=== PATIENT | male | born 1965 | race Caucasian/White ===

== ENCOUNTER 2016-03-22 22:23 | Inpatient (IN) | payer OTHER, MEDICARE ==
[~2016-03-22] VITALS: Ht 170.2 cm; Wt 107.6 kg
[~2016-03-22 22:23] MED LIST: ABILIFY 5MG5 MG PO; ADVAIR DISKUS 21 DSK PO; BUPRENORPHINE-N1 TAB SL; CLEOCIN HCL300 M1 PO; EFFEXOR XR75 M1 PO; EFFEXOR37.5 MG PO; FENOFIBRATE145 M1 PO; HARVONI 90-4001 EACH PO; IBUPROFEN400 M1 PO; JANUVIA 100MG100 MG PO; LATUDA40 MG PO; LEVEMIR 10100 UNITS/ SC; LEVEMIR FL100 UNIT/1 SC; LEVEMIR FL300 UNITS/ SC; LEVEMIR100 U/ML SC; LEVEMIR100 UNIT/1 SC; LISINOPRIL20 M1 PO; LISINOPRIL40 MG PO; METFORMIN HCL500 MG PO; METOPROLOL SUC100 M2 PO; MODAFINIL100 MG PO; MODAFINIL200 MG PO; NOVOLOG 10300 UNITS/ SC; NOVOLOG100 U/ML SC; NOVOLOG100 UNIT/2 SC; PROAIR HFA0.09 MG/Ac PO; PROBIOTIC1 EACH PO; PROVIGIL100 M1 PO; SUBOXONE 12 MG1 EACH SL; SUBOXONE 8 MG-2 MG S PO; SUBOXONE 8 MG-21 FIL PO; SYMBICORT 160/41 PUF INH; TAMIFLU 75MG75 MG PO; TRAMADOL50 MG PO; VENLAFAXINE HC150 MG PO; VENLAFAXINE HY150 MG PO; VIBRAMYCIN100 MG PO; ZIPRASIDONE HCL40 MG PO
--- NOTE | 2016-03-22 23:17 | ED PSYCHIATRIC COMPLAINT ---
See Addendum History of Present Illness General Chief Complaint: Psychiatric Related Complaint Stated Complaint: PARANOID Source: patient, old records Exam Limitations: no limitations Vital Signs & Intake/Output Vital Signs & Intake/Output Vital Signs Date Time Temp Pulse Resp B/P Pulse O2 O2 Flow FiO2 Ox Delivery Rate 03/24 0720 98.1 74 18 127/79 98 Room Air 03/24 0010 98.1 76 18 113/70 98 Room Air 03/23 2046 96.1 76 20 124/70 97 Room Air 03/23 1819 96.4 85 20 126/77 96 Room Air 03/23 1532 97.0 90 16 146/88 03/23 1532 97.0 90 16 146/88 03/23 1502 97.0 90 16 146/88 97 Room Air 03/23 1136 96.4 113 16 164/102 94 Room Air 03/23 0913 98.1 82 18 120/70 98 Room Air ED Intake and Output 03/24 0000 03/23 1200 Intake Total 2000 Output Total Balance 2000 Intake, IV 1999 Allergies Coded Allergies: Penicillins (Severe, ANAPHYLAXIS 09/25/15) peanut (Severe, ANAPHYLAXIS 09/25/15) Sulfa (Sulfonamide Antibiotics) (Intermediate, ANAPHYLAXIS 09/25/15) hydromorphone (From DILAUDID) (Intermediate, BODY TURNS RED AND ITCHY 09/25/15) lamotrigine (From LAMICTAL) (RASH 09/25/15) Reconcile Medications Aripiprazole (Abilify) 5 MG TAB 5 MG PO 0800,2200 clarify racing thoughts FENOFIBRATE NANOCRYSTALLIZED (Fenofibrate) 145 MG TABLET 1 TAB PO DAILY CHOLESTEROL (Reported) Insulin Aspart (Novolog) 100 UNIT/1 ML VIAL 0 UNITS SC TIDAC/HS diabetes Blood sugar levels--Insulin units 80-150mg/dl--18 units 151-200 MG/DL--20 units 201-250 MG/DL--22 units 251-300 MG/DL--24 units 301-350 MG/DL--26 units 351-400 MG/DL--28 units More than 400 MG/DL--28 units-please call M.D. immediately. Bedtime insulin scale 80-150 MG/DL-no insulin 151-200 MG/DL--no insulin 201-250 MG/DL--no insulin 251-300 MG/DL--4 units 301-350 MG/DL--5 units 351-400 MG/DL--6 units Lisinopril 20 MG TABLET 1 TAB PO DAILY BP (Reported) Metoprolol Succinate 100 MG TAB.ER.24H 1 TAB PO DAILY BP (Reported) Venlafaxine HCl (Venlafaxine HCl ER) 150 MG CAP.ER.24H 2 CAP PO DAILY MENTAL HEALTH (Reported) Triage Nurses Notes Reviewed? yes HPI: History of present to the emergency department with increasing paranoia. Patient states he does not take any medications. The patient denies any suicidal or homicidal ideations. Patient denies hearing any voices. Patient states that he called the FBI today to see if any warrants out for him and when he turned around the Police Department including major case in under cover detectives were there and then it quickly disappeared. Patient is also seen the same car drive past multiple times. The patient presented to the emergency room and then it took him approximately 6 hours before he was ready to sign in. Patient states that he had it to make sure that nobody was tailing him before he felt comfortable signing in. (JANY POWELL,PASCALE Vora) Past History Travel History Traveled to [place] past 21 day No Medical History Any Pertinent Medical History? 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 No (JANY POWELL,PASCALE Vora) Review of Systems Review of Systems Constitutional: Reports: no symptoms. EENTM: Reports: no symptoms. Respiratory: Reports: no symptoms. Cardiovascular: Reports: no symptoms. GI: Reports: no symptoms. Genitourinary: Reports: no symptoms. Musculoskeletal: Reports: no symptoms. Skin: Reports: no symptoms. Neurological/Psychological: Reports: see HPI. Hematologic/Endocrine: Reports: no symptoms. Immunologic/Allergic: Reports: no symptoms. All Other Systems: Reviewed and Negative (JANY POWELL,PASCALE Vora) Physical Exam Physical Exam General Appearance: well developed/nourished, mild distress Head: atraumatic Eyes: Bilateral: PERRL, EOMI. Ears, Nose, Throat: normal pharynx, normal ENT inspection, hearing grossly normal Neck: normal inspection, supple Respiratory: normal breath sounds Cardiovascular: regular rate/rhythm Gastrointestinal: soft, non-tender Extremities: normal range of motion Neurological/Psychiatric: no motor/sensory deficits, awake, alert, oriented x 3 Appearance/Memory/Insight: appropriate appearance Behavoir/Eye Contact/Speech: cooperative, normal speech, good eye contact Thoughts/Hallucinations: paranoid Skin: intact, normal color, warm/dry SAD PERSONS Done? CRISIS CONSULT OBTAINED (JANY POWELL,PASCALE Vora) Progress Differential Diagnosis: drug intoxication, drug overdose, drug withdrawal, electrolyte abnormality Plan of Care: Orders Procedure Date/time Status Admit to inpatient psych 03/24 0811 Active URINALYSIS 03/24 0811 Active BASIC METABOLIC PANEL 03/23 1415 Complete ACETONE 03/23 1415 Complete Continuous Observation Monitor 03/23 0700 Active Current Medications Sig/Nirali Start time Last Medication Dose Stop Time Status Admin Buprenorphine/ 2 TAB 0800 03/24 0800 UNVr Naloxone (Suboxone) Ibuprofen 600 MG Q6P PRN 03/23 1915 UNVr (Motrin) Laboratory Tests 03/23/16 1515: Anion Gap 7, Estimated GFR > 60, BUN/Creatinine Ratio 45.7 H, Glucose 294 H, Calcium 8.5, Acetone Level NEGATIVE Hand-Off Endorsed To: MAGO ORTEGA MD Endorsed Time: 0700 Pending: consult (JANY POWELL,PASCALE Vora) Comments: To be hospitalized [facility] (JB POWELL,SILVIA) Departure Departure Disposition: STILL A PATIENT Condition: Stable Clinical Impression Primary Impression: Paranoia Referrals: ISAI MD,DAWNA M. (PCP/Family) Departure Forms: Customer Survey General Discharge Information (JANY POWELL,PASCALE Vora) Psych Admission Note Psychiatric Admission: I have seen and evaluated LISANDRO ENGLAND. I have also reviewed all the pertinent lab results and diagnostic results. LISANDRO ENGLAND will be admitted to our inpatient Psychiatric unit for treatment and care of undifferentiated schizophrenia (JB POWELL,SILVIA)
--- NOTE | 2016-03-22 23:42 | NUR ---
PT WALKED INTO ER FOR HALUCINATIONS AND PARANOIA FOR 4 DAYS. PT STATES HE HAS NOT BEEN ABLE TO SLEEP. PT REFUSING TO COME INTO ER STATING "THEY COULD BE IN THERE" DR CARMICHAEL SPEAKING WITH PT ABOUT BEING ASSESS IN A ROOM. PT ENDED UP REFUSING AND WALKING OUT THE FRONT DOOR. DARIANA GRIJALVA CALLED TO HELP TALK PT BACK INTO ER. DARIANA GRIJALVA WALKED PT BACK THROUGH AMBULANCE BAY INTO 14. PT STILL VERY PARANOID, KEMAR JONES ATTEMPTING TO CREATE A REPOR WITH PT. PT DENIES DRUGS, DENIES ETOH. PT DENIES SI/HI
--- NOTE | 2016-03-23 00:37 | NUR ---
APPRECIATED TRIAGE NOTE, PT HAVING A LOT OF PARANOID THOUGHTS. PER PT, "I CANT TELL WHATS REALITY AND WHAT ISNT, IM SORRY IF IM BOTHERING YOU GUYS, ITS VERY DIFFICULT WITH MY MENTAL STATE. I KNOW YOU GUYS JUST WANT ME TO FALL ASLEEP." PT WAS ABLE TO MEDICATED WITH 2MG ATIVAN, ANOTHER 2MG ATIVAN 45 MINUTES LATER AND 60MG OF TORADOL. BUT PT HAD TO MAKE SURE THAT VIALS WERE UNOPENED AND MEDICATIONS WERE WHAT I TOLD THEM TO BE. PT DECLINED BENADRYL, AND SAID THAT HE FEELS BADLY FOR TAKING UP SO MUCH OF OUR TIME.
--- NOTE | 2016-03-23 00:40 | NUR ---
PT REFUSING VITALS AT THIS TIME. PT EDUCATED ON THE IMPORTANCE OF OBTAINING VITALS FOR PT SAFETY. PT CONTINUES TO REFUSE AT THIS TIME. PT AGITATED AT THIS TIME.
--- NOTE | 2016-03-23 01:06 | NUR ---
URINE TRIO SENT TO LAB, PT CURRENTLY SLEEPING ON STRETCHER, BILATERAL CHEST RISE AND FALL NOTED, SITTER AT BEDSIDE FOR SAFETY, NAD.
--- NOTE | 2016-03-23 01:45 | NUR ---
BLOOD DRAWN AND SENT TO LAB BY THIS RN -SST,BLUE,LAV,ALVAREZ
[2016-03-23 01:57] LABS: ABSOLUTE BASOPHIL COUNT 0 /CUMM (0.0-0.2); ABSOLUTE EOSINOPHIL COUNT 0.1 /CUMM (0.0-0.7); ABSOLUTE GRANULOCYTE CT 5.6 /CUMM (1.4-6.5); ABSOLUTE LYMPH COUNT 2.7 /CUMM (1.2-3.4); ABSOLUTE MONOCYTE COUNT 0.8 /CUMM (0.10-0.60); BASOPHIL % 0.3 % (0.0-2.0); EOSINOPHIL % 0.9 % (0-5); GRANULOCYTE % 60.6 % (42.2-75.2); HEMATOCRIT 36.3 % (42-52); MEAN CORPUSCULAR HGB CONC 34.9 G/DL (33.0-37.0); MEAN CORPUSCULAR VOLUME 91.8 FL (80.0-94.0); MEAN PLATELET VOLUME 11.9 FL (7.4-10.4); PLATELET COUNT 91 /CUMM (130-400); RED BLOOD CELL CT 3.95 /CUMM (4.70-6.10); WHITE BLOOD CELL COUNT 9.2 /CUMM (4.8-10.8)
--- NOTE | 2016-03-23 02:46 | NUR ---
PT SLEEPING AT THIS TIME, BILATERAL CHEST RISE AND FALL NOTED, RR 18, NO DISTRESS NOTED, SITTER AT BEDSIDE FOR SAFETY.
--- NOTE | 2016-03-23 04:06 | NUR ---
PT SLEEPING AT THIS TIME, BILATER CHEST RISE AND FALL, NO DISTRESS NOTED, SITTER AT BEDSIDE FOR SAFETY.
--- NOTE | 2016-03-23 06:10 | NUR ---
PT SLEEPING AT THIS TIME, NO DISTRESS NOTED, SITTER AT BEDSIDE FOR SAFETY
--- NOTE | 2016-03-23 07:08 | NUR ---
ASSUMED CARE AT THIS TIME, PT AWAKE FOR THIS NURSE , BUT NOTED TO BE FALLING ASLEEP, "STATES THAT HE HAS NOT SLEPT IN 5 DAYS AND THAT HE CAN'T STAY AWAKE. FOOD TRAY PROVIDED AND PT ENCOURAGED TO TRY TO STAY AWAKE TO EAT AT THIS TIME.
--- NOTE | 2016-03-23 07:29 | NUR ---
SW attempted to evaluate the patient, however the patient appeared to be too lethargic to participate in the evalution. SW will attempt to evaluate the patient later this morning.
--- NOTE | 2016-03-23 09:09 | NUR ---
PT AWAKE TO VERBAL STIMULI, COMPLAINS OF FEELING COLD , EXTRA BLANKETS PROVIDED PT NOTED TO FALL BACK TO SLEEP AFTER THIS NURSE FINISHED TALKING WITH PT.
--- NOTE | 2016-03-23 10:39 | NUR ---
SW attempted to evaluate the patient, however he continues to present too lethargic to participate in the evaluation. SW will attempt to evaluate this afternoon.
--- NOTE | 2016-03-23 11:25 | NUR ---
PT'S LUNCH TRAY DELIVERED. PT EATING LUNCH.
--- NOTE | 2016-03-23 12:59 | NUR ---
PT ASLEEP AT THIS TIME. RESPIRATIONS EQUAL AND UNLABORED. SITTER AT DOOR.
--- NOTE | 2016-03-23 13:39 | ED PSYCH CRISIS CONSULTATION ---
See Addendum Crisis Consult Basic Assessment Date of Consult: 03/23/16 Responsible Person/Accompanied By: None Insurance Authorization: Insurance #1: Insurance name: MEDICARE A BEHAVIORAL HE[employer] Phone number: Policy number: [id number] Group number: Authorization number: ED Provider: Patient's ED Provider: JANY POWELL,PASCALE Vora Primary Care Physician: Patient's PCP: DAWNA ALEX MD PCP's Current Psychiatrist: [facility] in [place] Chief Complaint: Psychiatric Related Complaint Patient's Quote: "Not sleeping for 4 days and thinking people are after me." Present Illness: The patient is a 50 year old , male, self presenting to the ED, with increased paranoia, auditory hallucinations and visual hallucinations. Of note, he presented to the ED and left, as he was too paranoid to enter a treatment room. He required that the Police Department be called and to walk him back into the ED. He presented cooperative, but extremely lethargic during his evaluation. He reports that his paranoia has increased lately and he has been feeling as though, people are following him. He notes that he has seen cars following him and heard police radios, noting he did anonymously call the "FBI, " to inform them that people were following him. He does have a long history of mental health issues and has been diagnosed with Schizoaffective disorder, requiring 10+ psychiatric admissions to [facility]. He has a history of Heroin abuse, however could not elaborate on specifics of use, except to say he is clean and on Suboxone at the [facility]. SW spoke to the [facility]( [phone]), who confirm that he does receive treatment there, is on Suboxone and does see their psychiatrist. Of note, his tox screen is negative. He is currently residing in a sober living house, which he likes and where he does feels safe. He hesitantly denied feeling suicidal or homicidal, however does have a history of reporting both. He had difficulty participating in the evaluation, reporting hallucinations during the evaluation and states "that his head is hazy," and he feels as though "it is all a dream." The patient reports that he is not sure that he needs to be admitted at this time, given he is "not that depressed." Patient's Address: [address] [place] [address] Other Phone Number: Who Do You Live With? Patient/Self Family/Informants Interviewed: SW attempted to contact his son, Diego Carlin ( [phone]), however there was no answer and a message was left. Allergies - Coded Allergies: Penicillins (Severe, ANAPHYLAXIS 09/25/15) peanut (Severe, ANAPHYLAXIS 09/25/15) Sulfa (Sulfonamide Antibiotics) (Intermediate, ANAPHYLAXIS 09/25/15) hydromorphone (From DILAUDID) (Intermediate, BODY TURNS RED AND ITCHY 09/25/15) lamotrigine (From LAMICTAL) (RASH 09/25/15) Current Medications - Scheduled Medications Aripiprazole (Abilify) 5 MG TAB 5 MG PO 0800,2200 clarify racing thoughts 14 Days Prescribed by MATTHIAS POWELL,PARKER Dhillon on 05/19/15 FENOFIBRATE NANOCRYSTALLIZED (Fenofibrate) 145 MG TABLET 1 TAB PO DAILY CHOLESTEROL #90 (Reported) Entered as Reported by TIFFANIE CHAPARRO on 07/08/13 1423 Insulin Aspart (Novolog) 100 UNIT/1 ML VIAL 0 UNITS SC TIDAC/HS diabetes 30 Days Prescribed by ARNIE ESCUDERO on 07/18/15 Lisinopril 20 MG TABLET 1 TAB PO DAILY BP #90 (Reported) Entered as Reported by MERCEDES SANCHEZ on 09/20/15 1438 Metoprolol Succinate 100 MG TAB.ER.24H 1 TAB PO DAILY BP #180 (Reported) Entered as Reported by TIFFANIE CHAPARRO on 07/08/13 1419 Venlafaxine HCl (Venlafaxine HCl ER) 150 MG CAP.ER.24H 2 CAP PO DAILY MENTAL HEALTH #60 (Reported) Entered as Reported by MERCEDES SANCHEZ on 09/20/15 1350 Laboratory Results: Laboratory Tests 03/23/16 0139: Anion Gap 10, Estimated GFR > 60, BUN/Creatinine Ratio 41.4 H, Glucose 211 H, Calcium 9.0, Total Bilirubin 1.9 H, AST 173 H, ALT 241 H, Alkaline Phosphatase 81, Total Protein 7.0, Albumin 3.7, Globulin 3.3, Albumin/Globulin Ratio 1.1, CBC w Diff NO MAN DIFF REQ, RBC 3.95 L, MCV 91.8, MCH 32.0 H, RDW 14.0, MPV 11.9 H, Gran % 60.6, Lymphocytes % 29.8, Monocytes % 8.4, Eosinophils % 0.9, Basophils % 0.3, Absolute Granulocytes 5.6, Absolute Lymphocytes 2.7, Absolute Monocytes 0.8 H, Absolute Eosinophils 0.1, Absolute Basophils 0, PUBS MCHC 34.9, Serum Alcohol < 10.0 03/23/16 0105: Urine Opiates Screen < 100.00, Methadone Screen 63, Barbiturate Screen < 60, Ur Phencyclidine Scrn 11.30, Amphetamines Screen < 100, U Benzodiazepines Scrn 116, Urine Cocaine Screen < 50, Urine Cannabis Screen < 5.00 (CLEMENTINA JOLLY,ESSIE) Addendum Addendum Crisis re-assessed pt. he remains drowsy. He reports he hasn't slept in four days and he has never experienced this level of paranoid thinking before. He reports he was scared and that his mind is still cloudy. Pt remains drowsy and keeps closing eyes during conversation. Plan for pt to remain o/n in ED and re- evaluated by crisis in the morning. 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 Physical Limitations (Interventions): The patient has multiple medical issues Psychiatric Treatment History Psych Treatment Psychiatric Treatment Yes Inpatient Treatment Yes Outpatient Treatment Yes Location of Treatment [facility] Reason for Treatment Schizoaffective Disorder, Opioid abuse [place]ates of [place] with the last admission in - current with [facility] Response to Treatment The patient has had little stability of symptoms, despite having multiple hospitalizations. Diagnosis by History: Schizoaffective D/O, depressed type Opiate Use D/O, in early remission Substance Use/Abuse History Drug Use/Abuse Substances Used/Abused Yes Substance Used/Abused Heroin First Use Unclear Last Used Unclear How much used/taken Unclear How often Unclear For how long Unclear Route of use Unclear Substance Abuse Treatment Substance Abuse Treatment Past Substance Abuse TX Yes Inpatient Treatment Yes Outpatient Treatment Yes Location of Treatment [facility] Reason for Treatment Opioid Use Disorder Dates of Treatment Current with [facility] Response to Treatment The patient states that he has been able to maintain his sobriety. Comments: The patient was too lethargic to elaborate on specifics of drug use history and treatment. (ESSIE MCRAE LCSW) Current Mental Status Mental Status Orientation: Confused Affect: Flat Speech: Mumbled (Very lethargic) Neuro-vegetative: Unclear, the patient was too lethargic to elaborate Appearance Appearance- Dress/Hygiene: The patient was sitting in bed, in hospital attire and falling alseep during multiple evaluation attempts. The patients eyes were closed for most of the evaluation. Behaviors Thought Process: Disorganized Thought Content: Auditory Hallucinations, Paranoid, Visual Hallucinations Memory: WNL Insight: Fair (Pt. had insight into Paranoia) SI/HI Risk Assessment Past Suicidal Ideation/Attempts Yes Current Suicidal Ideation/Att No (Denied hesitantly) Past Homicidal Ideation/Att: Yes Current Homicidal Ideation/Attempts No (Denied hesitantly) Degree of Intent: None Danger To: Unclear Gravely Disabled: The patient is currently having hallucinations and paranoia. He is also very lethargic and "hazy," having difficulty participating in the eval. Risk Factors: history of suicide atmpts, substance abuse, poor impulse control, male, limited support Lethality Ratin PTSD Checklist PTSD Done? pt unable to participate (Too lethargic) ED Management Sitter: Yes Restraints: No (ESSIE MCRAE LCSW) DSM5/PS Stressors/Medical Prob Diagnosis' (DSM 5, Stressors, Medical): F29 Unspecified Schizophrenia Spectrum and Other Psychotic Disorder F11.99 Unspecified Opioid-Related Disorder Current GAF: 25 Comments: N/A (ESSIE MCRAE LCSW) Departure Disposition Psych Medical Clearance Date: 03/23/16 Medically Cleared at: 0700 Time Started: 1315 Time Ended: 1400 Psychiatrist Consulted: Melany Rodriguez MD Date Disposition Established: 03/23/16 Time Disposition Established: 0300 Plan for Disposition - Modality: Hold over for reassessment in the AM Facility: To be determined Contact: N/A Telephone: N/A Rationale for Disposition: The patient presents with paranoia, visual hallucinations and auditory hallucinations. He presented confused and lethargic during the evaluation. He hesitantly denied feeling suicidal or homicidal. Case discussed with Dr. Rodriguez and she will hold the patient overnight, in the ED, for reassessment in the AM. Additional Instructions: N/A Referrals ISAI POWELL,DAWNA Huitron (PCP/Family) (ESSIE MCRAE LCSW)
--- NOTE | 2016-03-23 13:39 | NUR ---
PT AWAKE AND ALERT , COMPLAINS OF CRAMPS IN HIS LEGS, PT PROVIDED WITH WATER AND ALSO MEDICATED WITH MOTRIN PER ORDER, CRISIS AT BEDSIDE TO SPEAK WITH PT
--- NOTE | 2016-03-23 14:11 | NUR ---
CRISIS SW REPORTED PT SAID HIS HEAD WAS "FUZZY" AND THAT HE WAS NOT UNDERSTANDING WHAT SHE WAS SAYING TO HIM. BSG = 371. PT HAS HX OF IDDM. WILL MAKE DR ORTEGA AWARE
--- NOTE | 2016-03-23 15:02 | NUR ---
PT MEDICATED WITH NOVOLOG 10 UNITS AND 1 LITER NS STARTED IN RIGHT FOREARM
--- NOTE | 2016-03-23 15:09 | NUR ---
PER CRISIS PT TO REMAIN IN ER OVER NIGHT AND BE RE-EVALUATED IN THE MORNING.
--- NOTE | 2016-03-23 15:33 | NUR ---
PT MEDICATED WITH LISINOPRIL 20MG AND TOPROL XL 100MG. PT DROWSY. IV FINISHED INFUSING.
--- NOTE | 2016-03-23 15:39 | NUR ---
Crisis evaluation complete and the case was discussed with Dr. Rodriguez, who will hold the patient over for reassessment in the AM. The patient continues to present lethargic, confused, paranoid and hallucinating. Case discussed with KAREN Riojas and Dr. Olson.
--- NOTE | 2016-03-23 16:44 | NUR ---
PT EATING DINNER TRAY. PT CALM AND COOPERATIVE
--- NOTE | 2016-03-23 17:10 | NUR ---
PHARMACY CALLED FOR JUANIS AT THIS TIME
--- NOTE | 2016-03-23 17:19 | NUR ---
MEDICATED PT WITH 8 UNITS NOVOLOG
--- NOTE | 2016-03-23 17:40 | NUR ---
PT MEDICATED WITH JANUVIA AND STARTED 2ND LITER OF NS BOLUS
--- NOTE | 2016-03-23 17:41 | NUR ---
PT CONTINUES TO BE DROWSY, AND SLEEPING (W/SNORING) WHEN NOT EATING OR BEING GIVEN MEDS. CALM AND COOPERATIVE.
--- NOTE | 2016-03-23 18:19 | NUR ---
PT SITTING UP ON STRETCHER WITH EYES CLOSED , WHEN THIS NURSE WALKED IN ROOM PT OPENED HIS EYES AND CONTINUES TO TRY TO EAT HIS BURGER. PT COMPLAINS THAT IT IS HARD TO CHEW DUE TO BROKEN R LOWER TOOTH.
--- NOTE | 2016-03-23 18:34 | NUR ---
DR ORTEGA AT BEDSIDE TO EVALUATE PTS DENTAL PAIN, PT NOTED WITH SEVERLY DECAYING LOWER TEETH. PT REMAINS VERY SLEEPY AND WHEN SITTER GAVE HIM A CUP OF SODA PT DOSED OFF AND CUP SPILLED, HOUSE KEEPING AT BEDSIDE TO MOP FLOOR
--- NOTE | 2016-03-23 18:48 | NUR ---
PT LAYING DOWN SLEEPING AT TTHIS TIME REGULAR RESP RATE NOTED AND SITTER OUTSIDE ROOM, WAITING ON MD TO ORDER MEDS FOR R LOWER ABD PAIN
--- NOTE | 2016-03-23 19:45 | NUR ---
PT SLEEPING AT THIS TIME. RESPIRATIONS ARE EVEN AND UNLABORED. SITTER AT DOOR FOR SAFETY.
--- NOTE | 2016-03-23 21:15 | NUR ---
PT AMBULATORY TO BATHROOM. PT ATE SOFT FOODS THAT WERE ORDERED FOR HIM. PT CALM AND COOPERATIVE, BUT VERY DROWSY.
--- NOTE | 2016-03-23 22:21 | NUR ---
PT AWOKEN AND MEDICATED PT WITH ABILIFY 5MG. PT REMAINS DROWSY AND SLEEPING WHEN NOT AWOKEN FOR MEDS OR FOOD. PT CALM AND COOPERATIVE, BUT FALLS ASLEEP WHILE YOU ARE SPEAKING WITH HIM.
--- NOTE | 2016-03-23 22:27 | NUR ---
Pt remains drowsy. He reports he hasn't slept past 4 days. he reports being scared and that his mind is still cloudy. Crisis reviewed with him the plan that he is being h/o for further observation and crisis will re-assess him in the morning. Pt reports agreement with that plan.
--- NOTE | 2016-03-24 01:10 | NUR ---
ASLEEP NO DISTRESS COOP, WILL CONT TO MONITOR SITTER IN VIEW.
--- NOTE | 2016-03-24 04:21 | NUR ---
PT CONTINUES TO SLEEP WITH REGULAR RR, EVEN AND UNLABORED RESPIRATIONS. PT IN VIEW OF SITTER. WILL CONTINUE TO MONITOR.
--- NOTE | 2016-03-24 05:00 | NUR ---
REMAINS ASLEEP NO DISTRESS SITTER AT BEDSIDE,
--- NOTE | 2016-03-24 07:00 | NUR ---
EATING BREAKFAST. AWAITING CRISIS THIS AM. Informed waiting has been performed.
--- NOTE | 2016-03-24 08:30 | NUR ---
MEDICATED WITH AM MEDS AND SC INSULIN PER EMAR.
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
--- NOTE | 2016-03-24 09:59 | NUR ---
REPORT TO CHANEL IN [facility].
--- NOTE | 2016-03-24 10:05 | NUR ---
URINE TRIO SENT
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
[2016-03-24] MEDS ORDERED: LISINOPRIL40 M1 PO (10:37)
[2016-03-24] MEDS ORDERED: LYRICA100 M1 PO (10:39)
[2016-03-24] MEDS ORDERED: JANUVIA100 M1 PO (10:40)
[2016-03-24] MEDS ORDERED: NOVOLOG FL100 UNIT/1 SC (10:42)
[2016-03-24] MEDS ORDERED: ABILIFY15 M1 PO (10:43)
[2016-03-24] MEDS ORDERED: SUBOXONE 8 MG-1 EACH SL (10:44)
[2016-03-24] MEDS ORDERED: MODAFINIL200 M1 PO (10:51)
--- NOTE | 2016-03-24 11:54 | NUR ---
50 Y/O MALE ADMITTED TO [facility]PS ON VOLUNTARY BASIS.PT HAS HX SCHIZOAFFECTIVE D/O AND HE PRESENTED TO THE ED WITH AH AND VH AND PARANOIA.HE WALKED OUT OF THE ED ANDREQUIRED POLICE TO BRING HIM BACK. PT REPORTS NO SLEEP FOR 4 DAYS.HE FEELS PEOPLE AND CARS ARE FOLLOWING HIM AND HE MADE SOME CALLS TO THE FBI.PT HAS HX COCAINE AND HEROIN ABUSE AND IS [facility].PT IS IDDDM AND HEP C POSITIVE. UPON ADMISSION PT IS LETHARGIC AND STRUGGLING TO STAY AWAKE DURING THE INTERVIEW. HE DENIES ANY CURRENT SI AND FEELS SAFE IN THE HOSPITAL. DR MARSHALL NOTIFIED FOR H&P
[2016-03-24 12:01] VITALS: BP 135/71
--- NOTE | 2016-03-24 13:42 | History & Physical ---
General Information and HPI MD Statement: I have seen and personally examined LISANDRO ENGLAND and documented this H&P. The patient is a 50 year old M who presented with a patient stated chief complaint of paranoia Source of Information: patient Exam Limitations: clinical condition History of Present Illness: 50-year-old male with past medical history significant for type 1 diabetes, hypertension, hyperlipidemia, anxiety, depression, schizoaffective affective disorder, opioid use who is admitted to Inpatient Psychiatry secondary to having visual hallucinations. Patient was feeling paranoid therefore he decided to come to the emergency room. When patient was interviewed he was sleepy and did not provide good history. Therefore the history is limited. According to the note from vp digital marketing social media and crm at the time of admission, he reports that his paranoia has increased lately and he has been feeling as though, people are following him. He notes that he has seen cars following him and heard police radios, noting he did anonymously call the "FBI," to inform them that people were following him. He does have a long history of mental health issues and has been diagnosed with Schizoaffective disorder, requiring 10+ psychiatric admissions to [facility]. He has a history of Heroin abuse, however could not elaborate on specifics of use, except to say he is clean and on Suboxone at the [facility]. SW spoke to the [facility]([phone]), who confirm that he does receive treatment there, is on Suboxone and does see their psychiatrist. Patient denied any chest pain, abdominal pain, nausea or vomiting. He denies any urinary complaints. He has a mild headache. His blood sugar checked just now was 185. Allergies/Medications Allergies: Coded Allergies: Penicillins (Severe, ANAPHYLAXIS 09/25/15) peanut (Severe, ANAPHYLAXIS 09/25/15) Sulfa (Sulfonamide Antibiotics) (Intermediate, ANAPHYLAXIS 09/25/15) hydromorphone (From DILAUDID) (Intermediate, BODY TURNS RED AND ITCHY 09/25/15) lamotrigine (From LAMICTAL) (RASH 09/25/15) Home Med list Aripiprazole (Abilify) 15 MG TABLET 1 TAB PO DAILY Schizoaffective d/o ( Reported) Buprenorphine HCl/Naloxone HCl (Suboxone 8 MG-2 MG Sl Film) 8 MG-2 MG FILM 1 STR SL DAILY Opioid replacement (Reported) FENOFIBRATE NANOCRYSTALLIZED (Fenofibrate) 145 MG TABLET 1 TAB PO DAILY CHOLESTEROL (Reported) Insulin Aspart (Novolog) 100 UNIT/1 ML VIAL 0 UNITS SC TIDAC/HS diabetes Blood sugar levels--Insulin units 80-150mg/dl--18 units 151-200 MG/DL--20 units 201-250 MG/DL--22 units 251-300 MG/DL--24 units 301-350 MG/DL--26 units 351-400 MG/DL--28 units More than 400 MG/DL--28 units-please call M.D. immediately. Bedtime insulin scale 80-150 MG/DL-no insulin 151-200 MG/DL--no insulin 201-250 MG/DL--no insulin 251-300 MG/DL--4 units 301-350 MG/DL--5 units 351-400 MG/DL--6 units Insulin Aspart, Recombinant (Novolog Flexpen) 100 UNIT/ML INSULN.PEN 20 UNITS SC 1/2 HR AC diabetes (Reported) Lisinopril 40 MG TABLET 1 TAB PO DAILY blood pressure/kidney protectn ( Reported) Metoprolol Succinate 100 MG TAB.ER.24H 1 TAB PO DAILY BP (Reported) Modafinil 200 MG TABLET 1 TAB PO DAILY to promote alertness (Reported) Pregabalin (Lyrica) 100 MG CAPSULE 100 MG PO TID pain (Reported) Sitagliptin Phosphate (Januvia) 100 MG TABLET 1 TAB PO DAILY diabetes ( Reported) Venlafaxine HCl (Venlafaxine HCl ER) 150 MG CAP.ER.24H 2 CAP PO DAILY MENTAL HEALTH (Reported) Past History Travel History Traveled to [place] past 21 day No Medical History Neurological: NONE (due to uncontrolled diabetes), peripheral neuropathy EENT: NONE Cardiovascular: hypertension, hyperlipidemia Respiratory: NONE, DENIES Gastrointestinal: NONE Hepatic: hepatitis C (currently taking Harvoni) Renal: NONE Musculoskeletal: NONE, DENIES Psychiatric: anxiety, depression, IV drug abuse, opioid dependence (agonist therapy with Suboxone), schizo affective disorder (currently on Suboxone therapy ), substance abuse Endocrine: diabetes Blood Disorders: NONE Cancer(s): LEFT TESTICULAR CA 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 Home Who Do You Live With? friends Services at Home: None Primary Language: Thai ETOH Use: denies use Illicit Drug Use: denies illicit drug use Living Will? no Power of Mine Boss/HCP? no Functional Ability ADLs Independent: dressing, eating, toileting, bathing. Ambulation: independent IADLs Independent: telephone. 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 EENTM: Reports: see HPI. Cardiovascular: Reports: see HPI. Respiratory: Reports: see HPI. GI: Reports: see HPI. Genitourinary: Reports: see HPI. Musculoskeletal: Reports: see HPI. Skin: Reports: see HPI. Neurological/Psychological: Reports: see HPI. Exam & Diagnostic Data Last 24 Hrs of Vital Signs/I&O Vital Signs Date Time Temp Pulse Resp B/P Pulse O2 O2 Flow FiO2 Ox Delivery Rate 03/24 1201 97.3 72 135/71 03/24 0945 96.2 97 22 124/77 03/24 0945 96.2 97 22 124/77 03/24 0916 96.2 97 22 124/77 97 Room Air 03/24 0720 98.1 74 18 127/79 98 Room Air 03/24 0010 98.1 76 18 113/70 98 Room Air 03/23 2046 96.1 76 20 124/70 97 Room Air 03/23 1819 96.4 85 20 126/77 96 Room Air 03/23 1532 97.0 90 16 146/88 03/23 1532 97.0 90 16 146/88 03/23 1502 97.0 90 16 146/88 97 Room Air Intake & Output 03/24 1600 03/24 0800 03/24 0000 Intake Total 2000 Output Total Balance 1999 Intake, IV 1999 Patient 237 lb Weight Physical Exam General Appearance Sleepy but arousable. Skin No Rashes HEENT Atraumatic, PERRLA Neck Supple Cardiovascular Regular Rate, Normal S1, Normal S2 Lungs Clear to Auscultation Abdomen Normal Bowel Sounds, Soft, No Tenderness Neurological Cranial Nerves II through XII: intact Extremities No Edema Last 24 Hrs of Labs/Sim: Laboratory Tests 03/24 03/23 1005 1515 Chemistry Sodium (137 - 145 mmol/L) 134 L Potassium (3.5 - 5.1 mmol/L) 4.2 Chloride (98 - 107 mmol/L) 99 Carbon Dioxide (22 - 30 mmol/L) 28 Anion Gap (5 - 16) 7 BUN (9 - 20 mg/dL) 32 H Creatinine (0.7 - 1.2 mg/dL) 0.7 Estimated GFR (>60 ml/min) > 60 BUN/Creatinine Ratio (7 - 25 %) 45.7 H Glucose (65 - 99 mg/dL) 294 H Calcium (8.4 - 10.2 mg/dL) 8.5 Toxicology Acetone Level (NEGATIVE) NEGATIVE Urines Urine Color (YEL,AMB,STR) YEL Urine Clarity (CLEAR) CLEAR Urine pH (5.0 - 8.0) 6.5 Ur Specific [place] (1.001 - 1.035) 1.015 Urine Protein (NEG,<30 MG/DL) NEG Urine Ketones (NEG) NEG Urine Nitrite (NEG) NEG Urine Bilirubin (NEG) NEG Urine Urobilinogen (0.1 - 1.0 EU/dl) 2.0 H Ur Leukocyte Esterase (NEG) NEG Ur Microscopic EXAM NOT REQUIRED Urine Hemoglobin (NEG) NEG Urine Glucose (N MG/DL) >=1000 H 03/23 03/23 0139 0105 Chemistry Sodium (137 - 145 mmol/L) 132 L Potassium (3.5 - 5.1 mmol/L) 3.5 Chloride (98 - 107 mmol/L) 98 Carbon Dioxide (22 - 30 mmol/L) 25 Anion Gap (5 - 16) 10 BUN (9 - 20 mg/dL) 29 H Creatinine (0.7 - 1.2 mg/dL) 0.7 Estimated GFR (>60 ml/min) > 60 BUN/Creatinine Ratio (7 - 25 %) 41.4 H Glucose (65 - 99 mg/dL) 211 H Calcium (8.4 - 10.2 mg/dL) 9.0 Total Bilirubin (0.2 - 1.3 mg/dL) 1.9 H AST (17 - 59 U/L) 173 H ALT (21 - 72 U/L) 241 H Alkaline Phosphatase (< 127 U/L) 81 Total Protein (6.3 - 8.2 g/dL) 7.0 Albumin (3.5 - 5.0 g/dL) 3.7 Globulin (1.9 - 4.2 gm/dL) 3.3 Albumin/Globulin Ratio (1.1 - 2.2 %) 1.1 TSH (0.270 - 4.200 uIU/mL) 0.663 Hematology CBC w Diff NO MAN DIFF REQ WBC (4.8 - 10.8 /CUMM) 9.2 RBC (4.70 - 6.10 /CUMM) 3.95 L Hgb (14.0 - 18.0 G/DL) 12.6 L Hct (42 - 52 %) 36.3 L MCV (80.0 - 94.0 FL) 91.8 MCH (27.0 - 31.0 PG) 32.0 H RDW (11.5 - 14.5 %) 14.0 Plt Count (130 - 400 /CUMM) 91 L MPV (7.4 - 10.4 FL) 11.9 H Gran % (42.2 - 75.2 %) 60.6 Lymphocytes % (20.5 - 51.1 %) 29.8 Monocytes % (1.7 - 9.3 %) 8.4 Eosinophils % (0 - 5 %) 0.9 Basophils % (0.0 - 2.0 %) 0.3 Absolute Granulocytes (1.4 - 6.5 /CUMM) 5.6 Absolute Lymphocytes (1.2 - 3.4 /CUMM) 2.7 Absolute Monocytes (0.10 - 0.60 /CUMM) 0.8 H Absolute Eosinophils (0.0 - 0.7 /CUMM) 0.1 Absolute Basophils (0.0 - 0.2 /CUMM) 0 PUBS MCHC (33.0 - 37.0 G/DL) 34.9 Toxicology Urine Opiates Screen (>2000 NG/ML) < 100.00 Buprenorphine & Metab (NEGATIVE) POSITIVE Methadone Screen (>300 NG/ML) 63 Barbiturate Screen (>200 NG/ML) < 60 Ur Phencyclidine Scrn (>25 NG/ML) 11.30 Amphetamines Screen (>1000 NG/ML) < 100 U Benzodiazepines Scrn (>200 NG/ML) 116 Urine Cocaine Screen (>300 NG/ML) < 50 Urine Cannabis Screen (>50 NG/ML) < 5.00 Serum Alcohol (<10 MG/DL) < 10.0 Assessment/Plan Assessment: 50-year-old male with past medical history significant for type 1 diabetes, hypertension, hyperlipidemia, anxiety, depression, schizoaffective affective disorder, opioid use admitted with acute paranoia, psychosis and having visual hallucinations. Patient is a brittle diabetic. I have started him on the Levemir on the dose which she reported as well as I have also put him on sliding scale insulin. Patient told me that he was taking 20 units after each meal. I started him on a sliding scale but we should get endocrinology consult. Please call endocrinology consult. Continue lisinopril for hypertension as well as phenotypic for hyperlipidemia. I will leave the psych management up to psychiatry. As Ranked By This Provider Problem List: 1. Depression 2. Anxiety 3. Paranoia 4. Poorly controlled diabetes mellitus Miscellaneous Miscellaneous Documentation Attending Case Discussed With: Malou Umanzor Primary Care Physician: DAWNA ALEX MD Patient sees these Specialists endocrinology and psychiatry Level of Patient Care: MENDEZ Pan
[2016-03-24 16:13] VITALS: BP 134/74
--- NOTE | 2016-03-24 23:00 | NUR ---
PT IS CALM ON UNIT. PT IS FOR THE MOST PART COOPERATIVE WITH STAFF, THOUGH HAS BEEN DIFFICULT IN OFFERING VITALS TO BE TAKEN. PT IS ISOLATIVE AND WITHDRAWN, NOT INTERACTING WITH PEERS, AND MINIMAL INERACTION WITH STAFF. PT HAS SPENT MAJORITY OF SHIFT IN ROOM, NOT IN MILIEU. PT MOOD AOOEARS STABLE, AFFECT FLAT AND CONSTRICTED, DEMEANOR IS PLEASANT, COMMUNICATION IS NORMAL, AND APPETITE IS NORMAL. PT DENIES SI AT THIS TIME.
--- NOTE | 2016-03-25 04:12 | NUR ---
Patient slept well, no issues.
[2016-03-25 08:26] VITALS: BP 150/74
--- NOTE | 2016-03-25 08:37 | CPS MD/APRN INITIAL ASSE PSYCH ---
Psychiatric Admission Principal Statistical Programmer's Note Reviewed: Yes Patient Seen and Examined: Yes Identifying Information: This is the 17th [facility] admission since 2007 and the 5th thus far since 2016 for a 50-year-old , , father of two adult children. Chief Complaint: "People are following me." Reaction to Hospitalization: Patient has been spending his day in bed. He was able to get up for lunch and breakfast. States he is feeling unsafe, does not know if he can trust me, or anyone on the staff. States he is tired, and needs to rest. States that perhaps he'll be able to speak with me at more length tomorrow. History of Present Illness Onset of Illness: Chronic. Circumstances Leading to Admission: As per Crisis: Patient self-presented to the ER, cooperative, but extremely lethargic during his initial evaluation. He reports that his paranoia has increased lately and that people are following him. He stated that he has seen cars follow him and has heard police radios. He anonymously called the "FBI," to inform them that people were following him. Problem(s) Justifying Need for Admission: Paranoia, suicidal ideation. Past Psychiatric History Past Diagnosis(es)- if any: As per discharge summary on 02/02/16. Psy Discharge Primary Diag: Schizoaffective Disorder, Depressed; MRE Depressed with suicidity/plan to OD. Hx of psychotic features. 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 Dugan. Opioid Dependence(agonist therapy with Suboxone) Opioid (heroin) Use Disorder; in remission. Hypertension Past Precipitating Factors- if any: Frequent suicidality in the context of very poor adherence or noncompliance with medications . - Include inpatient and outpatient treatment Treatment History: This is the 17th [facility] admissions since 2007. Currently in suboxone treatment at [facility] in [place]. History of Suicide Attempts or Gestures He made a serious overdose earlier in 2016 requiring admission to the ICU. Substance Abuse History: He was previously addicted to heroin but mostly in remission for the past 6 years; currently back on Suboxone therapy through [facility], [place], [place]. 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) Provigil, 200mg daily in AM Suboxone, 16/4mg daily in AM Novolog insulin, sliding scale and 20 units BID Levemir insulin, 100 units SC twice daily (as per endocrinology note on January 31.) metoprolol, 100mg daily in AM Lipitor, 20mg daily Januvia 100mg daily lisinopril 40mg daily lyrica 100mg TID - Include any medical condition(s) that may - impact the patient's recovery/remission Past History Medical History Neurological: NONE (due to uncontrolled diabetes), peripheral neuropathy EENT: NONE Cardiovascular: hypertension, hyperlipidemia Respiratory: NONE, DENIES Gastrointestinal: NONE Hepatic: hepatitis C (currently taking Harvoni) Renal: NONE Musculoskeletal: NONE, DENIES Psychiatric: anxiety, depression, IV drug abuse, opioid dependence (agonist therapy with Suboxone), schizo affective disorder (currently on Suboxone therapy ), substance abuse Endocrine: diabetes Blood Disorders: NONE Cancer(s): LEFT TESTICULAR CA 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 Substance Use: Denies. Suicides: Denies. Social History Living Situation: Currently living in a [facility] in the [facility]. He states it is safe, but boring. Significant Relationships (family/friends): A daughter of 30 and a 34-year-old son (living with and 4 children in [place], [place] States that he has not spoken to his daughter in many years. 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 - #1 Recognizing dangerous situations. - #2 Coping Skills. - #3 Basic information about quitting. Status of Tobacco Cessation Counseling: #1, #2 AND #3 Completed Cessation Med Status: Nicotine Patch Ordered Alcohol Screening - ETOH screen POS if BAL >=80 or Audit-C>= M4/F3 Audit-C Score from Diag Assess: 0 Blood Alcohol Level: Laboratory Tests 03/23 0139 Toxicology Serum Alcohol (<10 MG/DL) < 10.0 Alcohol Use Screening Results: Neg per Audit C &/or BAL - If ETOH counseling indicated - the following topics are required. - #1 Express concern about the patient's - drinking at unhealthy levels, include informing - of national norms for moderate drinking: - men <= 14 drinks/week, max 4 drinks/occasion - women <= 7 drinks/week, max 3 drinks/occasion - #2 Providing feedback, including linking alcohol to - negative physical effects (liver injury, hypertension) - negative emotional effects (relationship problems and - depression) - negative occupational consequences (reduced work - performance) - #3 Advising the patient to abstain from alcohol or - to drink below national norms for moderate drinking - (as listed above). Status of ETOH Use Counseling: N/A B/C NO ETOH Use Metabolic Screening - Screen if on a Neuroleptic Medication - Metabolic screening should include: - Blood Pressure, BMI, Glucose or Hgb A1c, & a - Lipid profile from within the past 365 days. Metabolic Screening () Not Applicable, patient not on a neuroleptic. OR ([x]) Patient on a neuroleptic(s) . Enter below results for Glucose or Hemoglobin A1C, and lipid panel if obtained during the last 365 days. BMI: 37.000 Blood Pressure: 150/74 Laboratory Results (If applicable): Lab Cholesterol 152 MG/DL 12/25/15 0607 Cholesterol/HDL Ratio 4 % 12/25/15 0607 Glucose 294 mg/dL H 03/23/16 1515 HDL Cholesterol 41 mg/dL 12/25/15 0607 Hemoglobin A1c 10.8 % H 12/25/15 0607 LDL Cholesterol, Calc 63 mg/dL L 12/25/15 06 Triglycerides 240 mg/dL H 12/25/15 0607 Exam and Plan Mental Status Examination Ambulation Status: Ambulates independently with steady gait. Appearance: Patient in paper hospital scrubs, disheveled. Attitude towards examiner: Patient very reluctant to speak to me. Eventually agreed to answer only a few questions. This short interview was conducted in his room, the patient remained in bed. He declined to come to my office, and declined to answer many of the questions I asked him. He would not engage freely in conversation, stating that he did not know if he could trust me. Psychomotor activity: Within normal limits, however I interviewed this patient while he was in bed. Behavior: Reluctant to engage in this interview. Would not leave his room for this interview, however left his room for meals. Quality of speech: Speech is well articulated, goal-directed, average in rate, volume and tone. Affect: Congruent Mood: Sad, quiet. Suicidal Ideation: "A little bit." Homicidal Ideation: Denies Hallucinations: Denies Paranoid/Delusional Material: The patient reports that he believes that people are following him. Feels that he does not know if he can trust the staff here. Difficulties with thought organization: Paranoid and perhaps delusional. Insight: Poor Judgment: Judgment appears poor, however he did have good judgment to take the bus from [place] to the emergency department to be evaluated. Orientation: Oriented at least to person and place. Cognition: Within normal limits Memory Function: Within normal limits, however not tested. Estimate of intellectual functioning: Average Assets/Strengths Patient Identified Assets/Strengths: "Perseverance." Impression/Plan Impression and Plan: This a 50-year-old male, well-known to this unit. Today presenting with exacerbation of paranoid thoughts, stating he does not feel safe here on the unit, does not trust the people around him, states he believes people are following him. Today's interview was conducted in a relatively short amount of time, as the patient stated he was not feeling ready to engage in answering questions or engaging in conversation. Plan: Continue medications. Reevaluate tomorrow. - Include all active medical diagnosis that require tx DSM 5 Diagnosis(es): Schizoaffective Disorder, Bipolar; MRE Depressed with suicidality and history of psychotic features Diabetes Type II, severe, frequently in very poor control and insulin-dependent Hypertension - Initial Tx Plan for Active Psych & Medical Conditions Treatment Plan: PLAN: The patient will be monitored on the unit for safety, paranoia, psychosis, mood stability, depression. Additional information is needed from collaterals, including his son. Anticipate once clinically stable, that the patient will be discharged to home and family and be referred to the [facility] in [place]. - Factors that would help patient function - in a less restrictive setting. Factors: No longer feeling paranoid, delusional, or suicidal.
[2016-03-25 11:54] VITALS: BP 126/72
--- NOTE | 2016-03-25 12:56 | NUR ---
PT HAS BEEN RESTING IN BED FOR MOST OF SHIFT REQUIRING STAFF TO ASK AT LEAST TWICE FOR HIM TO GET OUT OF BED FOR VITALS, MEALS OR MEDS. PT MOOD IS STABLE WITH A CONSTRICTED AFFECT. PT HAS BEEN IRRITABLE AT TIMES WITH STAFF BUT DOES APOLOGIZE AFTER. PT SEEMS VERY TIRED. PT HAS NOT BEEN ATTENDING GROUPS. PT DENIES SI THOUGHTS
--- NOTE | 2016-03-25 13:31 | SOCIAL WORKER PROG NOTE PSYCH ---
Social Work Progress Note Progress Note Nigel has been in bed most of the day. I asked if we could talk? He said no initially. He said he needed to sort out thoughts in his head. I asked if he was feeling confused? He said yes. He told me that he was upset about nursing not letting him get a phone number to call the person he needs to speak to in regards to his housing. He can't remember the person's name right now. I offered to help him make the call together, which he seemed to appreciate but wanted to do it later. He told me he was feeling suspicious of the nursing staff. He told me that he was feeling suspicious of lots of things right now and that he was feeling as if someone was following him over the past week. He thinks the goverment may be following him, because he had been hacking [employer] systems and he thinks that they finally have found him. He states this hacking took place a couple of years ago and just ended this past Summer. He stated he has been feeling safe in his new living arrangement. He didn't have any complaints about any psychosocial stressors at this time. He reports taking his medications as prescribed and not using any illegal substances. He is scared of these recent changes. He is hoping to get more rest today, as he hasn't been sleeping well.
--- NOTE | 2016-03-25 13:32 | SOCIAL WORKER TX PLAN PSYCH ---
Treatment Plan - Please Document: - Evidence that there is ongoing collaboration between - the patient and the interdisciplinary team, - including the patient's active participation and - responsibility for engaging in the treatment regimen, - and that the treatment plan is individualized and - relevant to the patient's conditions. - Treatment plan should reflect documentation indicating - that all active therapeutic efforts are included. Strengths/Capabilities: The patient has a sober living enviornment and is connected to treatment at the [facility]. Physical Limitations (Interventions): The patient has multiple medical issues Patient Identified Trmt Goals: "I need to straighten out things in my head" Discharge Plan: Patient will be returning to [facility] where he sees a prescriber and can attend groups. Problem/Goals #1 Problem #1: psychosis Goal (Short Term): Patient will resume medications as prescribed Goal ([place]): Patient will be able to verbalize he feels safe to return to the community Interventions: Patient will be offered medication management with the FRUIT PICKER, groups on symptom management, coping skills, focus group, goals group, art therapy, spirituality. Flat Clothier will assess paranoia daily, discuss triggers for decompensation. Flat Clothier will help discuss aftercare follow up and assist in scheduling appts. Modalities: group/ individual DSM5/PS Stressors/Medical Prob Diagnosis' (DSM 5, Stressors, Medical): F29 Unspecified Schizophrenia Spectrum and Other Psychotic Disorder F11.99 Unspecified Opioid-Related Disorder Current GAF: 25 Treatment Team - Responsibilities of members of the treatment team include: - Medication Management- MD or FRUIT PICKER - Medication Administration and Monitoring- Nurse - Group Therapy- Occupational Therapist - 1:1 Therapy,Disch Planning,family involvement-Flat Clothier
[2016-03-25 16:09] VITALS: BP 150/83
[2016-03-25 19:50] VITALS: BP 130/69
--- NOTE | 2016-03-25 22:05 | NUR ---
PT IS ISOLATIVE AND WITHDRAWN, STAYING OUT OF [place] AND IN ROOM. PT IS LETHARGIC, SLEEPING MOST OF SHIFT AND ONLY COMES INTO [facility] DURING VITALS AND DINNER. PT IS CALM AND RELATIVELY COOPERATIVE, THOUGH IT CAN BE DIFFICULT TO GET PT TO COME IN [place]U, THOUGH WILL AFTER SEVERAL ATTEMPTS AT ASKING. PT BLOOD GLUCOSE READINGS DURING SHIFT ARE FOLLOWS: 1630 ACCU - 235, 2130 ACCU - 352. PT MOOD IS TABLE, AFFECT IS FLAT AND CONSTRICTED, SEEMS ANXIOUS. COMMUNICATION IS NORMAL, AND APPETITE IS NORMAL. PT DENIES SI AT THIS TIME.
[2016-03-26 07:45] VITALS: BP 148/91
--- NOTE | 2016-03-26 12:04 | SOCIAL WORKER PROG NOTE PSYCH ---
Social Work Progress Note Progress Note Nigel was in bed around 11:15. Seems fatigued and stated he is trying to get more rest. He said he feels a little better, but not much difference from yesterday. He talked about trying to sort out the thoughts in his head and determine what is real or not real. He is slightly guarded in sharing what was happening. Stating "I don't want you to think I'm nuts". I encouraged him to process what was happening, as this has been his goal since being here. He started to share the thoughts about cars following him and seeing the [employer] plates. He also believes that there was a "stake out" outside of his house and that people were up standing out on the street watching all night. [place] and this could definetely increase his stress and paranoia. He stated he feels safe here and that's why he came here. He is slightly ambivalent about returning there because he doesn't want to continue feeling this way. He isn't doing much during the day, so there is not much activity for him. He signed a release for [employer]. Stated he should be doing more there during the day. He typically says this at each admission here. He finds it difficult to interact with other people, because he says he is more "introverted". He finds himself feeling alone alot. Called [facility] [facility] and confirmed that Nigel was prescribed Abilify 5mg 1x daily by mouth by Gertrude Kim. She called in a refill for him on 03/19/16.
[2016-03-26 12:43] VITALS: BP 122/75
--- NOTE | 2016-03-26 12:56 | CP SOUTH PROGRESS NOTE PSYCH ---
Psych (Inpt) Progress Note Progress Note Progress Note: I discussed this patient's progress to date, current mental status, treatment process in the context of the treatment plan, and discharge planning with staff/ team in the daily morning inpatient team meeting. I also met with the patient myself in individual session. A total of 25 minutes was spent with the patient with more than 50% spent in counseling and/or coordination of care. SUBJECTIVE: "I thought people were following me. I saw the same license plates over and over. I'll check to see that I didn't have any arrest warrants. I hadn't slept in 5 days, I hadn't taken any medications. I thought they were going to come and get me." OBJECTIVE: Current Medications Sig/Nirali Start time Last Medication Dose Route Stop Time Status Admin Aripiprazole 15 MG AT BEDTIME 03/26 2200 AC PO Aripiprazole 5 MG DAILY 03/25 1000 DC 03/26 PO 0805 Aripiprazole 10 MG AT BEDTIME 03/24 2200 DC 03/25 PO 2153 Buprenorphine/ 2 TAB 0800 03/24 0800 AC 03/26 Naloxone SL 0805 Fenofibrate 145 MG DAILY 03/25 1000 AC 03/26 PO 0806 Ibuprofen 600 MG Q6P PRN 03/23 1915 AC PO Insulin Aspart 0 TIDAC 03/24 1200 AC 03/26 SC 1248 Insulin Detemir 80 UNITS BID 03/24 2200 AC 03/26 SC 0805 Lisinopril 40 MG DAILY 03/25 1000 AC 03/26 PO 0806 Metoprolol Succinate 100 MG DAILY 03/23 1505 AC 03/26 PO 0806 Modafinil 200 MG DAILY 03/25 1000 AC 03/26 PO 0806 Nicotine 7 MG DAILY 03/24 1053 AC 03/26 TOP 0806 Pregabalin 100 MG TID 03/24 1600 AC 03/26 PO 0806 Sitagliptin Phosphate 100 MG 0700 03/25 0700 AC 03/26 PO 0804 Venlafaxine HCl 300 MG DAILY 03/25 1000 AC 03/26 PO 0805 Vital Signs Date Time Temp Pulse Resp B/P Pulse O2 O2 Flow FiO2 Ox Delivery Rate 03/26 1243 78 122/75 03/26 0806 67 148/91 03/26 0806 67 148/91 03/26 0745 97.0 67 148/91 03/25 1950 97.7 74 130/69 03/25 1609 76 150/83 ASSESSMENT: Patient presents this morning as calm, cooperative and pleasant. Patient is unsure whether his paranoid thoughts were real or delusion. He is however out in the community today. States he did not sleep for 5 days prior to arrival because he was so nervous that people were following and watching him. States that he stayed up by drinking soda and energy drinks. Depression:6/10; Anxiety:8/10 (with 10 the worst.) Denies suicidal ideation, homicidal ideation, auditory hallucinations, visual hallucinations. Speech is well articulated, goal-directed, average in rate, volume and tone. The patient understands the risks/benefits/side effects of the medication and is agreeable to continue taking them. PLAN: Patient had not been taking his medications for an unclear period of time prior to arrival. Restart medications. Continue with current management as patient is improving. Continue to provide support and encouragement.
--- NOTE | 2016-03-26 14:10 | NUR ---
PT ISOLATED IN HIS ROOM ALL DAY. HE WAS OOB FOR VS..MEDS AND MEALS ONLY. HE DENIED ANY SUICIDAL THOUGHTS AND DID NOT EXPRESS ANY PARANOID IDEATION THIS SHIFT.HE IS IN NEED OF A SHOWER
[2016-03-26 16:43] VITALS: BP 146/85
[2016-03-26 19:51] VITALS: BP 140/79
--- NOTE | 2016-03-26 22:08 | NUR ---
Pt is in bed during change of shift, affect is flat. Pt is compliant and cooperative with the staff. Vital signs are stable. Blood sugar is monitored closely. Appetite is good. Will continue to monitor the pt overnight.
[2016-03-27 08:08] VITALS: BP 139/89
[2016-03-27 12:06] VITALS: BP 136/76
--- NOTE | 2016-03-27 13:23 | NUR ---
PT HAS BEEN IN HIS BEDROOM FOR MOST OF THE DAY. HE DID NOT ATTEND BOTH PLANNING, AND FOCUS GROUP, INTERACTING MINIMALLY WITH HIS PEERS. PT HAS BEEN COOPERATIVE WITH STAFF AND COMING OUT FOR VITALS AND TO EAT HIS MEALS. PT DENIES SUICIDAL THOUGHTS, AND THOUGHTS TO SELF INJURE HIMSELF.
--- NOTE | 2016-03-27 13:26 | CP SOUTH PROGRESS NOTE PSYCH ---
Psych (Inpt) Progress Note Progress Note Include the following elements, when applicable: Involvement in the active treatment of the patient with behavioral observations of the patient and the patient's response to the treatment. Review of the ongoing treatment process in the context of the treatment plan. Indication of how multi-disciplinary staff members are carrying out the treatment plan. Plans for future interventions and recommendations for revision of the treatment plan. Liaison with other physicians/providers. Progress Note: Notes reviewed, discussed patient progress with nursing staff. Interviewed patient this morning. Nigel reports continued paranoid ideation, though concedes this has improved significantly since admission to Inpatient Psychiatry. He denies medication side effects. He reports mood within the depressed range, though denies suicidal or homicidal ideation. Denies zina auditory or visual hallucinations. He appears hopeful toward convalescence in the near future. MSE: Mildly disheveled man appears older than stated age. Cooperative with interview with limited eye contact. No psychomotor agitation, perhaps mild psychomotor retardation. Speech was monotonous, low volume otherwise within normal limits. Mood was "a little bit better" affect was constricted, guarded. Non-labile. Thought process was mildly perseverative, thought content notable for paranoid ideation. Denies SI or HI. Cognition was grossly intact, insight and judgment were limited to fair. Vitals and labs reviewed, and within normal limits. A/P: Slowly improving paranoid ideation. Continue present management as per primary team.
--- NOTE | 2016-03-27 13:34 | PN- Diabetes ---
Assessment/Plan Assessment: 50 y/o male, hx of DM type 2, overweight and noncompliance with the diet, was admitted for depression. Currently he is on Levemir 80 units twice a day, Novolog covergae before meals and Januvia 100 mg daily. His FSGs were 256 and 323. Plan: 1. continue Levemir 80 units twice a day; 2. continue Januvia 100 mg daily; 3. adjust Novolog coverage before meals and add Novolog coverage at bedtime--- detail see the inpatient DM orders; 4. monitor FSGs. will follow. Inpatient Diabetes Orders Before Each Meal: Bolus Insulin: Novolog < 80 mg/dl: no coverage 80-100 mg/dl: 17 units 101-120 mg/dl: 17 units 121-150 mg/dl: 17 units 151-200 mg/dl: 20 units 201-250 mg/dl: 22 units 251-300 mg/dl: 24 units 301-350 mg/dl: 26 units 351-400 mg/dl: 28 units > 400 mg/dl: 30 units Bedtime: Bolus Insulin: Novolog < 80 mg/dl: no coverage 80-100 mg/dl: no coverage 101-120 mg/dl: no coverage 121-150 mg/dl: no coverage 151-200 mg/dl: no coverage 201-250 mg/dl: no coverage 251-300 mg/dl: no coverage 301-350 mg/dl: 4 units 351-400 mg/dl: 6 units > 400 mg/dl: 8 units Subjective Subjective: He feels okay. Objective Last 24 Hrs of Vital Signs/I&O Vital Signs Date Time Temp Pulse Resp B/P Pulse O2 O2 Flow FiO2 Ox Delivery Rate 03/27 1206 71 136/76 03/27 0831 74 139/89 03/27 0831 74 139/89 03/27 0808 97.2 74 139/89 03/26 195 97.7 67 140/79 03/26 1643 84 146/85
[2016-03-27 15:43] VITALS: BP 119/78
--- NOTE | 2016-03-27 17:13 | NUR ---
Pts blood sugar at this time = 486. Dr. Dugan notified & per MD just given insulin per sliding scale EMAR, no further orders.
[2016-03-27 20:01] VITALS: BP 132/77
--- NOTE | 2016-03-27 23:25 | NUR ---
PATIENT ALERT AND ORIENTED X3, MEDICALLY STABLE; BLOOD SUGARS REMAIN ELEVATED BUT NOT CRITICAL LEVELS; PATIENT DID NOT ATTEND WRAP UP MEETING; PLEASANT AND COOPERATIVE WITH STAFF; MILD DEPRESSION SYMPTOMS PERSIST; PATIENT DENIES S/I AT THIS TIME.
--- NOTE | 2016-03-28 05:42 | NUR ---
PATIENT SLEPT ALL NIGHT.
[2016-03-28 07:51] VITALS: BP 129/79
--- NOTE | 2016-03-28 10:24 | CP SOUTH PROGRESS NOTE PSYCH ---
Psych (Inpt) Progress Note Progress Note Include the following elements, when applicable: Involvement in the active treatment of the patient with behavioral observations of the patient and the patient's response to the treatment. Review of the ongoing treatment process in the context of the treatment plan. Indication of how multi-disciplinary staff members are carrying out the treatment plan. Plans for future interventions and recommendations for revision of the treatment plan. Liaison with other physicians/providers. Progress Note: Notes reviewed, discussed patient progress with nursing staff. Interviewed patient this morning. Nigel reports feeling much better than upon admission, remains quite puzzled as to why he was feeling so paranoid on admission, but relates that he is pleased to hear that his previous concerns or not factually based. He reports improved mood, denies med side effects, denies SI or HI, or zina auditory or visual hallucinations. MSE: Mildly disheveled man appears older than stated age. Cooperative with interview with good eye contact. No psychomotor agitation or retardation. Speech of low vol but o/w wnl. Mood was "doing better" affect was euthymic, less guarded, Non-labile. Thought process was ruminative, thought content notable for mild paranoid ideation. Denies perceptual disturbances. Denies SI or HI. Cognition was grossly intact, insight and judgment were fair. Vitals and labs reviewed, and within normal limits. A/P: Paranoid ideation symptoms have improved as has mood. Continue present management as per primary team.
[2016-03-28 12:23] VITALS: BP 120/72
--- NOTE | 2016-03-28 14:11 | PN- Diabetes ---
Assessment/Plan Assessment: 50 y/o male, hx of DM type 2, overweight and noncompliance with the diet, was admitted for depression. Currently he is on Levemir 80 units twice a day and Januvia 100 mg daily. Novolog covergae before meals was adjusted on 03.27.2016. Novolog covwerage at bedtime was added on. His FSGs were 486, 326, 221 and 263. Plan: 1. continue the current DM regimen for now; 2. encouraged him to pay more attention to diet; 3. monitor his FSGs. will follow. Subjective Subjective: He feels okay. Objective Last 24 Hrs of Vital Signs/I&O Vital Signs Date Time Temp Pulse Resp B/P Pulse O2 O2 Flow FiO2 Ox Delivery Rate 03/28 1223 70 120/72 03/28 0805 77 129/79 03/28 0805 77 129/79 03/28 0751 97.3 77 129/79 03/27 2000 96.4 67 132/77 03/27 1543 75 119/78
--- NOTE | 2016-03-28 14:11 | NUR ---
SSOMEWHAT ISOLATIVE. MINIMAL INTERACTIONS WITH PEERS OR STAFF. NOON FINGER STICK WAS HIGHER THAN 400. DR. GREER NOTIFIED AND PATIENT COVERED PER SLIDING SCALE. NO NEW ORDERS AT THIS TIME. MOOD IS STABLE, EUTHYMIC. DENIED THOUGHTS OF SELF HARM WHEN ASKED.
[2016-03-28 16:01] VITALS: BP 113/66
[2016-03-28 19:49] VITALS: BP 112/73
--- NOTE | 2016-03-28 20:08 | NUR ---
PT. OUT IN COMMUNITY SMILING IN [facility] TAKING MEDS ORDERED. NO ISSUES AT THIS TIME.
[2016-03-29 07:40] VITALS: BP 124/77
--- NOTE | 2016-03-29 08:35 | PN- Diabetes ---
Assessment/Plan Assessment: 50 y/o male, hx of DM type 2, overweight and noncompliance with the diet, was admitted for depression. Currently he is on Levemir 80 units twice a day and Januvia 100 mg daily. Novolog covergae before meals was adjusted on 03.27.2016. Novolog covwerage at bedtime was added on. His FSGs were high yesterday at 221 before breakfast 441 before lunch 193 before dinner and 429 at bedtime.'s morning his fingerstick blood sugar is 310. Plan: It is difficult to control this patient's blood sugars because he is noncompliant on his diabetic regimen. He refuses metformin because he says it causes abdominal pain. He is on Januvia. He would benefit from a GLP1 analog which is not on the hospital formulary. For now I would continue the present insulin. I will speak with the pharmacy. Subjective Subjective: Vital Signs Date Time Temp Pulse Resp B/P Pulse O2 O2 Flow FiO2 Ox Delivery Rate 03/29 0647 97.3 72 22 124/03/29 0747 97.3 72 12403/29 0740 97.3 72 124/03/28 97.5 78 112/03/28 1601 75 113/03/28 1223 70 120/72 Review of Systems Constitutional: Denies: chills, fever. Cardiovascular: Denies: chest pain. Respiratory: Denies: short of breath. Genitourinary: Denies: dysuria. Skin: Reports: no symptoms. Objective Last 24 Hrs of Vital Signs/I&O Vital Signs Date Time Temp Pulse Resp B/P Pulse O2 O2 Flow FiO2 Ox Delivery Rate 03/29 0647 97.3 72 22 124/77 03/29 0747 97.3 72 22 124/03/29 0740 97.3 72 124/03/28 97.5 78 112/73 03/28 1601 75 113/66 03/28 1223 70 120/72 Vital Signs Date Time Temp Pulse Resp B/P Pulse O2 O2 Flow FiO2 Ox Delivery Rate 03/29 0647 97.3 72 22 124/77 03/29 0747 97.3 72 22 124/03/29 0740 97.3 72 124/03/28 97.5 78 112/73 03/28 1601 75 113/66 03/28 1223 70 120/72 Physical Exam General Appearance: alert, awake, comfortable, obese Head: normal appearance Neck: normal inspection Respiratory: normal breath sounds Abdomen: normal bowel sounds Extremities: normal inspection Current Medications: Current Medications Sig/Nirali Start time Last Medication Dose Route Stop Time Status Admin Aripiprazole 15 MG AT BEDTIME 03/26 2200 AC 03/28 PO 2058 Buprenorphine/ 2 TAB 0800 03/24 0800 AC 03/29 Naloxone SL 0750 Fenofibrate 145 MG DAILY 03/25 1000 AC 03/29 PO 0747 Ibuprofen 600 MG Q6P PRN 03/23 1915 AC PO Insulin Aspart 0 TIDAC/HS 03/27 1700 AC 03/29 SC 0744 Insulin Detemir 80 UNITS BID 03/24 2200 AC 03/28 SC 2101 Lisinopril 40 MG DAILY 03/25 1000 AC 03/29 PO 0747 Metoprolol Succinate 100 MG DAILY 03/23 1505 AC 03/29 PO 0747 Modafinil 200 MG DAILY 03/25 1000 AC 03/29 PO 0748 Nicotine 7 MG DAILY 03/24 1053 AC 03/29 TOP 0747 Pregabalin 100 MG TID 03/24 1600 AC 03/29 PO 0749 Sitagliptin Phosphate 100 MG 0700 03/25 0700 AC 03/29 PO 0747 Venlafaxine HCl 300 MG DAILY 03/25 1000 AC 03/29 PO 0747
--- NOTE | 2016-03-29 09:00 | SOCIAL WORKER PROG NOTE PSYCH ---
Social Work Progress Note Progress Note Nigel came to my office this morning and reported that he is feeling much better. Asked if he was still having confusing thoughts? He said no. Said he felt scared before, because he never had those experiences. Continues to say he was taking his medications and not using drugs. He feels that he would be ready to be discharged today or tomorrow. Asked if he felt safe returning to the apartment? He said yes. He does feel that the increased presence of people where he is now living could be impacting his stress. He said he talked to the child and youth program assistant at the program and he knows he is here. Chace Farmer APRN and I met with Nigel together. Nigel couldn't identify any particular trigger for his increased paranoia. He continued to say that he feels better. Denies any depression and rates his anxiety at a 3 (10 being worst) today. He states the thoughts of people following him have resolved. Talked about the importance of having more structure in his life and how going to more groups at [facility] can help with that. He is not open to attending their IOP , but states he can go to groups there. He likes the freedom of picking which days and times he goes. He clearly stated that he does not like being forced to do things and he won't go if he feels forced. Chace Farmer APRN informed him that we would like to contact his prescriber at [facility] to discuss his treatment. Nigel was okay with that. He sees Dr. Bill. Chace Farmer APRN contacted her in my presence and they discussed his treatment. She is very concerned about his liver function and due to cirrhosis. She doesn't feel that he should be taking the Provigil. This is a disagreement that he seems to have with her. She will give him an appt. for 04/05 at 1:30pm and if he doesn't make that he can do the walk-in time on the after that. After further discussion with the team, we decided to go forward with discharge for today. Nigel will take the bus home.
[2016-03-29 12:14] VITALS: BP 133/79
--- NOTE | 2016-03-29 12:18 | NUR ---
will be discharged today to [facility] and follow up outpatient at [facility] in [place]. Mood is stable, full range. No paronoia or other psychotic symptoms. Denied thoughts of self harm when asked. Given education on suicide prevention and depression.
--- NOTE | 2016-03-29 12:39 | DISCHARGE SUMMARY REPORT-PSYCH ---
Visit Information Visit Dates/Diagnosis' Admission Date: 03/24/16 Discharge Date: 03/29/16 Reason for Admission: As per Crisis: Patient self-presented to the ER, cooperative, but extremely lethargic during his initial evaluation. He reports that his paranoia has increased lately and that people are following him. He stated that he has seen cars follow him and has heard police radios. He anonymously called the "FBI," to inform them that people were following him. This is the 17th [facility] admission since 2007 and the 5th thus far since 2015. Psy Discharge Primary Diag: Schizoaffective disorder, mre depressed with paranoid thoughts. Psy Discharge Secondary Diag: Type II DM, insulin dependent; HTN, Hep C; Cirrhosis; hyperlipidemia; HTN; L testicular cancer; peripheral neuropathy. Hospital Course Significant Lab Findings: Lab ALT 241 U/L H 03/23/16 0139 AST 173 U/L H 03/23/16 0139 Ammonia 44 umol/L H 03/29/16 1303 BUN 32 mg/dL H 03/23/16 1515 BUN/Creatinine Ratio 45.7 % H 03/23/16 1515 Glucose 294 mg/dL H 03/23/16 1515 Sodium 134 mmol/L L 03/23/16 1515 TSH 0.663 uIU/mL 03/23/16 0139 Total Bilirubin 1.9 mg/dL H 03/23/16 0139 Hct 36.3 % L 03/23/16 0139 Hgb 12.6 G/DL L 03/23/16 0139 MCH 32.0 PG H 03/23/16 0139 MPV 11.9 FL H 03/23/16 0139 Plt Count 91 /CUMM L 03/23/16 0139 RBC 3.95 /CUMM L 03/23/16 0139 Buprenorphine & Metab POSITIVE 03/23/16 0105 Course Complications: Patient has lab results which are apparently the sequela of hepatitis C. He is a potential candidate for Harvoni treatment. He is being followed for his medical care at the [facility]. Consultations: Patient was seen for admission history and physical by Dr. Umanzor. Please refer to her note for additional information. Patient was seen for endocrine consult by Drs. Ramirez and Ritchie. Please refer to their notes for additional information. Allergies: Coded Allergies: Penicillins (Severe, ANAPHYLAXIS 09/25/15) peanut (Severe, ANAPHYLAXIS 09/25/15) Sulfa (Sulfonamide Antibiotics) (Intermediate, ANAPHYLAXIS 09/25/15) hydromorphone (From DILAUDID) (Intermediate, BODY TURNS RED AND ITCHY 09/25/15) lamotrigine (From LAMICTAL) (RASH 09/25/15) Hospital Course/TX Response: The patient was monitored on the unit for safety, paranoid delusions, mood stability and depression. He participated in multi-modal treatments on the unit. He was medicated according to his outpatient orders, Abilify was increased to 15mg daily for an exacerbation of psychotic thoughts. He tolerated this change in medications well, to good effect. Today, the day of discharge, he presents as alert and oriented 3, calm, cooperative and logical. Patient states that he feels "less confused with my thoughts." He acknowledges that he had uncontrolled paranoia, which brought him to the hospital, however today no longer has those paranoid thoughts. States that although he has had psychiatric issues in the past, he had never had a vivid paranoid episode like this before. Reports that he is sleeping well at night, and has a good appetite. States that he feels safe and ready to be discharged. Patient's care was discussed with his outpatient psychiatrist. He has a history of Hep C and cirrhosis, which is being followed at the [facility]. He is a possible candidate for Harvoni therapy. An elevated ammonia level was taken discovered prior to discharge, and this level will be reported to the [facility] where he receives both psychiatric and primary care. We also discussed the patient's use of modafinil, which is prescribed on an outpatient basis. Patient verbalized understanding that modafinil is a stimulant which may be exacerbating his episodes of psychotic symptoms. Patient will follow up next week with an appointment with his psychiatrist, Dr. Bill, at [facility]. Depression:0/10; Anxiety:3/10 (with 10 the worst.) Denies suicidal ideation, homicidal ideation, auditory hallucinations, visual hallucinations, paranoid ideation. Speech is well articulated, goal-directed, average in rate, volume and tone. The patient understands the risks/benefits/side effects of the medication and is agreeable to continue taking them. Patient reports tolerating his medications, without complaint. States he feels safe and ready for discharge. Discharge HBIPS - Tobacco Use Treatment Offered Post DC Medications Offered: Script Given-See Med List Post DC Tobacco Treatment Plan: Ben Tobacco Tx Pgm Program Appt Date: 03/31/16 Program Appt Time: 1600 - EtOH/Drug Use D/O Treatment Offered Post DC Medications Offered: Ref Med EtOH/Drug Use D/O Post DC EtOH/SubAbuse TX Plan: Other SubAbuse/Dual Pgm ([facility]) Program Appt Date: 03/29/16 Program Appt Time: 1330 Metabolic Screening - Screen if on a Neuroleptic Medication - Metabolic screening should include: - Blood Pressure, BMI, Glucose or Hgb A1c, & a - Lipid profile from within the past 365 days. Metabolic Screening () Not Applicable, patient not on a neuroleptic. OR ([x]) Patient on a neuroleptic(s) . Enter below results for Glucose or Hemoglobin A1C, and lipid panel if obtained during the last 365 days. BMI: 37.000 Blood Pressure: 133/79 Laboratory Results (If applicable): Lab Cholesterol 152 MG/DL 12/25/15 0607 Cholesterol/HDL Ratio 4 % 12/25/15 0607 Glucose 294 mg/dL H 03/23/16 1515 HDL Cholesterol 41 mg/dL 12/25/15 0607 Hemoglobin A1c 10.8 % H 12/25/15 0607 LDL Cholesterol, Calc 63 mg/dL L 12/25/15 0607 Triglycerides 240 mg/dL H 12/25/15 0607 Discharge Instructions General Discharge Information Discharge Medications: Discharge Medications- (Dose, route, freq, indication): HOME MEDICATION LIST START taking these NEW Home Medications: Nicotine (Nicotine Dose: On the skin, DAILY for Qty: 14 Patch) 7 MG/24 HOUR 7 Milligram smoking cessation Refills: 0 PATCH.TD24 Aripiprazole Dose: ORAL, AT BEDTIME for Qty: 14 Called in to (Abilify) 15 MG 15 Milligram CLEAR THOUGHTS. Refills: 0 Pharm 1 TABLET CONTINUE taking these Home Medications: Metoprolol Succinate Dose: ORAL, DAILY for (Metoprolol Succinate) 1 Tablet HYPERTENSION 100 MG TAB.ER.24H Last Taken:03/29/16 Time:0800 Fenofibrate Dose: ORAL, DAILY for HIGH Nanocrystallized 1 Tablet CHOLESTROL (Fenofibrate) 145 MG Last Taken:03/29/16 TABLET Time:0800 Venlafaxine HCl Dose: ORAL, DAILY for MENTAL (Venlafaxine HCl ER) 150 2 Capsule HEALTH MG CAP.ER.24H Last Taken:03/29/16 Time:0800 Lisinopril (Lisinopril) Dose: ORAL, DAILY for blood 40 MG TABLET 1 Tablet pressure/kidney protectn Last Taken:03/29/16 Time:0800 Pregabalin (Lyrica) 100 Dose: ORAL, THREE TIMES DAILY MG CAPSULE 100 Milligram for pain Last Taken:03/29/16 Time:0800 Sitagliptin Phosphate Dose: ORAL, DAILY for diabetes (Januvia) 100 MG TABLET 1 Tablet Last Taken:03/29/16 Time:0800 Insulin Aspart, Dose: Inject into fatty Recombinant (Novolog 20 Units tissue, 1/2 HOUR BEFORE Flexpen) 100 UNIT/ML MEALS for diabetes INSULN.PEN Last Taken:03/29/16 Time:1200 Buprenorphine HCl/ Dose: SUBLINGUAL, DAILY for Naloxone HCl (Suboxone 8 2 Strip Opioid replacement MG-2 MG Sl Film) 8 MG-2 Last Taken:03/29/16 MG FILM Time:0800 Modafinil (Modafinil) Dose: ORAL, DAILY for to 200 MG TABLET 1 Tablet promote alertness Insulin Detemir (Levemir Dose: Inject into fatty Flextouch) 100 UNIT/ML 80 Unit tissue, TWICE DAILY for (3 ML) INSULN.PEN DIABETES Last Taken:03/29/16 Time:1000 STOP taking these DISCONTINUED Home Medications: Aripiprazole (Abilify) 5 MG Dose: ORAL, 0800,2200 for clarify TAB 5 Milligram racing thoughts Reason Stopped: Changed how often to take Lisinopril (Lisinopril) 20 MG Dose: ORAL, DAILY for BP TABLET 1 Tablet Reason Stopped: Changed Dose 1: [facility], [address] [place] [address] Your Preferred Pharmacy [facility] [address] [place] [address] Multiple Neuroleptics: (x) Not Applicable OR Document below three failed attempts at monotherapy, or a plan to taper to monotherapy, or augmentation of Clozapine. () Patient's Diet: Regular Patient's Activity: No restrictions DC Disposition: Patient is returning to his home, a [facility] supported housing facility. Recommendations: Follow-up at [facility]. Take medications as prescribed. Referred To: Provider Referral Service Date: 04/05/16 Referred To: [Dr. Bill] Notes: [facility] [address] [facility] [address]ue [place], [place] [phone] Appointment on 2016 at 1:30pm Copies To: Dr. Bill
[2016-03-29] MEDS ORDERED: NICOTINE PATCH1 EAC1 TOP (12:40)
[2016-03-29] MEDS ORDERED: ABILIFY15 M1 PO (12:43)
[2016-03-29] MEDS ORDERED: LEVEMIR FL100 UNIT/1 SC (13:08)
--- NOTE | 2016-03-29 14:16 | CP SOUTH PROGRESS NOTE PSYCH ---
Psych (Inpt) Progress Note Progress Note Progress Note: I discussed this patient's progress to date, current mental status, treatment process in the context of the treatment plan, and discharge planning with staff/ team in the daily morning inpatient team meeting. I also met with the patient myself in individual session. A total of 30 minutes was spent with the patient with more than 50% spent in counseling and/or coordination of care. SUBJECTIVE: "I feel like I'm all right to go." OBJECTIVE: Current Medications Sig/Nirali Start time Last Medication Dose Route Stop Time Status Admin Aripiprazole 15 MG AT BEDTIME 03/26 2200 DCD 03/28 PO 2058 Buprenorphine/ 2 TAB 0800 03/24 0800 DCD 03/29 Naloxone SL 0750 Fenofibrate 145 MG DAILY 03/25 1000 DCD 03/29 PO 0747 Ibuprofen 600 MG Q6P PRN 03/23 1915 DCD PO Insulin Aspart 0 TIDAC/HS 03/27 1700 DCD 03/29 SC 1215 Insulin Detemir 80 UNITS BID 03/24 2200 DCD 03/29 SC 0939 Lisinopril 40 MG DAILY 03/25 1000 DCD 03/29 PO 0747 Metoprolol Succinate 100 MG DAILY 03/23 1505 DCD 03/29 PO 0747 Modafinil 200 MG DAILY 03/25 1000 DCD 03/29 PO 0748 Nicotine 7 MG DAILY 03/24 1053 DCD 03/29 TOP 0747 Pregabalin 100 MG TID 03/24 1600 DCD 03/29 PO 0749 Sitagliptin Phosphate 100 MG 0700 03/25 0700 DCD 03/29 PO 0747 Venlafaxine HCl 300 MG DAILY 03/25 1000 DCD 03/29 PO 0747 Laboratory Tests 03/29 1303 Chemistry Ammonia (9 - 30 umol/L) 44 H Vital Signs Date Time Temp Pulse Resp B/P Pulse O2 O2 Flow FiO2 Ox Delivery Rate 03/29 1214 74 133/79 03/29 0747 97.3 72 22 124/77 03/29 0747 97.3 72 22 124/77 03/29 0740 97.3 72 124/77 03/28 1949 97.5 78 112/73 03/28 1601 75 113/66 ASSESSMENT: Patient presents today as alert and oriented 3, calm, cooperative and logical. Patient states that he feels "less confused with my thoughts." He acknowledges that he had uncontrolled paranoia, which brought him to the hospital, however no longer has those paranoid thoughts at this time. States that although he has had psychiatric issues in the past, he has never had an episode like this before. Reports that he is sleeping well at night, that he has a good appetite. States that he feels safe and ready to be discharged. I spoke today with his psychiatrist at the [facility] in [place], Dr. Bill. She states that he has a very complex history including a significant personality disorder, and significant substance abuse disorder. In addition he has liver cirrhosis as a consequence of hepatitis C. He is a candidate for Harvoni, however cannot take Harvoni as long as he is taking Provigil. She states sequela of taking a stimulant Provigil. She was also requested that we draw an ammonia level, and t that they have tried to convince him to stop taking the Provigil, however he has not agreed to this. Dr. Bill states that this paranoid episode may also be contributing to his recent psychotic delusions. The ammonia level was taken prior to his discharge, and the elevated ammonia level will be reported out to Dr. Bill. Patient will follow up next week with an appointment with Dr. Bill. I discussed this with the patient, and strongly suggested that he follow his doctor's suggestions, discontinue taking Provigil and look forward to starting Harvoni treatment for hepatitis C. Depression:0/10; Anxiety:3/10 (with 10 the worst.) Denies suicidal ideation, homicidal ideation, auditory hallucinations, visual hallucinations, paranoid ideation. Speech is well articulated, goal-directed, average in rate, volume and tone. The patient understands the risks/benefits/side effects of the medication and is agreeable to continue taking them. PLAN: Discharge today. Patient states he will attend groups at the [facility], and will follow up with Dr. Bill. Continue with current management as patient is improving. Continue to provide support and encouragement.
== END 2016-03-29 14:00 | DRG 885 ==
LOC: ERH 22:23 → ERHI 03-24 08:11 → CP SOUTH 03-24 08:11 → ENPENDDIS 03-24 08:11 → CP SOUTH 03-24 10:39
PROVIDERS: Emergency Medicine; ADMIT Psychiatry & Neurology Psychiatry
DX: F25.1 Schizoaffective disorder, depressive type (principal); E11.42 Type 2 diabetes mellitus with diabetic polyneuropathy; K74.60 Unspecified cirrhosis of liver; I10 Essential (primary) hypertension; B19.20 Unspecified viral hepatitis C without hepatic coma; E78.5 Hyperlipidemia, unspecified; Z85.47 Personal history of malignant neoplasm of testis
CPT/HCPCS: 36415; 80305; 80307; 81003; 96372; G0463; G0480; J0401; J1200; J1885; J7508

== ENCOUNTER 2016-04-12 12:58 | Inpatient (IN) | payer OTHER, MEDICARE ==
[~2016-04-12] VITALS: Ht 175.3 cm; Wt 102.7 kg
[~2016-04-12 12:58] MED LIST changes: +ABILIFY15 M1 PO; +JANUVIA100 M1 PO; +LISINOPRIL40 M1 PO; +LYRICA100 M1 PO; +MODAFINIL200 M1 PO; +NICOTINE PATCH1 EAC1 TOP; +NOVOLOG FL100 UNIT/1 SC; +SUBOXONE 8 MG-1 EACH SL
[2016-04-12 13:32] LABS: ABSOLUTE BASOPHIL COUNT 0 /CUMM (0.0-0.2); ABSOLUTE EOSINOPHIL COUNT 0 /CUMM (0.0-0.7); ABSOLUTE GRANULOCYTE CT 5.1 /CUMM (1.4-6.5); ABSOLUTE LYMPH COUNT 1.8 /CUMM (1.2-3.4); ABSOLUTE MONOCYTE COUNT 0.5 /CUMM (0.10-0.60); BASOPHIL % 0.2 % (0.0-2.0); EOSINOPHIL % 0.5 % (0-5); GRANULOCYTE % 68.4 % (42.2-75.2); HEMATOCRIT 41.7 % (42-52); MEAN CORPUSCULAR HGB CONC 35.2 G/DL (33.0-37.0); MEAN CORPUSCULAR VOLUME 90.9 FL (80.0-94.0); MEAN PLATELET VOLUME 11.8 FL (7.4-10.4); PLATELET COUNT 106 /CUMM (130-400); RBC DISTRIBUTION WIDTH 14.4 % (11.5-14.5); RED BLOOD CELL CT 4.59 /CUMM (4.70-6.10); WHITE BLOOD CELL COUNT 7.4 /CUMM (4.8-10.8)
--- NOTE | 2016-04-12 13:39 | ED PSYCHIATRIC COMPLAINT ---
See Addendum History of Present Illness General Chief Complaint: Psychiatric Related Complaint Stated Complaint: I WANT TO KILL MYSELF TOOK 8 PILLS OF XANAX Source: patient, old records Exam Limitations: no limitations Vital Signs & Intake/Output Vital Signs & Intake/Output Vital Signs Date Time Temp Pulse Resp B/P Pulse O2 O2 Flow FiO2 Ox Delivery Rate 04/12 2130 96.8 85 20 135/77 96 Room Air 04/12 1838 86 16 95 Room Air 04/12 1705 88 16 154/87 97 Room Air 04/12 1557 97.4 81 16 142/77 96 Room Air 04/12 1405 97.0 85 16 106/65 95 Room Air 04/12 1302 97.1 88 18 119/79 95 Room Air Allergies Coded Allergies: Penicillins (Severe, ANAPHYLAXIS 09/25/15) peanut (Severe, ANAPHYLAXIS 09/25/15) Sulfa (Sulfonamide Antibiotics) (Intermediate, ANAPHYLAXIS 09/25/15) hydromorphone (From DILAUDID) (Intermediate, BODY TURNS RED AND ITCHY 09/25/15) lamotrigine (From LAMICTAL) (RASH 09/25/15) Reconcile Medications Aripiprazole (Abilify) 15 MG TABLET 15 MG PO AT BEDTIME CLEAR THOUGHTS. Buprenorphine HCl/Naloxone HCl (Suboxone 8 MG-2 MG Sl Film) 8 MG-2 MG FILM 2 STR SL DAILY Opioid replacement (Reported) Fenofibrate Nanocrystallized (Fenofibrate) 145 MG TABLET 1 TAB PO DAILY HIGH CHOLESTROL (Reported) Insulin Aspart, Recombinant (Novolog Flexpen) 100 UNIT/ML INSULN.PEN 20 UNITS SC 1/2 HR AC diabetes (Reported) Insulin Detemir (Levemir Flextouch) 100 UNIT/ML (3 ML) INSULN.PEN 80 UNIT SC BID DIABETES (Reported) Lisinopril 40 MG TABLET 1 TAB PO DAILY blood pressure/kidney protectn ( Reported) Metoprolol Succinate 100 MG TAB.ER.24H 1 TAB PO DAILY HYPERTENSION (Reported) Modafinil 200 MG TABLET 1 TAB PO DAILY to promote alertness (Reported) Nicotine (Nicotine Patch) 7 MG/24 HOUR PATCH.TD24 7 MG TOP DAILY smoking cessation Pregabalin (Lyrica) 100 MG CAPSULE 100 MG PO TID pain (Reported) Sitagliptin Phosphate (Januvia) 100 MG TABLET 1 TAB PO DAILY diabetes ( Reported) Venlafaxine HCl (Venlafaxine HCl ER) 150 MG CAP.ER.24H 2 CAP PO DAILY MENTAL HEALTH (Reported) Triage Note: 50 Y/O MALE PRESENTS TO TRIAGE STATING HE TOOK "4 OR 8" XANAX PILLS PRIOR TO ARRIVAL IN ATTEMPT TO HARM HIMSELF. PT UNABLE TO STATE HOW MANY MG EACH. FALLING ASLEEP IN TRIAGE WHEN NOT ADDRESSED. UNABLE TO OBTAIN ANY ADDITIONAL INFORMATION FROM PT. TAKEN TO ROOM 17 FROM TRIAGE Triage Nurses Notes Reviewed? yes Onset: Abrupt Duration: day(s): (1), constant Timing: single episode today Severity: moderate, severe Severity Numbers: 10 Associated Symptoms: denies HPI: 50-year-old male with history of diabetes, schizoaffective disorder presents to emergency room stating that he took between 4-8 Xanax pills of unknown dosage just prior to arrival and attempt to harm himself. The patient denies taking anything else. On arrival the patient is lethargic however arousable to verbal stimuli. He denies any shortness of breath chest pain abdominal pain (RHONDA YOUNG) Past History Travel History Traveled to [place] past 21 day No Medical History Any Pertinent Medical History? see below for history Neurological: NONE (due to uncontrolled diabetes), peripheral neuropathy EENT: NONE Cardiovascular: hypertension, hyperlipidemia Respiratory: NONE, DENIES Gastrointestinal: NONE Hepatic: hepatitis C (currently taking Harvoni) Renal: NONE Musculoskeletal: NONE, DENIES Psychiatric: anxiety, depression, IV drug abuse, opioid dependence (agonist therapy with Suboxone), schizo affective disorder (currently on Suboxone therapy ), substance abuse Endocrine: diabetes Blood Disorders: NONE Cancer(s): LEFT TESTICULAR CA [employer]ION [employer]/Reproductive: NONE History of MRSA: No History of VRE: No History of CDIFF: No Isolation History: Standard Pneumonia Vaccine: 07/18/15 Influenza Vaccine: 11/06/15 Surgical History Surgical History: appendectomy, hernia repair, unspecified Psychosocial History Who do you live with Patient/Self Services at Home None What is your primary language Bermudian Tobacco Use: Current Daily Use Daily Tobacco Use Amount/Type: => 5 Cigarettes daily Family History Family History, If Any: MOTHER FH: pancreatic cancer FATHER FH: cancer Hx Contributory? No (RHONDA YOUNG) Review of Systems Review of Systems Constitutional: Reports: see HPI. All Other Systems: Reviewed and Negative Comments Review of systems: See HPI, All other systems negative. Constitutional, no chills no fever, no malaise HEENT: No visual changes no sore throat no congestion, no ear pain Cardiovascular: No chest pain , no palpitation , Skin, no rashes, no change in skin Respiratory: No dyspnea no cough no sputum GI: No nausea no vomiting, no diarrhea, no bloating/constipation : No dysuria N Muscle skeletal: No joint pain, no joint swelling, no back pain, no neck pain, Neurologic: No numbness no confusion, no headache Psych: see hpi Heme/endocrine: No bruising no bleeding Immunology: No lymphadenopathy (RHONDA YOUNG) Physical Exam Physical Exam General Appearance: well developed/nourished, no apparent distress, lethargic Neurological/Psychiatric: no motor/sensory deficits, 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 HEAD is atraumatic. moist mucous membranes. Neck: Supple, normal range of motion Back: Nontender, no CVA tenderness. Full range of motion Cardiovascular: Regular rate and rhythms no murmurs Respiratory: No respiratory distress. Patient speaking in full complete sentences. Breath sounds clear to auscultation bilaterally: NO W/R/R Abdomen: Soft, nontender Extremity: No edema, full range of motion of extremities Neuro: Alert oriented x3, motor sensory normal, cranial nerves II through XII grossly intact. There were no obvious focal neurologic abnormalities. Skin: No appreciable rash on exposed skin, skin is warm and dry. Psych: Mood and affect is normal, memory and judgment is normal. SAD PERSONS SAD PERSONS Response Value Male Sex? yes 1 Age <19 or >45 years? yes 1 Depression/Hopelessness? yes 2 Excessive Ethanol/Drug Use? yes 1 Rational Thinking Loss? yes 2 Organized/Serious Attempt yes 2 Total 9 SAD PERSONS Done? yes (RHONDA YOUNG) Progress Differential Diagnosis: drug intoxication, drug overdose, drug withdrawal, electrolyte abnormality, dka [facility] Plan of Care: Orders Procedure Date/time Status Regular Diet 04/13 B Active Add-on Test (ER Only) 04/12 1408 Active EKG 04/12 1408 Active Telemetry/Process Consultant 04/12 1404 Active ED CRISIS PSYCH CONSULT 04/12 1404 Active TROPONIN LEVEL 04/12 1325 Complete ACETONE 04/12 1325 Complete Continuous Observation Monitor 04/12 1306 Active URINE DRUG SCREEN FOR ER ONLY 04/12 1306 Complete ACETOMINOPHEN 04/12 1306 Complete SALICYLATE 04/12 1306 Complete ETHANOL 04/12 1306 Complete COMPREHENSIVE METABOLIC PANEL 04/12 1306 Complete CBC WITHOUT DIFFERENTIAL 04/12 130 Complete Laboratory Tests 04/12/16 1430: Urine Opiates Screen < 100.00, Methadone Screen 47, Barbiturate Screen < 60, Ur Phencyclidine Scrn < 6.00, Amphetamines Screen 159, U Benzodiazepines Scrn > 800 H, Urine Cocaine Screen > 1000 H, Urine Cannabis Screen < 5.00 04/12/16 1325: Anion Gap 10, Estimated GFR > 60, BUN/Creatinine Ratio 42.9 H, Glucose 504 *H, Calcium 9.4, Total Bilirubin 1.2, AST 150 H, ALT 218 H, Alkaline Phosphatase 96, Troponin I < 0.01, Total Protein 7.7, Albumin 4.1, Globulin 3.6, Albumin/ Globulin Ratio 1.1, CBC w Diff NO MAN DIFF REQ, RBC 4.59 L, MCV 90.9, MCH 32.0 H, RDW 14.4, MPV 11.8 H, Gran % 68.4, Lymphocytes % 24.5, Monocytes % 6.4, Eosinophils % 0.5, Basophils % 0.2, Absolute Granulocytes 5.1, Absolute Lymphocytes 1.8, Absolute Monocytes 0.5, Absolute Eosinophils 0, Absolute Basophils 0, PUBS MCHC 35.2, Salicylates < 1.0, Acetaminophen < 10.0 L, Serum Alcohol < 10.0, Acetone Level NEGATIVE Labs ordered records reviewed. Patient is lethargic however arousable to verbal stimuli. He denies taking anything other than the Xanax today. case d/w dr fitch Corrected sodium is 134 04/12/2016 6:34:10 PM patient is more awake alert, appears in no apparent distress pending crisis evaluation (REANNA DUENAS,RHONDA) Initial ED EKG: normal intervals, normal p-waves, normal QRS complex, normal sinus rhythm (70) Prior EKG: unchanged (09/2015) Rhythm Strip: normal sinus rhythm Hand-Off Endorsed To: JANY POWELL,PASCALE Vora Endorsed Time: 2300 Pending: consult (crisis) (RHONDA YOUNG) Hand-Off Endorsed To: SILVIA MUHAMMAD MD Endorsed Time: 0700 Pending: consult (JANY POWELL,PASCALE Vora) Departure Departure Disposition: STILL A PATIENT Condition: Stable Clinical Impression Primary Impression: Suicide attempt Secondary Impressions: Benzodiazepine abuse Referrals: DAWNA ALEX MD (PCP/Family) Departure Forms: Customer Survey General Discharge Information (RHONDA YOUNG) PA/TRANSITION RN Co-Sign Statement Statement: ED Attending supervision documentation- [X] I saw and evaluated the patient. I have also reviewed all the pertinent lab results and diagnostic results. I agree with the findings and the plan of care as documented in the PA's/TRANSITION RN's documentation. [X] I have reviewed the ED Record and agree with the PA's/TRANSITION RN's documentation. [] Additions or exceptions (if any) to the PAs/TRANSITION RN's note and plan are summarized below: [] (JANY POWELL,PASCALE Vora)
--- NOTE | 2016-04-13 08:51 | ED PSYCH CRISIS CONSULTATION ---
Crisis Consult Basic Assessment Date of Consult: 04/13/16 Responsible Person/Accompanied By: self Insurance Authorization: Insurance #1: Insurance name: MEDICARE [employer] Phone number: Policy number: [id number] Group number: Authorization number: ED Provider: Patient's ED Provider: SILVIA MUHAMMAD MD Primary Care Physician: Patient's PCP: DAWNA ALEX MD PCP's Current Psychiatrist: [facility] Chief Complaint: Psychiatric Related Complaint Patient's Quote: I don't remember. I'm so confused. Present Illness: Pt is a 50yo male who presented to the ED yesterday following an overdose of 8 pills of xanax (unknown mg) in a suicide attempt. Crisis was unable to evaluate him yesterday as he was unable to stay awake. Also his blood sugar was elevated and pt needed further medical clearance. Upon crisis eval this morning pt was woken and remained lithargic. Pt states that he is not able to remember what happened yesterday and does not know how or why he came to the ED. He reports the last thing he remembers is "the bus." Pt expresses that he has been feeling depressed with suicidal thoughts. When asked to elaborate on the suicidal thoughts he replies "I don't know I am so confused. I don't remember taking an overdose. I can think of many other ways to kill myself other than to overdose. " Pt also states that he has been hearing voices, but when asked to elaborate he responds, "I don't know I'm so tired and confused." Pt presents with a depressive affect and expresses. "I'm not doing do well." Pt is well known to [facility] with a hx of schizoaffective d/o several admits to [facility]. He was recently discharged from [facility] on 03/29/16. Pt is requesting readmission to [facility]. Case reviewed with Dr. White of Psychiatry and pt will be admitted to [facility] once his sodium, sugar and potassium have been addressed. Dr. Muhammad aware.. Patient's Address: [address] [place] [address] Other Phone Number: Who Do You Live With? Patient/Self Family/Informants Interviewed: message left for pt's son Diego Carlin Allergies - Coded Allergies: Penicillins (Severe, ANAPHYLAXIS 09/25/15) peanut (Severe, ANAPHYLAXIS 09/25/15) Sulfa (Sulfonamide Antibiotics) (Intermediate, ANAPHYLAXIS 09/25/15) hydromorphone (From DILAUDID) (Intermediate, BODY TURNS RED AND ITCHY 09/25/15) lamotrigine (From LAMICTAL) (RASH 09/25/15) Current Medications - Scheduled Medications Aripiprazole (Abilify) 15 MG TABLET 15 MG PO AT BEDTIME CLEAR THOUGHTS. #14 TAB Prescribed by LE PINEDA APRN on 03/29/16 Buprenorphine HCl/Naloxone HCl (Suboxone 8 MG-2 MG Sl Film) 8 MG-2 MG FILM 2 STR SL DAILY Opioid replacement (Reported) Entered as Reported by PRIMO WHITE MD on 03/24/16 1044 Fenofibrate Nanocrystallized (Fenofibrate) 145 MG TABLET 1 TAB PO DAILY HIGH CHOLESTROL (Reported) Entered as Reported by TIFFANIE CHAPARRO on 07/08/13 1423 Insulin Aspart, Recombinant (Novolog Flexpen) 100 UNIT/ML INSULN.PEN 20 UNITS SC 1/2 HR AC diabetes #1680 (Reported) Entered as Reported by PRIMO WHITE MD on 03/24/16 1042 Insulin Detemir (Levemir Flextouch) 100 UNIT/ML (3 ML) INSULN.PEN 80 UNIT SC BID DIABETES #1 PEN (Reported) Entered as Reported by LE PINEDA APRN on 03/29/16 1308 Lisinopril 40 MG TABLET 1 TAB PO DAILY blood pressure/kidney protectn #90 ( Reported) Entered as Reported by PRIMO WHITE MD on 03/24/16 1037 Metoprolol Succinate 100 MG TAB.ER.24H 1 TAB PO DAILY HYPERTENSION (Reported) Entered as Reported by TIFFANIE CHAPARRO on 07/08/13 1419 Modafinil 200 MG TABLET 1 TAB PO DAILY to promote alertness #30 (Reported) Entered as Reported by PRIMO WHITE MD on 03/24/16 1051 Nicotine (Nicotine Patch) 7 MG/24 HOUR PATCH.TD24 7 MG TOP DAILY smoking cessation #14 PATCH Prescribed by LE PINEDA APRN on 03/29/16 Pregabalin (Lyrica) 100 MG CAPSULE 100 MG PO TID pain #90 (Reported) Entered as Reported by PRIMO WHITE MD on 03/24/16 1039 Sitagliptin Phosphate (Januvia) 100 MG TABLET 1 TAB PO DAILY diabetes #30 ( Reported) Entered as Reported by PRIMO WHITE MD on 03/24/16 1040 Venlafaxine HCl (Venlafaxine HCl ER) 150 MG CAP.ER.24H 2 CAP PO DAILY MENTAL HEALTH #60 (Reported) Entered as Reported by MERCEDES SANCHEZ on 09/20/15 1350 Laboratory Results: Laboratory Tests 04/13/16 0915: Sodium Pending, Potassium Pending, Chloride Pending, Carbon Dioxide Pending, Anion Gap Pending, BUN Pending, Creatinine Pending, BUN/Creatinine Ratio Pending , Glucose Pending, Calcium Pending 04/12/16 1430: Urine Opiates Screen < 100.00, Methadone Screen 47, Barbiturate Screen < 60, Ur Phencyclidine Scrn < 6.00, Amphetamines Screen 159, U Benzodiazepines Scrn > 800 H, Urine Cocaine Screen > 1000 H, Urine Cannabis Screen < 5.00 04/12/16 1325: Anion Gap 10, Estimated GFR > 60, BUN/Creatinine Ratio 42.9 H, Glucose 504 *H, Calcium 9.4, Total Bilirubin 1.2, AST 150 H, ALT 218 H, Alkaline Phosphatase 96, Troponin I < 0.01, Total Protein 7.7, Albumin 4.1, Globulin 3.6, Albumin/ Globulin Ratio 1.1, CBC w Diff NO MAN DIFF REQ, RBC 4.59 L, MCV 90.9, MCH 32.0 H, RDW 14.4, MPV 11.8 H, Gran % 68.4, Lymphocytes % 24.5, Monocytes % 6.4, Eosinophils % 0.5, Basophils % 0.2, Absolute Granulocytes 5.1, Absolute Lymphocytes 1.8, Absolute Monocytes 0.5, Absolute Eosinophils 0, Absolute Basophils 0, PUBS MCHC 35.2, Salicylates < 1.0, Acetaminophen < 10.0 L, Serum Alcohol < 10.0, Acetone Level NEGATIVE Past History Past Medical History Neurological: NONE (due to uncontrolled diabetes), peripheral neuropathy EENT: NONE Cardiovascular: hypertension, hyperlipidemia Respiratory: NONE, DENIES Gastrointestinal: NONE Hepatic: hepatitis C (currently taking Harvoni) Renal: NONE Musculoskeletal: NONE, DENIES Psychiatric: anxiety, depression, IV drug abuse, opioid dependence (agonist therapy with Suboxone), schizo affective disorder (currently on Suboxone therapy ), substance abuse Endocrine: diabetes Blood Disorders: NONE 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 Physical Limitations (Interventions): The patient has multiple medical issues Psychiatric Treatment History Psych Treatment Psychiatric Treatment Yes Inpatient Treatment Yes Outpatient Treatment Yes Location of Treatment [facility] Reason for Treatment schizoaffective Dates of Treatment multiple Response to Treatment variable Diagnosis by History: Schizoaffective D/O, depressed type Opiate Use D/O, in early remission Substance Use/Abuse History Drug Use/Abuse 1 Substances Used/Abused Yes Substance Used/Abused Benzodiazepines First Use pt confused and unable to answer Last Used pt confused and unable to answer How much used/taken pt confused and unable to answer How often pt confused and unable to answer For how long pt confused and unable to answer Route of use pt confused and not able to answer Drug Use/Abuse 2 Substances Used/Abused Yes Substance Used/Abused Cocaine First Use utox positive, but pt currently too confused to answer Last Used as above How much used/taken as above How often as above For how long as above Route of use as above Substance Abuse Treatment Substance Abuse Treatment Past Substance Abuse TX Yes Inpatient Treatment Yes Outpatient Treatment Yes Location of Treatment [facility] Reason for Treatment Opiate use Dates of Treatment multiple Response to Treatment variable Current Mental Status Mental Status Orientation: Confused Affect: Blunted, Constricted, Depressed, Flat, Hopeless, Sad Speech: Soft Neuro-vegetative: Anhedonia, Concentration Poor, Energy Decreased, Helpless, Loss of Interest Appearance Appearance- Dress/Hygiene: unkempt, disheveled Behaviors Thought Process: Thought Blocking Thought Content: Auditory Hallucinations Memory: Impaired Insight: Poor SI/HI Risk Assessment Past Suicidal Ideation/Attempts Yes Current Suicidal Ideation/Att Yes Past Homicidal Ideation/Att: No Current Homicidal Ideation/Attempts No Degree of Intent: Made Preparations, Plan, States Intent, made attempt Danger To: Self Gravely Disabled: Inability, Lack of Insight, Poor Impulse Control, Poor Judgment Risk Factors: access to lethal means, chronic/serious med cond., high anxiety/ distress, history of suicide atmpts, SA/MH hospitalized, substance abuse, poor impulse control, male, limited support Lethality Ratin PTSD Checklist PTSD Done? pt unable to participate (pt lithargic and confused) ED Management Sitter: Yes Restraints: No DSM5/PS Stressors/Medical Prob Diagnosis' (DSM 5, Stressors, Medical): Schizoaffective depressied type F25.9 Current GAF: 25 Departure Disposition Psych Medical Clearance Date: 04/13/16 Medically Cleared at: 0900 Time Started: 899 Time Ended: 919 Psychiatrist Consulted: Primo White MD Date Disposition Established: 04/13/16 Time Disposition Established: 919 Plan for Disposition - Modality: Inpatient Psychiatry Facility: [facility] Rationale for Disposition: safety and stabilization of sx Type of IP Admission: Voluntary Referrals ISAI POWELL,DAWNA Huitron (PCP/Family)
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
[2016-04-13 11:49] VITALS: BP 126/79
[2016-04-13 12:25] VITALS: BP 126/79
[2016-04-13 16:02] VITALS: BP 110/67
--- NOTE | 2016-04-13 17:30 | PN- Att Addend ---
Attending Addendum Attending Brief Note CC: Suicidal ideation HPI: The patient is a 50 yo male with h/o depression/schizoaffective disorder, substance abuse (suboxone therapy in past), DM1, HTN, left testicular ca, & HL who is s/p recent [facility] admission (03/23) who presented in the ED with suicidal ideation after taking 6 tablets of Xanax. Was evaluated by crisis intervention and decision to readmit for further evaluation. He denies any fever , chills, dyspnea, chest pain, or abdominal pain. Meds: in hospital Current Medications Sig/Nirali Start time Last Medication Dose Route Stop Time Status Admin Aripiprazole 15 MG AT BEDTIME 04/13 2200 AC 04/13 PO 2205 Buprenorphine/ 2 TAB 0804/14 0800 AC Naloxone SL Fenofibrate 145 MG DAILY 04/13 1000 AC 04/13 PO 1039 Insulin Aspart 0 TIDAC 04/14 0800 AC SC Insulin Aspart 20 UNITS TIDAC 04/13 1200 DC SC Insulin Aspart 20 UNITS AC 04/13 1200 CAN SC Insulin Aspart 20 UNITS TIDAC 04/13 0800 CAN SC Insulin Aspart 20 UNITS TIDAC 04/13 0800 DC 04/13 SC 1736 Insulin Aspart 20 UNITS TIDAC 04/13 0759 DC SC Insulin Detemir 80 UNITS BID 04/13 1000 AC 04/13 SC 2205 Insulin Detemir 80 UNITS BID 04/13 1000 CAN SC Lisinopril 40 MG DAILY 04/13 1000 AC 04/13 PO 1028 Metoprolol Succinate 100 MG DAILY 04/13 1000 AC 04/13 PO 1028 Modafinil 200 MG DAILY 04/13 1000 AC 04/13 PO 1039 Nicotine 7 MG DAILY 04/13 1000 AC TOP Pregabalin 100 MG TID 04/13 1000 AC 04/13 PO 2205 Sitagliptin Phosphate 100 MG DAILY 04/13 1000 AC 04/13 PO 1028 Venlafaxine HCl 300 MG 0800 04/14 0800 AC PO FH/SH/PMH: see prior chart ROS: As above, no fever, chills, dyspnea, chest pain, palpitations, abdominal pain, dysuria Physical Exam: VS: Vital Signs Date Time Temp Pulse Resp B/P Pulse O2 O2 Flow FiO2 Ox Delivery Rate 04/13 2021 98.1 79 137/79 04/13 1602 100 110/67 04/13 1225 96.7 96 126/79 02 1149 96.7 96 126/79 04/13 1028 98.9 80 20 142/80 04/13 1028 98.9 80 20 142/80 04/13 1018 99.0 78 20 138/72 98 Room Air 02 0846 98.9 88 20 157/70 96 Room Air 04/13 0527 98.4 102 20 147/87 95 Room Air Intake & Output 04/13 1600 04/13 0800 04/13 0000 Intake Total Output Total Balance Patient 102.739 kg Weight Physical Exam: HEENT: eyes- PERRLA, EOMi svetlana- no lesion Neck: no adenopathy, no JVD or bruits Chest: clear Cor: RRR, nl S1, S2 w/o murm Abd: BS+, soft, NT, - masses or HSM Ext: no edema, pulses 2+ Neuro: alert & oriented x3, non-focal, CN 2-12 intact Labs/Tests: Laboratory Tests 04/13/16 0915: Anion Gap 7, Estimated GFR > 60, BUN/Creatinine Ratio 34.3 H, Glucose 357 H, Calcium 8.9 04/12/16 1430: Urine Opiates Screen < 100.00, Methadone Screen 47, Barbiturate Screen < 60, Ur Phencyclidine Scrn < 6.00, Amphetamines Screen 159, U Benzodiazepines Scrn > 800 H, Urine Cocaine Screen > 1000 H, Urine Cannabis Screen < 5.00 04/12/16 1325: Anion Gap 10, Estimated GFR > 60, BUN/Creatinine Ratio 42.9 H, Glucose 504 *H, Calcium 9.4, Total Bilirubin 1.2, AST 150 H, ALT 218 H, Alkaline Phosphatase 96, Troponin I < 0.01, Total Protein 7.7, Albumin 4.1, Globulin 3.6, Albumin/ Globulin Ratio 1.1, CBC w Diff NO MAN DIFF REQ, RBC 4.59 L, MCV 90.9, MCH 32.0 H, RDW 14.4, MPV 11.8 H, Gran % 68.4, Lymphocytes % 24.5, Monocytes % 6.4, Eosinophils % 0.5, Basophils % 0.2, Absolute Granulocytes 5.1, Absolute Lymphocytes 1.8, Absolute Monocytes 0.5, Absolute Eosinophils 0, Absolute Basophils 0, PUBS MCHC 35.2, Salicylates < 1.0, Acetaminophen < 10.0 L, Serum Alcohol < 10.0, Acetone Level NEGATIVE Impression/Plan: #Suicidal Ideation/Attempt- depression, schizoaffective disorder. Plan: [facility]. Treatment as per Psychiatry. #DM1- patient with high sugars in 300's at present. Not clear if he was compliant with meds and diet at home. Was taking standing dose of Humalog pre- meals along with long acting insulin. Plan: Will continue Levemir and add sliding scale Humalog at present. Will re-consult Endocrinology in morning (Drs. Ladd/Ashley). #HTN- BP stable. Plan: Continue Lisinopril/Metoprolol. #HL- on Fenofibrate. Plan: Continue Fenofibrate.
[2016-04-13 20:22] VITALS: BP 137/79
[2016-04-14 08:00] VITALS: BP 139/87
--- NOTE | 2016-04-14 10:50 | SOCIAL WORKER PROG NOTE PSYCH ---
Social Work Progress Note Progress Note Met with Nigel today, he reports having suicidal thoughts today. He stated he feels safe on the unit and will not harm himself here. He will talk to staff if has SI, and/or if has AH/VH. He denied having any AH/VH today. Nigel stated he was going to [facility] for his Methadone and would see a counselor about 1x per week. He reports having SI for the past 3 weeks, didn't tell anyone ( providers or staff at psychiatric [facility], [facility]). Nigel lives [facility] [address] [facility] [address] [facility] [place] in [place]. He stated he likes it there and can return there to live. He stated they do not know about his relaspe with Benzos and cocaine, and he doesn't want them to know. Nigel stated he has been compliant wtih his medications, but doesn't feel they are working. 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 Nigel appears depressed, flat affect, he is cooperative, polite. Stated he has soem sober freinds, and said 'I should feel good about it." Tried to discuss with Nigel what else led to the relapse, he was unable to identify. He was guarded about signing a release for his adult children (son or daughter), and only signed an GURPREET for [facility] to know about his psychiatric issues (not relapse). Started to discuss discharge plan (IOP or Rehab), Nigel stated 'I'm too overhwhelmed to talk about this now, can we deal with that later." He isnot sure if and when he wants a family meeting - not now. Informed him that Daxa Crowley LCSW is his clinician.
[2016-04-14 12:41] VITALS: BP 126/60
[2016-04-14 15:43] VITALS: BP 136/75
--- NOTE | 2016-04-14 18:12 | CPS MD/APRN INITIAL ASSE PSYCH ---
Psychiatric Admission Information Security Architect's Note Reviewed: Yes Patient Seen and Examined: Yes Identifying Information: 50 yo DWM with hx schizoaffective d/o and substance abuse, admitted on 04/13/16 on a voluntary basis, referred by ER. Chief Complaint: Overdosed with #8 Xanax as a suicide attempt. Reported confusion and AH. Reaction to Hospitalization: Wants to be here. History of Present Illness Onset of Illness: Chronic. Circumstances Leading to Admission: Overdose, substance use, including cocaine. Problem(s) Justifying Need for Admission: Overdose, SI, depression. Other HPI: Reports his use of cocaine this episode was unlike him. Wishes he hadn't done that. Reports feeling that his medication hasn't been working. Reports he was really paranoid last admission but isn't now. Reports medication compliance. Stressors: Hepatitis C, not being able to have a healthy life, fear that he will young. Sleep: bad, chronically. Appetite: okay. Energy: bad. Past Psychiatric History Past Diagnosis(es)- if any: Schizoaffective d/o. Opioid dependence. Past Precipitating Factors- if any: Last admission: paranoia. - Include inpatient and outpatient treatment Treatment History: Sees Dr. Bill at [facility]. Doesn't like IOPs. Multiple inpatient admissions, including to [facility] 8 years ago, [facility] WITH [facility] 7-8 years ago. History of Suicide Attempts or Gestures Reports this was about his fourth attempt. Substance Abuse History: E-cigarette. Denies use of alcohol and cannabis. Cocaine: 2x/past year. Past heroin, clean 1+ year. Drug screen was positive for benzodiazepines and cocaine. Allergies: Coded Allergies: Penicillins (Severe, ANAPHYLAXIS 09/25/15) peanut (Severe, ANAPHYLAXIS 09/25/15) Sulfa (Sulfonamide Antibiotics) (Intermediate, ANAPHYLAXIS 09/25/15) hydromorphone (From DILAUDID) (Intermediate, BODY TURNS RED AND ITCHY 09/25/15) lamotrigine (From LAMICTAL) (RASH 09/25/15) Home Med List: Metoprolol ER 100 mg daily. Fenofibrate 145 mg daily. Effexor XR 300 mg daily. Lisinopril 40 mg daily. Lyrica 100 mg t.i.d. Januvia 100 mg daily. Novolog 20 units SC before meals. Suboxone 16/4 daily. Provigil 200 mg daily. Levemir 80 units SC b.i.d. Nicoderm 7 mg top daily. Abilify 15 mg qhs. - Include any medical condition(s) that may - impact the patient's recovery/remission Past History Medical History Neurological: NONE (due to uncontrolled diabetes), peripheral neuropathy EENT: NONE Cardiovascular: hypertension, hyperlipidemia Respiratory: NONE, DENIES Gastrointestinal: NONE Hepatic: hepatitis C (currently taking Harvoni) Renal: NONE Musculoskeletal: NONE, DENIES Psychiatric: anxiety, depression, IV drug abuse, opioid dependence (agonist therapy with Suboxone), schizo affective disorder (currently on Suboxone therapy ), substance abuse Endocrine: diabetes Blood Disorders: NONE Cancer(s): LEFT 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 Substance Use: Father: opiates. Suicides: Denies. Social History Living Situation: Lives in a sober house. Significant Relationships (family/friends): . years ago. Has 2 kids, 33 yo son and 30 yo daughter. Patient reports daughter is distant because of patient's substance use hx. 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 On disability for depression, addiction. Legal: Hx drug-related arrest years ago. Healthly Behaviors Screening Tobacco Screening Tobacco Use from ED Docu: Current Daily Use (E-cigarette) Daily Tobacco Use Amount/Type: => 5 Cigarettes daily - If tobacco counseling indicated - the following topics are required. - #1 Recognizing dangerous situations. - #2 Coping Skills. - #3 Basic information about quitting. Status of Tobacco Cessation Counseling: #1, #2 AND #3 Completed Cessation Med Status: Nicotine Patch Ordered Alcohol Screening - ETOH screen POS if BAL >=80 or Audit-C>= M4/F3 Audit-C Score from Diag Assess: 0 Blood Alcohol Level: Laboratory Tests 04/12 1325 Toxicology Serum Alcohol (<10 MG/DL) < 10.0 Alcohol Use Screening Results: Neg per Audit C &/or BAL - If ETOH counseling indicated - the following topics are required. - #1 Express concern about the patient's - drinking at unhealthy levels, include informing - of national norms for moderate drinking: - men <= 14 drinks/week, max 4 drinks/occasion - women <= 7 drinks/week, max 3 drinks/occasion - #2 Providing feedback, including linking alcohol to - negative physical effects (liver injury, hypertension) - negative emotional effects (relationship problems and - depression) - negative occupational consequences (reduced work - performance) - #3 Advising the patient to abstain from alcohol or - to drink below national norms for moderate drinking - (as listed above). Status of ETOH Use Counseling: N/A B/C NO ETOH Use Metabolic Screening - Screen if on a Neuroleptic Medication - Metabolic screening should include: - Blood Pressure, BMI, Glucose or Hgb A1c, & a - Lipid profile from within the past 365 days. Metabolic Screening () Not Applicable, patient not on a neuroleptic. OR () Patient on a neuroleptic(s) . Enter below results for Glucose or Hemoglobin A1C, and lipid panel if obtained during the last 365 days. BMI: 33.400 Blood Pressure: 136/75 Laboratory Results (If applicable): Exam and Plan Mental Status Examination Ambulation Status: Ambulatory, sitting in a chair in NAD. Appearance: Casually dressed, overweight. Attitude towards examiner: Calm, polite and cooperative. Psychomotor activity: No psychomotor agitation/retardation. Behavior: WNL. Unremarkable. Quality of speech: Slightly slow production, normal in volume and tone. Affect: Calm and blunted. Mood: "Hopeless." Sad ~5-6/10. Reports anxiety is really bad all the time, ~6-7/10. Feels worthless and guilty but not helpless. Suicidal Ideation: Denies SI this moment but had SI hours ago. Gives a safety promise for here. Homicidal Ideation: Denies. Hallucinations: Pola AH and VH. Paranoid/Delusional Material: Denies PI and magical casiano. No apparent delusions. Difficulties with thought organization: None but slightly delayed cognition. Insight: Limited. Initially denied possibility of a cocaine crash. Judgment: Poor. Orientation: Ox3. Cognition: Grossly intact but slightly slowed. Memory Function: Grossly normal. Estimate of intellectual functioning: Average. Assets/Strengths Patient Identified Assets/Strengths: "Perseverent." Impression/Plan Impression and Plan: The patient is here after a Xanax overdose in the context of cocaine use. He has chronic mental illness. - Include all active medical diagnosis that require tx DSM 5 Diagnosis(es): Schizoaffective d/o, depressed. Opiate use disorder. Cocaine use disorder. R/o benzodiazepine use disorder. S/p Xanax overdose. Hepatitis C. Hypertension. IDDM. Peripheral neuropathy. Hyperlipidemia. Hx left testicular cancer/orchiectomy. - Initial Tx Plan for Active Psych & Medical Conditions Treatment Plan: The patient will be monitored on the unit for safety, psychosis and mood disorder. We will now stop modafanil, because the patient plans to go on Harvoni. We will increase Abilify to 20 mg qhs to help with depression/mood stability. Additional information is needed from collaterals. - Factors that would help patient function - in a less restrictive setting. Factors: No longer suicidal.
[2016-04-14 20:02] VITALS: BP 131/79
[2016-04-15 07:31] VITALS: BP 134/76
--- NOTE | 2016-04-15 11:14 | SOCIAL WORKER PROG NOTE PSYCH ---
Social Work Progress Note Progress Note anvil worker met with pt and he signed a release for [facility]. He reports that he continues to feel depressed and tired and has intermittent suicidal thoughts. He denies current suicidal thoughts, but worries the thoughts will come back again. Discussed coping skills when pt has intrusive thoughts. He is able to reach out for help. Also discussed distraction techniques and replacing negative thoughts with positive ones. Also explained mindfulness.
--- NOTE | 2016-04-15 11:45 | PN- Att Addend ---
Attending Addendum Attending Brief Note The patient continues to run glucose levels in the 300's. Is non-compliant with diet as per staff. Dr. Ramirez to see and will adjust insulin dosing.
[2016-04-15 12:37] VITALS: BP 120/63
--- NOTE | 2016-04-15 14:22 | CP SOUTH PROGRESS NOTE PSYCH ---
Psych (Inpt) Progress Note Progress Note Include the following elements, when applicable: Involvement in the active treatment of the patient with behavioral observations of the patient and the patient's response to the treatment. Review of the ongoing treatment process in the context of the treatment plan. Indication of how multi-disciplinary staff members are carrying out the treatment plan. Plans for future interventions and recommendations for revision of the treatment plan. Liaison with other physicians/providers. Progress Note: Case and treatment plan discussed in team meeting. Staff reports that the patient is isolative and withdrawn. Stayed in bed all evening. Cooperative. Does not restrict his dietary intake. Patient seen at 2:02 pm. Was asleep in bed but got up and met with me in conference room. States he is alright, just very tired. Appears awake and alert. May feel fatigued from Abilify dose increase and discontinuation of Provigil. Affect is calm and blunted, slightly brighter today. Sad ~8/10. Anxiety ~8/10. Feels hopeless, helpless, worthless and guilty. Has had SI this afternoon. Gives a safety promise. I asked him to identify what he enjoys: he mentioned talking to his children, his grandchildren, working with computers, and money (which he says he doesn't have). Denies HI, AH, VH and PI. States he isn't getting enough sleep. He reports he has nocturia 2-6 times a night. We discussed ways to approach the nocturia, including controlling his blood sugars, restricting fluid intake after 6 PM and voiding before bedtime. Reports appetite is okay. Energy is not good. Tolerating medications. I advised the patient to avoid daytime naps. I advised him to consider [facility] IOP. I advised the patient to consider lithium for its anti-suicidal properties. He reports he was on lithium in the past and his reservations are dry mouth and lab draws. IMPRESSION: Slow progress. Continue present treatment plan. Continues to require inpatient level care.
[2016-04-15 15:50] VITALS: BP 117/65
--- NOTE | 2016-04-15 18:38 | Cons- Endocrinology ---
General Information and HPI Consulting Request Date of Consult: 04/14/16 Requested By: Primo Vo MD Reason for Consult: Uncontrolled diabetes Source of Information: patient, old records Exam Limitations: poor historian History of Present Illness: This 50-year-old male has a known history of diabetes mellitus type 2 which has been largely uncontrolled. The patient does not follow a diabetic diet. He has a lot of insulin resistance and requires large doses of insulin to control his sugars. The patient has a history of depression and schizoaffective disorders substance abuse and hypertension. He has had multiple admissions to Inpatient Psychiatry. This time he took 6 tablets of Xanax and was very drowsy when he came to the ER. He was evaluated by crisis intervention and be admitted to Inpatient Psychiatry for further evaluation. Allergies/Medications Allergies: Coded Allergies: Penicillins (Severe, ANAPHYLAXIS 05/11/16) peanut (Severe, ANAPHYLAXIS 05/11/16) Sulfa (Sulfonamide Antibiotics) (Intermediate, ANAPHYLAXIS 05/11/16) hydromorphone (From DILAUDID) (Intermediate, BODY TURNS RED AND ITCHY 05/11/16) lamotrigine (From LAMICTAL) (RASH 05/11/16) Home Med List: Aripiprazole (Abilify) 15 MG TABLET 30 MG PO AT BEDTIME CLEAR THOUGHTS/MOOD STABILITY Buprenorphine HCl/Naloxone HCl (Suboxone 8 MG-2 MG Sl Film) 8 MG-2 MG FILM 2 STR SL DAILY Opioid replacement (Reported) Exenatide Microspheres (Bydureon Pen) 2 MG/0.65 ML PEN.INJCTR 2 MG SC ONCE A WEEK DIABETES Fenofibrate Nanocrystallized (Fenofibrate) 145 MG TABLET 1 TAB PO DAILY HIGH CHOLESTROL (Reported) Insulin Aspart (Novolog) 100 UNIT/ML VIAL 1 UNITS SC TIDAC/HS elevated blood sugar Insulin Detemir (Levemir) 100 UNIT/ML VIAL 80 UNITS SC BID diabetes management Lactulose 20 GRAM/30 ML SOLUTION 30 ML PO TID AMMONIA LEVEL (Reported) Lisinopril 40 MG TABLET 1 TAB PO DAILY blood pressure/kidney protectn ( Reported) Formoso Carbonate 300 MG CAPSULE 300 MG PO 0800,1999 stabilize mood Metoprolol Succinate 100 MG TAB.ER.24H 1 TAB PO DAILY HYPERTENSION (Reported) Nicotine (Nicotine Patch) 14 MG/24 HOUR PATCH.TD24 14 MG TOP 0800 smoking cessation Venlafaxine HCl (Effexor XR) 75 MG CAP.ER.24H 225 MG PO 0800 anti-depressant Review of Systems Review of Systems Constitutional: Denies: chills, fever. Cardiovascular: Denies: chest pain. Respiratory: Denies: short of breath. Musculoskeletal: Denies: joint swelling. Skin: Reports: no symptoms. Hematologic/Endocrine: Denies: bruising, bleeding. 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 Home Who Do You Live With? friends Services at Home: None Primary Language: Hebrew Living Will? no Power of Renovator Machine Operator/HCP? no Functional Ability ADLs Independent: dressing, eating, toileting, bathing. Ambulation: independent IADLs Independent: telephone. Exam & Diagnostic Data Last 24 Hrs of Vital Signs/I&O Vital Signs Date Time Temp Pulse Resp B/P Pulse O2 O2 Flow FiO2 Ox Delivery Rate 04/15 1550 67 117/65 04/15 1237 69 120/63 04/15 0735 98.2 66 20 134/76 04/15 0735 98.2 66 20 134/76 04/15 0631 98.2 66 134/76 04/14 2001 96.7 68 131/79 Vital Signs Date Time Temp Pulse Resp B/P Pulse O2 O2 Flow FiO2 Ox Delivery Rate 04/15 1550 67 117/65 04/15 1237 69 120/63 04/15 0735 98.2 66 20 134/76 04/15 0835 98.2 66 20 134/76 04/15 0731 98.2 66 134/76 08 2001 96.7 68 131/79 Vital Signs Date Time Temp Pulse Resp B/P Pulse O2 O2 Flow FiO2 Ox Delivery Rate 04/15 1550 67 117/65 04/15 1237 69 120/63 04/15 834 98.2 66 20 134/76 04/15 834 98.2 66 20 134/76 04/15 0631 98.2 66 134/76 04/14 2001 96.7 68 131/79 Physical Exam General Appearance: awake, lethargic Head: normal appearance Neck: normal inspection Respiratory: normal breath sounds Cardiovascular: regular rate/rhythm Gastrointestinal: normal bowel sounds, soft Extremities: normal inspection Neurologic/Psych: awake Skin: intact Assessment/Plan Assessment/Plan Patient has large insulin requirements second to insulin resistance and non- compliance on his diet. Will adjust his insulin regimen. Have asked patient to be more careful on his diet. We'll place him back on his high doses of insulin and monitor her sugars carefully while on the unit Patient will not take metformin. We can try to obtain the medications in the future such as Bydureon in order to help reduce his appetite. Consult Acknowledgment - Thank you for your consult request.
[2016-04-15 19:27] VITALS: BP 126/70
[2016-04-16 07:09] VITALS: BP 127/66
[2016-04-16 12:15] VITALS: BP 115/62
--- NOTE | 2016-04-16 14:15 | CP SOUTH PROGRESS NOTE PSYCH ---
Psych (Inpt) Progress Note Progress Note Include the following elements, when applicable: Involvement in the active treatment of the patient with behavioral observations of the patient and the patient's response to the treatment. Review of the ongoing treatment process in the context of the treatment plan. Indication of how multi-disciplinary staff members are carrying out the treatment plan. Plans for future interventions and recommendations for revision of the treatment plan. Liaison with other physicians/providers. Progress Note: Case and treatment plan discussed in team meeting. Certified First Assistant wants the patient on a consistent carbohydrate 1 diet, which has been ordered. Staff reports that the patient is doing fine. Cooperative. Isolated in his room during the evening. Minimizes relapse. Ambivalent about IOP. Patient seen at 12:24 PM. Feels all right. States he guesses he is ready to start lithium because of suicidal ideation. Reports he had suicidal ideation last night and again this morning. I reviewed his medication list again, and since he is on lisinopril, I advised against lithium. Reports mood seems okay. Rates sad mood about 6/10. Reports he always feels a little anxious and rates anxiety about 6-7/10. Feels hopeless because we will not use lithium at this time. Feels helpless, stating "I don't know what to do." Feels worthless, stating he has always been like that; his self-esteem reportedly is pretty bad. Feels guilty. Denies suicidal ideation now but had it earlier today. He gives a safety promise for here. Denies homicidal ideation. Denies auditory and visual hallucinations and paranoid ideation. Reports sleep is okay and appetite is good. Reports energy today seems better than it was yesterday. Tolerating medications well, without complaint. Willing to attend [facility] IOP. Agrees to increase Abilify dose to 25 mg q.h.s. I advised the patient that his Effexor XR dose of 300 mg daily exceeds the PDR-recommended maximum. Patient indicates he has been talking to his son on the phone daily. IMPRESSION: Slow progress. Continue present treatment plan. Monitor response to Abilify dose increase. Plan is for discharge on Tuesday if the patient is no longer suicidal.
[2016-04-16 15:51] VITALS: BP 118/62
--- NOTE | 2016-04-16 15:57 | SOCIAL WORKER TX PLAN PSYCH ---
Treatment Plan - Please Document: - Evidence that there is ongoing collaboration between - the patient and the interdisciplinary team, - including the patient's active participation and - responsibility for engaging in the treatment regimen, - and that the treatment plan is individualized and - relevant to the patient's conditions. - Treatment plan should reflect documentation indicating - that all active therapeutic efforts are included. Strengths/Capabilities: The patient has a sober living enviornment and is connected to treatment at the [facility]. Physical Limitations (Interventions): The patient has multiple medical issues Patient Identified Trmt Goals: "I don't want to be suicidal" Discharge Plan: Patient will return to [facility] and to the [facility] where he currently resides. Problem/Goals #1 Problem #1: suicidal ideation Goal (Short Term): Patient will explore medication changes to help with his depressive thoughts Goal (Rock Room Worker): patient will be able to contract for safety outside of the hospital in order to discharge. Interventions: patient will be offered medication management with the SHEET METAL HELPER, patient will be offered groups on symptom management, coping skills, focus group, relaxation group, self-esteem, art therapy, spirituality, accupuncture. Station Inspector will explore what would help make life more meaningful. Station Inspector to assist with aftercare planning. Modalities: group/ individual Problem/Goals #2 Problem #2: cocaine dependence/abuse Goal (Short Term): patient will identify triggers to use Goal (Rock Room Worker): patient will identify the pros and cons to continued use. Interventions: patient will be offered groups on relapse prevention, AA, coping skills group, and other therapeutic activities to help patient find alternatives to self- soothe. DSM5/PS Stressors/Medical Prob Diagnosis' (DSM 5, Stressors, Medical): Schizoaffective depressied type F25.9 Current GAF: 25 Treatment Team - Responsibilities of members of the treatment team include: - Medication Management- MD or SHEET METAL HELPER - Medication Administration and Monitoring- Nurse - Group Therapy- Occupational Therapist - 1:1 Therapy,Disch Planning,family involvement-Station Inspector
--- NOTE | 2016-04-16 15:57 | SOCIAL WORKER PROG NOTE PSYCH ---
Social Work Progress Note Progress Note Nigel talked about having suicidal thoughts today. Stated he has been experiencing an intensity with these thoughts over the last week or so. He is unsure as to what has changed. Talked about his relapse with cocaine and how that certainly could effect his thoughts and mood. He denied that was the cause and stated he used just before coming in and he had these thoughts before he used. He said the thoughts were a trigger to his use. He was hoping to feel better by using the cocaine. He denies any paranoia that he presented with last admission. He reports sleeping well and reports things are going well where he is living. He reported seeing Dr. Bill at [facility] after his last admission here. I asked if things went okay at the appt.? He said that they did. Asked if he has a follow up appt.? He said that she wanted him to call and schedule an appt. for the next month. I asked if we could call and speak with [facility]? He got anxious about that and said he had signed a release, but he was thinking of revoking it because he doesn't want [facility] reporting to the [facility] that he relapsed. He said that housing has a release with [facility] so that they can know how he is doing. I told him that we would like to provide [facility] his clinical information at discharge and that it was important for them to know he was here. He realizes that, but doesn't want them sharing with his housing that he relapsed. He will most likely be kicked out. Nigel was disappointed to hear that he can't go on Irene due to another medication he is on. He was hoping for a med change since he doesn't know why he is feeling this way. Nigel decided to revoke the release in his chart for [facility]. I tried to talk to him about the purpose of us having this communication. He's thinking about it.
[2016-04-16 19:27] VITALS: BP 111/83
[2016-04-17 07:59] VITALS: BP 134/77
--- NOTE | 2016-04-17 09:37 | PN- Diabetes ---
Assessment/Plan Assessment: 50-year-old male who has a history of depression and schizoaffective disorders substance abuse and hypertension. He has had multiple admissions to Inpatient Psychiatry. This time he took 6 tablets of Xanax and was very drowsy when he came to the ER. He was evaluated by crisis intervention and be admitted to Inpatient Psychiatry for further evaluation. Patient has a known history of diabetes mellitus type 2 which has been largely uncontrolled. The patient does not follow a diabetic diet. He has a lot of insulin resistance and requires large doses of insulin to control his sugars. He was put on Levemir 80 units twice a day, Novolog coverage before meals and Novolog coverage at bedtime. His FSGs were 369, 454, 295, 387 and 321. Plan: 1. continue Levemir 80 units twice a day; 2. continue Januvia 100 mg daily; 3. increase Novolog coverage before meals---detail see the inpatient DM order; 4. continue the current Novolog coverage at bedtime. will follow. Inpatient Diabetes Orders Before Each Meal: Bolus Insulin: Novolog < 80 mg/dl: no coverage 80-100 mg/dl: 18 units 101-120 mg/dl: 18 units 121-150 mg/dl: 18 units 151-200 mg/dl: 20 units 201-250 mg/dl: 22 units 251-300 mg/dl: 24 units 301-350 mg/dl: 26 units 351-400 mg/dl: 28 units > 400 mg/dl: 30 units Subjective Subjective: His glucose level remains elevated. Objective Last 24 Hrs of Vital Signs/I&O Vital Signs Date Time Temp Pulse Resp B/P Pulse O2 O2 Flow FiO2 Ox Delivery Rate 04/17 806 97.6 67 20 134/77 04/17 806 97.6 67 20 134/77 04/17 0759 97.6 67 134/77 04/16 1926 96.9 73 111/83 04/16 1551 70 118/62 04/16 1215 71 115/62
[2016-04-17 12:34] VITALS: BP 126/72
--- NOTE | 2016-04-17 13:32 | CP SOUTH PROGRESS NOTE PSYCH ---
Psych (Inpt) Progress Note Progress Note Include the following elements, when applicable: Involvement in the active treatment of the patient with behavioral observations of the patient and the patient's response to the treatment. Review of the ongoing treatment process in the context of the treatment plan. Indication of how multi-disciplinary staff members are carrying out the treatment plan. Plans for future interventions and recommendations for revision of the treatment plan. Liaison with other physicians/providers. Progress Note: Pt notes that has fleeting SI daily. It seems to be stuck in his mind briefly. Has not thought about acting on it and feels comfortable with staff. Denies HI. Slept well. Spends days in room, watching TV, and just playing games. Current Medications Sig/Nirali Start time Last Medication Dose Route Stop Time Status Admin Aripiprazole 25 MG AT BEDTIME 04/16 2200 AC 04/16 PO 2130 Buprenorphine/ 2 TAB 0804/14 AC 04/17 Naloxone SL 0808 Fenofibrate 145 MG DAILY 04/13 1000 AC 04/17 PO 0807 Insulin Aspart 0 TIDAC/HS 04/14 1200 AC 04/17 SC 1210 Insulin Detemir 80 UNITS BID 04/13 1000 AC 04/17 SC 1026 Lisinopril 40 MG DAILY 04/13 1000 AC 04/17 PO 0807 Metoprolol Succinate 100 MG DAILY 04/13 1000 AC 04/17 PO 0807 Nicotine 14 MG DAILY 04/15 1000 AC 04/17 TOP 0807 Pregabalin 100 MG TID 04/13 1000 AC 04/17 PO 0810 Sitagliptin Phosphate 100 MG DAILY 04/13 1000 AC 04/17 PO 0807 Venlafaxine HCl 300 MG 04/14 0800 AC 04/17 PO 0806 Vital Signs Date Time Temp Pulse Resp B/P Pulse O2 O2 Flow FiO2 Ox Delivery Rate 04/17 1234 70 126/72 04/17 0807 97.6 67 20 134/77 04/17 0807 97.6 67 20 134/77 04/17 0759 97.6 67 134/77 04/16 1927 96.9 73 111/83 04/16 1551 70 118/62 MSE Appears as stated age. Cooperative behavior, good, appropriate eye contact. Nl speech rate and prosody. No psychomotor retardation or agitation. Mood still having those thoughts Affect depressed, constricted, appropriate, non-liable. Linear and goal directed thought process. +SI or HI. Does not appear to be responding to internal stimuli. Denies AVHs, paranoia, or delusions. I/J: limited A/P: Pt with schizoaffective disorder with continued poor mood and SI. Given little response to high-dose (above max dose) of venlafaxine and high dose of abilify, would consider alternative anti-depressant and antipsychotic. Pt may benefit from Latuda given bipolar type presentation and depression. Will give higher dose of abilify slightly more time as recent change made. - Continue current medication regimen
[2016-04-17 16:21] VITALS: BP 132/65
[2016-04-17 19:42] VITALS: BP 142/78
[2016-04-18 08:11] VITALS: BP 119/73
--- NOTE | 2016-04-18 08:41 | PN- Diabetes ---
Assessment/Plan Assessment: 50-year-old male who has a history of depression and schizoaffective disorders substance abuse and hypertension. He has had multiple admissions to Inpatient Psychiatry. This time he took 6 tablets of Xanax and was very drowsy when he came to the ER. He was evaluated by crisis intervention and be admitted to Inpatient Psychiatry for further evaluation. Patient has a known history of diabetes mellitus type 2 which has been largely uncontrolled. The patient does not follow a diabetic diet. He has a lot of insulin resistance and requires large doses of insulin to control his sugars. He was put on Levemir 80 units twice a day; Novolog coverage before meals was adjusted on 04/17/2016. In addition, he is on Novolog coverage at bedtime. Patient was started on carbohydrates 1 diet ( 3-4 servings of carbohydrates per meal). His FSGs were 321, 440, 431, 367 and 328. Plan: continue the current insulin orders for now; encourage patient to control the diet; monitor FSGs. will follow. Subjective Subjective: He has no special complaints this morning. Objective Last 24 Hrs of Vital Signs/I&O Vital Signs Date Time Temp Pulse Resp B/P Pulse O2 O2 Flow FiO2 Ox Delivery Rate 04/18 0819 97.8 82 20 119/73 04/18 0818 97.8 82 20 119/73 04/18 0811 97.8 82 119/73 04/17 1942 97.0 70 142/78 04/17 1621 71 132/65 04/17 1234 70 126/72
--- NOTE | 2016-04-18 09:39 | CP SOUTH PROGRESS NOTE PSYCH ---
Psych (Inpt) Progress Note Progress Note Include the following elements, when applicable: Involvement in the active treatment of the patient with behavioral observations of the patient and the patient's response to the treatment. Review of the ongoing treatment process in the context of the treatment plan. Indication of how multi-disciplinary staff members are carrying out the treatment plan. Plans for future interventions and recommendations for revision of the treatment plan. Liaison with other physicians/providers. Progress Note: Pt notes ongoing poor mood and "thoughts" of harming self in vague fleeting way. He denies active SI or HI. Notes sleep is good as is appetite. Current Medications Sig/Nirali Start time Last Medication Dose Route Stop Time Status Admin Aripiprazole 25 MG AT BEDTIME 04/16 2200 AC 04/17 PO 2142 Buprenorphine/ 2 TAB 04/14 08 AC 04/18 Naloxone SL 0817 Fenofibrate 145 MG DAILY 04/13 1000 AC 04/18 PO 0818 Insulin Aspart 0 TIDAC/HS 04/14 1200 AC 04/18 SC 0819 Insulin Detemir 80 UNITS BID 04/13 1000 AC 04/17 SC 2142 Lisinopril 40 MG DAILY 04/13 1000 AC 04/18 PO 0818 Metoprolol Succinate 100 MG DAILY 04/13 1000 AC 04/18 PO 0819 Nicotine 14 MG DAILY 04/15 1000 AC 04/18 TOP 0819 Pregabalin 100 MG TID 04/13 1000 AC 04/18 PO 0818 Sitagliptin Phosphate 100 MG DAILY 04/13 1000 AC 04/18 PO 0818 Venlafaxine HCl 300 MG 04/14 0800 AC 04/18 PO 0818 Vital Signs Date Time Temp Pulse Resp B/P Pulse O2 O2 Flow FiO2 Ox Delivery Rate 04/18 818 97.8 82 20 119/73 04/18 0818 97.8 82 20 119/73 04/18 0811 97.8 82 119/73 04/17 1942 97.0 70 142/78 04/17 1621 71 132/65 04/17 1234 70 126/72 MSE Appears as stated age. Cooperative behavior, good, appropriate eye contact. Nl speech rate and prosody. No psychomotor retardation or agitation. Mood still having those thoughts Affect depressed, constricted, appropriate, non-liable. Linear and goal directed thought process. +SI or HI. Does not appear to be responding to internal stimuli. Denies AVHs, paranoia, or delusions. I/J: limited A/P: Pt with schizoaffective disorder with continued poor mood and SI. Given little response to high-dose (above max dose) of venlafaxine and high dose of abilify, would consider alternative anti-depressant and antipsychotic. Pt may benefit from Latuda given bipolar type presentation and depression. Will give higher dose of abilify slightly more time as recent change made, if by Tuesday no change would recommend change to Latuda.
[2016-04-18 11:58] VITALS: BP 106/68
[2016-04-18 16:27] VITALS: BP 128/77
[2016-04-18 19:46] VITALS: BP 135/70
[2016-04-19 07:49] VITALS: BP 149/76
[2016-04-19 12:24] VITALS: BP 114/63
--- NOTE | 2016-04-19 15:26 | CP SOUTH PROGRESS NOTE PSYCH ---
Psych (Inpt) Progress Note Progress Note Progress Note: I discussed this patient's progress to date, current mental status, treatment process in the context of the treatment plan, and discharge planning with staff/ team in the daily morning inpatient team meeting. I also met with the patient myself in individual session. A total of 25 minutes was spent with the patient with more than 50% spent in counseling and/or coordination of care. SUBJECTIVE: "It's really nice not to have the paranoid thoughts." OBJECTIVE: Current Medications Sig/Nirali Start time Last Medication Dose Route Stop Time Status Admin Aripiprazole 25 MG AT BEDTIME 04/16 2200 AC 04/18 PO 2146 Buprenorphine/ 2 TAB 0804/14 08 AC 04/19 Naloxone SL 0742 Fenofibrate 145 MG DAILY 04/13 1000 AC 04/19 PO 0740 Insulin Aspart 0 TIDAC/HS 04/14 1200 AC 04/19 SC 1227 Insulin Detemir 80 UNITS BID 04/13 1000 AC 04/19 SC 0738 Lisinopril 40 MG DAILY 04/13 1000 AC 04/19 PO 0740 Metoprolol Succinate 100 MG DAILY 04/13 1000 AC 04/19 PO 0740 Nicotine 14 MG DAILY 04/15 1000 AC 04/19 TOP 0741 Pregabalin 100 MG TID 04/13 1000 AC 04/19 PO 0742 Sitagliptin Phosphate 100 MG DAILY 04/13 1000 AC 04/19 PO 0740 Venlafaxine HCl 300 MG 04/14 0800 AC 04/19 PO 0740 Vital Signs Date Time Temp Pulse Resp B/P Pulse O2 O2 Flow FiO2 Ox Delivery Rate 04/19 1224 66 114/63 04/19 0749 97.3 67 149/76 04/19 0740 71 135/70 04/19 0740 71 135/70 04/18 1946 97.6 71 135/70 04/18 1627 71 128/77 ASSESSMENT: Patient reports that although he is feeling well physically, he states he is continuing to have some suicidal thoughts and auditory hallucinations. States that sometimes he hears someone calling his name, approximately a couple of times a day. The voices commonly tell him that he should "just kill myself." He further states that he is not sure if these are voices, or just thoughts in his head. Today the patient is calm and cooperative. He appears well. We discussed ongoing treatment, the patient verbalized understanding that the medications would take him only so far, and that he needs to also engage in therapy while he is here, and on an outpatient basis. Depression:08/14; Anxiety:09/13 (with 10 the worst.) Denies homicidal ideation, visual hallucinations, paranoid ideation. He reports sleeping well at night. States his appetite is good. Endocrinology was in yesterday to evaluate. Patient verbalizes understanding that he needs to take control of his eating habits in order to help control his diabetes. States that he is happy to now be on a low carbohydrate diet. Speech is well articulated, goal-directed, average in rate, volume and tone. The patient understands the risks/benefits/side effects of the medication and is agreeable to continue taking them. PLAN: Anticipate discharge tomorrow. Continue with current management as patient is improving. Continue to provide support and encouragement.
[2016-04-19 15:51] VITALS: BP 131/63
--- NOTE | 2016-04-19 16:30 | SOCIAL WORKER PROG NOTE PSYCH ---
Social Work Progress Note Progress Note Nigel continues to talk about having suicidal thoughts. States he feels scared , because he hasn't dealt with this intensity before and he is afraid that in a moment of weakness he might act on something. He reports feeling hopeless about his life. He was hoping to have a med change while he is here. I talked about how medication will only help to a point and that the rest is up to him. Talked about how he needs to really look at how to make his life more meaningful. Nigel talked about how his fish housekeeper wants to talk to me. I asked what the purpose of the conversation was? He said that he seems to want to know some type of assurance about his diabetic management, because he believes that he has been hospitalized due to his blood sugars. Nigel will not share his mental health issues with him, or recent relapse. Nigel does not qualify for VNS services due to his insurance requiring him to be homebound. Nigel was asking about getting a velocity shooter scheduled as proof that he is working on his diabetes.
[2016-04-19 19:51] VITALS: BP 135/81
[2016-04-20] MEDS ORDERED: ABILIFY10 M1 PO (07:38)
[2016-04-20 07:58] VITALS: BP 151/85
[2016-04-20 08:06] VITALS: BP 151/85
--- NOTE | 2016-04-20 08:27 | CP SOUTH PROGRESS NOTE PSYCH ---
Psych (Inpt) Progress Note Progress Note Progress Note: I discussed this patient's progress to date, current mental status, treatment process in the context of the treatment plan, and discharge planning with staff/ team in the daily morning inpatient team meeting. I also met with the patient myself in individual session. A total of 30 minutes was spent with the patient with more than 50% spent in counseling and/or coordination of care. SUBJECTIVE: "I'm not feeling suicidal now, but if I do have those thoughts, I'm prepared to deal with it in therapy at [facility]. I do feel I'm safe leaving here today, definitely." OBJECTIVE: Current Medications Sig/Nirali Start time Last Medication Dose Route Stop Time Status Admin Aripiprazole 25 MG AT BEDTIME 04/16 2200 AC 04/19 PO 2215 Buprenorphine/ 2 TAB 0800 04/14 0800 AC 04/20 Naloxone SL 0810 Fenofibrate 145 MG DAILY 04/13 1000 AC 04/20 PO 0805 Insulin Aspart 0 TIDAC/HS 04/14 1200 AC 04/20 SC 0811 Insulin Detemir 80 UNITS BID 04/13 1000 AC 04/19 SC 2214 Lisinopril 40 MG DAILY 04/13 1000 AC / PO 0806 Metoprolol Succinate 100 MG DAILY 04/13 1000 AC / PO 0805 Nicotine 14 MG DAILY 04/15 1000 AC 04/20 TOP 0805 Pregabalin 100 MG TID 04/13 1000 AC 04/20 PO 0810 Sitagliptin Phosphate 100 MG DAILY 04/13 1000 AC / PO 0806 Venlafaxine HCl 300 MG 0800 04/14 0800 AC 04/20 PO 0806 Vital Signs Date Time Temp Pulse Resp B/P Pulse O2 O2 Flow FiO2 Ox Delivery Rate 04/20 0806 69 151/85 04/20 0805 69 151/85 04/20 0758 98.2 69 151/85 04/19 1951 97.0 71 135/81 04/19 1551 71 131/63 04/19 1224 66 114/63 ASSESSMENT: Patient reports that he feels safe and ready for discharge. Offers no complaints this morning. He is forward thinking, and is looking forward to working with his doctors for treatment of his hepatitis C, about which in the past he had been reticent. States he will try to limit his carbohydrates for diabetes control. He reports tolerating his medications well, without complaint. Depression:0/10; (with 10 the worst.) States that he always has anxiety, "I've learned to accept it." States that his anxiety today is at his baseline. Denies homicidal ideation, auditory hallucinations, visual hallucinations, paranoid ideation. Patient reports that he does have "some thoughts about suicide, but no plan." Patient states and also believes that he will not kill himself. Reports that he slept well last night, his appetite is good. Speech is well articulated, goal-directed, average in rate, volume and tone. Calm and cooperative. Alert and oriented 3. Logical. This morning he appears well groomed and dressed, freshly showered with his hair combed. The patient understands the risks/benefits/side effects of the medication and is agreeable to continue taking them. PLAN: Anticipate discharge today, patient will follow up at the [facility] in [place]. Continue with current management as patient is improving. Continue to provide support and encouragement.
--- NOTE | 2016-04-20 08:29 | DISCHARGE SUMMARY REPORT-PSYCH ---
Visit Information Visit Dates/Diagnosis' Admission Date: 04/13/16 Discharge Date: 04/20/16 Reason for Admission: Overdosed with eight tablets of Xanax as a suicide attempt. Reported confusion and auditory hallucinations. This is the patient's 12th admission since 2011, and the second in the past two months. Psy Discharge Primary Diag: Schizoaffective d/o, depressed. Psy Discharge Secondary Diag: Opiate use d/o; cocaine use d/o; r/o benzodiazepine use d/o, s/o xanax overdose; Hep C; HTN; IDDM; Peripheral neuropathy; Hyperlipidemia; Hx left testicular cancer/orchiectomy. Hospital Course Significant Lab Findings: Lab BUN 24 mg/dL H 04/13/16 0915 BUN/Creatinine Ratio 34.3 % H 04/13/16 0915 Glucose 357 mg/dL H 04/13/16 0915 Hemoglobin A1c 10.8 % H 12/25/15 0607 Sodium 133 mmol/L L 04/13/16 0915 Hct 41.7 % L 04/12/16 1325 MCH 32.0 PG H 04/12/16 1325 MPV 11.8 FL H 04/12/16 1325 Plt Count 106 /CUMM L 04/12/16 1325 RBC 4.59 /CUMM L 04/12/16 1325 U Benzodiazepines Scrn > 800 NG/ML H 04/12/16 1430 Course Complications: Patient was seen for endocrinology consult by Dr. Dugan and Ashley. Please refer to their notes for additional information. Consultations: Patient was seen for admission history and physical by Dr. Meyer. Please refer to his note for additional information. Allergies: Coded Allergies: Penicillins (Severe, ANAPHYLAXIS 09/25/15) peanut (Severe, ANAPHYLAXIS 09/25/15) Sulfa (Sulfonamide Antibiotics) (Intermediate, ANAPHYLAXIS 09/25/15) hydromorphone (From DILAUDID) (Intermediate, BODY TURNS RED AND ITCHY 09/25/15) lamotrigine (From LAMICTAL) (RASH 09/25/15) Hospital Course/TX Response: The patient was monitored on the unit for safety, suicidal ideation, auditory hallucinations, paranoid ideation, and depression. He was medicated with Abilify for psychotic symptoms, and venlafaxine for depression and anxiety. He reports tolerating these medications well, to good effect. The patient declined to invite anyone for family meeting. Today, the day of discharge, he reports that he feels safe and ready for discharge. Offers no complaints this morning. He is forward thinking, and is looking forward to working with his doctors for treatment of his hepatitis C, about which in the past he had been reticent. States he will try to limit his carbohydrates for diabetes control. While in the hospital he is been on a consistent carbohydrate diet. He reports tolerating his medications well, without complaint. Depression:0/10; (with 10 the worst.) States that he always has anxiety, "I've learned to accept it." States that his anxiety today is at his baseline. Denies homicidal ideation, auditory hallucinations, visual hallucinations, paranoid ideation. Patient reports that he does have "some thoughts about suicide, but no plan." Patient states and also believes that he will not kill himself. Reports that he slept well last night, his appetite is good. Speech is well articulated, goal-directed, average in rate, volume and tone. Calm and cooperative. Alert and oriented 3. Logical. This morning he appears well groomed and dressed, freshly showered with his hair combed. The patient understands the risks/benefits/side effects of the medication and is agreeable to continue taking them. Patient reports tolerating his medications well, without complaint. States he feels safe and ready for discharge. Discharge HBIPS - Tobacco Use Treatment Offered Post DC Medications Offered: Script Given-See Med List Post DC Tobacco Treatment Plan: Other Tobacco Tx Pgm ([facility]) Program Appt Date: 04/26/16 Program Appt Time: 0800 - EtOH/Drug Use D/O Treatment Offered Post DC Medications Offered: Ref Med EtOH/Drug Use D/O Post DC EtOH/SubAbuse TX Plan: Other SubAbuse/Dual [facility]gm ([facility]) Program Appt Date: 04/26/16 Program Appt Time: 0800 Metabolic Screening - Screen if on a Neuroleptic Medication - Metabolic screening should include: - Blood Pressure, BMI, Glucose or Hgb A1c, & a - Lipid profile from within the past 365 days. Metabolic Screening () Not Applicable, patient not on a neuroleptic. OR ([x]) Patient on a neuroleptic(s) . Enter below results for Glucose or Hemoglobin A1C, and lipid panel if obtained during the last 365 days. BMI: 33.400 Blood Pressure: 151/85 Laboratory Results (If applicable): Lab Cholesterol 152 MG/DL 12/25/15 06 Cholesterol/HDL Ratio 4 % 12/25/15 06 HDL Cholesterol 41 mg/dL 12/25/15 06 Hemoglobin A1c 10.8 % H 12/25/15 06 LDL Cholesterol, Calc 63 mg/dL L 12/25/15 06 Triglycerides 240 mg/dL H 12/25/15 06 Discharge Instructions General Discharge Information Discharge Medications: Discharge Medications- (Dose, route, freq, indication): HOME MEDICATION LIST START taking these NEW Home Medications: Aripiprazole Dose: ORAL, AT BEDTIME for Qty: 35 Printed (Abilify) 10 MG 25 Milligram Clear thoughts Refills: 0 TABLET TAKE TWO AND A HALF TABLETS DAILY Last Taken:04/19/16 Time:2214 CONTINUE taking these Home Medications: Metoprolol Succinate Dose: ORAL, DAILY for (Metoprolol Succinate) 1 Tablet HYPERTENSION 100 MG TAB.ER.24H Last Taken:04/20/16 Time:0800 Fenofibrate Dose: ORAL, DAILY for HIGH Nanocrystallized 1 Tablet CHOLESTROL (Fenofibrate) 145 MG Last Taken:04/20/16 TABLET Time:0800 Venlafaxine HCl Dose: ORAL, DAILY for MENTAL (Venlafaxine HCl ER) 150 2 Capsule HEALTH MG CAP.ER.24H Last Taken:04/20/16 Time:0800 Lisinopril (Lisinopril) Dose: ORAL, DAILY for blood 40 MG TABLET 1 Tablet pressure/kidney protectn Last Taken:04/20/16 Time:0800 Pregabalin (Lyrica) 100 Dose: ORAL, THREE TIMES DAILY MG CAPSULE 100 Milligram for pain Last Taken:04/20/16 Time:0800 Sitagliptin Phosphate Dose: ORAL, DAILY for diabetes (Januvia) 100 MG TABLET 1 Tablet Last Taken:04/20/16 Time:0800 Insulin Aspart, Dose: Inject into fatty Recombinant (Novolog 20 Units tissue, 1/2 HOUR BEFORE Flexpen) 100 UNIT/ML MEALS for diabetes INSULN.PEN Last Taken:04/20/16 Time:0800 Buprenorphine HCl/ Dose: SUBLINGUAL, DAILY for Naloxone HCl (Suboxone 8 2 Strip Opioid replacement MG-2 MG Sl Film) 8 MG-2 Last Taken:04/20/16 MG FILM Time:0800 Insulin Detemir (Levemir Dose: Inject into fatty Flextouch) 100 UNIT/ML 80 Unit tissue, TWICE DAILY for (3 ML) INSULN.PEN DIABETES Last Taken:04/20/16 Time:1000 Nicotine (Nicotine Dose: On the skin, DAILY for Patch) 7 MG/24 HOUR 7 Milligram smoking cessation PATCH.TD24 Last Taken:TO START AT DISCHARGE Time: STOP taking these DISCONTINUED Home Medications: Modafinil (Modafinil) 200 MG Dose: ORAL, DAILY for to promote TABLET 1 Tablet alertness Reason Stopped: Per Doctor Decision Aripiprazole (Abilify) 15 MG Dose: ORAL, AT BEDTIME for CLEAR TABLET 15 Milligram THOUGHTS. Reason Stopped: Changed Dose Your Preferred Pharmacy [facility] [address] [place] [id number] Multiple Neuroleptics: (x]) Not Applicable OR Document below three failed attempts at monotherapy, or a plan to taper to monotherapy, or augmentation of Clozapine. () Patient's Diet: Consistent carbohydrate. Patient's Activity: No restrictions DC Disposition: Patient is returning to his apartment, in supervised housing. Recommendations: Maintain sobriety. Follow-up at [facility] for medical and psychiatric services. Attend IOP. Referred To: Post Discharge Referrals Provider Referral Service Date: 04/26/16 Referred To: [[facility]] [[facility]] Notes: patient's medical provider will help coordinate her appt. with Dr. Bill Copies To: [facility]
--- NOTE | 2016-04-20 09:07 | SOCIAL WORKER PROG NOTE PSYCH ---
Social Work Progress Note Progress Note Nigel approached me this morning and said that he talked to the cook house supervisor last night and there was no need for us to have further discussion with him. He said he felt safe to go today and work on the things that he needs to start doing to put his life in order. Asked if he had given any thought to what kind of things would help make his life more meaningful? He said that he needs to work on small goals and larger ones. Looking to start treatment for his Hep C. He scheduled an appt. with [facility] to coordinate his care. This appt. is for 04/26 at 10am. He said they will help coordinate his appt. with Dr. Bill. Encouraged him to look at the individual therapist list I provided to him and pick a therapist to see, as this could be helpful. Team agreed to discharge today.
== END 2016-04-20 12:45 | DRG 885 ==
LOC: ERH 12:58 → DELPENDDIS 04-13 08:42 → ENPENDDIS 04-13 08:42 → CP SOUTH 04-13 08:42 → ERHI 04-13 08:42 → CP SOUTH 04-13 11:38
PROVIDERS: Physician Assistant Medical; ADMIT Psychiatry & Neurology Psychiatry
DX: F25.1 Schizoaffective disorder, depressive type (principal); G62.9 Polyneuropathy, unspecified; I10 Essential (primary) hypertension; F11.10 Opioid abuse, uncomplicated; F14.10 Cocaine abuse, uncomplicated; B19.20 Unspecified viral hepatitis C without hepatic coma; E11.9 Type 2 diabetes mellitus without complications; E78.5 Hyperlipidemia, unspecified; Z85.47 Personal history of malignant neoplasm of testis
CPT/HCPCS: 80307; 93005; 93010; 96372; G0480; J0401; J7508

== ENCOUNTER 2016-05-11 17:48 | Inpatient (IN) | payer OTHER, MEDICARE ==
[~2016-05-11] VITALS: Ht 175.3 cm; Wt 103.6 kg
[~2016-05-11 17:48] MED LIST changes: +ABILIFY10 M1 PO
--- NOTE | 2016-05-11 17:56 | NUR ---
Informed waiting has been performed.
--- NOTE | 2016-05-11 17:56 | NUR ---
TRIAGE: PT TO ER C/C "I'VE JUST BEEN HAVING BAD DEPRESSION FOR THE PAST FEW DAYS". PMHX INCLUDES DEPRESSION, ANXIETY, SCHITZOAFFECTIVE D/O. REPORTS FEELS "VERY" SUICIDAL, STATES "I'M AT MY LIMIT". WHEN ASKED WHAT IS MAKING HIM FEEL THIS WAY STATES "EVERYTHING. MY WHOLE LIFE. I'M ISOLATED FROM MY FAMILY. I'M MOVED RECENTLY AND I'M NOT HAPPY WHERE I'M AT. IT FEELS LIKE MY LIFE ISN'T GOING TO GET ANY BETTER. I'M 50 AND STRUGGLING FINANCIALLY. I'M JUST LITERALLY AT MY WITS END." PLAN WOULD BE TO OVERDOSE. DENIES ANY AUDITORY OR VISUAL HALLUCINATIONS. DENIES ANY HOMICIDAL IDEATION. ADMITS TO COCAINE USE EARLIER TODAY BUT DENIES OTHER SUBSTANCE USE/ABUSE. PT RESTLESS AT TRIAGE, ROCKING BACK AND FORTH DURING TRIAGE PROCESS.
[2016-05-11] MEDS ORDERED: LACTULOSE20 GM/30 M PO (18:14)
--- NOTE | 2016-05-11 18:14 | ED PSYCHIATRIC COMPLAINT ---
See Addendum History of Present Illness General Chief Complaint: Psychiatric Related Complaint Stated Complaint: DEPRESSION, +SI-HI Source: patient, old records Exam Limitations: intoxication Vital Signs & Intake/Output Vital Signs & Intake/Output Vital Signs Date Time Temp Pulse Resp B/P Pulse O2 O2 Flow FiO2 Ox Delivery Rate 05/11 1752 96.9 75 20 106/71 98 Room Air ED Intake and Output 05/12 0000 05/11 1200 Intake Total Output Total Balance Patient 237 lb Weight Allergies Coded Allergies: Penicillins (Severe, ANAPHYLAXIS 05/11/16) peanut (Severe, ANAPHYLAXIS 05/11/16) Sulfa (Sulfonamide Antibiotics) (Intermediate, ANAPHYLAXIS 05/11/16) hydromorphone (From DILAUDID) (Intermediate, BODY TURNS RED AND ITCHY 05/11/16) lamotrigine (From LAMICTAL) (RASH 05/11/16) Reconcile Medications Aripiprazole (Abilify) 10 MG TABLET 25 MG PO AT BEDTIME Clear thoughts TAKE TWO AND A HALF TABLETS DAILY Buprenorphine HCl/Naloxone HCl (Suboxone 8 MG-2 MG Sl Film) 8 MG-2 MG FILM 2 STR SL DAILY Opioid replacement (Reported) Fenofibrate Nanocrystallized (Fenofibrate) 145 MG TABLET 1 TAB PO DAILY HIGH CHOLESTROL (Reported) Insulin Aspart, Recombinant (Novolog Flexpen) 100 UNIT/ML INSULN.PEN 20 UNITS SC 1/2 HR AC diabetes (Reported) Insulin Detemir (Levemir Flextouch) 100 UNIT/ML (3 ML) INSULN.PEN 80 UNIT SC BID DIABETES (Reported) Lactulose 20 GRAM/30 ML SOLUTION 30 ML PO TID AMMONIA LEVEL (Reported) Lisinopril 40 MG TABLET 1 TAB PO DAILY blood pressure/kidney protectn ( Reported) Metoprolol Succinate 100 MG TAB.ER.24H 1 TAB PO DAILY HYPERTENSION (Reported) Nicotine (Nicotine Patch) 7 MG/24 HOUR PATCH.TD24 7 MG TOP DAILY smoking cessation Pregabalin (Lyrica) 100 MG CAPSULE 100 MG PO TID pain (Reported) Sitagliptin Phosphate (Januvia) 100 MG TABLET 1 TAB PO DAILY diabetes ( Reported) Venlafaxine HCl (Venlafaxine HCl ER) 150 MG CAP.ER.24H 2 CAP PO DAILY MENTAL HEALTH (Reported) Triage Note: TRIAGE: PT TO ER C/C "I'VE JUST BEEN HAVING BAD DEPRESSION FOR THE PAST FEW DAYS". PMHX INCLUDES DEPRESSION, ANXIETY, SCHITZOAFFECTIVE D/O. REPORTS FEELS "VERY" SUICIDAL, STATES "I'M AT MY LIMIT". WHEN ASKED WHAT IS MAKING HIM FEEL THIS WAY STATES "EVERYTHING. MY WHOLE LIFE. I'M ISOLATED FROM MY FAMILY. I'M MOVED RECENTLY AND I'M NOT HAPPY WHERE I'M AT. IT FEELS LIKE MY LIFE ISN'T GOING TO GET ANY BETTER. I'M 50 AND STRUGGLING FINANCIALLY. I'M JUST LITERALLY AT MY WITS END." PLAN WOULD BE TO OVERDOSE. DENIES ANY AUDITORY OR VISUAL HALLUCINATIONS. DENIES ANY HOMICIDAL IDEATION. ADMITS TO COCAINE USE EARLIER TODAY BUT DENIES OTHER SUBSTANCE USE/ABUSE. PT RESTLESS AT TRIAGE, ROCKING BACK AND FORTH DURING TRIAGE PROCESS. Triage Nurses Notes Reviewed? yes HPI: Patient is a 50-year-old male presents complaining of severe anxiety and depression and suicidal ideation. Patient reports that over the past 1 week he has been having increasing depression. Multiple stressors including financial, family life and his living situation. Patient has had thoughts of overdosing, reports that he injected cocaine yesterday and today in an attempt to commit suicide. Patient denies taking any overdose of pills. Anxiety and depression are currently severe. Pain is 0 out of 10. Patient last saw his therapist approximately 1 month ago, unable to get an appointment until 2 weeks from now. Patient was taken off of his Provigil medication approximately 1 month ago due to an interaction with a hepatitis medication that he is scheduled to start soon. Reports he has been feeling worse since stopping this medication, and the cocaine briefly helpted. Denies recent trauma, chest pain, alcohol use, heroin use, homicidal ideation. (ROSARIO DUENAS,INDIA) Past History Travel History Traveled to [place] past 21 day No Medical History Any Pertinent Medical History? 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 No (INDIA KING) Review of Systems Review of Systems Constitutional: Denies: chills, fever. EENTM: Reports: no symptoms. Respiratory: Denies: cough, short of breath. Cardiovascular: Reports: no symptoms. Denies: chest pain. GI: Denies: abdominal pain, nausea, vomiting. Genitourinary: Reports: no symptoms. Musculoskeletal: Reports: no symptoms. Skin: Reports: no symptoms. Neurological/Psychological: Reports: see HPI, anxiety, depressed. Denies: headache, numbness. Hematologic/Endocrine: Denies: bruising, bleeding. Immunologic/Allergic: Denies: splenectomy. (INDIA KING) Physical Exam Physical Exam General Appearance: alert, awake, anxious Head: atraumatic, normal appearance Eyes: Bilateral: normal appearance, PERRL, EOMI. Ears, Nose, Throat: normal pharynx, normal ENT inspection, hearing grossly normal Neck: normal inspection, supple, full range of motion Respiratory: normal breath sounds, chest non-tender, no respiratory distress, lungs clear Cardiovascular: regular rate/rhythm Gastrointestinal: soft, non-tender Extremities: track glover bilateral antecubital fossa. No signs of cellulitis or abscess Neurological/Psychiatric: no motor/sensory deficits, awake, alert, anxious Behavoir/Eye Contact/Speech: cooperative, increased rate of speech Thoughts/Hallucinations: no apparent hallucination Skin: warm/dry SAD PERSONS Done? yes (INDIA KING) Progress Differential Diagnosis: drug intoxication, drug overdose, drug withdrawal, electrolyte abnormality, IC hem/mass/tumor, anxiety, depression, mood disorder, personality disorder, psychosis. Plan of Care: Orders Procedure Date/time Status Regular Diet 05/11 D Active ED CRISIS PSYCH CONSULT 05/11 1853 Active FingerStick- Glucose 05/11 182 Active EKG 05/12 1823 Active Continuous Observation Monitor 03/07 1816 Active URINE DRUG SCREEN FOR ER ONLY 05/12 1815 Complete ETHANOL 05/12 1815 Complete COMPREHENSIVE METABOLIC PANEL 05/12 1815 Complete CBC WITHOUT DIFFERENTIAL 05/12 1815 Complete Laboratory Tests 05/11/16 183: Serum Alcohol < 10.0 05/11/16 183: Anion Gap 14, Estimated GFR > 60, BUN/Creatinine Ratio 31.3 H, Glucose 278 H, Calcium 9.8, Total Bilirubin 1.3, AST 167 H, ALT 182 H, Alkaline Phosphatase 74, Total Protein 7.4, Albumin 3.9, Globulin 3.5, Albumin/Globulin Ratio 1.1, CBC w Diff NO MAN DIFF REQ, RBC 4.45 L, MCV 93.7, MCH 31.5 H, RDW 14.7 H, MPV 11.1 H, Gran % 48.5, Lymphocytes % 41.3, Monocytes % 8.4, Eosinophils % 1.2, Basophils % 0.6, Absolute Granulocytes 3.5, Absolute Lymphocytes 2.9, Absolute Monocytes 0.6, Absolute Eosinophils 0.1, Absolute Basophils 0, PUBS MCHC 33.6, Urine Opiates Screen < 100.00, Methadone Screen 59, Barbiturate Screen 67, Ur Phencyclidine Scrn 7.10, Amphetamines Screen 345, U Benzodiazepines Scrn < 85, Urine Cocaine Screen > 1000 H, Urine Cannabis Screen < 5.00 05/11/2016 8:38:02 PM: Patient evaluated by bakery associate, plan for ere- evaluation in the morning. Signed out to Dr. Carmichael at shift change, plan for crisis re-evaluation in the morning. (INDIA KING) Initial ED EKG: normal axis, normal intervals, normal p-waves, normal QRS complex, normal sinus rhythm, no ST T wave changes Hand-Off Endorsed To: PASCALE CARMICHAEL MD Endorsed Time: 2300 Pending: consult (crisis re-evaluation) (INDIA KING) Hand-Off Endorsed To: SILVIA MUHAMMAD MD Endorsed Time: 0700 Pending: consult (RE-EVAL) (PASCALE CARMICHAEL MD) Departure Departure Disposition: STILL A PATIENT Condition: Stable Clinical Impression Primary Impression: Cocaine intoxication Secondary Impressions: Depression, Hyperglycemia Referrals: DAWNA ALEX MD (PCP/Family) Departure Forms: Customer Survey General Discharge Information (ROSARIO DUENASINDIA) 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 I have also reviewed all the pertinent lab results and diagnostic results. I agree with the findings and the plan of care as documented in the PA's/COIN WRAPPING MACHINE OPERATOR's documentation. [X] I have reviewed the ED Record and agree with the PA's/COIN WRAPPING MACHINE OPERATOR's documentation. [] Additions or exceptions (if any) to the PAs/COIN WRAPPING MACHINE OPERATOR's note and plan are summarized below: [] (JANY POWELL,PASCALE Vora)
[2016-05-11 18:47] LABS: ABSOLUTE BASOPHIL COUNT 0 /CUMM (0.0-0.2); ABSOLUTE EOSINOPHIL COUNT 0.1 /CUMM (0.0-0.7); ABSOLUTE GRANULOCYTE CT 3.5 /CUMM (1.4-6.5); ABSOLUTE LYMPH COUNT 2.9 /CUMM (1.2-3.4); ABSOLUTE MONOCYTE COUNT 0.6 /CUMM (0.10-0.60); BASOPHIL % 0.6 % (0.0-2.0); EOSINOPHIL % 1.2 % (0-5); GRANULOCYTE % 48.5 % (42.2-75.2); HEMATOCRIT 41.7 % (42-52); MEAN CORPUSCULAR HGB 31.5 PG (27.0-31.0); MEAN CORPUSCULAR HGB CONC 33.6 G/DL (33.0-37.0); MEAN CORPUSCULAR VOLUME 93.7 FL (80.0-94.0); MEAN PLATELET VOLUME 11.1 FL (7.4-10.4); PLATELET COUNT 75 /CUMM (130-400); RBC DISTRIBUTION WIDTH 14.7 % (11.5-14.5); RED BLOOD CELL CT 4.45 /CUMM (4.70-6.10); WHITE BLOOD CELL COUNT 7.1 /CUMM (4.8-10.8)
--- NOTE | 2016-05-11 19:27 | NUR ---
SITTER IN PLACE, DOOR TO BE LEFT AJAR.
--- NOTE | 2016-05-11 20:53 | ED PSYCH CRISIS CONSULTATION ---
See Addendum Crisis Consult Basic Assessment Date of Consult: 05/11/16 Responsible Person/Accompanied By: None Insurance Authorization: Insurance #1: Insurance name: MEDICARE A Phone number: Policy number: [id number] Group number: Authorization number: ED Provider: Patient's ED Provider: INDIA KING Primary Care Physician: Patient's PCP: DAWNA ALEX MD PCP's Current Psychiatrist: [facility] Ivana Shipman Chief Complaint: Psychiatric Related Complaint Patient's Quote: " I've been suffering with depression really bad." Present Illness: The patient is a 50 year old , male self presenting to the ED, with increased depression and stating that he "is at his limit." The patient notes that he has been feeling suicidal and has been trying to kill himself by using IV Cocaine. Of note, he then points to, what appears to be, multiple needle glover on his arms. The patient has a long history of mental health issues with 12+ admissions to [facility], most recently discharged on April 10, 2016. He maintains his outpatient treatment at the [facility], where he receives his Suboxone and sees a therapist. The patient reports that after his last discharge, he was doing well for a little while. He states that he generally feels better, when he leaves an inpatient admission and then "it all changes and he gets depressed again." He notes that he started to feel depressed , anxious, helpless and hopeless. He does have insight into his previous episodes of delusions / hallucinations and is currently denying any symptoms of psychosis. He denies any current HI. He states that he relapsed on Cocaine, in an effort to kill himself. He notes that he does not see any kind of future for himself and believes that "the best part of his life has passed." He notes that he is having difficultly with his finances, his recovery house and continues to have issues with his relationship with his son. A message was left for his son, Diego Carlin ([phone]), in an attempt to gain collateral information. The patient states that he does not want to go back to [facility], however "coming here is his last resort and he does not know what else to do." Patient's Address: [address] [place] [address] Other Phone Number: Who Do You Live With? Patient/Self (* Recovery House) Family/Informants Interviewed: A message was left for his son, Diego Carlin- [phone]. Allergies - Coded Allergies: Penicillins (Severe, ANAPHYLAXIS 05/11/16) peanut (Severe, ANAPHYLAXIS 05/11/16) Sulfa (Sulfonamide Antibiotics) (Intermediate, ANAPHYLAXIS 05/11/16) hydromorphone (From DILAUDID) (Intermediate, BODY TURNS RED AND ITCHY 05/11/16) lamotrigine (From LAMICTAL) (RASH 05/11/16) Current Medications - Scheduled Medications Aripiprazole (Abilify) 10 MG TABLET 25 MG PO AT BEDTIME Clear thoughts #35 TAB Prescribed by LE PINEDA APRN on 04/20/16 Buprenorphine HCl/Naloxone HCl (Suboxone 8 MG-2 MG Sl Film) 8 MG-2 MG FILM 2 STR SL DAILY Opioid replacement (Reported) Entered as Reported by PRIMO VO MD on 03/24/16 1044 Fenofibrate Nanocrystallized (Fenofibrate) 145 MG TABLET 1 TAB PO DAILY HIGH CHOLESTROL (Reported) Entered as Reported by TIFFANIE CHAPARRO on 07/08/13 1423 Insulin Aspart, Recombinant (Novolog Flexpen) 100 UNIT/ML INSULN.PEN 20 UNITS SC 1/2 HR AC diabetes #1680 (Reported) Entered as Reported by PRIMO VO MD on 03/24/16 1042 Insulin Detemir (Levemir Flextouch) 100 UNIT/ML (3 ML) INSULN.PEN 80 UNIT SC BID DIABETES #1 PEN (Reported) Entered as Reported by LE PINEDA APRN on 03/29/16 1308 Lactulose 20 GRAM/30 ML SOLUTION 30 ML PO TID AMMONIA LEVEL #2700 (Reported) Entered as Reported by MERCEDES SANCHEZ on 05/11/16 1814 Lisinopril 40 MG TABLET 1 TAB PO DAILY blood pressure/kidney protectn #90 ( Reported) Entered as Reported by PRIMO VO MD on 03/24/16 1037 Metoprolol Succinate 100 MG TAB.ER.24H 1 TAB PO DAILY HYPERTENSION (Reported) Entered as Reported by TIFFANIE CHAPARRO on 07/08/13 1419 Nicotine (Nicotine Patch) 7 MG/24 HOUR PATCH.TD24 7 MG TOP DAILY smoking cessation #14 PATCH Prescribed by LE PINEDA APRN on 03/29/16 Pregabalin (Lyrica) 100 MG CAPSULE 100 MG PO TID pain #90 (Reported) Entered as Reported by PRIMO VO MD on 03/24/16 1039 Sitagliptin Phosphate (Januvia) 100 MG TABLET 1 TAB PO DAILY diabetes #30 ( Reported) Entered as Reported by PRIMO VO MD on 03/24/16 1040 Venlafaxine HCl (Venlafaxine HCl ER) 150 MG CAP.ER.24H 2 CAP PO DAILY MENTAL HEALTH #60 (Reported) Entered as Reported by MERCEDES SANCHEZ on 09/20/15 1350 Laboratory Results: Laboratory Tests 05/11/161834: Serum Alcohol < 10.0 05/11/161834: Anion Gap 14, Estimated GFR > 60, BUN/Creatinine Ratio 31.3 H, Glucose 278 H, Calcium 9.8, Total Bilirubin 1.3, AST 167 H, ALT 182 H, Alkaline Phosphatase 74, Total Protein 7.4, Albumin 3.9, Globulin 3.5, Albumin/Globulin Ratio 1.1, CBC w Diff NO MAN DIFF REQ, RBC 4.45 L, MCV 93.7, MCH 31.5 H, RDW 14.7 H, MPV 11.1 H, Gran % 48.5, Lymphocytes % 41.3, Monocytes % 8.4, Eosinophils % 1.2, Basophils % 0.6, Absolute Granulocytes 3.5, Absolute Lymphocytes 2.9, Absolute Monocytes 0.6, Absolute Eosinophils 0.1, Absolute Basophils 0, PUBS MCHC 33.6, Urine Opiates Screen < 100.00, Methadone Screen 59, Barbiturate Screen 67, Ur Phencyclidine Scrn 7.10, Amphetamines Screen 345, U Benzodiazepines Scrn < 85, Urine Cocaine Screen > 1000 H, Urine Cannabis Screen < 5.00 (ESSIE MCRAE LCSW) Past History Past Medical History Neurological: peripheral neuropathy EENT: NONE Cardiovascular: hypertension, hyperlipidemia Respiratory: NONE Gastrointestinal: NONE Hepatic: hepatitis C (currently taking Harvoni) Renal: NONE Musculoskeletal: NONE Psychiatric: anxiety, depression, IV drug abuse, opioid dependence (agonist therapy with Suboxone), schizo affective disorder (currently on Suboxone therapy ), substance abuse Endocrine: diabetes Blood Disorders: NONE Cancer(s): LEFT TESTICULAR CA 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 Physical Limitations (Interventions): The patient has multiple medical issues Psychiatric Treatment History Psych Treatment Psychiatric Treatment Yes Inpatient Treatment Yes Outpatient Treatment Yes Location of Treatment [facility] and [facility] Reason for Treatment Depression, psychosis, SI Dates of Treatment 12+ admissions to [facility] D/C on 04/20/16. Current with [facility] Response to Treatment The patient notes that he feels better when he is discharged and then feels, as though, it changes very quickly. Diagnosis by History: Schizoaffective D/O, depressed type Opiate Use D/O, in early remission Substance Use/Abuse History Drug Use/Abuse 1 Substances Used/Abused Yes Substance Used/Abused Cocaine First Use 32 years old Last Used Today: 05/11/2016 How much used/taken Unclear- the patient states he was trying to use enough to kill himself How often " a couple of times in the last month." For how long 1 month Route of use IV Drug Use/Abuse 2 Substances Used/Abused Yes Substance Used/Abused Heroin First Use Unclear Last Used " a couple of years ago." He has been on Suboxone maintenance. How much used/taken N/A How often N/A For how long N/A Route of use N/A Substance Abuse Treatment Substance Abuse Treatment Past Substance Abuse [place] Yes Inpatient Treatment Yes Outpatient Treatment Yes Location of Treatment [facility] [place] Reason for Treatment Heroin abuse Dates of Treatment Currently going to [facility] Response to Treatment The patient notes that he has been able to maintain sobriety from Heroin for the last couple of years. Comments: N/A (CLEMENTINA JOLLY,ESSIE) Current Mental Status Mental Status Orientation: Person, Place, Situation Affect: Depressed, Sad Speech: WNL Neuro-vegetative: Anhedonia, Helpless, Sleep Disturbance, Feeling Hopeless Appearance Appearance- Dress/Hygiene: The patient was sitting on the bed, in hospital scrubs, neat [place] nd well kempt. He did appear to be shakey and had good eye contact during the evaluation. Behaviors Thought Process: WNL Thought Content: WNL, The patient does have a history of being delusional, paranoid, and experiencing hallucinations. He currently denies any symptoms of psychosis. Memory: WNL Insight: WNL SI/HI Risk Assessment Past Suicidal Ideation/Attempts Yes (previous suicide attempts) Current Suicidal Ideation/Att Yes Past Homicidal Ideation/Att: No Current Homicidal Ideation/Attempts No Degree of Intent: States Intent, The patient states that he has attempted to kill himself last eveing and this AM, by injecting Cocaine. He continues to feel suicidal and states that he would have killed himself, if he did not come here. He states that he does not see a future for himself and that "the best part of his life has passed." Danger To: Self Gravely Disabled: N/A Risk Factors: chronic/serious med cond., high anxiety/distress, history of suicide atmpts, SA/MH hospitalized, substance abuse, isolate/no social support, poor impulse control, lack of outcome concern, male, limited support Lethality Ratin PTSD Checklist PTSD Score: PTSD Score: Response Value Disturbing memories,thoughts,images of stressful experience? A little bit 2 Disturbing dreams of stressful experience from past? Not at all 1 Suddenly acting/feeling as if reliving stressful experience? Not at all 1 Unpleasant feeling when reminded of stressful experience? A little bit 2 Physical reactions when reminded of stressful experience? A little bit 2 Avoid thinking/talking of stressful exp. to avoid reactions? A little bit 2 Avoid activities/situations that remind of stressful exp.? A little bit 2 Loss of interest in things that you used to enjoy? Quite a bit 4 Feeling distant or cut off from other people? A little bit 2 Feeling emotionally numb/unable to love those close to you? Moderately 3 Feeling as if your future will somehow be cut short? Quite a bit 4 Trouble falling or staying asleep? A little bit 2 Feeling irritable or having angry outbursts? A little bit 2 Having difficulty concentrating? Quite a bit 4 Being super alert or watchful on guard? A little bit 2 Feeling jumpy or easily startled? A little bit 2 Total 37 ED Management Sitter: Yes Restraints: No (CLEMENTINA JOLLY,ESSIE) DSM5/PS Stressors/Medical Prob Diagnosis' (DSM 5, Stressors, Medical): F25.1 Schizoaffective Disorder, Depressed type F14.20 Cocaine Use Disorder, moderate F11.20 Opioid Use disorder- on Suboxone Maintenance Medical: Hep C and history of Testicular Cancer Stressors: Finances, housing and family issues Current GAF: 25 Comments: N/A (ESSIE MCRAE LCSW) Departure Disposition Psych Medical Clearance Date: 05/11/16 Medically Cleared at: 1900 Time Started: 1914 Time Ended: 1999 Psychiatrist Consulted: Primo Vo MD Date Disposition Established: 05/11/16 Time Disposition Established: 2014 Plan for Disposition - Modality: Hold over for reassessment in the AM. Contact: N/A Telephone: N/A Rationale for Disposition: The patient presents with depressed mood, anxiety, feeling helpless and feeling hopeless. The patient was recently discharged from [facility] on April 20 and has been attending treatment at the [facility]. The patient reports that he has been feeling suicidal and attempting to kill himself by injecting Cocaine. Case discussed with Dr. Vo and he would like to hold the patient over for reassessment in the AM. Additional Instructions: N/A Referrals ISAI POWELL,DAWNA Huitron (PCP/Family) (ESSIE MCRAE LCSW) Disposition Psych Medical Clearance Date: 05/12/16 Medically Cleared at: 0745 Time Started: 744 Time Ended: 809 Psychiatrist Consulted: Melany Rodriguez MD Date Disposition Established: 05/12/16 Time Disposition Established: 809 Plan for Disposition - Modality: Inpatient Psychiatry Facility: [facility] Rationale for Disposition: safety and stabilization of sx Type of IP Admission: Voluntary (MIRIAN JOLLY,HUYEN) Addendum Addendum Crisis re-evaluated pt this morning and he presents as tearful and depressed. Pt suicidal thoughts persist. "I did not get enough drugs to kill myself. It did not work. I need to get more for it to work. There is no reason to keep living. I just want to be . I'm embarrassed that I keep coming back. I just don't know what to do." When pt was asked what made him realize to reach out for help following his suicide attempt yesterday he responded, "I thought about how my son would feel." When asked about the trigger to his suicide attempt , he responds that he has no real connections or support. Even though he is in treatment and lives in a sober home with others. This clinician also told him IOP would be helpful for support. Pt responded "I've tried that. It's not the same. Those are superficial connections. I need family." Pt expresses that he misses his son. He reports that used to speak every day, but now they only speak of couple times a week. Pt further explains that his son lives in [facility] and that hey have not seen one another in 8 years. Explained to pt that something different needs to happen so that he does not keep going through the same cycle. Suggested to him that his son be included in his treatment this time. Pt responded "I don't think he will come, but it is worth a try." This clinician left Pt's son iDego another voice message . Case reviewed with Dr. rodriguez of Psychiatry and pt will be admitted to [facility]. (MIRIAN JOLLY,HUYEN)
--- NOTE | 2016-05-11 22:16 | NUR ---
The patient was evaluated by Crisis and discussed with Dr. Vo, who would like to hold the patient over for reassessment in the AM. The patient is aware of the plan and in agreement. Case discussed with Dr. Aaron.
--- NOTE | 2016-05-12 00:07 | NUR ---
ASSUMED CARE OF PT PER RN LISA H, PT RESTING WITH RR, BILATERAL CHEST RISE AND FALL NOTED, NO ACUTE DISTRESS NOTED. WILL CONTINUE TO MONITOR, SITTER IN PLACE IN
--- NOTE | 2016-05-12 00:21 | NUR ---
PTS BS CHECKED 213.
--- NOTE | 2016-05-12 01:51 | NUR ---
PT SLEEPING WITH RR, BILATERAL CHEST RISE AND FALL NOTED, SITTER IN PLACE, WILL CONTINUE TO MONITOR
--- NOTE | 2016-05-12 03:35 | NUR ---
PT SLEEPING WITH RR, VSS, SITTER IN PLACE, BILATERAL CHEST RISE AND FALL NOTED. NO DISTRESS NOTED, WILL CONTINUE TO MONITOR
--- NOTE | 2016-05-12 03:39 | NUR ---
PTS BS 161
--- NOTE | 2016-05-12 03:43 | NUR ---
AWAKENED FOR VITAL SIGNS. OFFERS NO COMPLAINTS.
--- NOTE | 2016-05-12 05:57 | NUR ---
PT SLEEPING WITH RR, BILATERAL CHEST RISE AND FALL NOTED, NO DISTRESS. SITTER IN PLACE , WILL CONTINUE TO MONITOR
--- NOTE | 2016-05-12 07:30 | NUR ---
PT TAKING FINGER FOOD BREAKFAST TRAY AT THIS TIME, NO COMPLAINTS AT PRESENT. LAUREN GREEN REMAINS AT DOORWAY.
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
--- NOTE | 2016-05-12 10:00 | NUR ---
AM MEDS GIVEN ORDERED, TOLERATED WELL,PT REMAINS CALM,PLEASANT AND COOPERATIVE, NO COMPLAINTS AT THIS TIME.
--- NOTE | 2016-05-12 11:15 | NUR ---
CRISIS IN TO EVAL.
--- NOTE | 2016-05-12 13:53 | NUR ---
PER CRISIS BED SEARCH ONGOING AT THIS TIME. PT UPDATED.
--- NOTE | 2016-05-12 15:14 | NUR ---
ASSUMING CARE OF PT
--- NOTE | 2016-05-12 16:59 | NUR ---
REPORT GIVEN TO KAREN STODDARD
[2016-05-12 17:44] VITALS: BP 109/70
--- NOTE | 2016-05-12 17:50 | NUR ---
Patient admitted to [facility]PS from ED. Patient alert and oriented to person, place, time and situation. Patient reports recent relapse on cocaine IV. Patient has contracted for safety while on the unit. Patient speech clear and coherent. Patient affect flat, sullen, "going" through motions of admission. Patient reports blood sugars have been "pretty good", blood glucose checked qid. Patient currently denies pain. Patient is neat and appropriate. Patient has a history of Hep C and testicular CA. PAtient reports independence with ADL's. Looking forward to assisting Nigel with mental health.
[2016-05-12 19:49] VITALS: BP 142/82
--- NOTE | 2016-05-12 22:01 | PN- Att Addend ---
Attending Addendum Attending Brief Note 50 yo male with h/o T1DM, HTN, HLD, Hep C, anxiety, depression/schizoaffective disorder, substance abuse (suboxone therapy), left testicular ca s/p surgery, who was discharged from Inpatient psychiatry (Apr 20) is re-admitted for depression and suicidal ideation by injecting cocaine which he has relapsed into recently. He lives in a recovery house. He denies any fever, chills, dyspnea, chest pain, or abdominal pain. [facility] (Dr. Rogers) where he is prescribed Suboxone for polysubstance abuse. He is soon to be started on Harvoni for Hepatitis C by Dr. Rogers. 12 point review of systems is otherwise negative. Current Medications Sig/Nirali Start time Last Medication Dose Route Stop Time Status Admin Aripiprazole 25 MG QPM 05/11 2200 AC 05/12 PO 2136 Fenofibrate 145 MG DAILY 05/13 1000 AC PO Hydroxyzine HCl 25 MG 4 TIMES/DAY PRN 05/12 1830 AC PO Insulin Aspart 0 TIDAC/HS 05/12 2315 AC 05/12 SC 2328 Insulin Detemir 80 UNITS BID 05/12 2313 AC 05/12 SC 2328 Lactulose 0 .STK-MED ONE 05/12 1705 DC PO Lactulose 20 GM TID 05/11 2200 AC 05/12 PO 1707 Lisinopril 40 MG DAILY 05/13 1000 AC PO Lorazepam 0 .STK-MED ONE 05/11 1841 DC PO Lorazepam 2 MG ONCE ONE 05/11 1830 DC 05/11 PO 05/11 1831 1842 Metoprolol Succinate 100 MG DAILY 05/13 1000 AC PO Pregabalin 0 .STK-MED ONE 05/12 1705 DC PO Pregabalin 100 MG TID 05/11 2200 AC 05/12 PO 2136 Pregabalin 0 .STK-MED ONE 05/11 2159 DC PO Sitagliptin Phosphate 100 MG DAILY 05/13 1000 AC PO Vital Signs Result Date Time B/P 142/82 05/12 1948 Temp 99.2 05/12 1948 Pulse 88 05/12 194 Pulse Ox 97 05/12 1428 Resp 18 05/12 1428 O2 Delivery Room Air 05/12 0344 Physical Exam: HEENT: eyes- PERRLA, EOMI svetlana- no lesion Neck: no adenopathy, no JVD or bruits Chest: clear Cor: RRR, nl S1, S2 w/o murm Abd: BS+, soft, NT, - masses or HSM Ext: no edema, pulses 2+ Neuro: alert & oriented x3, non-focal, CN 2-12 intact Laboratory Tests 05/11 05/11 1835 1835 Chemistry Sodium (137 - 145 mmol/L) 137 Potassium (3.5 - 5.1 mmol/L) 4.4 Chloride (98 - 107 mmol/L) 99 Carbon Dioxide (22 - 30 mmol/L) 25 Anion Gap (5 - 16) 14 BUN (9 - 20 mg/dL) 25 H Creatinine (0.7 - 1.2 mg/dL) 0.8 Estimated GFR (>60 ml/min) > 60 BUN/Creatinine Ratio (7 - 25 %) 31.3 H Glucose (65 - 99 mg/dL) 278 H Calcium (8.4 - 10.2 mg/dL) 9.8 Total Bilirubin (0.2 - 1.3 mg/dL) 1.3 AST (17 - 59 U/L) 167 H ALT (21 - 72 U/L) 182 H Alkaline Phosphatase (< 127 U/L) 74 Total Protein (6.3 - 8.2 g/dL) 7.4 Albumin (3.5 - 5.0 g/dL) 3.9 Globulin (1.9 - 4.2 gm/dL) 3.5 Albumin/Globulin Ratio (1.1 - 2.2 %) 1.1 Hematology CBC w Diff NO MAN DIFF REQ WBC (4.8 - 10.8 /CUMM) 7.1 RBC (4.70 - 6.10 /CUMM) 4.45 L Hgb (14.0 - 18.0 G/DL) 14.0 Hct (42 - 52 %) 41.7 L MCV (80.0 - 94.0 FL) 93.7 MCH (27.0 - 31.0 PG) 31.5 H RDW (11.5 - 14.5 %) 14.7 H Plt Count (130 - 400 /CUMM) 75 L MPV (7.4 - 10.4 FL) 11.1 H Gran % (42.2 - 75.2 %) 48.5 Lymphocytes % (20.5 - 51.1 %) 41.3 Monocytes % (1.7 - 9.3 %) 8.4 Eosinophils % (0 - 5 %) 1.2 Basophils % (0.0 - 2.0 %) 0.6 Absolute Granulocytes (1.4 - 6.5 /CUMM) 3.5 Absolute Lymphocytes (1.2 - 3.4 /CUMM) 2.9 Absolute Monocytes (0.10 - 0.60 /CUMM) 0.6 Absolute Eosinophils (0.0 - 0.7 /CUMM) 0.1 Absolute Basophils (0.0 - 0.2 /CUMM) 0 PUBS MCHC (33.0 - 37.0 G/DL) 33.6 Toxicology Urine Opiates Screen (>2000 NG/ML) < 100.00 Methadone Screen (>300 NG/ML) 59 Barbiturate Screen (>200 NG/ML) 67 Ur Phencyclidine Scrn (>25 NG/ML) 7.10 Amphetamines Screen (>1000 NG/ML) 345 U Benzodiazepines Scrn (>200 NG/ML) < 85 Urine Cocaine Screen (>300 NG/ML) > 1000 H Urine Cannabis Screen (>50 NG/ML) < 5.00 Serum Alcohol (<10 MG/DL) < 10.0 EKG: NSR, no acute ST-T changes. Assessment and plan: 1. Management as per Psych team. 2. T1DM. His numbers are anywhere between 200 - 450. Will continue accucheks, will resume novolog SS TIDAC/HS, levemir 80 units BID (as was prescribed to him while he was inpatient last month) and Januvia. Endo consult in AM. 3. HTN. Continue lisinopril and metoprolol. 4. Chronic thrombocytopenia and transaminitis in the setting of Hep C. Needs outpatient follow up with Dr. Rogers for further management with Kaleigh. 5. HLD. Ct. Fenofibrate. 6. Diabetic neuropathy. Ct. pregabalin. DVT ppx - low risk, early ambulation.
--- NOTE | 2016-05-13 05:44 | NUR ---
PT APPEARED TO SLEEP THRU NIGHT. FS = 391 BEFORE HS - NOVOLOG 6 UNITS AND LEVEMIR 80 U GIVEN. STAFF REMINDED OF PT ALLERGY.
[2016-05-13 08:04] VITALS: BP 137/86
--- NOTE | 2016-05-13 09:01 | Cons- Endocrinology ---
General Information and HPI Consulting Request Date of Consult: 05/13/16 Requested By: Primo Vo MD Reason for Consult: Uncontrolled diabetes Source of Information: patient, old records Exam Limitations: poor historian History of Present Illness: This 50-year-old male has a known history of diabetes mellitus type 2 associated with obesity. Is admitted with depression. The patient is usually on large doses of insulin. He sees another physician for his diabetes when he is not in the hospital. In the hospital we place him on 80 units of Levemir twice a day along with sliding scale NovoLog. Blood sugars are often uncontrollable because he eats constantly and has free access to food well on Inpatient Psychiatry. Patient states he does not tolerate metformin. He will take Januvia. He has never been on a GLP-1 analogue aspire as is known. The patient has a history of chronic hepatitis C, and drug abuse. He is now on Suboxone. Allergies/Medications Allergies: Coded Allergies: Penicillins (Severe, ANAPHYLAXIS 05/11/16) peanut (Severe, ANAPHYLAXIS 05/11/16) Sulfa (Sulfonamide Antibiotics) (Intermediate, ANAPHYLAXIS 05/11/16) hydromorphone (From DILAUDID) (Intermediate, BODY TURNS RED AND ITCHY 05/11/16) lamotrigine (From LAMICTAL) (RASH 05/11/16) Home Med List: Aripiprazole (Abilify) 15 MG TABLET 30 MG PO AT BEDTIME CLEAR THOUGHTS/MOOD STABILITY Buprenorphine HCl/Naloxone HCl (Suboxone 8 MG-2 MG Sl Film) 8 MG-2 MG FILM 2 STR SL DAILY Opioid replacement (Reported) Exenatide Microspheres (Bydureon Pen) 2 MG/0.65 ML PEN.INJCTR 2 MG SC ONCE A WEEK DIABETES Fenofibrate Nanocrystallized (Fenofibrate) 145 MG TABLET 1 TAB PO DAILY HIGH CHOLESTROL (Reported) Insulin Aspart (Novolog) 100 UNIT/ML VIAL 1 UNITS SC TIDAC/HS elevated blood sugar Insulin Detemir (Levemir) 100 UNIT/ML VIAL 80 UNITS SC BID diabetes management Lactulose 20 GRAM/30 ML SOLUTION 30 ML PO TID AMMONIA LEVEL (Reported) Lisinopril 40 MG TABLET 1 TAB PO DAILY blood pressure/kidney protectn ( Reported) [place] Carbonate 300 MG CAPSULE 300 MG PO 0800,2000 stabilize mood Metoprolol Succinate 100 MG TAB.ER.24H 1 TAB PO DAILY HYPERTENSION (Reported) Nicotine (Nicotine Patch) 14 MG/24 HOUR PATCH.TD24 14 MG TOP 0800 smoking cessation Venlafaxine HCl (Effexor XR) 75 MG CAP.ER.24H 225 MG PO 0800 anti-depressant Current Medications: Current Medications Sig/Nirali Start time Last Medication Dose Route Stop Time Status Admin Aripiprazole 25 MG QPM 05/11 2200 AC 05/12 PO 2136 Fenofibrate 145 MG DAILY 05/13 1000 AC 05/13 PO 0841 Hydroxyzine HCl 25 MG 4 TIMES/DAY PRN 05/12 1830 AC PO Insulin Aspart 0 TIDAC/HS 05/12 2315 AC 05/13 SC 0840 Insulin Aspart Prota 1 UNIT .STK-MED ONE 05/12 2312 DC 70%/Aspart 30% SC 05/12 2313 Insulin Detemir 80 UNITS BID 05/12 2313 AC 05/12 SC 2328 Insulin Detemir 80 UNITS ONCE ONE 05/12 1000 DC 05/12 SC 05/12 1001 0959 Lactulose 0 .STK-MED ONE 05/12 1705 DC PO Lactulose 20 GM TID 05/11 2200 AC 05/12 PO 1707 Lisinopril 40 MG DAILY 05/13 1000 AC 05/13 PO 0841 Metoprolol Succinate 100 MG DAILY 05/13 1000 AC 05/13 PO 0841 Pregabalin 100 MG .STK-MED ONE 05/12 2039 DC PO 05/12 2040 Pregabalin 0 .STK-MED ONE 05/12 1705 DC PO Pregabalin 100 MG TID 05/11 2200 AC 05/13 PO 0843 Sitagliptin Phosphate 100 MG DAILY 05/13 1000 AC 05/13 PO 0841 Review of Systems Review of Systems Constitutional: Denies: chills, fever. Cardiovascular: Denies: chest pain. Respiratory: Denies: cough, short of breath. GI: Denies: nausea, vomiting. Genitourinary: Denies: dysuria. Skin: Reports: no symptoms. Neurological/Psychological: Reports: anxiety, depressed. Hematologic/Endocrine: Denies: bruising. 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 friends Services at Home: None Primary Language: Indian ETOH Use: denies use Illicit Drug Use: cocaine Living Will? no Power of Cs Associate/HCP? no Functional Ability ADLs Independent: dressing, eating, toileting, bathing. Ambulation: independent IADLs Independent: telephone. Exam & Diagnostic Data Last 24 Hrs of Vital Signs/I&O Vital Signs Date Time Temp Pulse Resp B/P Pulse O2 O2 Flow FiO2 Ox Delivery Rate 05/13 840 93 137/86 /840 93 137/86 / 0804 98.6 93 137/86 / 194 99.2 88 142/82 / 1744 97.6 86 109/70 / 1428 97.9 93 18 128/62 97 Intake & Output 05/13 03 0000 Intake Total Output Total Balance Patient 228 lb Weight Vital Signs Date Time Temp Pulse Resp B/P Pulse O2 O2 Flow FiO2 Ox Delivery Rate 05/13 840 93 137/86 / 0841 93 137/86 / 0804 98.6 93 137/86 05/12 1949 99.2 88 142/82 / 1744 97.6 86 109/70 05/12 1428 97.9 93 18 128/62 97 Intake & Output 05/13 1600 05/13 0000 Intake Total Output Total Balance Patient 228 lb Weight Physical Exam General Appearance: alert, awake, anxious Head: normal appearance Eyes: Bilateral: normal appearance. Neck: normal inspection Respiratory: normal breath sounds Cardiovascular: regular rate/rhythm Gastrointestinal: normal bowel sounds Extremities: normal inspection Neurologic/Psych: awake, alert Skin: intact Assessment/Plan Assessment/Plan This patient with a history of depression, chronic hepatitis C, and drug abuse on Suboxone has long-standing uncontrolled diabetes. In the hospital he has required large doses of insulin probably due at least in part to the fact that he eats continuously large amounts of carbohydrates. I agree with continuing Levemir 80 units twice a day and present sliding scale NovoLog. We can also restart his Januvia. The patient does not wish to take metformin because he states it upsets his stomach. If his sugars remained uncontrolled, he would be a good candidate for Bydureon which may help control his appetite as well as improve his sugar control. Bydureon is administered once a week in a disposable pen or a kit and we would have to see if the pharmacy is willing to obtain this medication. The nurses would also need to be trained on how to mix up the Bydureon for injection.. Since the pen devices for one use only I do not believe this would violate the hospital's policy against the use of insulin pens. Consult Acknowledgment - Thank you for your consult request. - Thank you for your consult request.
[2016-05-13 12:14] VITALS: BP 123/71
--- NOTE | 2016-05-13 13:56 | NUR ---
PT NOT VISIBLE MUCH IN THE [place] TODAY. PT DID NOT ATTEND ANY GROUPS TODAY, HE TENDS TO ISOLATE IN HIS ROOM AWAY FROM EVERYONE. PT HAS MINIMAL INTERACTIONS WITH PEERS AND STAFF ALIKE. HE HAS BEEN COOPERATIVE THOUGH WITH STAFF, AND THE RULES OF THE UNIT. PT DENIES HAVING THOUGHTS TO HURT HIMSELF WHEN ASKED.
[2016-05-13 15:41] VITALS: BP 127/79
--- NOTE | 2016-05-13 16:23 | SOCIAL WORKER PROG NOTE PSYCH ---
Social Work Progress Note Progress Note Nigel was in bed most of the day today. He is feeling embarrassed and ashamed over returning to the unit. Talked about moving past those feelings and getting into treatment while he is here and that he is not the only one experiencing those things. He talked about having feelings of emptiness. Stated something is missing from his life and he needs to try and find out how to fullfill this feeling. Wishes he would have more contact with his son, but doesn't communicate this to him. I asked if he would want a phone conference or meeting with his son but he wasn't sure. Nigel is considering going into the [facility]. He thinks that the structure may help and it may give him more meaning in his life. I asked if he thinks he may need to go to rehab? Informed him that may be one option to look at, but there are only a few places that will take his insurance (Medicare).
--- NOTE | 2016-05-13 16:49 | CPS MD/APRN INITIAL ASSE PSYCH ---
Psychiatric Admission Research Home Economist's Note Reviewed: Yes Patient Seen and Examined: Yes Identifying Information: 50-year-old male with history of schizoaffective disorder and substance abuse. Chief Complaint: Suicide attempt by injecting cocaine into his arms bilaterally. Reaction to Hospitalization: Calm and cooperative. History of Present Illness Onset of Illness: Chronic Circumstances Leading to Admission: Patient took the bus to [facility] emergency department after a suicide attempt. Problem(s) Justifying Need for Admission: Suicidal ideation. Past Psychiatric History Past Diagnosis(es)- if any: Schizoaffective disorder. Opioid dependence. Past Precipitating Factors- if any: Multiple relapses and polysubstance abuse. - Include inpatient and outpatient treatment Treatment History: Sees Dr. Bill at [facility]. Dr. Mallory Rogers, bilingual research interviewer at [facility] This is the patient's [facility] admission since 2007. His last discharge was on 04/20/2016. History of Suicide Attempts or Gestures History of 4 or 5 other attempts Substance Abuse History: Cocaine, heroin, benzodiazepines. Patient positive for cocaine on ER urine tox screen Allergies: Coded Allergies: Penicillins (Severe, ANAPHYLAXIS 05/11/16) peanut (Severe, ANAPHYLAXIS 05/11/16) Sulfa (Sulfonamide Antibiotics) (Intermediate, ANAPHYLAXIS 05/11/16) hydromorphone (From DILAUDID) (Intermediate, BODY TURNS RED AND ITCHY 05/11/16) lamotrigine (From LAMICTAL) (RASH 05/11/16) Home Med List: Metoprolol ER 100 mg daily. Fenofibrate 145 mg daily. Effexor XR 300 mg daily. Lisinopril 40 mg daily. Lyrica 100 mg t.i.d. Januvia 100 mg daily. Novolog 20 units SC before meals. Suboxone 16/4 daily. Provigil 200 mg daily. Levemir 80 units SC b.i.d. Nicoderm 7 mg top daily. Abilify 25 mg qhs. 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 Substance Use: Father: Opiates Suicides: Denies Social History Living Situation: Lives in a sober house in [place]. Significant Relationships (family/friends): Patient's years ago. He has 2 children. He is estranged from his adult daughter. Speaks with his adult son, who lives in [place] by phone, rarely sees him. 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 Vocation/Occupation: On disability for depression. 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 Legal: No pending cases at this time. Healthly Behaviors Screening Tobacco Screening Tobacco Use from ED Docu: Current Daily Use Daily Tobacco Use Amount/Type: => 5 Cigarettes daily - If tobacco counseling indicated - the following topics are required. - #1 Recognizing dangerous situations. - #2 Coping Skills. - #3 Basic information about quitting. Status of Tobacco Cessation Counseling: #1, #2 AND #3 Completed Cessation Med Status: Nicotine Patch Ordered Alcohol Screening - ETOH screen POS if BAL >=80 or Audit-C>= M4/F3 Audit-C Score from Diag Assess: 0 Blood Alcohol Level: Laboratory Tests 05/11 1835 Toxicology Serum Alcohol (<10 MG/DL) < 10.0 Alcohol Use Screening Results: Neg per Audit C &/or BAL - If ETOH counseling indicated - the following topics are required. - #1 Express concern about the patient's - drinking at unhealthy levels, include informing - of national norms for moderate drinking: - men <= 14 drinks/week, max 4 drinks/occasion - women <= 7 drinks/week, max 3 drinks/occasion - #2 Providing feedback, including linking alcohol to - negative physical effects (liver injury, hypertension) - negative emotional effects (relationship problems and - depression) - negative occupational consequences (reduced work - performance) - #3 Advising the patient to abstain from alcohol or - to drink below national norms for moderate drinking - (as listed above). Status of ETOH Use Counseling: N/A B/C NO ETOH Use Metabolic Screening - Screen if on a Neuroleptic Medication - Metabolic screening should include: - Blood Pressure, BMI, Glucose or Hgb A1c, & a - Lipid profile from within the past 365 days. Metabolic Screening () Not Applicable, patient not on a neuroleptic. OR ([x]) Patient on a neuroleptic(s) . Enter below results for Glucose or Hemoglobin A1C, and lipid panel if obtained during the last 365 days. BMI: 33.700 Blood Pressure: 127/79 Laboratory Results (If applicable): Lab Cholesterol 152 MG/DL 12/25/15 0607 Cholesterol/HDL Ratio 4 % 12/25/15 0607 Glucose 278 mg/dL H 05/11/16 1835 HDL Cholesterol 41 mg/dL 12/25/15 0607 Hemoglobin A1c 10.8 % H 12/25/15 0607 LDL Cholesterol, Calc 63 mg/dL L 12/25/15 0607 Triglycerides 240 mg/dL H 12/25/15 0607 Exam and Plan Mental Status Examination Ambulation Status: Ambulates independently with a steady gait. Appearance: In paper hospital scrubs. Attitude towards examiner: Calm and cooperative Psychomotor activity: Within normal limits Behavior: Calm and cooperative Quality of speech: Speech is well articulated, goal-directed, average in rate, volume and tone. Affect: Congruent Mood: Sad, depressed. Suicidal Ideation: Report suicidal ideation. States he is able to contract for safety while here on the unit. Homicidal Ideation: Denies Hallucinations: Denies Paranoid/Delusional Material: Denies Difficulties with thought organization: No difficulties noted. Insight: Poor Judgment: Poor Orientation: Alert and oriented to person, place, time and situation. Cognition: Within normal limits Memory Function: The normal limits Estimate of intellectual functioning: Average Assets/Strengths Patient Identified Assets/Strengths: "Right now it's tough for me to think." Impression/Plan Impression and Plan: This 50-year-old male, who is making his [facility] admission to [facility]. He reports increasing depression and suicidal ideation, claims to have made a suicidal attempt by injecting cocaine into both of his arms prior to arrival in the emergency department. He has chronic mental illness. He has a history of Hep C, and is being seen by internal medicine at [facility] for consideration of Harvoni treatment. Plan: Increase Abilify to 30mg daily. - Include all active medical diagnosis that require tx DSM 5 Diagnosis(es): Schizoaffective d/o, depressed. Opiate use disorder. Cocaine use disorder. Hx of benzodiazepine use disorder. Hx of Xanax overdose. Hepatitis C. Hypertension. IDDM. Peripheral neuropathy. Hyperlipidemia. Hx left testicular cancer/orchiectomy. - Initial Tx Plan for Active Psych & Medical Conditions Treatment Plan: PLAN: The patient will be monitored on the unit for safety, depression, suicidal ideation, and mood stability. Additional information is needed from collaterals, including his son. Anticipate once clinically stable, that the patient will be discharged to home and family and be referred to the [facility]. - Factors that would help patient function - in a less restrictive setting. Factors: Resolution of suicidal ideation.
[2016-05-13 19:40] VITALS: BP 98/65
[2016-05-13 19:54] VITALS: BP 98/65
--- NOTE | 2016-05-14 04:35 | NUR ---
PT UP TO THE TOILET A FEW TIMES. PT APPEARED TO SLEEP OTHERWISE.
[2016-05-14 08:01] VITALS: BP 136/84
--- NOTE | 2016-05-14 11:43 | CP SOUTH PROGRESS NOTE PSYCH ---
Psych (Inpt) Progress Note Progress Note Progress Note: I discussed this patient's progress to date, current mental status, treatment process in the context of the treatment plan, and discharge planning with staff/ team in the daily morning inpatient team meeting. I also met with the patient myself in individual session. A total of 15 minutes was spent with the patient with more than 50% spent in counseling and/or coordination of care. SUBJECTIVE: "I would like to go to rehabilitation. I've never felt so hopeless. I keep screwing up. I can change my mind." OBJECTIVE: Current Medications Sig/Nirali Start time Last Medication Dose Route Stop Time Status Admin Acetaminophen 1,000 MG Q4 HRS NEEDED PRN 05/13 1715 AC PO Aripiprazole 30 MG AT BEDTIME 05/130 AC 05/13 PO 2123 Aripiprazole 25 MG QPM 05/11 2200 DC 05/12 PO 2136 Exenatide 2 MG Q168 05/14 1000 AC 05/14 SC 1015 Fenofibrate 145 MG DAILY 05/13 1000 AC 05/14 PO 0927 Hydroxyzine HCl 25 MG 4 TIMES/DAY PRN 05/12 1830 AC 05/14 PO 1052 Insulin Aspart 0 TIDAC/HS 05/12 2315 AC 05/14 SC 0928 Insulin Detemir 70 UNITS BID 05/14 1000 AC 05/14 SC 0928 Insulin Detemir 80 UNITS BID 05/12 2313 DC 05/13 SC 2130 Lactulose 20 GM TID 05/11 2200 AC 05/13 PO 2124 Lisinopril 40 MG DAILY 05/13 1000 AC 05/14 PO 0927 Metoprolol Succinate 100 MG DAILY 05/13 1000 AC 05/14 PO 0927 Nicotine 14 MG 0805/14 1115 AC TOP Nicotine 7 MG 05/13 1715 DC 05/14 TOP 0927 Nicotine 2 MG Q2 HRS NEEDED PRN 05/13 1645 DC PO Pregabalin 100 MG .STK-MED ONE 05/13 2306 DC PO 05/13 2307 Pregabalin 100 MG .STK-MED ONE 05/13 1624 DC PO 05/13 1625 Pregabalin 100 MG TID 05/11 2200 AC 05/14 PO 0927 Sitagliptin Phosphate 100 MG DAILY 05/13 1000 DC 05/13 PO 0841 Venlafaxine HCl 300 MG 0805/14 0800 AC 05/14 PO 0926 Vital Signs Date Time Temp Pulse Resp B/P Pulse O2 O2 Flow FiO2 Ox Delivery Rate 05/14 926 84 136/84 05/14 926 84 136/84 05/14 08 97.4 84 136/84 05/13 1954 98.2 72 98/65 05/13 1940 98.2 72 98/65 05/13 1541 92 127/79 05/13 1214 93 123/71 ASSESSMENT: Patient presents this morning calm and cooperative. Euthymic mood. States he is feeling better. Tolerating his medications well, without complaint. States he would like to attend substance abuse rehabilitation, after which he would be able to attend a year and a half long program sponsored by the [employer] which runs his [employer]. Patient currently taking venlafaxine extended release 300 mg. This is above prescribing guidelines for someone with hepatic insufficiency. I discussed this with our application support technician, and we decided that the patient was in need of this dose of antidepressant. Pt is aware. Patient currently being seen at the [facility] for hepatitis C and Harvoni treatment is being considered. Patient seen today by antique furniture repairer Dr. Dugan. Patient will be starting on a new medication, Bydureon for diabetes. Please refer to Dr. Dugan notes for additional information. Depression:10/14; Anxiety:10/14 (with 10 the worst.) Denies suicidal ideation, homicidal ideation, auditory hallucinations, visual hallucinations, paranoid ideation. Patient states he had some suicidal thoughts yesterday, but it was "not that strong." No suicidal ideation so far today. Speech is well articulated, goal-directed, average in rate, volume and tone. The patient understands the risks/benefits/side effects of the medication and is agreeable to continue taking them. PLAN: Anticipate discharge on Tuesday. Continue with current management as patient is improving. Continue to provide support and encouragement.
[2016-05-14 12:23] VITALS: BP 153/70
--- NOTE | 2016-05-14 13:37 | NUR ---
PT IS COMPLIANT WITH UNIT RULES. PT IS CALM AND COOPERATIVE. PT IS OUT IN COMMUNITY MORE THEN BEFORE BUT DOES ISOALTIVE IN ROOM AT TIMES. PT IS ATTENDING GROUPS WHICH WAS HIS GOAL OF THE DAY. PT MOOD IS STABLE WITH A FULL RANGE AFFECT. PT DENEIES SI THOUGHTS. PT BLOOD SUGAR 256 AT 0800 AND 368 AT 1200.
--- NOTE | 2016-05-14 14:30 | PN- Diabetes ---
Assessment/Plan Assessment: 50 y/o male with Hx of depression, chronic hepatitis C, and drug abuse on Suboxone has long-standing uncontrolled diabetes. In the hospital he has required large doses of insulin probably due at least in part to the fact that he eats continuously large amounts of carbohydrates. currenly he is on Levemir 80 units twice a day. Novolog coverage before meals, Novolog coverage at bedtime and Januvia 100 mg daily. His FSGs were 256, 305, 211, 256 and 274. Plan: 1. start Bydureon 2 mg sc injection once a week; 2. stop Januvia; 3.possible side effects of Bydureon have been discussed with him; 4. decrease levemir to 70 units twice a day; 5. decrease Novolog coverage before meals by 4 units-- detail see the inpatient DM order; 6. continue the current Novolog coverage before bedtime; 7. monitor FSGs. will follow. Subjective Subjective: He feels okay. He is willing to try Bydureon. Objective Last 24 Hrs of Vital Signs/I&O Vital Signs Date Time Temp Pulse Resp B/P Pulse O2 O2 Flow FiO2 Ox Delivery Rate 05/14 1223 88 153/70 05/14 926 84 136/84 05/14 926 84 136/84 05/14 0801 97.4 84 136/84 05/13 1953 98.2 72 98/65 05/13 194 98.2 72 9865 05/13 1541 92 127/79
[2016-05-14 15:52] VITALS: BP 118/71
--- NOTE | 2016-05-14 15:57 | SOCIAL WORKER TX PLAN PSYCH ---
Treatment Plan - Please Document: - Evidence that there is ongoing collaboration between - the patient and the interdisciplinary team, - including the patient's active participation and - responsibility for engaging in the treatment regimen, - and that the treatment plan is individualized and - relevant to the patient's conditions. - Treatment plan should reflect documentation indicating - that all active therapeutic efforts are included. Strengths/Capabilities: The patient has a sober living enviornment and is connected to treatment at the [facility]. Physical Limitations (Interventions): The patient has multiple medical issues Patient Identified Trmt Goals: "I want to have more meaning in my life" Discharge Plan: [facility] for Suboxone and IOP Problem/Goals #1 Problem #1: depression Goal (Short Term): Patient will attend 75% of groups Goal ([place]ryman): Patient will identify 2 ways to increase meaning in his life Interventions: Patient will be offered medication management with the SIGN PAINTER, groups on symptom management, coping skills, relaxation, art therapy, accupuncture, goals group, focus group. Online Journalist will help patient reframe negative thinking, discuss the impact of choice on life decisions. Online Journalist will assist in aftercare planning. Modalities: group/ individual Problem/Goals #2 Problem #2: cocaine dependence/abuse Goal (Short Term): Patinet will identify pros and cons to use Goal (Quarryman): Patient will identify a relapse prevention plan Interventions: patient will be offered groups on symptom management, coping skills, relapse prevention, AA. Online Journalist will assist in exploring treatment for substance use. DSM5/PS Stressors/Medical Prob Diagnosis' (DSM 5, Stressors, Medical): F25.1 Schizoaffective Disorder, Depressed type F14.20 Cocaine Use Disorder, moderate F11.20 Opioid Use disorder- on Suboxone Maintenance Medical: Hep C and history of Testicular Cancer Stressors: Finances, housing and family issues Current GAF: 25 Treatment Team - Responsibilities of members of the treatment team include: - Medication Management- MD or SIGN PAINTER - Medication Administration and Monitoring- Nurse - Group Therapy- Occupational Therapist - 1:1 Therapy,Disch Planning,family involvement-Online Journalist
--- NOTE | 2016-05-14 15:57 | SOCIAL WORKER PROG NOTE PSYCH ---
Social Work Progress Note Progress Note Nigel was up a little more today, but in his room feeling down this afternoon. He was interested in doing some referrals to rehab. I told him I can assist with the referrals, but with his insurance there are limited rehabs that take Medicare and waiting lists are long. Told him he would not be getting in a rehab from here. He signed releases for [facility] and [facility]. I gave him a list of places he could call and see what the insurance would be, but those are the ones that I know of. He was not interested in [facility], due to a bad experience there years ago. I also looked into a senior nallely bed at [facility], but I was informed that patients have to be 55 and older. I asked if he had spoken with anyone at [facility] to see about their rehab? He said he did speak with a counselor earlier in the week and she had mentioned that they have nallely beds. I suggested that we follow up with them on Tuesday to inquire. I asked about having his son in for a meeting or phone conference again and he said he really didn't want to. He said he would reach out to his son tomorrow though to talk to him. He is still considering the baptist program through [facility].
--- NOTE | 2016-05-14 17:32 | NUR ---
DR GREER NOTIFIED OF PMBS 429. PT TO RECEIVE 26 UNITS NOVOLOG.
[2016-05-14 19:51] VITALS: BP 128/76
--- NOTE | 2016-05-14 21:34 | NUR ---
Pt is out in the community affect is in full range. compliant and cooperative with the staff c/o no pain. Vital signs are stable appetite is good, BS is 375. Will continue to monitor the pt overnight.
--- NOTE | 2016-05-15 06:44 | NUR ---
PATIENT WAS UP TO BATHROOM X2, OTHERWISE SLEPT.
[2016-05-15 07:54] VITALS: BP 132/70
--- NOTE | 2016-05-15 10:07 | CP SOUTH PROGRESS NOTE PSYCH ---
Psych (Inpt) Progress Note Progress Note Include the following elements, when applicable: Involvement in the active treatment of the patient with behavioral observations of the patient and the patient's response to the treatment. Review of the ongoing treatment process in the context of the treatment plan. Indication of how multi-disciplinary staff members are carrying out the treatment plan. Plans for future interventions and recommendations for revision of the treatment plan. Liaison with other physicians/providers. Progress Note: Chart reviewed, progress discussed with nursing staff. Interviewed patient this morning. Reports that his depression has improved somewhat since time of admission. Denies suicidal or homicidal thoughts today. Denies psychotic symptoms today. Says sleep last night was difficulty to snoring of his roommate , so is trying to make up for some sleep today. He notes that his Suboxone, which she was discharged on last time and continued in the interim. Outside of the hospital, has not been started since he's been on Inpatient Psychiatry and he would like to resume this medication. Vitals reviewed are within normal limits. No new laboratory results today. Mental status exam: Disheveled man who appears older than stated age. Cooperative with interview. Limited eye contact. Speech was quiet otherwise within normal limits. Mood was "a little bit less depressed ". Affect was constricted, non-labile, congruent. Thought process was within normal limits, thought content within normal limits. Denies perceptual disturbances. Cognition was grossly intact. Insight and judgment were fair. A/P: Resolving depressed mood. Will resume buprenorphine treatment at 16/4 mg daily given he has been on this chronically and do not note any documentation to suggest he should no longer be on this medication. Otherwise, continue plan as per primary team.
--- NOTE | 2016-05-15 11:27 | PN- Diabetes ---
Assessment/Plan Assessment: 50 y/o male with Hx of depression, chronic hepatitis C, and drug abuse on Suboxone has long-standing uncontrolled diabetes. In the hospital he has required large doses of insulin probably due at least in part to the fact that he eats continuously large amounts of carbohydrates. He was put on Bydureon 2 mg once a week on 05/14/2016. He tolerated well. He didn 't have any GI side effects at this point. Levemir was decreased to 70 units twice a day. Novolog coverage before meals was decreased by 4 units on 2016. Januvia 100 mg daily was discontinued. His FSGs were 257, 368, 429, 375, 341 and 371. Plan: 1. increase Levemir to 80 units twice a day; 2. increase Novolog coverage before meals--detail see the inpatient DM orders; 3. continue the current Novolog coverage at bedtime; 4. monitor FSGs. will follow. Inpatient Diabetes Orders Before Each Meal: Bolus Insulin: Novolog < 80 mg/dl: no coverage 80-100 mg/dl: 18 units 101-120 mg/dl: 18 units 121-150 mg/dl: 18 units 151-200 mg/dl: 20 units 201-250 mg/dl: 22 units 251-300 mg/dl: 24 units 301-350 mg/dl: 26 units 351-400 mg/dl: 28 units > 400 mg/dl: 30 units Subjective Subjective: He tolerated Bydureon well. Objective Last 24 Hrs of Vital Signs/I&O Vital Signs Date Time Temp Pulse Resp B/P Pulse O2 O2 Flow FiO2 Ox Delivery Rate 05/15 0757 85 132/70 05/15 0756 85 132/70 05/15 0754 98.2 85 132/70 05/14 1950 99.0 78 128/76 05/14 1552 96.9 91 118/71 05/14 1223 88 153/70
[2016-05-15 12:52] VITALS: BP 112/74
--- NOTE | 2016-05-15 15:18 | NUR ---
PT IS COMPLIANT AND COOPERATIVE. MOOD IS STABLE WITH A CONSTRICTED AFFECT. PT DENIES SI AT THIS TIME, NO COMPLAINTS OFFERED. PT TENDS TO BE WITHDRAWN IN BED, SLEEPING MUCH OF DAY. PT PRESENT ON UNIT FOR MEALS AND VITALS. PT HAS SOME INTERACTION WHEN ON UNIT. PT IS REFUSING GROUPS. VITALS ARE STABLE, APPETITE IS GOOD.
[2016-05-15 15:44] VITALS: BP 110/67
--- NOTE | 2016-05-15 17:21 | NUR ---
Patient is A&O X 3, compliant with medication but does not participate in group therapies. Patient isolates in her room mostly on bed rest, minimal interaction with other peers and staff members. Pt blood sugar is elvated amid of the insulin coverage, was seen by the van owner operator for sliding scale adjustment. Mood and affect are apathetic, vital sign is stable and WNL, denies thought of self-harm and to someone else.
[2016-05-15 19:50] VITALS: BP 101/62
--- NOTE | 2016-05-15 21:24 | NUR ---
PT HAS BEEN ISOLATIVE AND WITHDRAWN, REMAINING IN BED FOR MAJORITY OF EVENING. MINIMAL INTERACTION WITH PEERS AND STAFF. REFUSED WRAP UP MEETING. NO COMPLAINTS OR SI REPORTED. PT HAS A STABLE MOOD AND FLAT AFFECT.
[2016-05-16 08:04] VITALS: BP 110/65
--- NOTE | 2016-05-16 09:39 | PN- Diabetes ---
Assessment/Plan Assessment: 50 y/o male with Hx of depression, chronic hepatitis C, and drug abuse on Suboxone has long-standing uncontrolled diabetes. In the hospital he has required large doses of insulin probably due at least in part to the fact that he eats continuously large amounts of carbohydrates. He was put on Bydureon 2 mg once a week on 05/14/2016. He tolerated it well. He didn't have any GI side effects at this point. In addition, he is on Levemir 80 units twice a day. Novolog coverage before meals and Novolog coverage at bedtime. Januvia 100 mg daily was discontinued. His FSGs were 341, 454, 407, 369 and 341. Plan: 1. encouraged patient to control diet; 2. continue the current diabetic regimen for now; 3. monitor FSGs. will follow. Subjective Subjective: His glucose levels were still not controlled. Objective Last 24 Hrs of Vital Signs/I&O Vital Signs Date Time Temp Pulse Resp B/P Pulse O2 O2 Flow FiO2 Ox Delivery Rate 05/16 0804 97.8 72 110/65 05/16 0746 71 101/62 05/16 0744 71 101/62 05/15 1950 98.1 71 /62 05/15 1544 74 110/67 05/15 1252 96 112/74
[2016-05-16 12:20] VITALS: BP 102/52
--- NOTE | 2016-05-16 13:48 | CP SOUTH PROGRESS NOTE PSYCH ---
Psych (Inpt) Progress Note Progress Note Include the following elements, when applicable: Involvement in the active treatment of the patient with behavioral observations of the patient and the patient's response to the treatment. Review of the ongoing treatment process in the context of the treatment plan. Indication of how multi-disciplinary staff members are carrying out the treatment plan. Plans for future interventions and recommendations for revision of the treatment plan. Liaison with other physicians/providers. Progress Note: Chart reviewed, progress discussed with nursing staff. Interviewed patient this morning. Pleasant on interview. Says his mood continues to improve. Denies SI or HI currently. Denies perceptual disturbances. He asked me about the possibility of resuming modafinil, as he says that he felt as though this medication was helpful for his cocaine use disorder and that once this was discontinued due to concern about his liver function he has had multiple relapses. We also discussed the importance of having someone else officially manage his money as Nigel described receiving his monthly check as a major trigger for relapse. We restarted buprenorphine yesterday and Nigel reports no side effects of the resumption of this medication. Vitals reviewed are within normal limits. No new laboratory results today. Mental status exam: Disheveled man who appears older than stated age. Cooperative with interview. Limited eye contact. Speech was quiet otherwise within normal limits. Mood was "doing better ". Affect was constricted, non- labile, congruent. Thought process was within normal limits, thought content within normal limits. Denies perceptual disturbances. Cognition was grossly intact. Insight and judgment were fair. A/P: Mood continues to resolve. Defer question of modafinil re-initiation to primary team as there is some limited evidence of this medication for cocaine use disorder, through recognize that hepatic function may limit max dose. Rep payee possibility also seems reasonable. Continue current management.
[2016-05-16 15:05] VITALS: BP 116/64
--- NOTE | 2016-05-16 16:28 | NUR ---
Patient is A&O X 3, compliant with medication but selective with group therapies/ activities. Patient' Blood sugar continue to be elevated and was re-adjusted today by DR cummins, but vital sign is stable and at acceptable range. mood is stable with apathytic affects, denies thought of self-harm and to someone else.
[2016-05-16 19:50] VITALS: BP 118/70
--- NOTE | 2016-05-16 21:12 | NUR ---
PT IS CALM, COOPERATIVE WITH STAFF AND PEERS, AND COMPLIANT WITH UNIT RULES. PT APPEARS IN MILIEU RARELY, BUT WHEN IN MILIEU PT INTERACTS WELL WITH OTHERS. PT IS SLIGHTLY ISOLATIVE AND WITHDRAWN, SPENDING THE MAJORITY OF THE EVENING IN PT ROOM. MOOD ID STABLE, AFFECT IS EUTHYMIC TO FULL RANGE, COMMUNICATION IS ORGANIZED AND OTHERWISE NORMAL IN EVERY ASPECT, AND APPETITE IS NORMAL. PT DENIES SI AT THIS TIME.
--- NOTE | 2016-05-16 21:49 | NUR ---
BLOOD SUGAR 470 REPORTED TO HOD NO NEW ORDERS SCHEDULED DOSES GIVEN ORDERED.
[2016-05-17 07:39] VITALS: BP 114/62
[2016-05-17 08:11] VITALS: BP 114/62
--- NOTE | 2016-05-17 09:04 | SOCIAL WORKER PROG NOTE PSYCH ---
Social Work Progress Note Progress Note Chace Farmer APRN and I met with Nigel together. Nigel is feeling ready to leave today. Discussed importance of making good choices to help get him out of a negative cycle. Nigel stated that he may ask his son to be his rep payee. I asked if he talked to his son this past weekend? Nigel said he did not. I asked if he would like to call him together this morning? He stated his son was working. I also asked if he would like to call [facility] this morning to see if they offer nallely beds for rehab there? He said he would actually prefer to do it in person. Discussed getting involved in their IOP and importance of doing something different. Nigel has an appt. scheduled with Dr. Bill at [facility] for 05/26 at 1pm. Plans to get to [facility] today via bus after discharge from the hospital. Nigel shared his current address: [address] [place] [id number].
--- NOTE | 2016-05-17 10:41 | CP SOUTH PROGRESS NOTE PSYCH ---
Psych (Inpt) Progress Note Progress Note Progress Note: I discussed this patient's progress to date, current mental status, treatment process in the context of the treatment plan, and discharge planning with staff/ team in the daily morning inpatient team meeting. I also met with the patient myself in individual session. A total of 30 minutes was spent with the patient with more than 50% spent in counseling and/or coordination of care. SUBJECTIVE: "I always get a little anxious when I have to leave. But then I'm fine afterwards." OBJECTIVE: Current Medications Sig/Nirali Start time Last Medication Dose Route Stop Time Status Admin Acetaminophen 1,000 MG Q4 HRS NEEDED PRN 05/13 1715 AC PO Aripiprazole 30 MG AT BEDTIME 05/13 2200 AC 05/16 PO 2144 Buprenorphine/ 2 TAB 0800 05/16 0800 AC 05/17 Naloxone SL 0810 Exenatide 2 MG Q168 05/14 1000 AC 05/14 SC 1015 Fenofibrate 145 MG DAILY 05/13 1000 AC 05/17 PO 0811 Hydroxyzine HCl 25 MG 4 TIMES/DAY PRN 05/12 1830 AC 05/14 PO 1052 Insulin Aspart 0 TIDAC/HS 05/12 2315 AC 05/17 SC 0810 Insulin Detemir 80 UNITS BID 05/15 2200 AC 05/17 SC 0807 Lactulose 20 GM TID 05/11 2200 AC 05/16 PO 2221 Lisinopril 40 MG DAILY 05/13 1000 AC 05/17 PO 0811 Metoprolol Succinate 100 MG DAILY 05/13 1000 AC 05/17 PO 0811 Nicotine 14 MG 0800 05/14 1115 AC 05/17 TOP 0809 Pregabalin 100 MG .STK-MED ONE 05/16 2139 DC PO 05/16 2140 Pregabalin 100 MG .STK-MED ONE 05/16 1604 DC PO 05/16 1605 Pregabalin 100 MG TID 05/11 2200 AC 05/17 PO 0811 Venlafaxine HCl 300 MG 0800 05/14 0800 AC 05/17 PO 0809 Vital Signs Date Time Temp Pulse Resp B/P Pulse O2 O2 Flow FiO2 Ox Delivery Rate 05/17 0811 83 114/62 05/17 0739 97.5 83 114/62 05/16 1950 97.0 74 118/70 05/16 1505 72 116/64 05/16 1220 68 102/52 ASSESSMENT: Patient reports he is feeling safe and ready for discharge. Presents this morning as calm and cooperative. We reviewed discharge planning today. Patient states that he would like to attend residential rehabilitation, has been making phone calls to try for admission. In the meanwhile the patient states that his plan for maintaining sobriety include: Going to AA meetings; not isolating; staying with sober friends; attending IOP at [facility]; asking his son to be his Rep Payee. Patient states he will follow-up with his psychiatrist, Dr. Bill, and yard assistant Dr. Rogers at [facility]. Depression:0/10; Anxiety:2/10 (with 10 the worst.) Denies suicidal ideation, homicidal ideation, auditory hallucinations, visual hallucinations, paranoid ideation. Patient states and also believes that he will not kill himself. Speech is well articulated, goal-directed, average in rate, volume and tone. Alert and oriented 3. Calm, cooperative. Logical. The patient understands the risks/benefits/side effects of the medication and is agreeable to continue taking them. PLAN: Discharge today. Follow-up at [facility]. Continue with current management as patient is improving. Continue to provide support and encouragement.
[2016-05-17] MEDS ORDERED: ABILIFY15 M1 PO (11:05)
[2016-05-17] MEDS ORDERED: BYDUREON P2 MG/0.65 SC (11:07)
--- NOTE | 2016-05-17 11:07 | DISCHARGE SUMMARY REPORT-PSYCH ---
Visit Information Visit Dates/Diagnosis' Admission Date: 05/12/16 Discharge Date: 05/17/16 Reason for Admission: Patient took the bus to [facility] emergency department after a suicide attempt by injecting cocaine into his arms bilaterally. This is the patient's [facility] admission since 2007. His last discharge was on 04/20/2016. Psy Discharge Primary Diag: Schizoaffective Disorder Psy Discharge Secondary Diag: Opiate use d/o; cocaine use d/o; Hx of benzodiazepien use d/o; Hx of xanax overdose; Hep C; HTN; peripheral neuropathy; hyperlipidemia; Left testicular cancer/orchiectomy. Hospital Course Significant Lab Findings: Lab ALT 182 U/L H 05/11/16 1835 AST 167 U/L H 05/11/16 1835 BUN 25 mg/dL H 05/11/16 1835 BUN/Creatinine Ratio 31.3 % H 05/11/16 1835 Creatinine 0.8 mg/dL 05/11/16 1835 Estimated GFR > 60 ml/min 05/11/16 1835 Glucose 278 mg/dL H 05/11/16 1835 Hct 41.7 % L 05/11/16 1835 Hgb 14.0 G/DL 05/11/16 1835 MCH 31.5 PG H 05/11/16 1835 MCV 93.7 FL 05/11/16 1835 MPV 11.1 FL H 05/11/16 1835 Plt Count 75 /CUMM L 05/11/16 1835 RBC 4.45 /CUMM L 05/11/16 1835 RDW 14.7 % H 05/11/16 1835 WBC 7.1 /CUMM 05/11/16 1835 Buprenorphine & Metab POSITIVE 03/23/16 0105 Urine Cocaine Screen > 1000 NG/ML H 05/11/16 1835 Course Complications: He states he is soon to be started on Harvoni for Hepatitis C by Dr. Rogers at the [facility] in [place]. Consultations: Patient was seen for admission history and physical by Kostas Solis MD. Please refer to the H&P for additional information. Patient was followed for endocrinology by Drs. Dugan and Ashley. Please refer to their notes for additional information. Allergies: Coded Allergies: Penicillins (Severe, ANAPHYLAXIS 05/11/16) peanut (Severe, ANAPHYLAXIS 05/11/16) Sulfa (Sulfonamide Antibiotics) (Intermediate, ANAPHYLAXIS 05/11/16) hydromorphone (From DILAUDID) (Intermediate, BODY TURNS RED AND ITCHY 05/11/16) lamotrigine (From LAMICTAL) (RASH 05/11/16) Hospital Course/TX Response: Patient was monitored on the unit for safety, suicidal ideation, depression and mood stability. He participated multimodal treatments on the unit. He was medicated with an increased dose of Abilify for clear thoughts and mood stability. Hydroxyzine as needed for anxiety. Effexor for depression and anxiety. Today, the day of discharge, reports he is feeling safe and ready for discharge. Presents this morning as calm and cooperative. We reviewed discharge planning today. Patient states that he would like to attend residential rehabilitation, has been making phone calls to try for admission. In the meanwhile the patient states that his plan for maintaining sobriety include: Going to AA meetings; not isolating; staying with sober friends; attending IOP at [facility]; asking his son to be his Rep Payee. Patient states he will follow-up with his psychiatrist, Dr. Bill, and bushel girl Dr. Rogers at [facility]. Depression:0/10; Anxiety:2/10 (with 10 the worst.) Denies suicidal ideation, homicidal ideation, auditory hallucinations, visual hallucinations, paranoid ideation. Patient states and also believes that he will not kill himself. Speech is well articulated, goal-directed, average in rate, volume and tone. Alert and oriented 3. Calm, cooperative. Logical. The patient understands the risks/benefits/side effects of the medication and is agreeable to continue taking them. Patient reports he is tolerating medications well, too good effect. States he feels safe and ready for discharge. Discharge HBIPS - Tobacco Use Treatment Offered Post DC Medications Offered: Script Given-See Med List Post DC Tobacco Treatment Plan: [facility] Program Appt Date: 05/26/16 Program Appt Time: 1600 - EtOH/Drug Use D/O Treatment Offered Post DC Medications Offered: Ref Med EtOH/Drug Use D/O Post DC EtOH/SubAbuse TX Plan: Other SubAbuse/Dual Pgm ([facility]) Program Appt Date: 05/17/16 Program Appt Time: 1400 Metabolic Screening - Screen if on a Neuroleptic Medication - Metabolic screening should include: - Blood Pressure, BMI, Glucose or Hgb A1c, & a - Lipid profile from within the past 365 days. Metabolic Screening () Not Applicable, patient not on a neuroleptic. OR ([x]) Patient on a neuroleptic(s) . Enter below results for Glucose or Hemoglobin A1C, and lipid panel if obtained during the last 365 days. BMI: 33.700 Blood Pressure: 114/62 Laboratory Results (If applicable): Lab Cholesterol 152 MG/DL 12/25/15 0607 Cholesterol/HDL Ratio 4 % 12/25/15 0607 Glucose 278 mg/dL H 05/11/16 1835 HDL Cholesterol 41 mg/dL 12/25/15 0607 Hemoglobin A1c 10.8 % H 12/25/15 06 LDL Cholesterol, Calc 63 mg/dL L 12/25/15 0607 Triglycerides 240 mg/dL H 12/25/15 06 Discharge Instructions General Discharge Information Discharge Medications: Discharge Medications- (Dose, route, freq, indication): START taking these NEW Home Medications: Nicotine (Nicotine Dose: On the skin, DAILY @8 AM Qty: 14 Call-In to Patch) 14 MG/24 HOUR 14 Milligram for smoking cessation Refills: 0 Pharm 1 PATCH.TD24 Last Taken: 05/17/16 Time: 8:00 AM Aripiprazole Dose: ORAL, AT BEDTIME for Qty: 28 Call-In to (Abilify) 15 MG 30 Milligram CLEAR THOUGHTS/MOOD Refills: 0 Pharm 1 TABLET STABILITY Last Taken: 05/16/16 Time: 9:45 PM Exenatide Dose: Inject into fatty Qty: 1 Call-In to Microspheres 2 Milligram tissue, ONCE A WEEK for Refills: 0 Pharm 1 (Bydureon Pen) 2 MG/ DIABETES 0.65 ML PEN.INJCTR Last Taken: 05/14/16 Time: 10:15 AM CONTINUE taking these Home Medications: Metoprolol Succinate Dose: ORAL, DAILY for (Metoprolol Succinate) 1 Tablet HYPERTENSION 100 MG TAB.ER.24H Last Taken: 05/17/16 Time: 8:00 AM Fenofibrate Dose: ORAL, DAILY for HIGH Nanocrystallized 1 Tablet CHOLESTROL (Fenofibrate) 145 MG Last Taken: 05/17/16 TABLET Time: 8:00 AM Venlafaxine HCl Dose: ORAL, DAILY for MENTAL (Venlafaxine HCl ER) 150 2 Capsule HEALTH MG CAP.ER.24H Last Taken: 05/17/16 Time: 8:00 AM Lisinopril (Lisinopril) Dose: ORAL, DAILY for blood 40 MG TABLET 1 Tablet pressure/kidney protectn Last Taken: 05/17/16 Time: 8:00 AM Pregabalin (Lyrica) 100 Dose: ORAL, THREE TIMES DAILY MG CAPSULE 100 Milligram for pain Last Taken: 05/17/16 Time: 8:00 AM Insulin Aspart, Dose: Inject into fatty Recombinant (Novolog See Instructions tissue, BEFORE MEALS Flexpen) 100 UNIT/ML AND AT BEDTIME for INSULN.PEN DIABETES SLIDING SCALE TIDAC AT BEDTIME Blood Sugar less than 80 mg/dl Initiate hypoglycemia protocol 80-150 mg/dl BEFORE MEALS 18 units At bedtime 0 units 151-200 mg/dl BEFORE MEALS 20 units At bedtime 0 units 201-250 mg/dl BEFORE MEALS 22 units At bedtime 0 units 251-300 mg/dl BEFORE MEALS 24 units At bedtime 4 units 301-350 mg/dl BEFORE MEALS 26 units At bedtime 5 units 351-400 mg/dl BEFORE MEALS 28 units At bedtime 6 units more than 400 mg/dl BEFORE MEALS 30 units, call MD At bedtime 7 units Last Taken:04/20/16 Time:0800 Last Taken:04/20/16 Time:0800 Buprenorphine HCl/ Dose: SUBLINGUAL, DAILY for Naloxone HCl (Suboxone 8 2 Strip Opioid replacement MG-2 MG Sl Film) 8 MG-2 Last Taken: 05/17/16 MG FILM Time: 8:00 AM Insulin Detemir (Levemir Dose: Inject into fatty Flextouch) 100 UNIT/ML 80 Unit tissue, TWICE DAILY for (3 ML) INSULN.PEN DIABETES Last Taken:04/20/16 Time:1000 Lactulose (Lactulose) 20 Dose: ORAL, THREE TIMES DAILY GRAM/30 ML SOLUTION 30 Milliliters for AMMONIA LEVEL Last Taken: 05/16/16 Time: 10:15 PM STOP taking these DISCONTINUED Home Medications: Sitagliptin Phosphate Dose: ORAL, DAILY for diabetes (Januvia) 100 MG TABLET 1 Tablet Reason Stopped: Per Doctor Decision Aripiprazole (Abilify) 10 MG Dose: ORAL, AT BEDTIME for Clear TABLET 25 Milligram thoughts TAKE TWO AND A HALF TABLETS DAILY Reason Stopped: Changed Dose 1: [facility], [address], [place] [id number] Your Preferred Pharmacy [facility] [address] [place] [address] Multiple Neuroleptics: (x) Not Applicable OR Document below three failed attempts at monotherapy, or a plan to taper to monotherapy, or augmentation of Clozapine. () Patient's Diet: Regular Patient's Activity: No restrictions DC Disposition: Patient is returning to his home, in a sober house. Recommendations: Maintain sobriety Follow your plan for maintaining sobriety including: Attending AA meetings; not isolating and staying with sober friends; attending IOP at the [facility]; asking your son to be your Helicopter Dispatcher Payee. Follow-up with your doctors for continuing Suboxone treatment, psychiatric care, and internal medicine. Referred To: [address] [phone] Bill on 05/26/2016 at 1 PM. Copies To: Dr. Bill
[2016-05-17] MEDS ORDERED: NICOTINE PATCH1 EAC2 TOP (11:08)
--- NOTE | 2016-05-17 11:51 | NUR ---
will be discharged today to [facility] with follow up at [facility]. Mood is stable, full range of affect. denied thoughts of self harm when asked. Given education on suicide prevention, major depression and schizoaffective d/o.
== END 2016-05-17 12:07 | DRG 897 ==
LOC: ENRESERVDT → ENRESERVTM → CANRESERV → ERH 17:48 → ERHI 05-12 08:35 → ENPENDDIS 05-12 08:35 → CP SOUTH 05-12 08:35 → ERH 05-12 10:19 → ERHI 05-12 10:19 → CP SOUTH 05-12 17:13
PROVIDERS: Physician Assistant; ADMIT Psychiatry & Neurology Psychiatry
DX: F11.10 Opioid abuse, uncomplicated (principal); G62.9 Polyneuropathy, unspecified; I10 Essential (primary) hypertension; F14.10 Cocaine abuse, uncomplicated; B19.20 Unspecified viral hepatitis C without hepatic coma; Z85.47 Personal history of malignant neoplasm of testis
CPT/HCPCS: 80307; 93005; 93010; G0463; G0480; J1815; J7508

== ENCOUNTER 2016-05-29 03:01 | Inpatient (IN) | payer OTHER, MEDICARE ==
[~2016-05-29] VITALS: Ht 175.3 cm; Wt 108.9 kg
[~2016-05-29 03:01] MED LIST changes: +BYDUREON P2 MG/0.65 SC; +LACTULOSE20 GM/30 M PO; +NICOTINE PATCH1 EAC2 TOP
--- NOTE | 2016-05-29 03:23 | NUR ---
50YO MALE TO RM 10 VIA BLS AMB FROM [place] [facility] SI GESTURE TONITE. PT STTES HE IS "UNDER [employer] INVE[employer]IGATION AND FELT SUICIDAL, SO HE INJECTED HIMSELF W/APPROX 50U OF HIS INSULIN PEN.
[2016-05-29 03:37] LABS: ABSOLUTE BASOPHIL COUNT 0 /CUMM (0.0-0.2); ABSOLUTE EOSINOPHIL COUNT 0.1 /CUMM (0.0-0.7); ABSOLUTE LYMPH COUNT 2.5 /CUMM (1.2-3.4); ABSOLUTE MONOCYTE COUNT 0.8 /CUMM (0.10-0.60); BASOPHIL % 0.2 % (0.0-2.0); GRANULOCYTE % 59.9 % (42.2-75.2); HEMATOCRIT 39.8 % (42-52); MEAN CORPUSCULAR HGB 31.7 PG (27.0-31.0); MEAN CORPUSCULAR VOLUME 93.4 FL (80.0-94.0); MEAN PLATELET VOLUME 11.6 FL (7.4-10.4); PLATELET COUNT 106 /CUMM (130-400); RBC DISTRIBUTION WIDTH 14.9 % (11.5-14.5); RED BLOOD CELL CT 4.26 /CUMM (4.70-6.10); WHITE BLOOD CELL COUNT 8.4 /CUMM (4.8-10.8)
--- NOTE | 2016-05-29 04:13 | NUR ---
PAULETTE ORTEGA FSBS = 77 D5NS HUNG AT 200ML/HR PO GEORGE HAN GIVEN
--- NOTE | 2016-05-29 04:15 | ED PSYCHIATRIC COMPLAINT ---
See Addendum History of Present Illness General Chief Complaint: Psychiatric Related Complaint Stated Complaint: +SI TOOK INSULIN Source: patient Exam Limitations: ANXIETY, SCHIZOAFFECTIVE DISORDER Vital Signs & Intake/Output Vital Signs & Intake/Output Vital Signs Date Time Temp Pulse Resp B/P Pulse O2 O2 Flow FiO2 Ox Delivery Rate 05/29 2202 97.8 72 16 138/68 94 Room Air 05/29 1940 97.2 78 16 130/72 95 Room Air 05/29 1522 96.8 70 16 136/64 94 Room Air 05/29 0939 97.2 74 16 140/80 96 Room Air 05/29 0703 97.0 86 16 104/53 98 Room Air Room Air 05/29 0320 97 Room Air 05/29 0312 97.8 108 20 134/84 95 Room Air Allergies Coded Allergies: Penicillins (Severe, ANAPHYLAXIS 05/11/16) peanut (Severe, ANAPHYLAXIS 05/11/16) Sulfa (Sulfonamide Antibiotics) (Intermediate, ANAPHYLAXIS 05/11/16) hydromorphone (From DILAUDID) (Intermediate, BODY TURNS RED AND ITCHY 05/11/16) lamotrigine (From LAMICTAL) (RASH 05/11/16) Reconcile Medications Aripiprazole (Abilify) 15 MG TABLET 30 MG PO AT BEDTIME CLEAR THOUGHTS/MOOD STABILITY Buprenorphine HCl/Naloxone HCl (Suboxone 8 MG-2 MG Sl Film) 8 MG-2 MG FILM 2 STR SL DAILY Opioid replacement (Reported) Exenatide Microspheres (Bydureon Pen) 2 MG/0.65 ML PEN.INJCTR 2 MG SC ONCE A WEEK DIABETES Fenofibrate Nanocrystallized (Fenofibrate) 145 MG TABLET 1 TAB PO DAILY HIGH CHOLESTROL (Reported) Insulin Aspart, Recombinant (Novolog Flexpen) 100 UNIT/ML INSULN.PEN 0 SC TIDAC/HS DIABETES (Reported) SLIDING SCALE TIDAC AT BEDTIME Blood Sugar less than 80 mg/dl Initiate hypoglycemia protocol 80-150 mg/dl BEFORE MEALS 18 units At bedtime 0 units 151-200 mg/dl BEFORE MEALS 20 units At bedtime 0 units 201-250 mg/dl BEFORE MEALS 22 units At bedtime 0 units 251-300 mg/dl BEFORE MEALS 24 units At bedtime 4 units 301-350 mg/dl BEFORE MEALS 26 units At bedtime 5 units 351-400 mg/dl BEFORE MEALS 28 units At bedtime 6 units more than 400 mg/dl BEFORE MEALS 30 units, call MD At bedtime 7 units Last Taken:04/20/16 Time:0800 Insulin Detemir (Levemir Flextouch) 100 UNIT/ML (3 ML) INSULN.PEN 80 UNIT SC BID DIABETES (Reported) Lactulose 20 GRAM/30 ML SOLUTION 30 ML PO TID AMMONIA LEVEL (Reported) Lisinopril 40 MG TABLET 1 TAB PO DAILY blood pressure/kidney protectn ( Reported) Metoprolol Succinate 100 MG TAB.ER.24H 1 TAB PO DAILY HYPERTENSION (Reported) Nicotine (Nicotine Patch) 14 MG/24 HOUR PATCH.TD24 14 MG TOP 0800 smoking cessation Pregabalin (Lyrica) 100 MG CAPSULE 100 MG PO TID pain (Reported) Venlafaxine HCl (Venlafaxine HCl ER) 150 MG CAP.ER.24H 2 CAP PO DAILY MENTAL HEALTH (Reported) Triage Note: 50YO MALE TO RM 10 VIA BLS AMB FROM [facility] SI GESTURE TONITE. PT STTES HE IS "UNDER [employer] IN[employer]IGATION AND FELT SUICIDAL, SO HE INJECTED HIMSELF W/APPROX 50U OF HIS INSULIN PEN. Triage Nurses Notes Reviewed? yes HPI: Patient presents for evaluation of a suicide attempt insulin overdose. Patient states he took 80 units of regular insulin at about 2 AM. He states he did this because he is being followed by the [employer]. He hasn't slept in over 4 days. He states he feels very anxious with a dry mouth. He denies any other medication overdoses or alcohol. He has been compliant with his depression and schizoaffective disorder medications. (JORDAN POWELL,MAGO Ayala) Past History Travel History Traveled to [place] past 21 day No Medical History Any Pertinent Medical History? 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 No (MAGO ORTEGA MD) Review of Systems Review of Systems Constitutional: Reports: no symptoms. EENTM: Reports: no symptoms. Respiratory: Reports: no symptoms. Cardiovascular: Reports: no symptoms. GI: Reports: no symptoms. Genitourinary: Reports: no symptoms. Musculoskeletal: Reports: no symptoms. Skin: Reports: no symptoms. Neurological/Psychological: Reports: see HPI. Hematologic/Endocrine: Reports: no symptoms. Immunologic/Allergic: Reports: no symptoms. All Other Systems: Reviewed and Negative (MAGO ORTEGA MD) Physical Exam Physical Exam General Appearance: SEE BELOW Neurological/Psychiatric: SEE BELOW Comments: General: Alert, calm, cooperative Head: Normocephalic, atraumatic Eyes: Normal inspection, no nystagmus, EOMI Ears: Normal inspection Nose: Normal inspection Throat: Moist mucosa Neck: Supple, no goiter Heart: Regular rate and rhythm, no murmurs rubs or gallops Lungs: Clear to auscultation bilaterally with good air entry Abdomen: Soft nontender nondistended, normal bowel sounds Chest: Nontender Extremities: Normal range of motion grossly, mild tremors present, no cyanosis clubbing or edema of the upper extremities Neurologic: cranial nerves II through XII grossly intact, speech clear, gait normal Psychiatric: No apparent delusions or hallucinations, no pressured speech or thought blocking Skin: Warm and dry SAD PERSONS Done? DEFERRED TO CRISIS (JORDAN POWELL,MAGO Ayala) Progress Differential Diagnosis: SUICIDE ATTEMPT, DEPRESSION, SCHIZOAFFECTIVE DISORDER, BIPOLAR DISORDER OR SCHIZOPHRENIA Plan of Care: Orders Procedure Date/time Status Continuous Observation Monitor 05/30 0700 Active Continuous Observation Monitor 05/30 0300 Active Regular Diet 05/29 L Active Continuous Observation Monitor 05/29 2300 Active Continuous Observation Monitor 05/29 1900 Active Add-on Test (ER Only) 05/29 0530 Active Continuous Observation Monitor 05/29 0450 Active ED CRISIS PSYCH CONSULT 05/29 0450 Active FingerStick- Glucose 05/29 0414 Active EKG 05/29 0414 Active URINE DRUG SCREEN FOR ER ONLY 03/25 0327 Complete URINALYSIS 05/29 326 Complete ETHANOL 05/29 326 Complete COMPREHENSIVE METABOLIC PANEL 05/29 326 Complete CBC WITHOUT DIFFERENTIAL 05/29 326 Complete ACETOMINOPHEN 05/29 324 Complete SALICYLATE 05/29 324 Complete Laboratory Tests 05/29/16 0535: Urine Opiates Screen < 100.00, Methadone Screen 49, Barbiturate Screen < 60, Ur Phencyclidine Scrn 10.30, Amphetamines Screen 273, U Benzodiazepines Scrn 94, Urine Cocaine Screen 513 H, Urine Cannabis Screen < 5.00, Urine Color YEL, Urine Clarity CLEAR, Urine pH 6.0, Ur Specific Roland >= 1.030, Urine Protein NEG, Urine Ketones NEG, Urine Nitrite NEG, Urine Bilirubin NEG, Urine Urobilinogen 0.2, Ur Leukocyte Esterase NEG, Ur Microscopic EXAM NOT REQUIRED, Urine Hemoglobin NEG, Urine Glucose NEG 05/29/16 0530: Salicylates Cancelled 05/29/16 0414: Salicylates Cancelled 05/29/165: Anion Gap 12, Estimated GFR > 60, BUN/Creatinine Ratio 30.0 H, Glucose 118 H, Calcium 9.6, Total Bilirubin 1.1, AST 169 H, ALT 196 H, Alkaline Phosphatase 84, Total Protein 7.7, Albumin 4.0, Globulin 3.7, Albumin/Globulin Ratio 1.1, CBC w Diff NO MAN DIFF REQ, RBC 4.26 L, MCV 93.4, MCH 31.7 H, RDW 14.9 H, MPV 11.6 H, Gran % 59.9, Lymphocytes % 29.9, Monocytes % 9.0, Eosinophils % 1.0, Basophils % 0.2, Absolute Granulocytes 5.0, Absolute Lymphocytes 2.5, Absolute Monocytes 0.8 H, Absolute Eosinophils 0.1, Absolute Basophils 0, PUBS MCHC 34.0 , Salicylates < 1.0, Acetaminophen < 10.0 L, Serum Alcohol < 10.0 Comments: 05/29/2016 7:19:21 AM patient 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 (JORDAN POWELL,MAGO Ayala) Hand-Off Endorsed To: SILVIA MUHAMMAD MD Endorsed Time: 1900 Pending: consult (JANY POWELL,PASCALE Vora) Hand-Off Endorsed To: PASCALE AARON MD Endorsed Time: 0700 Pending: consult (JB POWELL,SILVIA) Departure Departure Disposition: STILL A PATIENT Condition: Stable Clinical Impression Primary Impression: Depression Qualifiers: Depression Type: unspecified Qualified Code: F32.9 - Major depressive disorder, single episode, unspecified Secondary Impressions: Laceration of left wrist Qualifiers: Encounter type: initial encounter Qualified Code: S61.512A - Laceration without foreign body of left wrist, initial encounter Self-injurious behavior Referrals: ISAI POWELL,DAWNA Huitron (PCP/Family) Departure Forms: Customer Survey General Discharge Information (JORDAN POWELL,MAGO Ayala)
--- NOTE | 2016-05-29 04:30 | NUR ---
VERY ANXIOUS. PACING AROUND ROOM
--- NOTE | 2016-05-29 04:45 | NUR ---
REQUESTING SOMETHING TO EAT. GRAHAMS AND APPLE JUICE GIVEN
--- NOTE | 2016-05-29 05:02 | NUR ---
ANXIOUSNESS CONTINUES. DR ORTEGA IN TO RE EVAL. FSBS = 110
--- NOTE | 2016-05-29 05:27 | NUR ---
CONTINUES TO BE VERY TALKATIVE AND ANXIOUS.
--- NOTE | 2016-05-29 06:04 | NUR ---
EATING CEREAL AND ICE CREAM. RESTLESS, ANXIOUS BEHAVIOR CONTINUES. FSBS = 101. D5NS CONTINUES AT 200ML/HR
--- NOTE | 2016-05-29 06:55 | NUR ---
SLEEPING SHORT PERIODS. D5NS REMAINS AT 200ML/HR
--- NOTE | 2016-05-29 07:25 | NUR ---
ASSUMED CARE OF PT AT THIS TIME. D5 TURNED OFF AT THIS TIME PER MD. PT SITTING UP EATING BREAKFAST TRAY. SITTER REMAINS PRESENT.
--- NOTE | 2016-05-29 08:06 | NUR ---
PTS BLOOD GLUCOSE 205 AT THIS TIME. MD AWARE. SITTER REMAINS PRESENT. PT SLEEPING BUT EASILY AROUSABLE UPON ENTERING ROOM.
--- NOTE | 2016-05-29 08:41 | NUR ---
PT REQUESTING CORRIE ALY, PROVIDED TO PT AT THIS TIME. KATALINATER REMAINS PRESENT.
--- NOTE | 2016-05-29 10:27 | NUR ---
CRISIS IN WITH PT FOR EVAL
--- NOTE | 2016-05-29 10:29 | NUR ---
Crisis attempted to meet with pt for crisis eval, He was difficult to wake. It took several attempts to rouse him and when he finally sat up to speek he was not able to keep his eyes open and kept nodding off. Crisis will attempt eval again later.
--- NOTE | 2016-05-29 12:03 | NUR ---
PT AWAKE AT THIS TIME, SITTING IN DARK. ADVISED HIM THAT CRISIS WOULD LIKE TO MEET WITH HIM.
--- NOTE | 2016-05-29 14:02 | NUR ---
PT ALERT AND ASKING FOR FOOD. PT PROVIDED WITH BRIANNA ALY
--- NOTE | 2016-05-29 15:22 | NUR ---
CRISIS AT BEDSIDE
--- NOTE | 2016-05-29 15:44 | NUR ---
PT GIVEN DINNER TRAY AT THIS TIME.
--- NOTE | 2016-05-29 16:14 | NUR ---
PT SLEEPING AT THIS TIME, EVEN NON LABORED RESP. RATE. PT DID NOT EAT ANYTHING FROM HIS DINNER TRAY.
--- NOTE | 2016-05-29 16:48 | NUR ---
PT AWARE AND EATING DINNER TRAY.
--- NOTE | 2016-05-29 20:34 | NUR ---
CRISIS IN WITH PT AT THIS TIME.
--- NOTE | 2016-05-29 22:37 | NUR ---
PT ASLEEP AT THIS TIME. SITTER AT DOOR FOR SAFETY. RESPIRATIONS EQUAL AND UNLABORED.
--- NOTE | 2016-05-29 22:55 | ED PSYCH CRISIS CONSULTATION ---
See Addendum Crisis Consult Basic Assessment Date of Consult: 05/29/16 Responsible Person/Accompanied By: Self Insurance Authorization: Insurance #1: Insurance name: MEDICARE A Phone number: Policy number: [id number] Group number: Authorization number: ED Provider: Patient's ED Provider: MAGO ORTEGA MD Primary Care Physician: Patient's PCP: DAWNA ALEX MD PCP's Current Psychiatrist: Jadon Prabhakar MD Chief Complaint: Psychiatric Related Complaint Patient's Quote: "I took 160 units of insulin, I wantedto kill myself" Present Illness: Pt is a 50 yr old male BIBA. Pt stated he left the Sober house he resides currently and walked a few blocks away and called 911 after he took 160 units of insulin. "I wanted to kill myself" "I just don't see an end in site because I'm ashamed and embrassed". "I did it because I can't function, I wasn't functioning". Pt proceeded to say he is facing "extensive legal issues , but there are no warrants yet". 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 Pt's presentation, he was lethargic, tremulous, difficulty keeping his eyes open during the interview. He did not know what today's date or day was. "I'm feeling shaky he reported frequently to this clinician" Pt continously said "I want to ". He denied a desire to kill anyone else and he denied he was having delusional thoughts. Pt's affect was flat, his mood was depressed and sad. Pt's Utox was positive for cocaine and pt admits that he used cocaine "on Tuesday , that was the only time" Pt reports he hasn't slept in four days and that he needs to sleep instead of answering the question during the evaluation. Also, he claims he hadn't eaten in days and he was eating during the evaluation, requested multiple food trays which were provided. Pt states he lives in a Sober House but refused to provide the details of where the sober house is located and the phone number. According to the pt he will not be returning the sober house and so he does not want to provide the information, so that [facility] cano contact his residence. His feedback was "discharge me to the streets". Dr. Prabhakar expects all Cheese Weigher to follow the directive of the Email Alertthat Elham Sommer sent to all Crisis Clinicians on 05/22/16 , should this pt present to the ED for an evaluation. Please read Email. Patient's Address: [address] [place] [address] Other Phone Number: Who Do You Live With? Patient/Self Family/Informants Interviewed: Pt refused to provide information. Allergies - Coded Allergies: Penicillins (Severe, ANAPHYLAXIS 05/11/16) peanut (Severe, ANAPHYLAXIS 05/11/16) Sulfa (Sulfonamide Antibiotics) (Intermediate, ANAPHYLAXIS 05/11/16) hydromorphone (From DILAUDID) (Intermediate, BODY TURNS RED AND ITCHY 05/11/16) lamotrigine (From LAMICTAL) (RASH 05/11/16) Current Medications - Scheduled Medications Aripiprazole (Abilify) 15 MG TABLET 30 MG PO AT BEDTIME CLEAR THOUGHTS/MOOD STABILITY #28 TAB Prescribed by LE PINEDA APRN on 05/17/16 Last Taken: 05/28/16 Buprenorphine HCl/Naloxone HCl (Suboxone 8 MG-2 MG Sl Film) 8 MG-2 MG FILM 2 STR SL DAILY Opioid replacement (Reported) Entered as Reported by NELLIE WHITE MD on 03/24/16 1044 Last Taken: 05/28/16 Exenatide Microspheres (Bydureon Pen) 2 MG/0.65 ML PEN.INJCTR 2 MG SC ONCE A WEEK DIABETES #1 PEN Prescribed by LE PINEDA APRN on 05/17/16 Last Taken: 05/29/16 Fenofibrate Nanocrystallized (Fenofibrate) 145 MG TABLET 1 TAB PO DAILY HIGH CHOLESTROL (Reported) Entered as Reported by TIFFANIE CHAPARRO on 07/08/13 1423 Last Taken: 05/28/16 Insulin Aspart, Recombinant (Novolog Flexpen) 100 UNIT/ML INSULN.PEN 0 SC TIDAC/HS DIABETES #1680 PEN (Reported) Entered as Reported by NELLIE WHITE MD on 03/24/16 1042 Last Taken: 05/28/16 Insulin Detemir (Levemir Flextouch) 100 UNIT/ML (3 ML) INSULN.PEN 80 UNIT SC BID DIABETES #1 PEN (Reported) Entered as Reported by LE PINEDA APRN on 03/29/16 1308 Last Taken: 05/29/16 Lactulose 20 GRAM/30 ML SOLUTION 30 ML PO TID AMMONIA LEVEL #2700 (Reported) Entered as Reported by MERCEDES SANCHEZ on 05/11/16 1814 Last Taken: 05/28/16 Lisinopril 40 MG TABLET 1 TAB PO DAILY blood pressure/kidney protectn #90 ( Reported) Entered as Reported by NELLIE WHITE MD on 03/24/16 1037 Last Taken: 05/28/16 Metoprolol Succinate 100 MG TAB.ER.24H 1 TAB PO DAILY HYPERTENSION (Reported) Entered as Reported by TIFFANIE CHAPARRO on 07/08/13 1419 Last Taken: 05/28/16 Nicotine (Nicotine Patch) 14 MG/24 HOUR PATCH.TD24 14 MG TOP 0800 smoking cessation #14 TAB Prescribed by LE PINEDA APRN on 05/17/16 Pregabalin (Lyrica) 100 MG CAPSULE 100 MG PO TID pain #90 (Reported) Entered as Reported by NELLIE WHITE MD on 03/24/16 1039 Last Taken: 05/28/16 Venlafaxine HCl (Venlafaxine HCl ER) 150 MG CAP.ER.24H 2 CAP PO DAILY MENTAL HEALTH #60 (Reported) Entered as Reported by MERCEDES SANCHEZ on 09/20/15 1350 Last Taken: 05/28/16 Laboratory Results: Laboratory Tests 05/29/16 0535: Urine Opiates Screen < 100.00, Methadone Screen 49, Barbiturate Screen < 60, Ur Phencyclidine Scrn 10.30, Amphetamines Screen 273, U Benzodiazepines Scrn 94, Urine Cocaine Screen 513 H, Urine Cannabis Screen < 5.00, Urine Color YEL, Urine Clarity CLEAR, Urine pH 6.0, Ur Specific [place] >= 1.030, Urine Protein NEG, Urine Ketones NEG, Urine Nitrite NEG, Urine Bilirubin NEG, Urine Urobilinogen 0.2, Ur Leukocyte Esterase NEG, Ur Microscopic EXAM NOT REQUIRED, Urine Hemoglobin NEG, Urine Glucose NEG 05/29/16 0530: Salicylates Cancelled 05/29/16 0414: Salicylates Cancelled 05/29/16 0325: Anion Gap 12, Estimated GFR > 60, BUN/Creatinine Ratio 30.0 H, Glucose 118 H, Calcium 9.6, Total Bilirubin 1.1, AST 169 H, ALT 196 H, Alkaline Phosphatase 84, Total Protein 7.7, Albumin 4.0, Globulin 3.7, Albumin/Globulin Ratio 1.1, CBC w Diff NO MAN DIFF REQ, RBC 4.26 L, MCV 93.4, MCH 31.7 H, RDW 14.9 H, MPV 11.6 H, Gran % 59.9, Lymphocytes % 29.9, Monocytes % 9.0, Eosinophils % 1.0, Basophils % 0.2, Absolute Granulocytes 5.0, Absolute Lymphocytes 2.5, Absolute Monocytes 0.8 H, Absolute Eosinophils 0.1, Absolute Basophils 0, PUBS MCHC 34.0 , Salicylates < 1.0, Acetaminophen < 10.0 L, Serum Alcohol < 10.0 (YAZMIN JOLLY,SCOTT) Basic Assessment Date of Consult: 05/30/16 Responsible Person/Accompanied By: self Insurance Authorization: Insurance #1: Insurance name: MEDICARE A Phone number: Policy number: [id number] Group number: Authorization number: Present Illness: Pt. reported to the ED on 05/29/16 after having injected insulin in a suicide attempt. When re-evaulated on 09/29/16, pt. claimed he had been feeling suicidal for 2 months at least. He stated if he was released he would attempt to commit suicide again "in any way possible". He was disorganized during the interview, had trouble finding words to answer questions posed by this senior medical writer. He stated "I'm confused". He reported he had not slept or ate since Wednesday 05/24 when he used cocaine. He was eating from a tray of food when this senior medical writer interviewed him. He stated he was suicidal because he feared legal repercussions from "some computer stuff" he engaged in 2 years ago and appeared to be paranoid about this stating "how much of this is confidential". He stated he needed a soaking room operator, but denied any legal charges at this time. He reported legal consequences "were coming" but was unable to explain how or why this might happen. He reported he had treatment at [facility] [place]. This senior medical writer attempted to call [facility] for collateral information but the phone message stated they were closed today. Patient's Address: [address] [place] [address] Other Phone Number: Family/Informants Interviewed: Message left for son Diego Carlin (PARTH JOLLY,SANTOS) Addendum Addendum 05/31/15 8:00pm Crisis met with patient who was alert and oriented. Pt. affirmed that he understood that plan was for him to be held overnight in ED and to be re- evaluated by Crisis in the morning. Pt. offered no complaints. 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 Physical Limitations (Interventions): None reported Psychiatric Treatment History Psych Treatment Psychiatric Treatment Yes Inpatient Treatment Yes Outpatient Treatment Yes Location of Treatment [facility] Reason for Treatment Schizoaffective Disorder Substance abuse Dates of [place] [facility]12 [place] [facility] Response to Treatment Multiple Relapse, noncompliant with treatment recommendation, multiple inpatient hospitalization for sucidial ideation and attempts. Diagnosis by History: Schizoaffective D/O, depressed type Opiate Use D/O, in early remission Substance Use/Abuse History Drug Use/Abuse Substances Used/Abused Yes Substance Used/Abused Cocaine First Use unknown Last Used Per client report 05/24/16 How much used/taken Unknown How often Ocassional use For how long Unknown Route of use "Snort" Substance Abuse Treatment Substance Abuse Treatment Past Substance Abuse [place] Yes Inpatient Treatment Yes Outpatient Treatment Yes Location of Treatment [facility] Reason for Treatment Opioid use disorder Dates of Treatment Currently and active pt. Response to Treatment Relapse (SCOTT ARCE LCSW) Current Mental Status Mental Status Orientation: Confused Affect: Anxious, Depressed, Flat, Hopeless, Lonely, Sad Speech: Mumbled, Perseveration Neuro-vegetative: Appetite Increased, Concentration Poor, Energy Decreased, Helpless, Sleep Disturbance Appearance Appearance- Dress/Hygiene: Disheveled, unkempt, malordorous, poor hygiene. Behaviors Thought Process: Disorganized Thought Content: Somatic Memory: Immediate Insight: Poor SI/HI Risk Assessment Past Suicidal Ideation/Attempts Yes Current Suicidal Ideation/Att Yes Past Homicidal Ideation/Att: No Current Homicidal Ideation/Attempts No Degree of Intent: Made Preparations, Self Destructive/No , States Intent Danger To: Self Gravely Disabled: Poor Impulse Control, Poor Judgment Risk Factors: high anxiety/distress, history of suicide atmpts, SA/MH hospitalized, substance abuse, poor impulse control, male Lethality Ratin (Pt injected self with insulin) PTSD Checklist PTSD Done? pt unable to participate ED Management Sitter: Yes Restraints: No (SCOTT ARCE LCSW) DSM5/PS Stressors/Medical Prob Diagnosis' (DSM 5, Stressors, Medical): F25.0 Schizoaffective Disorder, F14.20 Cocaine Use Disorder F11.10 Opioid Use Disorder In Remission Medical Conditions Hep C, HTN, Peripheral Neuropathy, Hyperlipidemia, Left Testicular Cancer/Orchiectomy Current GAF: 20 (SCOTT ARCE LCSW) Departure Disposition Psych Medical Clearance Date: 05/29/16 Medically Cleared at: 1200 Time Started: 0317 Time Ended: 0450 Psychiatrist Consulted: Aki POWELL,Edward Date Disposition Established: 05/29/16 Time Disposition Established: 449 Plan for Disposition - Modality: H/O reevaluate on 05/30/16 Facility: [facility] Follow-up Appt Date: 05/30/16 Follow-Up Appt Time: 0800 Contact: Crisis Telephone: [phone] Rationale for Disposition: Pt presented to the ED with suicidal ideations, with a plan and reports that he attempted to overdose on his insulin. Pt continues to endorse suicidal ideations as well his Utox was positive for cocaine. Consultation with Dr. Prabhakar pt to be reevaluated on 05/30/16. Referrals ISAI POWELL,DAWNA Huitron (PCP/Family) (SCOTT ARCE LCSW) Disposition Psych Medical Clearance Date: 05/30/16 Medically Cleared at: 0830 Time Started: 0830 Time Ended: 0850 Psychiatrist Consulted: Aki POWELL,Edward Date Disposition Established: 05/30/16 Time Disposition Established: 899 Plan for Disposition - Modality: Inpatient Psychiatry Facility: [facility] Follow-up Appt Date: 05/30/16 Rationale for Disposition: Pt. presented to the ED after injecting insulin, he stated that if released, he would find any way possible of attempting and succeeding at suicide. Type of IP Admission: Voluntary (SANTOS ALBA LCSW) Disposition Psych Medical Clearance Date: 05/31/16 Medically Cleared at: 0800 Time Started: 0800 Time Ended: 09 Psychiatrist Consulted: Aki POWELL,Edward Date Disposition Established: 05/31/16 Time Disposition Established: 899 Plan for Disposition - Modality: Inpatient Psychiatry Facility: [facility] Rationale for Disposition: safety and stabilization Type of IP Admission: Voluntary (HUYEN VELA LCSW) Addendum Note Addendum Crisis re-evaluated pt this morning. Pt continues to present as anxious and mildly confused. He continues to express SI and states he is not safe to be discharged. Crisis Contacted [facility] and left 2 messages for Pt's Psych[address]rist Dr. Bill. Crisis asked if there was anyone else to collaborate with at [facility] regarding pt, but was told it would be Dr. Bill. Crisis also spoke with Jordin at [facility]'s [facility] who was made aware of pt's relapse and well as suicide attempt and multiple visits for the same. He requested that prior to pt returning to the Sober home he would like a lock box and visiting nurse services. Pt signed releases for his sober home and [facility] [place] for ongoing tx collaboration and continuity of care. Case reviewed with Dr. Prabhakar and pt will be admitted to [facility]. (HUYEN VELA LCSW)
--- NOTE | 2016-05-30 00:36 | NUR ---
PT REMAINS ASLEEP AT THIS TIME, REGULAR RESPIRATIONS NOTED, NO APPARENT DISTRESS, SITTER IN PLACE FOR SAFETY. WILL CONTINUE TO MONITOR.
--- NOTE | 2016-05-30 02:23 | NUR ---
PT REMAINS ASLEEP AT THIS TIME, REGULAR AND UNLABORED RESPIRATIONS NOTED. SITTER IN PLACE FOR SAFETY. WILL CTM.
--- NOTE | 2016-05-30 03:04 | NUR ---
PER PTS ACCUCHECKS ORDER CAN BE CHANGED TO BEFORE MEALS
--- NOTE | 2016-05-30 05:22 | NUR ---
PT REMAINS ASLEEP AT THIS TIME, REGULAR AND EQUAL RESPIRATIONS NOTED. NO APPARENT DISTRESS. SITTER IN PLACE FOR SAFETY, WILL CTM.
--- NOTE | 2016-05-30 06:48 | NUR ---
FINGERSTICK GLUCOSE LEVEL READING 178
--- NOTE | 2016-05-30 07:30 | NUR ---
ASSUMED CARE, SLEEPING. SITTER IN ATTENDANCE.
--- NOTE | 2016-05-30 09:00 | NUR ---
RE-EVLAUATED BY CLINICAL REHABILITATION COORDINATOR, TO BE ADMITTED TO [facility].
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
--- NOTE | 2016-05-30 10:44 | NUR ---
PER JAYSON FROM CRISIS, ADMISISON IS CANCELED, TO BE HELD IN ED.
--- NOTE | 2016-05-30 11:16 | ED PSY CRISIS COLLATERAL NOTE ---
Collateral Note Collateral Note Family/Inform/Juan Pablo Contacts: Spoke with pt.'s son Diego who reported he does not see his father often, but speaks with him occassionally on the phone. He stated that he does not know the phone number or address to where his father is staying but knows that it's "somewhere in [place]". Diego reported that he spoke with his father last week and noticed that his father was "much more symptomatic" than he's seen him in a long time. He stated that his father was "manic and paranoid" and he told him stories about "the government coming after him for something he did on the internet and that it would be so big that it would make the [place] times and the [place]." He stated that because of this his father instructed him to "keep his distance". Diego reported that this was very out of the ordinary and he didn't think he had ever heard that far fetched a story from him and that he "sounded outlandish". Diego stated that he does not want/need to be contacted if his father is hospitalized but will keep in contact with his father as he normally does with occasional phone calls.
--- NOTE | 2016-05-30 11:22 | NUR ---
ASSUMED CARE OF THIS PT FROM GIANNI JONES. PT ASLEEP AT THIS TIME. RESPIRATIONS ARE EQUAL AND UNLABORED. SITTER AT DOOR FOR SAFETY.
--- NOTE | 2016-05-30 12:44 | NUR ---
PT ASLEEP AT THIS TIME. RESPIRATIONS EQUAL AND UNLABORED. SITTER AT DOOR FOR SAFETY.
--- NOTE | 2016-05-30 13:51 | NUR ---
PT CONTINUES TO SLEEP ON LEFT SIDE. RESPIRATIONS EQUAL AND UNLABORED. SITTER AT DOOR FOR SAFETY.
--- NOTE | 2016-05-30 15:02 | NUR ---
PT ASLEEP AT THIS TIME. SITTER AT DOOR.
--- NOTE | 2016-05-30 16:49 | NUR ---
PT AWAKE, LYING ON BED WITH TV ON. PT STATED HE WAS HUNGRY AND ASKED WHEN DINNER WOULD BE ARRIVING. PT CALM AND COOPERATIVE. SITTER AT BEDSIDE FRO SAFETY.
--- NOTE | 2016-05-30 17:35 | NUR ---
PT LYING ON HIS BED BETWEEN SLEEPING AND AROUSABLE. SITTER AT DOOR. PT REMAINS CALM AND COOPERATIVE
--- NOTE | 2016-05-30 18:03 | NUR ---
FINGER FOOD TRAY ORDERED
--- NOTE | 2016-05-30 18:16 | NUR ---
MEAL TRAY GIVEN
--- NOTE | 2016-05-30 19:37 | NUR ---
PT ASLEEP ON RIGHT SIDE IN ROOM 13. RESPIRATIONS EQUAL AND UNLABORED. SITTER AT DOOR
--- NOTE | 2016-05-30 20:48 | NUR ---
PT ASLEEP ON RIGHT SIDE ON BED IN ROOM 14. RESPIRATIONS EQUAL AND UNLABORED. SITTER AT DOOR FOR SAFETY.
--- NOTE | 2016-05-30 22:46 | NUR ---
PT LYING ON BED IN ROOM 14 WITH TV ON. PT CALM AND COOPERATIVE. SITTER AT DOOR FOR SAFETY
--- NOTE | 2016-05-31 01:02 | NUR ---
PT SLEEPING, REGULAR RESPIRATIONS NOTED. SITTER REMAINS IN ATTENDANCE
--- NOTE | 2016-05-31 03:22 | NUR ---
PT RESTING ON BED. NORMAL RR NOTED. SITTER IN PLACE FOR SAFETY. WILL CONTINUE TO MONITOR.
--- NOTE | 2016-05-31 07:15 | NUR ---
PT RESTING ON BED. NORMAL RR NOTED. SITTER IN PLACE.
--- NOTE | 2016-05-31 07:27 | NUR ---
ASSUMED CARE, AWAKE, SITTER IN ATTNEDNACE. ACCU CHECK [id number].
--- NOTE | 2016-05-31 09:56 | ED PSY CRISIS COLLATERAL NOTE ---
Collateral Note Collateral Note Family/Inform/Juan Pablo Contacts: Crisis Contacted [facility] [place] and left [address] messages [address] Bill. Crisis asked if there was anyone else to collaborate with at [facility] regarding pt, but was told it would be Dr. Bill. [place] also spoke with Jordin at pt's [facility] who was made aware of pt's relapse and well as suicide attempt and multiple visits for the same. He requested that prior to pt returning to the Sober home he would like a lock box and visiting nurse services. Pt signed releases for his sober tracy and [facility] for ongoing tx collaboration and continuity of care.
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
--- NOTE | 2016-05-31 11:04 | ED PSY CRISIS COLLATERAL NOTE ---
Collateral Note Collateral Note Family/Inform/[place] Contacts: Crisis spoke with Time one of the Supervisors at [facility] as well as Dr. Bill (Pt's Psychiatrist). They were informed that pt has presented to the ED several times for similar reasons and is positive for cocaine. They informed that pt had tested positive for Cocaine on Tuesday. He met with Dr. Bill and was educated on the seriousness of his HEP C and Liver cirrhosis and how it will kill him with his drug use. He was encouraged to tell his son about this, and pt appeared very anxious about it. Pt was given 1 weeks worth of his 8mg daily suboxone. They also informed that pt has not been compliant with taking his Lactulose, so likely his ammonia will be elevated. They recommend that his ammonia be checked as last time his ammonia was high pt presented in a similar manner. Dr. Olson in the ED was informed of this and has ordered an ammonia level. They also recommend pt need a visiting Nurse. Informed that pt has medicare and it won't cover visiting nurse. The encouraged that pt have his Husky reinstated so that he can have a visiting nurse.
--- NOTE | 2016-05-31 11:33 | NUR ---
AWAITNG BED PLACEMENT.
--- NOTE | 2016-05-31 12:17 | NUR ---
REPORT TO MENDEZ BARAJAS
[2016-05-31 13:20] VITALS: BP 148/84
--- NOTE | 2016-05-31 13:37 | NUR ---
50 Y/O MALE ADMITTED TO CPS ON VOLUNTARY. HE LEFT HIS SOBER HOUSE ON TUESDAY AND CALLED 911 AND STATED HE HAD INJECTED HIMSELF WITH AN OVERDOSE OF INSULIN. HE HAS REMAINED IN THE EMERGENCY ROOM ALL WEEKEND AND IS ADMITTED TODAY PT CONTINUES TO ENDORSE SI. PT STATES HE IS TIRED OF LIVING AND HE "HATES THE HOUSE HE LIVES IN" THERE ARE TOO MANY RULES AND THERE IS ALWAYS SOMEONE WATCHING HIM.UPON ADMISSION PT IS ANXIOUS AND DEPRESSED AND UNABLE TO TOLERATE THE ADMISSION INTERVIEW. HE IS MILDLY CONFUSED AND REPORTS TROUBLE CONCENTRATING.HE STATES HE HAS NO URGES OR PLAN TO ACT ON HIS SI IN THE HOSPITAL. DR GREER IS NOTIFIED OF PTS ACCUCHECK ON ADMISSION OF 409
[2016-05-31 16:14] VITALS: BP 158/98
--- NOTE | 2016-05-31 16:14 | Cons- Endocrinology ---
General Information and HPI Consulting Request Date of Consult: 05/31/16 Requested By: Damian Reason for Consult: management of poorly controlled DM type 2 Source of Information: patient Exam Limitations: no limitations History of Present Illness: 50 y/o male, Hx of DM uncontrolled and hepatitis C, was admitted for anxiety, depression, and suicidal ideation. His DM has been out of control. He was put on Levemir 80 units twice a day, Novolog coverage before meals and Novolog coverage at bedtime and Bydureon 2 mg once a week ( he took the last dose on 05/29/2016). In ER, he didn't receive insulin. His FSG was 409 when he arrived [facility]. Repeat FSG was 415 when I saw him. Allergies/Medications Allergies: Coded Allergies: Penicillins (Severe, ANAPHYLAXIS 05/11/16) peanut (Severe, ANAPHYLAXIS 05/11/16) Sulfa (Sulfonamide Antibiotics) (Intermediate, ANAPHYLAXIS 05/11/16) hydromorphone (From DILAUDID) (Intermediate, BODY TURNS RED AND ITCHY 05/11/16) lamotrigine (From LAMICTAL) (RASH 05/11/16) Home Med List: Aripiprazole (Abilify) 15 MG TABLET 30 MG PO AT BEDTIME CLEAR THOUGHTS/MOOD STABILITY Buprenorphine HCl/Naloxone HCl (Suboxone 8 MG-2 MG Sl Film) 8 MG-2 MG FILM 2 STR SL DAILY Opioid replacement (Reported) Exenatide Microspheres (Bydureon Pen) 2 MG/0.65 ML PEN.INJCTR 2 MG SC ONCE A WEEK DIABETES Fenofibrate Nanocrystallized (Fenofibrate) 145 MG TABLET 1 TAB PO DAILY HIGH CHOLESTROL (Reported) Insulin Aspart, Recombinant (Novolog Flexpen) 100 UNIT/ML INSULN.PEN 0 SC TIDAC/HS DIABETES (Reported) SLIDING SCALE TIDAC AT BEDTIME Blood Sugar less than 80 mg/dl Initiate hypoglycemia protocol 80-150 mg/dl BEFORE MEALS 18 units At bedtime 0 units 151-200 mg/dl BEFORE MEALS 20 units At bedtime 0 units 201-250 mg/dl BEFORE MEALS 22 units At bedtime 0 units 251-300 mg/dl BEFORE MEALS 24 units At bedtime 4 units 301-350 mg/dl BEFORE MEALS 26 units At bedtime 5 units 351-400 mg/dl BEFORE MEALS 28 units At bedtime 6 units more than 400 mg/dl BEFORE MEALS 30 units, call MD At bedtime 7 units Last Taken:04/20/16 Time:0800 Insulin Detemir (Levemir Flextouch) 100 UNIT/ML (3 ML) INSULN.PEN 80 UNIT SC BID DIABETES (Reported) Lactulose 20 GRAM/30 ML SOLUTION 30 ML PO TID AMMONIA LEVEL (Reported) Lisinopril 40 MG TABLET 1 TAB PO DAILY blood pressure/kidney protectn ( Reported) Metoprolol Succinate 100 MG TAB.ER.24H 1 TAB PO DAILY HYPERTENSION (Reported) Nicotine (Nicotine Patch) 14 MG/24 HOUR PATCH.TD24 14 MG TOP 0800 smoking cessation Pregabalin (Lyrica) 100 MG CAPSULE 100 MG PO TID pain (Reported) Venlafaxine HCl (Venlafaxine HCl ER) 150 MG CAP.ER.24H 2 CAP PO DAILY MENTAL HEALTH (Reported) Review of Systems Review of Systems Constitutional: Reports: see HPI. Cardiovascular: Denies: chest pain. Respiratory: Denies: short of breath. GI: Denies: abdominal pain. Neurological/Psychological: Reports: anxiety, depressed. Hematologic/Endocrine: Denies: polyuria, polydipsia. 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 Home Who Do You Live With? friends Services at Home: None Primary Language: Chadian ETOH Use: denies use Living Will? no Power of Cyber Forensics Analyst/HCP? no Functional Ability ADLs Independent: dressing, eating, toileting, bathing. Ambulation: independent IADLs Independent: telephone. Exam & Diagnostic Data Last 24 Hrs of Vital Signs/I&O Vital Signs Date Time Temp Pulse Resp B/P Pulse O2 O2 Flow FiO2 Ox Delivery Rate 05/31 1320 98.4 108 148/84 05/31 0713 97.9 96 18 161/95 97 Room Air 05/31 0138 98.0 80 18 148/72 94 Room Air 05/30 2254 98.0 74 16 152/70 94 Room Air 05/30 1841 98.2 80 16 144/76 94 Room Air 05/30 1622 97.3 69 20 142/74 99 Room Air Intake & Output 05/31 1600 05/31 0800 05/31 0000 Intake Total Output Total Balance Patient 240 lb Weight Physical Exam General Appearance: anxious Assessment/Plan Assessment/Plan 50 y/o male, Hx of DM uncontrolled and hepatitis C, was admitted for anxiety, depression, and suicidal ideation. His DM has been out of control. He was put on Levemir 80 units twice a day, Novolog coverage before meals and Novolog coverage at bedtime and Bydureon 2 mg once a week ( he took the last dose on 05/29/2016). In ER, he didn't receive insulin. His FSG was 409 when he arrived [facility]. Repeat FSG was 415 when I saw him. 1. FSG 415, he will receive Levemir 40 units x1 and Novolog 15 units x1 now; 2. start Levemir 80 units twice a day; 3. continue Bydureon 2 mg once a week; 4. start Novolog coverage before meals and Novolog coverage at bedtime---detail see the inpatient insulin orders 5. monitor FSGs. will follow. Inpatient Diabetes Orders Before Each Meal: Bolus Insulin: Novolog < 80 mg/dl: no coverage 80-100 mg/dl: 20 units 101-120 mg/dl: 20 units 121-150 mg/dl: 20 units 151-200 mg/dl: 22 units 201-250 mg/dl: 24 units 251-300 mg/dl: 26 units 301-350 mg/dl: 28 units 351-400 mg/dl: 30 units > 400 mg/dl: 32 units Bedtime: Bolus Insulin: Novolog < 80 mg/dl: no coverage 80-100 mg/dl: no coverage 101-120 mg/dl: no coverage 121-150 mg/dl: no coverage 151-200 mg/dl: no coverage 201-250 mg/dl: no coverage 251-300 mg/dl: 2 units 301-350 mg/dl: 4 units 351-400 mg/dl: 6 units > 400 mg/dl: 8 units Consult Acknowledgment - Thank you for your consult request.
[2016-05-31 19:45] VITALS: BP 152/83
--- NOTE | 2016-05-31 20:32 | NUR ---
PT ISOLATIVE/WITHDRAWN, SPENDING THE MAJORITY OF THE EVENING IN PT ROOM. MOOD IS STABLE, AFFECT APPEARS EUTHYMIC, COMMUNICATION IS ORGANIZED AND APPEARS NORMAL IN ALL RESPECTS, AND APPETITE IS NORMAL. PT DENIES SI AT THIS TIME.
[2016-06-01 07:41] VITALS: BP 152/93
--- NOTE | 2016-06-01 08:31 | PN- Diabetes ---
Assessment/Plan Assessment: 50 y/o male, Hx of DM uncontrolled and hepatitis C, was admitted for anxiety, depression, and suicidal ideation. His DM has been out of control. He was put on Levemir 80 units twice a day, Novolog coverage before meals and Novolog coverage at bedtime and Bydureon 2 mg once a week ( he took the last dose on 05/29/2016). In ER, he didn't receive insulin. His FSG was 409 when he arrived [facility]. He was put on Levemir 80 units twice a day, Bydureon 2 mg once a week and Novolog coverage before meals. His FSGs were 374, 237 and 201. Plan: continue the current DM regimen for now. monitor FSGs. will follow. Subjective Subjective: He is in his room sleeping. Objective Last 24 Hrs of Vital Signs/I&O Vital Signs Date Time Temp Pulse Resp B/P Pulse O2 O2 Flow FiO2 Ox Delivery Rate 06/01 0741 97.8 108 152/93 05/31 1945 99.0 116 152/83 05/31 1614 112 158/98 05/31 1320 98.4 108 148/84 Findings Pertinent Lab/Sim Results:
--- NOTE | 2016-06-01 12:01 | NUR ---
PT IS ISOALTIVE IN ROOM, SLEEPING FOR MOST OF THE SHIFT. PT DOES GET UP FOR VITALS AND MED WHEN ASKED. PT IS WITHDRAWN FROM STAFF AND PEERS, NOT INTERACTING MUCH. PT MOOD IS STABLE WITH A FLAT AFFECT. PT DENIES SI THOUGHTS.
--- NOTE | 2016-06-01 12:12 | SOCIAL WORKER PROG TO GOALS ---
Progress Toward Goals Strengths/Capabilities: The patient resides in a sober living environment and is connected to treatment at the [facility]. Physical Limitations (Interventions): None reported
--- NOTE | 2016-06-01 12:12 | SOCIAL WORKER PROG NOTE PSYCH ---
See Addendum Social Work Progress Note Progress Note Nigel was in bed sleeping late morning. Got up when prompted to meet. He said he tried to kill himself by insulin injection. He reports feeling confused about things right now and was guarded about sharing his thoughts. He stated he feels alot of pressure and he isn't sure what to do. Offered my support and help, but he said he needed time and really didn't feel like opening up today. Talked about how his housing appears to be in jeopardy. He continues to say that he really doesn't want to be there. He said this last admission as well. He doesn't have any thoughts right now about what he wants to do. He was able to smile and joke a bit through the conversation. He is looking forward to speaking with Dr. Prabhakar today.
--- NOTE | 2016-06-01 12:12 | SOCIAL WORKER TX PLAN PSYCH ---
Treatment Plan - Please Document: - Evidence that there is ongoing collaboration between - the patient and the interdisciplinary team, - including the patient's active participation and - responsibility for engaging in the treatment regimen, - and that the treatment plan is individualized and - relevant to the patient's conditions. - Treatment plan should reflect documentation indicating - that all active therapeutic efforts are included. Strengths/Capabilities: The patient resides in a sober living environment and is connected to treatment at the [facility]. Physical Limitations (Interventions): None reported Patient Identified Trmt Goals: "I don't want to be confused" Discharge Plan: Crisis and Respite/ rehab/ APT Problem/Goals #1 Problem #1: suicidal ideation Goal (Short Term): Patient will explore medication changes to stabilize mood. Goal (Executive Vp): Patient will have diminished thoughts of hurting himself and identify a safety plan. Interventions: patient will be offered medication management with the psychiatrist. Patient will be offered groups on symptom management, coping skills, focus group, goals group, relaxation, art therapy, accupuncture. Sawmill Tally Clerk will assess thoughts daily, discuss goals and what makes life worth living. Sawmill Tally Clerk will assist with a safe aftercare plan. Modalities: groups/ individual Problem/Goals #2 Problem #2: cocaine dependence/abuse Goal (Short Term): patient will identify triggers to use Goal (Care Home): patient will identify a relapse prevention plan Interventions: Patient will be offered groups on relapse prevention, AA, coping skills, and other therapeutic interventions to introduce symptom management. sheetmetal worker will discuss cravings and help identify a relapse prevention plan. DSM5/PS Stressors/Medical Prob Diagnosis' (DSM 5, Stressors, Medical): F25.0 Schizoaffective Disorder, F14.20 Cocaine Use Disorder F11.10 Opioid Use Disorder In Remission Medical Conditions Hep C, HTN, Peripheral Neuropathy, Hyperlipidemia, Left Testicular Cancer/Orchiectomy Current GAF: 20 Treatment Team - Responsibilities of members of the treatment team include: - Medication Management- MD or DRAFTING ENGINEER - Medication Administration and Monitoring- Nurse - Group Therapy- Occupational Therapist - 1:1 Therapy,Disch Planning,family involvement-Sawmill Tally Clerk
[2016-06-01 12:22] VITALS: BP 157/103
[2016-06-01 14:30] VITALS: BP 139/79
--- NOTE | 2016-06-01 15:41 | CPS MD/APRN INITIAL ASSE PSYCH ---
Psychiatric Admission Travel Freight And Passenger Agent's Note Reviewed: Yes Patient Seen and Examined: Yes Identifying Information: This is the 8th [facility] admission in the past year (the most recent discharge being only 2 weeks ago, on 05/18/2015) for a father of two adult children, a daughter and a son, Diego, the latter living with and four children in [facility]), currently up until this admission residing in a sober house in [facility], and unemployed/on disability. Chief Complaint: "I took 160 units of insulin...I wanted to kill myself." Reaction to Hospitalization: positive, feeling safe here History of Present Illness Onset of Illness: Patient had become "fed up with" the many rules and regulations at his sober house and impulsively walked away a few blocks and then dialed 911 after taking 160 units of insulin in a suicide attempt. Circumstances Leading to Admission: (see above under Onset of Illness) Problem(s) Justifying Need for Admission: --serious, life-threatening suicide attempt --history of multiple serious suicide attempts Other HPI: Patient had most recently been admitted to [facility], 05/12-05/17/2016 (see discharge summary, initial assessments and progress notes in the electronic medical record for details), admitted following a suicide attempt via injecting cocaine into both arms. He was once again stabilized and discharged back to his sober home and ongoing outpatient treatment (with Suboxone maintenance) with [facility] in [place], [place]. Past Psychiatric History Past Diagnosis(es)- if any: Schizoaffective Disorder Opioid Use Disorder (on Suboxone maintenance) Cocaine Use Disorder hx Sedative/Hypnotic/Anxiolytic (Benzodiazepine--Xanax) Use Disorder also: insulin dependent diabetes hx Hepatitis C Hypertension Hyperlipidemia peripheral neuropathy (related to diabetes) S/P L testicular carcinoma with orchiectomy Past Precipitating Factors- if any: admissions often precipitated by patient conflicts with the places/people where he has been living - Include inpatient and outpatient treatment Treatment History: Patient has been admitted to [facility] 8 times in the past year; however, in 2013 and 2014 he had been admitted only twice each year; clearly his situation is deteriorating despite continuous ongoing outpatient treatment and Suboxone maintenance with [facility], [place], [place]. See 19 previosu [facility] discharge summaries dating back to 2007 for details of previous presentations, treatment and referrals. History of Suicide Attempts or Gestures multiple previous serious suicide attempts (which appear to be getting closer together in recent past) Substance Abuse History: extensive past history; previously addicted to heroin but that mostly in remission over the past 6 years (on methadone and more recently Suboxone maintenance) through [facility]. Of patient's last 8 urine tox screens in the past year 4 of them have been positive for cocaine; prior to a year ago the presence of cocaine had been fairly rare and low level concentrations Allergies: Coded Allergies: Penicillins (Severe, ANAPHYLAXIS 05/11/16) peanut (Severe, ANAPHYLAXIS 05/11/16) Sulfa (Sulfonamide Antibiotics) (Intermediate, ANAPHYLAXIS 05/11/16) hydromorphone (From DILAUDID) (Intermediate, BODY TURNS RED AND ITCHY 05/11/16) lamotrigine (From LAMICTAL) (RASH 05/11/16) Home Med List: from most recent discharge summary 2 weeks ago: Abilify, 25mg HS Effexor XR, 300mg daily Suboxone, 16/4mg SL day (but "took only 1 strip") - Include any medical condition(s) that may - impact the patient's recovery/remission Past History Medical History Neurological: peripheral neuropathy EENT: NONE Cardiovascular: hypertension, hyperlipidemia Respiratory: NONE Gastrointestinal: NONE, Hepatitis C Hepatic: hepatitis C (currently taking Harvoni) Renal: NONE Musculoskeletal: NONE Psychiatric: anxiety, depression, IV drug abuse (hx of; mainly remitted x6 yrs), schizo affective disorder (currently on Suboxone therapy), substance abuse Endocrine: diabetes, diabetic ketoacidosis, obesity Blood Disorders: NONE Cancer(s): LEFT TESTICULAR CA 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/Reproductive: NONE History of MRSA: No History of VRE: No History of CDIFF: No Isolation History: Standard Influenza Vaccine: 11/06/15 Surgical History Surgical History: appendectomy, S/P removal L testes Psychiatric Family/Social Hx Family History Psychiatric Illness: father was schizophrenic Substance Use: father was opioid addicted Suicides: denied Other Family History: noncontributory at this time Social History Living Situation: (see above under Identifying Information) Significant Relationships (family/friends): --feels some support from his sonDiego 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 - #1 Recognizing dangerous situations. - #2 Coping Skills. - #3 Basic information about quitting. Status of Tobacco Cessation Counseling: #1, #2 AND #3 Completed Cessation Med Status: Nicotine Patch Ordered (14mg topical, on 8am & off 8p ) Alcohol Screening - ETOH screen POS if BAL >=80 or Audit-C>= M4/F3 Audit-C Score from Diag Assess: 0 Blood Alcohol Level: LOIS = less than 10.0 Alcohol Use Screening Results: Neg per Audit C &/or BAL - If ETOH counseling indicated - the following topics are required. - #1 Express concern about the patient's - drinking at unhealthy levels, include informing - of national norms for moderate drinking: - men <= 14 drinks/week, max 4 drinks/occasion - women <= 7 drinks/week, max 3 drinks/occasion - #2 Providing feedback, including linking alcohol to - negative physical effects (liver injury, hypertension) - negative emotional effects (relationship problems and - depression) - negative occupational consequences (reduced work - performance) - #3 Advising the patient to abstain from alcohol or - to drink below national norms for moderate drinking - (as listed above). Status of ETOH Use Counseling: N/A B/C NO ETOH Use Metabolic Screening - Screen if on a Neuroleptic Medication - Metabolic screening should include: - Blood Pressure, BMI, Glucose or Hgb A1c, & a - Lipid profile from within the past 365 days. Metabolic Screening () Not Applicable, patient not on a neuroleptic. OR ([X]) Patient on a neuroleptic(s) . Enter below results for Glucose or Hemoglobin A1C, and lipid panel if obtained during the last 365 days. BMI: 35.400 Blood Pressure: 108/64 Laboratory Results (If applicable): glucose = 118 (following overdose on 160 units of insulin, 05/29/2016) glycos hgb A1c = 10.8% (drawn on 12/25/2015) cholesterol = 152 (all drawn on 12/25/2015) triglycerides = 240 HDL = 41 LDL =63 Exam and Plan Mental Status Examination Ambulation Status: without assistance Appearance: disheveled and bewildered Attitude towards examiner: positive Psychomotor activity: reduced, slowed Behavior: generally appropriate Quality of speech: soft, slowed down, paucity of spontaneous speech Affect: constricted to almost flat Mood: tense, anxious, depressed Suicidal Ideation: acknowledged active suicidality and suicide attempt immediately SHAPER SETTER but "feeling safe here [on [facility]]" and gave safety pledge/promise Homicidal Ideation: denied Hallucinations: denied Paranoid/Delusional Material: expressed vague but apparently quite sincere paranoid ideation with regard to "FBI surveillance" because of his previous "computer hacking" activity Difficulties with thought organization: disorganized, muddled, confused Insight: nil Judgment: poor at this time (though did call "911" after taking massive insulin overdose SHAPER SETTER) Orientation: to person, place and situation Cognition: reduced, muddled, befuddled, cloudy Memory Function: impaired (?contributed to by recent massive insulin overdose) Estimate of intellectual functioning: average Assets/Strengths Patient Identified Assets/Strengths: --cares about his family, especially grandchildren --has some skills in computers ("self-taught") Impression/Plan Impression and Plan: Patient's clinical status appears to be steadily deteriorating, with 8 [facility] admissions in a year, 4 urine toxicology screens positive for cocaine over that period of time, repeated and more and more serious suicide attempts, recently by self-injection of cocaine and SHAPER SETTER taking 160 units of insulin. We need to develop a better plan for the short-term and intermediate term with sufficient support and rehabilitation. Given intensifying impulsivity and accompanying suicidality a clinical trial (?re-trial) on [place] as augmentation for other anti-depressant therapy should be considered. - Include all active medical diagnosis that require tx DSM 5 Diagnosis(es): Schizoaffective Disorder; MRE Depressed with active suicidality/serious suicide attempt via overdose on insulin R/O Unspecified Bipolar Opioid Use Disorder (heroin); now in remission on Suboxone maintenance/ dependence - Initial Tx Plan for Active Psych & Medical Conditions Treatment Plan: We will slowly reintroduce psychotropic medications as physical/medical status improves. I will discuss possible [place] augmentation of current therapies with patient as he is better able to participate fully in such a discussion. We will endeavor to locate and secure a residential rehab program for patient (has been on waiting list for [facility]). - Factors that would help patient function - in a less restrictive setting. Factors: --rapid recovery from physical effects of recent insulin overdose (particularly mental faculties) --acceptance as a direct admission to a residential rehab program --positive response to a [place] augmentation trial
[2016-06-01 15:52] VITALS: BP 151/82
--- NOTE | 2016-06-01 16:13 | PN- Att Addend ---
Attending Addendum Attending Brief Note Patient seen and examined. Interval note on 50-year-old male who was fairly recently discharged from inpatient psychiatry. This is a 50-year-old with chronic medical problems including insulin-requiring diabetes, hypertension, hyperlipidemia, hepatitis C with chronic thrombocytopenia and transaminitis and chronic opiate dependence on Suboxone therapy from the [facility]. Since his discharge he was suicidal, and had a suicidal attempt with injecting insulin and substance abuse including cocaine use. When I saw him his pressure was slightly on the high side at 160/90-100, he was tachycardic to 100, he was breathing at 16-18 and afebrile. He is withdrawn, doesn't make much eye contact and keeps apologizing for being in psychiatry. Lungs are clear to auscultation, heart has S1-S2 regular, abdomen is soft nontender and he has no edema. His labs are reviewed and he has the chronic transaminitis and thrombocytopenia but otherwise fairly stable. Dr. cummins is managing the diabetes with his Levemir and short-acting insulin. He normally takes 40 of lisinopril and metoprolol and the outside for his hypertension. I explained given the U tox positive for cocaine that I would have to hold off on the beta ramone for now and use lisinopril alone for blood pressure. I also added low-dose Norvasc as it appears that I'm not getting adequate BP control with lisinopril alone. He is being treated by psychiatry with psychiatric medications. We'll continue his antihyperlipidemic agents, substance abuse cessation counseling done and he will follow-up with Dr. Rogers at the [facility] for primary care and treatment of his underlying chronic medical problems.
[2016-06-01 19:20] VITALS: BP 113/77
--- NOTE | 2016-06-02 05:59 | NUR ---
PT ON PERIPHERY, IN BED EARLY. PT APPEARED TO SLEEP WELL.
[2016-06-02 07:59] VITALS: BP 140/77
--- NOTE | 2016-06-02 08:33 | PN- Diabetes ---
Assessment/Plan Assessment: 50 y/o male, Hx of DM uncontrolled and hepatitis C, was admitted for anxiety, depression, and suicidal ideation. His DM has been out of control. He was put on Levemir 80 units twice a day, Novolog coverage before meals and Novolog coverage at bedtime and Bydureon 2 mg once a week ( he took the last dose on 05/29/2016). In ER, he didn't receive insulin. His FSG was 409 when he arrived [facility]. He was put on Levemir 80 units twice a day, Bydureon 2 mg once a week and Novolog coverage before meals. His FSGs were 201, 203, 356, 295 and 264. Plan: continue the current DM regimen; recommend diabetic diet; Monitor fingerstick glucose readings; will follow. Subjective Subjective: Patient is in his room sleeping at this moment. Objective Last 24 Hrs of Vital Signs/I&O Vital Signs Date Time Temp Pulse Resp B/P Pulse O2 O2 Flow FiO2 Ox Delivery Rate 06/02 0821 100 140/77 06/02 0821 100 140/77 06/02 0759 98.0 100 140/77 06/01 1920 98.2 98 113/77 06/01 1902 108 151/82 06/01 1552 108 151/82 06/01 1430 37.0 115 18 139/79 94 06/01 1223 100 157/103 06/01 1222 100 157/103 Findings Pertinent Lab/Sim Results: Laboratory Tests 06/01 1628 Chemistry Glucose (65 - 99 mg/dL) 352 H
--- NOTE | 2016-06-02 11:39 | SOCIAL WORKER PROG NOTE PSYCH ---
Social Work Progress Note Progress Note Nigel was up this morning looking to go to groups. He reports sleeping well last night. Talked about increased anxiety for which he needed to take a PRN of Ativan. Reports anxiety being 7-8 (1-10, 10 being worst). Depression around 8/ 9. He said that he has been increasingly anxious over feelings of being followed. He thinks that the FBI is following him over the computer hacking he reported. He reports seeing the FBI and hearing them up and down the street. I reminded Nigel that this is what he reported a couple of admissions ago and then he was able to say that these were just thoughts. He really doesn't want to go back to the place where he has been living. I think that there may be some increased paranoia due to the city life [place] resides. He asked about going to crisis and respite in [place] or [place] with then possibly going to [place] once they have an opening. He reports using cocaine 1-2x's per week and feels rehab would be good.
--- NOTE | 2016-06-02 12:02 | NUR ---
PT ISOLATED IN HIS ROOM ALL MORNING. HE WENT TO FOCUS GROUP FOR ABOUT 15 MIN ONLY AND REPORTED HE WAS TOO ANXIOUS TO TOLERATE GROUP. HE DENIED SUICIDAL THOUGHTS AT THIS TIME AND IS COMPLIANT WITH HIS MED REGIME
[2016-06-02 12:46] VITALS: BP 107/78
--- NOTE | 2016-06-02 16:46 | CP SOUTH PROGRESS NOTE PSYCH ---
Psych (Inpt) Progress Note Progress Note Include the following elements, when applicable: Involvement in the active treatment of the patient with behavioral observations of the patient and the patient's response to the treatment. Review of the ongoing treatment process in the context of the treatment plan. Indication of how multi-disciplinary staff members are carrying out the treatment plan. Plans for future interventions and recommendations for revision of the treatment plan. Liaison with other physicians/providers. Progress Note: PSYCHIATRIST NOTE, 06/02/2016: I discussed this patient's progress thus far, current mental status, treatment and discharge planning with staff team today in the daily morning ITTM and also met with him again myself in individual session. Patient complaining of feeling "very anxious" this afternoon but serum glucose obtained within an hour of this was almost 400; likely, much of his jitteriness and nervousness is contributed to by his still poorly controlled diabetes/blood sugars; Distribution Transformer Assembler, Dr. Dugan, actively managing patient's diabetic medications. I increased Effexor XR to 187.5mg today but won't go above 225mg/day until anxiety better controlled. Patient may also be feeling the effects of being on just 8/ 2mg of Suboxone rather than 16/4mg though he claims to have been taking just a single 8/2 film SL daily [employer]. Patient's paranoid ideation is less intense now, but he is now worried "what if it comes back again?" I may add a low dose PRN of Seroquel to the Abilify in that case.
[2016-06-02 17:29] VITALS: BP 133/86
[2016-06-02 19:50] VITALS: BP 144/75
--- NOTE | 2016-06-02 22:18 | NUR ---
PT HAS BEEN ISOLATIVE AND WITHDRAWN, REMAINING IN BED FOR MAJORITY OF EVENING. MINIMAL INTERACTION WITH PEERS AND STAFF. COOPERATIVE AND COMPLIANT. REFUSED WRAP UP MEETING. NO COMPLAINTS OR SI REPORTED. PT HAS A STABLE MOOD AND FLAT AFFECT.
--- NOTE | 2016-06-03 06:19 | NUR ---
PATIENT SLEPT ALL NIGHT.
--- NOTE | 2016-06-03 08:13 | PN- Diabetes ---
Assessment/Plan Assessment: 50 y/o male, Hx of DM uncontrolled and hepatitis C, was admitted for anxiety, depression, and suicidal ideation. His DM has been out of control. He was put on Levemir 80 units twice a day, Novolog coverage before meals and Novolog coverage at bedtime and Bydureon 2 mg once a week ( he took the last dose on 05/29/2016). In ER, he didn't receive insulin. His FSG was 409 when he arrived [facility]. He was put on Levemir 80 units twice a day, Bydureon 2 mg once a week and Novolog coverage before meals. His FSGs were 264, 292, 341 and 331. His FSG was 269 this morning. Plan: continue the current DM regimen for now; monitor FSGs. will follow. Subjective Subjective: He is sleeping at this moment. Objective Last 24 Hrs of Vital Signs/I&O Vital Signs Date Time Temp Pulse Resp B/P Pulse O2 O2 Flow FiO2 Ox Delivery Rate 06/02 2000 98 06/02 1950 97.9 130 144/75 06/02 1729 114 133/86 06/02 1246 108 107/78 06/02 0821 100 140/77 06/02 0821 100 140/77
[2016-06-03 08:18] VITALS: BP 152/87
[2016-06-03 12:38] VITALS: BP 114/70
--- NOTE | 2016-06-03 13:56 | NUR ---
PT IS COMPLIANT AND COOPERATIVE. MOOD IS STABLE WITH A CONSTRICTED AND EUTHYMIC AFFECT. PT DENIES SI, NO COMPLAINTS OFFERED. PT TENDS TO BE ISOLATIVE AND WITHDRAWN IN BED; SLEEPING MOST OF SHIFT. PT PRESENT ON UNIT FOR MEALS AND VITALS. PT HAS SOME INTERACTION WITH PEERS AND STAFF WHEN ON UNIT. PT HAS ATTENDED A COUPLE GROUPS. HR HAS BEEN ELEVATED- 112 @ 0800 AND 114 @ 1200. BP IS WNL. BLOOD SUGAR IS ELEVATED- 269 @0800 AND 359 @1200.
[2016-06-03 15:57] VITALS: BP 102/59
--- NOTE | 2016-06-03 16:02 | SOCIAL WORKER PROG NOTE PSYCH ---
Social Work Progress Note Progress Note Nigel was isolative today. He said he was doing alot of thinking in his room and he was feeling very "confused" about things today. Encouraged not to dwell on things that can't change and to focus on things he could work on changing. Told him I'd like to see him at group tomorrow processing more. He said he would do that. [facility] referral done for [place] and [place] and faxed. Called [facility] in [place] to do a phone screening, but needed to leave a message.
--- NOTE | 2016-06-03 16:32 | CP SOUTH PROGRESS NOTE PSYCH ---
Psych (Inpt) Progress Note Progress Note Include the following elements, when applicable: Involvement in the active treatment of the patient with behavioral observations of the patient and the patient's response to the treatment. Review of the ongoing treatment process in the context of the treatment plan. Indication of how multi-disciplinary staff members are carrying out the treatment plan. Plans for future interventions and recommendations for revision of the treatment plan. Liaison with other physicians/providers. Progress Note: PSYCHIATRIST NOTE, 06/03/2016: I discussed this patient's progress to date, current mental status, treatment and discharge planning with staff team today in the daily morning ITTM and also met with him again myself in individual session on this date. Patient appeared to have somewhat greater distance from his paranoid ideation re "the FBI" today and was less cloudy, befuddled in thinking generally. We spoke about possible low dose [place] augmentation of current anti-depressant therapy with Effexor; following further discussion, including description of possible/ probable R/B/SE's, patient agreed to start on [place]; he was pleased that Li+ is not metabolized in the liver, given his Hepatitis C and renal impairment and possibility this medication might make it possible to eventually limit the medications which do require hepatic metabolism. Patient will take 150mg of [place] today and increase to 150mg 2x/day tomorrow, possibly increase further over the weekend.
[2016-06-03 19:34] VITALS: BP 120/66
--- NOTE | 2016-06-03 21:33 | NUR ---
PT IS COOPERATIVE WITH STAFF AND COMPLIANT WITH UNIT RULES. PT HAS BEEN IN BED MOST OF THE SHIFT RESTING. PT WILL COME OUT FOR VITALS AND WHEN ASKED. PT MOOD IS STABLE WITH A CONSTRICTED AFFECT. PT HR HAS BEEN A LITTLE ELAVATED, 108 @1600 AND 112 @2000. PT BLOOD SUGAR, 372 @1630 AND 274 @2130. PT DENIES SI THOUGHTS. PT IS NOT ATTENDING GROUPS AND DID NOT GO TO AA.
--- NOTE | 2016-06-04 04:52 | NUR ---
SLEPT WELL, NO COMPLAINTS OFFERED
[2016-06-04 07:50] VITALS: BP 146/98
--- NOTE | 2016-06-04 08:06 | PN- Diabetes ---
Assessment/Plan Assessment: 50 y/o male, Hx of DM uncontrolled and hepatitis C, was admitted for anxiety, depression, and suicidal ideation. His DM has been out of control. He was put on Levemir 80 units twice a day, Novolog coverage before meals and Novolog coverage at bedtime and Bydureon 2 mg once a week ( he took the last dose on 05/29/2016). In ER, he didn't receive insulin. His FSG was 409 when he arrived [facility]. He was put on Levemir 80 units twice a day, Bydureon 2 mg once a week and Novolog coverage before meals. His FSGs were 269, 359, 372, 274 and 222. Plan: will continue the current DM regimen for now; monitor FSGs. will follow. Subjective Subjective: He is still in his bed. Objective Last 24 Hrs of Vital Signs/I&O Vital Signs Date Time Temp Pulse Resp B/P Pulse O2 O2 Flow FiO2 Ox Delivery Rate 06/04 0756 98.1 100 18 146/98 06/04 0756 98.1 100 18 146/98 06/04 0750 98.1 100 146/98 06/03 1934 98.4 112 120/66 06/03 1557 108 102/59 06/03 1238 114 114/70 06/03 0840 97.7 112 18 152/87 06/03 0840 97.7 112 18 152/87 06/03 0818 97.7 112 152/87
--- NOTE | 2016-06-04 09:07 | SOCIAL WORKER PROG NOTE PSYCH ---
Social Work Progress Note Progress Note Completed screening for the [facility] this morning. There are no beds anticipated very soon, but Jeronimo will notify me if anything changes. Spoke with Korin from [facility]. They may have bed availability for Tuesday. Korin will complete a full screening for Nigel later today. Spoke with Nigel and informed him of the above information. He is feeling tired today. He said he didn't sleep that well. Anxiety remains on the high side. Said he is still feeling scared about being arrested. Reminded him that there are no facts or evidence that this is happening and these are thoughts that he needs to push away. He remains depressed, but denies SI. His goal today is to go to all groups. He did not eat breakfast this morning. Talked about how this is not good for his Diabetes. I told him I would check in with him later. Nigel went to more groups, but did take a nap during the afternoon. I tried calling [facility]in back from [facility], as I did not hear from her after this morning. I was told that she went home sick. Staff took a message to pass along to her.
[2016-06-04 12:12] VITALS: BP 106/71
--- NOTE | 2016-06-04 14:32 | NUR ---
PT WAS NOT IN THE [place] MUCH TODAY. HE WENT TO ONLY A FEW GROUPS TODAY, AND NOT INTERACTING MUCH WITH HIS PEERS. PT DID NOT EAT BREAKFAST TODAY, BUT DID HAVE LUNCH. HE HAS BEEN COMPLIANT WITH THE RULES OF THE UNIT AND DENIES THOUGHTS OF HURTING HIMSELF WHEN ASKED.
[2016-06-04 15:50] VITALS: BP 106/70
--- NOTE | 2016-06-04 16:04 | CP SOUTH PROGRESS NOTE PSYCH ---
Psych (Inpt) Progress Note Progress Note Include the following elements, when applicable: Involvement in the active treatment of the patient with behavioral observations of the patient and the patient's response to the treatment. Review of the ongoing treatment process in the context of the treatment plan. Indication of how multi-disciplinary staff members are carrying out the treatment plan. Plans for future interventions and recommendations for revision of the treatment plan. Liaison with other physicians/providers. Progress Note: PSYCHIATRIST NOTE, 06/04/2016: I discussed this patient's slow progress to date, current mental status, treatment and discharge planning with staff today in the daily morning ITTM and also met with him again myself in individual session. Patient tolerating low dose [place] augmentation of Effexor well and will titrate up to 300mg 2x/day over weekend. Sugars are slowly coming under better control with increased effort on patient's part to adhere to dietary and caloric restrictions/schedule; he knows this will also help his mood and clarity of thinking; during this admission, following insulin overdose [facility] [employer], patient's thinking has been more cloudy and befuddled than usual; we went over the implications of this for his future physical and mental health. We are hoping that a bed will open at [facility] in [place], [place] early next week.
[2016-06-04 16:05] VITALS: BP 122/73
[2016-06-04 19:48] VITALS: BP 113/71
--- NOTE | 2016-06-04 21:50 | NUR ---
PT IS CALM, COOPERATIVE WITH STAFF AND PEERS, AND COMPLIANT WITH UNIT RULES. PT IS OFTEN OUT OF [place], SEEMINGLY LETHARGIC, SLEEPING IN PT ROOM, THUS APPEARING ISOALTIVE AND WITHDRAWN. WHEN APPEARING IN [place] FOR SHORT PERIODS OF TIME, PT IS OFTEN BY SELF, NOT INTERACTING MUCH WITH OTHERS. MOOD IS STABLE, AFFECT IS EUTHYMIC, COMMUNICATION IS ORGANIZED AND APPEARS NORMAL IN ALL RESPECTS, AND APPETITE IS NORMAL. PT DENIES SI AT THIS TIME.
[2016-06-05 08:08] VITALS: BP 136/79
[2016-06-05 12:13] VITALS: BP 107/62
--- NOTE | 2016-06-05 12:43 | PN- Diabetes ---
Assessment/Plan Assessment: 50 y/o male, Hx of DM uncontrolled and hepatitis C, was admitted for anxiety, depression, and suicidal ideation. His DM has been out of control. He was put on Levemir 80 units twice a day, Novolog coverage before meals and Novolog coverage at bedtime and Bydureon 2 mg once a week ( he took the last dose on 05/29/2016). In ER, he didn't receive insulin. His FSG was 409 when he arrived [facility]. He was put on Levemir 80 units twice a day, Bydureon 2 mg once a week, Novolog coverage before meals and Novolog coverage at bedtime. His FSGs were 222, 197, 432, 313, 273 and 317. Plan: continue the current DM regimen for now. Subjective Subjective: He feels okay. Objective Last 24 Hrs of Vital Signs/I&O Vital Signs Date Time Temp Pulse Resp B/P Pulse O2 O2 Flow FiO2 Ox Delivery Rate 06/05 1213 69 107/62 06/05 0928 97.2 71 18 136/79 06/05 0927 97.2 71 18 136/79 06/05 0808 97.2 71 136/79 06/04 1948 98.4 92 113/71 06/04 1606 105 122/73 06/04 1605 105 122/73 06/04 1550 108 106/70
--- NOTE | 2016-06-05 14:24 | NUR ---
Nigel spent most of the shift in his room. He attended the planning meeting group with a goal to be be more visible on the unit. Pleasant during interactions. Denies SI/HI/SH.
[2016-06-05 16:00] VITALS: BP 118/75
--- NOTE | 2016-06-05 16:02 | CP SOUTH PROGRESS NOTE PSYCH ---
Psych (Inpt) Progress Note Progress Note Include the following elements, when applicable: Involvement in the active treatment of the patient with behavioral observations of the patient and the patient's response to the treatment. Review of the ongoing treatment process in the context of the treatment plan. Indication of how multi-disciplinary staff members are carrying out the treatment plan. Plans for future interventions and recommendations for revision of the treatment plan. Liaison with other physicians/providers. Progress Note: Pt very distressed today. He feels as though he is going to be arrested at any time for "things I did in the past, they are coming for me." He feels very anxious as a result of this. "They know were I am," when pressed more for concerns. Denies SI or HI. Pt amenable to taking zyprexa PRN. Current Medications Sig/Nirali Start time Last Medication Dose Route Stop Time Status Admin Aripiprazole 30 MG AT BEDTIME 05/31 2200 AC 06/04 PO 2101 Buprenorphine/ 1 TAB 06/01 0800 AC 06/05 Naloxone SL 0929 Exenatide 2 MG Q168 06/05 1000 AC 06/05 SC 0936 Fenofibrate 145 MG DAILY 06/01 1000 AC 06/05 PO 0927 Insulin Aspart 0 TIDAC/HS 05/31 1700 AC 06/05 SC 1204 Insulin Detemir 80 UNITS BID 05/31 2200 AC 06/05 SC 0934 Lisinopril 40 MG DAILY 06/01 1105 AC 06/05 PO 0927 [place] Carbonate 300 MG 799,06/05 0800 AC 06/05 PO 0927 [place] Carbonate 150 MG 08,06/03 1615 DC 06/04 PO 06/04 2300 2055 Lorazepam 0.5 MG Q6P PRN 06/04 2045 AC 06/05 PO 06/11 2044 1209 Lorazepam 1 MG Q4H PRN 06/01 1915 DC 06/04 PO 1729 Metoprolol Succinate 100 MG DAILY 06/04 1321 AC 06/05 PO 0928 Nicotine 14 MG 06/01 0800 AC 06/05 TOP 0927 Olanzapine 2.5 MG Q4P PRN 06/04 2100 AC PO Venlafaxine HCl 225 MG 0806/03 0800 AC 06/05 PO 0926 Laboratory Tests 06/04 1026 Toxicology Urine Opiates Screen (>2000 NG/ML) < 100.00 Methadone Screen (>300 NG/ML) < 40 Barbiturate Screen (>200 NG/ML) < 60 Ur Phencyclidine Scrn (>25 NG/ML) < 6.00 Amphetamines Screen (>1000 NG/ML) < 100 U Benzodiazepines Scrn (>200 NG/ML) < 85 Urine Cocaine Screen (>300 NG/ML) < 50 Urine Cannabis Screen (>50 NG/ML) < 5.00 Vital Signs Date Time Temp Pulse Resp B/P Pulse O2 O2 Flow FiO2 Ox Delivery Rate 06/05 1213 69 107/62 06/05 0928 97.2 71 18 136/79 06/05 0927 97.2 71 18 136/79 06/05 0808 97.2 71 136/79 06/04 1948 98.4 92 113/71 06/04 1606 105 122/73 06/04 1605 105 122/ MSE Appears as stated age. Cooperative behavior, good, appropriate eye contact. Nl speech rate and prosody. No psychomotor retardation or agitation. Mood I'm very anxious Affect very anxious constricted, appropriate, non-liable. Linear and goal directed thought process. Denies SI or HI. Does not appear to be responding to internal stimuli. Denies AVHs, ++paranoia and delusions around "people coming to take to group home" for past crimes. I/J: limited A/P: Pt with marked psychotic sx causing significant amount of distress. - Continue current medication regimen, maxed out of abilify, would consider another anti-psychotic with more potency at dopamine recepters given level of psychosis. - Zyprexa 2.5mg PRN, encouraged pt to take - Will closely monitor for worsening psychosis.
[2016-06-05 19:22] VITALS: BP 128/70
--- NOTE | 2016-06-05 22:17 | NUR ---
PT IS STABLE WITH FLAT AFFECT. PT HAS BEEN OUT IN THE COMMUNITY WITH MINIMAL INTERACTION. PT WENT TO WRAP UP GROUP AND REPORTED THAT HE FEELS VERY INTROVERTED AND THAT HE WOULD RATHER BE EXTROVERTED SO TO TRY AND FEEL BETTER. PT ENCOURAGED TO REACH OUT TO STAFF MEMBERS. VS ARE STABLE AND DENIES ANY SI/HI TO THIS MHW.
--- NOTE | 2016-06-06 06:31 | NUR ---
PT APPEARED TO SLEEP. PRN 2.5 ZYPREXA AT 2130 AND PRN ATIVAN AT 0000.
[2016-06-06 07:43] VITALS: BP 104/67
[2016-06-06 12:08] VITALS: BP 108/66
--- NOTE | 2016-06-06 12:32 | CP SOUTH PROGRESS NOTE PSYCH ---
Psych (Inpt) Progress Note Progress Note Include the following elements, when applicable: Involvement in the active treatment of the patient with behavioral observations of the patient and the patient's response to the treatment. Review of the ongoing treatment process in the context of the treatment plan. Indication of how multi-disciplinary staff members are carrying out the treatment plan. Plans for future interventions and recommendations for revision of the treatment plan. Liaison with other physicians/providers. Progress Note: Pt notes that he is "better this morning, but still a little edgy." He reports sleeping well. No visitors as estranged from his family, "they have given up on me." He denies SI or HI. Taking zyprexa PRN, feels helpful. Current Medications Sig/Nirali Start time Last Medication Dose Route Stop Time Status Admin Aripiprazole 30 MG AT BEDTIME 05/31 2200 AC 06/05 PO 2137 Buprenorphine/ 1 TAB 06/01 0800 AC 06/06 Naloxone SL 0750 Exenatide 2 MG Q168 06/05 1000 AC 06/05 SC 0936 Fenofibrate 145 MG DAILY 06/01 1000 AC 06/06 PO 0746 Insulin Aspart 0 TIDAC/HS 05/31 1700 AC 06/06 SC 0748 Insulin Detemir 80 UNITS BID 05/31 2200 AC 06/06 SC 0926 Lisinopril 40 MG DAILY 06/01 1105 AC 06/06 PO 0746 [place] Carbonate 300 MG 799,06/05 0800 AC 06/06 PO 0746 Lorazepam 0.5 MG Q6P PRN 06/04 2045 AC 06/06 PO 06/11 2044 1213 Metoprolol Succinate 100 MG DAILY 06/04 1321 AC 06/06 PO 0746 Nicotine 14 MG 06/01 0800 AC 06/06 TOP 0745 Olanzapine 2.5 MG Q4P PRN 06/04 2100 AC 06/06 PO 0746 Venlafaxine HCl 225 MG 06/03 0800 AC 06/06 PO 0746 Laboratory Tests 06/04 1026 Toxicology Urine Opiates Screen (>2000 NG/ML) < 100.00 Methadone Screen (>300 NG/ML) < 40 Barbiturate Screen (>200 NG/ML) < 60 Ur Phencyclidine Scrn (>25 NG/ML) < 6.00 Amphetamines Screen (>1000 NG/ML) < 100 U Benzodiazepines Scrn (>200 NG/ML) < 85 Urine Cocaine Screen (>300 NG/ML) < 50 Urine Cannabis Screen (>50 NG/ML) < 5.00 Vital Signs Date Time Temp Pulse Resp B/P Pulse O2 O2 Flow FiO2 Ox Delivery Rate 06/06 1208 64 108/66 06/06 0746 72 104/67 06/06 0746 72 104/67 06/06 0743 97.7 72 104/67 06/05 1922 97.7 75 128/70 06/05 1600 74 118/75 MSE Appears as stated age. Cooperative behavior, good, appropriate eye contact. Nl speech rate and prosody. No psychomotor retardation or agitation. Mood I'm better Affect less anxious though remains constricted, appropriate, non-liable. Linear and goal directed thought process. Denies SI or HI. Does not appear to be responding to internal stimuli. Denies AVHs, ++paranoia and delusions but less distressed. I/J: limited A/P: Pt with marked psychotic sx causing significant amount of distress. - Continue current medication regimen, maxed out of abilify, would consider another anti-psychotic with more potency at dopamine recepters given level of psychosis. - Zyprexa 2.5mg PRN, encouraged pt to take - Will closely monitor for worsening psychosis.
--- NOTE | 2016-06-06 12:57 | PN- Diabetes ---
Assessment/Plan Assessment: 50 y/o male, Hx of DM uncontrolled and hepatitis C, was admitted for anxiety, depression, and suicidal ideation. His DM has been out of control. He was put on Levemir 80 units twice a day, Novolog coverage before meals and Novolog coverage at bedtime and Bydureon 2 mg once a week ( he took the last dose on 05/29/2016). In ER, he didn't receive insulin. His FSG was 409 when he arrived [facility]. He was put on Levemir 80 units twice a day, Bydureon 2 mg once a week, Novolog coverage before meals and Novolog coverage at bedtime. His FSGs were 273, 317, 394, 316, 376 and > 500. Plan: 1. continue Levemir 80 units twice a day; 2. continue Bydureon 2 mg once a week; 3. adjust Novolog coverage before meals--- detail see the inpatient DM order; 4. continue the current Novolog coverage at bedtime; 5. monitor FSGs. will follow. Inpatient Diabetes Orders Before Each Meal: Bolus Insulin: Novolog < 80 mg/dl: no coverage 80-100 mg/dl: 24 units 101-120 mg/dl: 24 units 121-150 mg/dl: 24 units 151-200 mg/dl: 26 units 201-250 mg/dl: 28 units 251-300 mg/dl: 30 units 301-350 mg/dl: 32 units 351-400 mg/dl: 34 units > 400 mg/dl: 36 units Subjective Subjective: He is still not compliance with diet. Objective Last 24 Hrs of Vital Signs/I&O Vital Signs Date Time Temp Pulse Resp B/P Pulse O2 O2 Flow FiO2 Ox Delivery Rate 06/06 1208 64 108/66 06/06 0746 72 /06/06 0746 72 104/67 06/06 0743 97.7 72 104/06/05 1922 97.7 75 128/70 04 1600 74 118/75 Findings Pertinent Lab/Sim Results: Laboratory Tests 06/06 1236 Chemistry Glucose Pending
--- NOTE | 2016-06-06 13:04 | NUR ---
PT IS OUT IN THE COMMUNITY INTERACTING WITH STAFF AND PEERS AT TIMES. PT GOAL THIS MORNING WAS TO SPEND LESS TIME IN BED EVEN THOUGH HE FELT TIRED. PT DID ATTEND BOTH GROUPS TODAY. PT MOOD IS STABLE WITH A FLAT AFFECT. PT DENIES SI THOUGHTS.
[2016-06-06 15:42] VITALS: BP 118/63
[2016-06-06 20:08] VITALS: BP 108/64
--- NOTE | 2016-06-06 22:17 | NUR ---
PATIENT ALERT AND ORIENTED X3, CALM AND COOPERATIVE WITH STAFF; MOOD BETTER THIS EVENING, PLEASANT, INTERACTING A LITTLE MORE WITH PEERS AND STAFF; HE REPORTS FEELING BETTER ON ZYPREXA; HE DENIES FEELING SUICIDAL; HE IS ATTENDING GROUPS AND IS COMPLIANT WITH TREATMENT PLAN; BLOOD SUGARS CONTINUE TO BE ELEVATED DUE TO PATIENT NONCOMPLIANCE WITH DIET; VITAL SIGNS WNL.
[2016-06-07 07:35] VITALS: BP 120/71
--- NOTE | 2016-06-07 07:41 | NUR ---
PATIENT WAS UP TO BATHROOM TWICE DURING THE NIGHT BUT SLEPT WELL.
[2016-06-07 08:18] LABS: LITHIUM 0.4 mmol/L (0.6-1.2)
--- NOTE | 2016-06-07 08:53 | PN- Diabetes ---
Assessment/Plan Assessment: 50 y/o male, Hx of DM uncontrolled and hepatitis C, was admitted for anxiety, depression, and suicidal ideation. His DM has been out of control. He was put on Levemir 80 units twice a day, Novolog coverage before meals and Novolog coverage at bedtime and Bydureon 2 mg once a week ( he took the last dose on 05/29/2016). In ER, he didn't receive insulin. His FSG was 409 when he arrived [facility]. In [facility], his glucose levels were not controlled due to noncompliance to diet. He was put on Levemir 80 units twice a day, Bydureon 2 mg once a week. Novolog coverage before meals was adjusted on 06/06/2016. He is on a separate Novolog coverage at bedtime. His FSGs were still 349, 337 and 393. From psychiatric stand point, he is going to be discharged home today. Plan: I will ask him to continue the current DM regimen for discharge. I have encouraged him to work harder on diet and exercises. F/U in office after discharge. Subjective Subjective: He probably will be discharged today. Objective Last 24 Hrs of Vital Signs/I&O Vital Signs Date Time Temp Pulse Resp B/P Pulse O2 O2 Flow FiO2 Ox Delivery Rate 06/07 0637 97.2 88 18 120/71 06/07 0736 97.2 88 18 120/71 06/07 0735 97.2 88 120/71 06/07 2007 99.4 82 108/64 06/06 1542 79 118/63 04/ 1208 64 108/66 Findings Pertinent Lab/Sim Results: Laboratory Tests 06/07 06/06 0556 1236 Chemistry BUN (9 - 20 mg/dL) 28 H Creatinine (0.7 - 1.2 mg/dL) 0.8 Estimated GFR (>60 ml/min) > 60 BUN/Creatinine Ratio (7 - 25 %) 35.0 H Glucose (65 - 99 mg/dL) 450 H Toxicology [place] (0.6 - 1.2 mmol/L) 0.4 L
--- NOTE | 2016-06-07 09:13 | SOCIAL WORKER PROG NOTE PSYCH ---
Social Work Progress Note Progress Note Nigel came to me this morning stating he feels good and that he is ready to leave today. He said initially that he would be getting a hotel. I told him that I would like to see if [facility] in [facility] is available to take him today, as I feel that would be a better and safer plan for him. I spoke with Korin from [facility] and they will accept Nigel today. They asked if Nigel could get there on his own due to being short staffed. I told Korin I will discuss it with the team and get back to her. Nigel is advocating to return to [place] and get his check and some belongings today. He is fearful of having his social security check sit at the apartment. Asked if he is having cravings to use? He said no. Talked in team about the plan for him to take the bus to [place] and then a train to [place]. All agreed to have him go. Nigel has an appt. with Dr. Bill at [facility] on 06/21/16 10:30am and will need to get to [facility] tomorrow for his Suboxone. [facility] staff should be able to take him tomorrow. Nigel has bus passes to get to [place] today. Encouraged him to focus on the present and making good informed decisions for himself. He said he feels he is in a better place right now. Left shortly after noon.
--- NOTE | 2016-06-07 11:04 | NUR ---
will be discharged today to a repite bed in t. and diease management at [facility]. Respite is sending someone to pick him up. Mood is stable, full range of affect. denies thoughts of self harm when asked. given education on suicide prevention, schizoaffective d/o, substance abuse.
[2016-06-07] MEDS ORDERED: EFFEXOR XR75 M1 PO (11:36)
[2016-06-07] MEDS ORDERED: LITHIUM CARBON300 M4 PO (11:37)
[2016-06-07] MEDS ORDERED: NOVOLOG100 UNIT/2 SC (12:18)
[2016-06-07] MEDS ORDERED: LEVEMIR100 UNIT/1 SC (12:18)
[2016-06-07 12:25] VITALS: BP 132/76
--- NOTE | 2016-06-07 13:58 | DISCHARGE SUMMARY REPORT-PSYCH ---
Visit Information Visit Dates/Diagnosis' Admission Date: 05/31/16 Discharge Date: 06/07/16 Reason for Admission: "I took 160 units of insulin...I wanted to kill myself." Psy Discharge Primary Diag: Schizoaffective Disorder, MRE Depressed/suicidal with psychotic (primarily paranoid--fears of FBI "surveillance") features Opioid Use Disorder (in remission from heroin use on Suboxone maintenance) Psy Discharge Secondary Diag: insulin dependent type II diabetes (complicated by diet and med compliance issues, as well as taking insulin overdose in current suicide attempt) Hypertension Hyperlipidemia Nicotine Dependence Hospital Course Significant Lab Findings: glucose = 118 (following overdose on insulin), glycos hgb A1c = 9.7; BUN = 21; AST = 169, ALT = 196; WBC = 8.4, RBC = 4.26, hgb = 13.5, hct = 39.8, platelet count = 106; LOIS = less than 10.0; urine for drugs of abuse--positive for cocaine (513ng/ml); for further details of all normal range laboratory data from this admission, see the electronic medical record Course Complications: none (other than the need to manage [id number] diabetes, the latter complicated by a large insulin overdose TAPPER BIT) Consultations: patient was seen for an admission medical H&P by Kimberly More M.D., and followed medically during this admission by the hospitalist staff/[facility] medical attending physicians; he was also seen in endocrinology consultation and followed daily for diabetic management by Jhonathan Dugan M.D. (see her consult and daily f/u progress notes in the electronic medical record) Allergies: Coded Allergies: Penicillins (Severe, ANAPHYLAXIS 05/11/16) peanut (Severe, ANAPHYLAXIS 05/11/16) Sulfa (Sulfonamide Antibiotics) (Intermediate, ANAPHYLAXIS 05/11/16) hydromorphone (From DILAUDID) (Intermediate, BODY TURNS RED AND ITCHY 05/11/16) lamotrigine (From LAMICTAL) (RASH 05/11/16) Hospital Course/TX Response: (see also admission assessments and detailed daily M.D., DIE TRIPPER and SAFETY AIDE progress notes from this admission in the electronic medical record) I noted that this patient's overall clinical status appeared to have been deteriorating, with 8 [facility] admissions in the past year and urine toxicology screens positive for cocaine 4 times during that interval, repeated and more and more serious/lifethreatening. Given patient's intensifying impulsivity and accompanying suicidality a clinical trial on [place] for its anti-suicide potential and as augmentation for other anti-depressant therapy appeared warranted. Patient agreed to a trial on [place] and dose was slowly titrated up to total of 600mg/day over course in hospital and was well-tolerated. We also slowly reintroduced other psychotropic medications as physical/medical status improved and acute effects of insulin overdose resolved. We searched for possible residential rehab placement, and patient was on waiting lists for [facility] and other programs. In the meantime, patient was referred to temporary residence at [facility] in [place], [place]. Hopefully, once patient is in residential treatment at [facility] a better, more supportive and therapeutic living situation in the community can be found. At time of discharge, patient was calm, euthymic, more organized in thinking, future-oriented and motivated to continue to actively pursue residential treatment; patient showed no evidence of suicidal or homicidal ideation, plans, intent or impulses and was well aware of his safety plan should he ever in future come to believe himself at significant risk of harming himself or others. Discharge HBIPS - Tobacco Use Treatment Offered Post DC Medications Offered: Script Given-See Med List Post DC Tobacco Treatment Plan: [facility] Program Appt Date: 06/09/16 - EtOH/Drug Use D/O Treatment Offered Post DC Medications Offered: NA-No EtOH/Drug Use D/O Post DC EtOH/SubAbuse TX Plan: NA-No EtOH/Drug Use D/O Metabolic Screening - Screen if on a Neuroleptic Medication - Metabolic screening should include: - Blood Pressure, BMI, Glucose or Hgb A1c, & a - Lipid profile from within the past 365 days. Metabolic Screening () Not Applicable, patient not on a neuroleptic. OR ([X]) Patient on a neuroleptic(s) . Enter below results for Glucose or Hemoglobin A1C, and lipid panel if obtained during the last 365 days. BMI: 35.400 Blood Pressure: 132/76 Laboratory Results (If applicable): glucose = 118 (on 05/29/2016, following overdose on 160 units of insulin) glycos hgb A1c = 9.7% (had been 10.8% on 12/25/2015) cholesterol = 152 triglycerides = 240 HDL = 41 LDL = 63 (all drawn on 12/25/2015) Discharge Instructions General Discharge Information Discharge Medications: Discharge Medications (dose, route, frequency, indications): I have called into [facility] on [address] in [place], [place] on day of discharge: Effexor XR, 75mg: iii tabs daily in AM (225mg/day); #90 with no refill (anti- depressant) Abilify, 15mg: ii tabs nightly at HS (30mg/night); #60 with no refill (clarify thoughts) [place] carbonate, 300mg: i tab 2x/day (600mg daily); #60 with no refill ( stabilize mood) Suboxone, 8/2mg: i film SL daily in AM (8/2mg daily); #7 with no refill ( reduce opioid cravings) (patient is aware that only a one week supply of Suboxone has been prescribed and will be obtaining this medication for ongoing outpatient maintenance from [facility] prescriber) patient was also strongly advised to utilize the nicotine patch (7 or 14mg OTC) daily (reduce cravings for tobacco/cigarettes) and given an appointment card for the next [facility] scheduled for 06/09/2016 and 06/23/2016, facilitated by Ingrid Kidd LCSW) patient also taking: exenatide, 2mg SC Q weekly (next due on 06/12/2016 for diabetes) Detemir insulin, 80 units SC 2x/day (diabetic management) aspart insulin coverage TID AC/HS; see Discharge Plan for coverage details (for diabetes control) metoprolol XL, 100mg daily in AM (anti-hypertensive) lisinopril, 40mg daily in AM (anti-hypertensive) fenfibrate, 135mg daily (lower cholesterol) Multiple Neuroleptics: ([X]) Not Applicable OR Document below three failed attempts at monotherapy, or a plan to taper to monotherapy, or augmentation of Clozapine. () Patient's Diet: consistent carbohydrate #3 Patient's Activity: without restrictions DC Disposition: to [facility] in [place], [place]. Recommendations: I would recommend close monitoring of patient on current low dose [place] augmentation trial with monitoring of renal and thyroid functions and chemistries, as well as serum [place] concentration; patient should remain on trial for at least 6-12 weeks to assess full benefit of [place] on mood stabilization and reduction of impulsivity/suicidality; [place] should not be abruptly discontinued. Referred To: Patient will continue on the waiting list for residential rehab at [facility]; in the meantime, he will continue with his longtime ongoing outpatient treatment with [facility], including Suboxone maintenance therapy. He had been repeatedly encouraged to regularly attend local AA/NA meetings and to acquire a sponsor at his earliest opportunity. He was given an appointment card to the next scheduled [facility] on 06/09/2016 at 4pm, facilitated by Ingrid Kidd LCSW. Copies To: MARVIN JOLLY,FELIBERTO; PERCY POWELL,[facility] HOSPITALJason
--- NOTE | 2016-06-07 13:58 | CP SOUTH PROGRESS NOTE PSYCH ---
Psych (Inpt) Progress Note Progress Note Include the following elements, when applicable: Involvement in the active treatment of the patient with behavioral observations of the patient and the patient's response to the treatment. Review of the ongoing treatment process in the context of the treatment plan. Indication of how multi-disciplinary staff members are carrying out the treatment plan. Plans for future interventions and recommendations for revision of the treatment plan. Liaison with other physicians/providers. Progress Note: PSYCHIATRIST NOTE (DISCHARGE), 06/07/2016: I discussed this patient's slow progress to date, current mental status, treatment and discharge plans with staff team today in the daily morning ITTM and also met with him again myself in individual session prior to discharging him to resume his ongoing outpatient treatment with [facility] and to continue on waiting list for admission to residential rehab at [facility]; he will be staying at [facility] in [facility], until a bed at [facility] becomes available. Patient has done well with self-imposed reduction in maintenance dose of Suboxone, from 16/4mg to 8/2mg SL daily; he denies cravings for opiates, heroin. We discussed once again today the implications of his greatly increased number of [facility] admissions and much diminished intervals of time between them, as well as his obviously increased relapses on crack cocaine which is likely to have a devastating effect on his mental and physical health, particularly in combination with poorly controlled diabetes (and overdosing on insulin!) Patient is well aware of the risks above and remains motivated to persist in his efforts to gain admission to residential programming and a more supportive living situation in the community thereafter. Patient is currently calm, euthymic, organized in thinking, future-oriented, showing no evidence of sucidial or homicidal ideation, plans, intent or impulses and knows well his safety plan should he ever in future come to believe himself at risk for self-harm. I have called into [facility] on in [facility], on day of discharge: Effexor XR, 75mg: iii tabs daily in AM (225mg/day); #90 with no refill (anti- depressant) Abilify, 15mg: ii tabs nightly at HS (30mg/night); #60 with no refill (clarify thoughts) [place] carbonate, 300mg: i tab 2x/day (600mg daily); #60 with no refill ( stabilize mood) Suboxone, 8/2mg: i film SL daily in AM (8/2mg daily); #7 with no refill ( reduce opioid cravings) (patient is aware that only a one week supply of Suboxone has been prescribed and will be obtaining this medication for ongoing outpatient maintenance from [facility] prescriber) patient was also strongly advised to utilize the nicotine patch (7 or 14mg OTC) daily (reduce cravings for tobacco/cigarettes) and given an appointment card for the next [facility] scheduled for 06/09/2016 and 06/23/2016, facilitated by Ingrid Kidd LCSW) patient also taking: exenatide, 2mg SC Q weekly (next due on 06/12/2016 for diabetes) Detemir insulin, 80 units SC 2x/day (diabetic management) aspart insulin coverage TID AC/HS; see Discharge Plan for coverage details (for diabetes control) metoprolol XL, 100mg daily in AM (anti-hypertensive) lisinopril, 40mg daily in AM (anti-hypertensive) fenfibrate, 135mg daily (lower cholesterol)
== END 2016-06-07 12:20 | DRG 885 ==
LOC: ERH 03:01 → ERHI 05-30 10:06 → CP SOUTH 05-31 10:40 → EDBEDREQTM 05-31 10:46 → EDBEDREQDT 05-31 10:46 → EDBEDREQ 05-31 10:46 → CP SOUTH 05-31 12:36
PROVIDERS: Emergency Medicine; ADMIT Psychiatry & Neurology Addiction Medicine
DX: F25.1 Schizoaffective disorder, depressive type (principal); E11.9 Type 2 diabetes mellitus without complications; I10 Essential (primary) hypertension; Z79.4 Long term (current) use of insulin; E78.5 Hyperlipidemia, unspecified; F17.200 Nicotine dependence, unspecified, uncomplicated
CPT/HCPCS: 36415; 80307; 81003; 93005; 93010; 96374; G0463; G0480; J1815; J7042; J7508

== ENCOUNTER 2016-08-01 15:28 | Observation (INO) | payer OTHER, MEDICARE ==
[~2016-08-01] VITALS: Ht 175.3 cm; Wt 106.6 kg
[~2016-08-01 15:28] MED LIST changes: +LITHIUM CARBON300 M4 PO
--- NOTE | 2016-08-01 15:46 | NUR ---
PT STATES HE IS FEELING WEAK AND HAS BEEN TAKING A Z-PACK SINCE THE BEGINING OF THE WEEK. PT STATES HE CAN'T STOP COUGHING AND HE CAN'T CATCH HIS BREATH. PT REPORTS THAT HE HAS MUCOUS COMING OUT OF HIS RECTUM. PT WITH DRY COUGH IN TRIAGE. PT STATES HE HAS MISSED HIS SABOXONE CLINIC FOR THE PAST THREE DAYS BECAUSE HE HAS BEEN SICK AND FEELS THAT HE IS ALSO GOING THROUGH WITHDRAWELS FROM THAT.
--- NOTE | 2016-08-01 16:11 | NUR ---
APPRECIATE TRIAGE NOTE. PT AMBULATORY TO ROOM 10 WITH NO DIFFICULTY. NON PRODUCTIVE COUGH NOTED, AWAITING PROVIDER EVAL.
--- NOTE | 2016-08-01 16:20 | ED PSYCHIATRIC COMPLAINT ---
See Addendum History of Present Illness General Chief Complaint: General Adult Stated Complaint: MIGRAINE,DEPRESSION,CHEST CONGESTION Source: patient Exam Limitations: no limitations Vital Signs & Intake/Output Vital Signs & Intake/Output Vital Signs Date Time Temp Pulse Resp B/P B/P Pulse O2 O2 Flow FiO2 Mean Ox Delivery Rate 08/02 1244 97.8 88 20 158/80 96 08/02 0939 98.9 99 18 167/96 96 Room Air 08/02 0611 99.7 82 20 140/74 95 Room Air 08/02 0430 97.9 86 18 129/59 95 Room Air 08/02 0030 99.5 107 20 129/65 96 Room Air 08/01 1824 88 18 142/70 99 Room Air Room Air 08/01 1705 96 Room Air Room Air 08/01 1703 97.5 94 18 144/88 98 Room Air Room Air 08/01 1636 97.3 115 16 180/100 08/01 1545 97.3 115 16 180/100 99 Room Air ED Intake and Output 08/02 0000 08/01 1200 Intake Total 4000 Output Total Balance 4000 Intake, IV 4000 Patient 235 lb Weight Weight Reported by Patient Measurement Method Allergies Coded Allergies: Penicillins (Severe, ANAPHYLAXIS 05/11/16) peanut (Severe, ANAPHYLAXIS 05/11/16) Sulfa (Sulfonamide Antibiotics) (Intermediate, ANAPHYLAXIS 05/11/16) hydromorphone (From DILAUDID) (Intermediate, BODY TURNS RED AND ITCHY 05/11/16) lamotrigine (From LAMICTAL) (RASH 05/11/16) Reconcile Medications Aripiprazole (Abilify) 15 MG TABLET 30 MG PO AT BEDTIME CLEAR THOUGHTS/MOOD STABILITY Buprenorphine HCl/Naloxone HCl (Suboxone 8 MG-2 MG Sl Film) 8 MG-2 MG FILM 2 STR SL DAILY Opioid replacement (Reported) Exenatide Microspheres (Bydureon Pen) 2 MG/0.65 ML PEN.INJCTR 2 MG SC ONCE A WEEK DIABETES Fenofibrate Nanocrystallized (Fenofibrate) 145 MG TABLET 1 TAB PO DAILY HIGH CHOLESTROL (Reported) Insulin Aspart (Novolog) 100 UNIT/ML VIAL 1 UNITS SC TIDAC/HS elevated blood sugar Insulin Detemir (Levemir) 100 UNIT/ML VIAL 80 UNITS SC BID diabetes management Lactulose 20 GRAM/30 ML SOLUTION 30 ML PO TID AMMONIA LEVEL (Reported) Lisinopril 40 MG TABLET 1 TAB PO DAILY blood pressure/kidney protectn ( Reported) [place] Carbonate 300 MG CAPSULE 300 MG PO 0800,1999 stabilize mood Metoprolol Succinate 100 MG TAB.ER.24H 1 TAB PO DAILY HYPERTENSION (Reported) Sitagliptin Phosphate (Januvia) 100 MG TABLET 1 TAB PO DAILY DM (Reported) Venlafaxine HCl (Effexor XR) 75 MG CAP.ER.24H 225 MG PO 0800 anti-depressant Triage Note: PT STATES HE IS FEELING WEAK AND HAS BEEN TAKING A Z-PACK SINCE THE BEGINING OF THE WEEK. PT STATES HE CAN'T STOP COUGHING AND HE CAN'T CATCH HIS BREATH. PT REPORTS THAT HE HAS MUCOUS COMING OUT OF HIS RECTUM. PT WITH DRY COUGH IN TRIAGE. PT STATES HE HAS MISSED HIS SABOXONE CLINIC FOR THE PAST THREE DAYS BECAUSE HE HAS BEEN SICK AND FEELS THAT HE IS ALSO GOING THROUGH WITHDRAWELS FROM THAT. Triage Nurses Notes Reviewed? yes HPI: Patient presents for evaluation of depression with suicide ideation along with a pounding severe headache and chest congestion wheezing and coughing hot flashes and nausea over the past 2-3 days. Patient states he has been unable to take his Suboxone for about 3 days now due to a combination of issues. Patient does completed a Z-Sujit prescription for a case of bronchitis but things haven't gotten any better. He denies cigarette smoking but does inhale vaporized nicotine. (JORDAN POWELL,MAGO Ayala) Past History Travel History Traveled to [place] past 21 day No Medical History Any Pertinent Medical History? see below for history Neurological: peripheral neuropathy EENT: NONE Cardiovascular: hypertension, hyperlipidemia Respiratory: NONE Gastrointestinal: NONE, Hepatitis C Hepatic: hepatitis C (currently taking Harvoni) Renal: NONE Musculoskeletal: NONE Psychiatric: anxiety, depression, IV drug abuse (hx of; mainly remitted x6 yrs), schizo affective disorder (currently on Suboxone therapy), substance abuse Endocrine: diabetes, diabetic ketoacidosis, obesity Blood Disorders: NONE Cancer(s): LEFT TESTICULAR CA HOME HEALTH TRAVEL PT/Reproductive: NONE History of MRSA: No History of VRE: No History of CDIFF: No Influenza Vaccine: 11/06/15 Surgical History Surgical History: appendectomy, hernia repair, unspecified Psychosocial History Who do you live with Patient/Self Services at Home None What is your primary language Finnish Tobacco Use: Quit >30 days ago ETOH Use: denies use Illicit Drug Use: denies illicit drug use Family History Family History, If Any: MOTHER FH: pancreatic cancer FATHER FH: cancer Hx Contributory? No (JORDAN POWELL,MAGO Ayala) Review of Systems Review of Systems Constitutional: Reports: no symptoms. EENTM: Reports: no symptoms. Respiratory: Reports: cough. Cardiovascular: Reports: no symptoms. GI: Reports: no symptoms. Genitourinary: Reports: no symptoms. Musculoskeletal: Reports: no symptoms. Skin: Reports: no symptoms. Neurological/Psychological: Reports: depressed, headache, other (si). Hematologic/Endocrine: Reports: no symptoms. Immunologic/Allergic: Reports: no symptoms. All Other Systems: Reviewed and Negative (JORDAN POWELL,MAGO Ayala) Physical Exam Physical Exam General Appearance: SEE BELOW Neurological/Psychiatric: SEE BELOW Comments: General: Alert, anxious, cooperative Head: Normocephalic, atraumatic Eyes: Normal inspection, no nystagmus, EOMI Ears: Normal inspection Nose: Normal inspection Throat: Moist mucosa Neck: Supple, no goiter Heart: Regular rate and rhythm, no murmurs rubs or gallops Lungs: Clear to auscultation bilaterally with good air entry Abdomen: Soft nontender nondistended, normal bowel sounds Chest: Nontender Extremities: Normal range of motion grossly, mild tremors present, no cyanosis clubbing or edema of the upper extremities Neurologic: cranial nerves II through XII grossly intact, speech clear, gait normal Psychiatric: No apparent delusions or hallucinations, no pressured speech or thought blocking, anxious skin: Diaphoretic SAD PERSONS Done? REFERRED TO CRISIS (JORDAN POWELL,MAGO Ayala) Progress Differential Diagnosis: sUBOXONE WITHDRAWAL, ANXIETY, SCHIZOAFFECTIVE DISORDER, BRONCHITIS Plan of Care: Orders Procedure Date/time Status Regular Diet 08/02 B Active Continuous Observation Monitor 08/02 1900 Active Continuous Observation Monitor 08/02 1500 Active XRY-CHEST XRAY, PA AND LATERAL 08/02 1407 Active Continuous Observation Monitor 08/02 1100 Active Continuous Observation Monitor 08/02 0700 Active BASIC METABOLIC PANEL 08/02 0430 Complete ACETONE 08/02 0430 Complete FingerStick- Glucose 08/01 2322 Active Saline Lock 08/[address] in observation 08/01 2046 Active Misc Message 08/01 2046 Active ED Holding Orders 08/01 2046 Active Patient Data 08/01 2046 Active Vital Signs 08/01 2046 Active Code Status 08/01 2046 Active Add-on Test (ER Only) 08/01 1718 Active Intake & Output 08/01 1639 Active ACETONE 08/01 162 Complete Continuous Observation Monitor 08/01 161 Active URINE DRUG SCREEN FOR ER ONLY 08/01 1619 Complete ETHANOL 08/01 161 Complete COMPREHENSIVE METABOLIC PANEL 08/01 161 Complete CBC WITHOUT DIFFERENTIAL 08/01 161 Complete ED CRISIS PSYCH CONSULT 08/01 1619 Active FingerStick- Glucose 08/01 1546 Active Current Medications Sig/Nirali Start time Last Medication Dose Stop Time Status Admin Buprenorphine/ 1 TAB 0800 08/02 0800 AC 08/02 Naloxone 0800 (Suboxone) Insulin Aspart 0 TIDAC 08/02 0800 AC 08/02 (NovoLOG) 1210 Insulin Detemir 50 UNITS BID 08/01 2320 AC 08/02 (Levemir) 1000 [place] Carbonate 300 MG BID 08/01 2200 AC 08/02 ([place] Carbonate) 1000 Laboratory Tests 08/02/16 0430: Anion Gap 7, Estimated GFR > 60, BUN/Creatinine Ratio 26.7 H, Glucose 150 H, Calcium 8.4, Acetone Level NEGATIVE 08/01/16 1628: Urine Opiates Screen < 100.00, Methadone Screen < 40, Barbiturate Screen < 60, Ur Phencyclidine Scrn < 6.00, Amphetamines Screen 131, U Benzodiazepines Scrn < 85, Urine Cocaine Screen < 50, Urine Cannabis Screen < 5.00 08/01/16 1625: Anion Gap 18 H, Estimated GFR > 60, BUN/Creatinine Ratio 20.0, Glucose 533 *H, Calcium 9.4, Total Bilirubin 1.8 H, AST 130 H, ALT 162 H, Alkaline Phosphatase 106, Total Protein 8.4 H, Albumin 4.4, Globulin 4.0, Albumin/ Globulin Ratio 1.1, CBC w Diff NO MAN DIFF REQ, RBC 4.57 L, MCV 91.9, MCH 31.5 H, RDW 14.2, MPV 11.2 H, Gran % 74.7, Lymphocytes % 17.7 L, Monocytes % 7.0, Eosinophils % 0.3, Basophils % 0.3, Absolute Granulocytes 8.3 H, Absolute Lymphocytes 2.0, Absolute Monocytes 0.8 H, Absolute Eosinophils 0, Absolute Basophils 0, PUBS MCHC 34.2, Serum Alcohol < 10.0, Acetone Level NEGATIVE Comments: Patient very likely has DKA so I have ordered IV fluids and initial insulin dosage. I have held on an insulin drip at this point as I feel the patient may respond quite well to intermittent insulin. With repeat fingerstick blood glucose I will consider an insulin drip if he is not responding to treatment. 08/01/2016 6:28:20 PM patient's blood glucose is responding to treatment. Vital signs have improved. Patient is still complaining of anxiety so I'll order additional Ativan and we will continue with the IV fluids and finger stick blood glucose determinations. Patient should be medically stable enough for crisis evaluation shortly. 08/01/2016 7:17:32 PM patient has been evaluated by crisis who recommended medications overnight and reevaluation in the morning. Patient signed out to Dr. 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 (JORDAN POWELL,MAGO Ayala) Hand-Off Endorsed To: SILVIA MUHAMMAD MD Endorsed Time: 0700 Pending: consult, other (monitoring glucose) (KHADAR POWELL,NELLIE Coreas) Comments: Cleared by psychiatry for discharge. Complains of productive cough for several days. Lungs with decreased BS. CXR NAD (SILVIA MUHAMMAD MD) Departure Departure Condition: Stable Referrals: ISAI POWELL,DAWNA Huitron (PCP/Family) Departure Forms: Customer Survey General Discharge Information (AMGO ORTEGA MD) Departure Time of Disposition: 144 Disposition: HOME OR SELF CARE Clinical Impression Primary Impression: Acute depression Secondary Impressions: Bronchitis, Bronchitis due to chemical, Hyperglycemia Additional Instructions: Follow up with the recommendations of the station worker Prescriptions: Current Visit Scripts Azithromycin (Zithromax) 1 TAB PO DAILY #4 TAB Benzonatate (Tessalon Perle) 1 CAP PO TID PRN cough #21 CAP Albuterol Sulfate (Proair Hfa) 2-4 PUF INH Q4-6 PRN PRN shortness of breath #1 INHAL (SILVIA MUHAMMAD MD) ED Attending Observation Initial Observation Note: I have seen and personally examined LISANDRO ENGLAND on 08/02/16 at 20:05. I agree with the current emergency department documentation. The disposition (admission or discharge) is uncertain at this time, he needs a period of observation for the following reason(s): pt has depression and elevated glucose in the context of insulin non compliance.... pt's glucose very elevated upon presentation... pt merits monitoring glucose and administering insulin as needed, closing anion gap. The ED Nurse caring for this patient has been personally informed as to what the patient is being observed for. (KHADAR POWELL,NELLIE Coreas)
[2016-08-01 16:39] LABS: ABSOLUTE BASOPHIL COUNT 0 /CUMM (0.0-0.2); ABSOLUTE EOSINOPHIL COUNT 0 /CUMM (0.0-0.7); ABSOLUTE GRANULOCYTE CT 8.3 /CUMM (1.4-6.5); ABSOLUTE MONOCYTE COUNT 0.8 /CUMM (0.10-0.60); BASOPHIL % 0.3 % (0.0-2.0); EOSINOPHIL % 0.3 % (0-5); GRANULOCYTE % 74.7 % (42.2-75.2); MEAN CORPUSCULAR HGB 31.5 PG (27.0-31.0); MEAN CORPUSCULAR HGB CONC 34.2 G/DL (33.0-37.0); MEAN CORPUSCULAR VOLUME 91.9 FL (80.0-94.0); MEAN PLATELET VOLUME 11.2 FL (7.4-10.4); PLATELET COUNT 121 /CUMM (130-400); RBC DISTRIBUTION WIDTH 14.2 % (11.5-14.5); RED BLOOD CELL CT 4.57 /CUMM (4.70-6.10); WHITE BLOOD CELL COUNT 11.1 /CUMM (4.8-10.8)
[2016-08-01] MEDS ORDERED: JANUVIA100 M1 PO (17:14)
--- NOTE | 2016-08-01 17:17 | NUR ---
CRITICAL TEST RESULTS [id number] LISANDRO ENGLAND 51 M TESTS AND RESULTS: GLUCOSE 533 Results received and read back by: SERVANDO PETERSEN Results received date and time: 08/01/16 1717 The following provider was notified of the results, and read the results back: DR ORTEGA Notified date and time: 08/01/16 at 1719
--- NOTE | 2016-08-01 20:41 | NUR ---
PT EVALUATED BY CRISIS AND WILL BE RE-EVAL IN THE MORNING.
--- NOTE | 2016-08-01 22:37 | ED PSYCH CRISIS CONSULTATION ---
See Addendum Crisis Consult Basic Assessment Date of Consult: 08/01/16 Responsible Person/Accompanied By: self Insurance Authorization: Insurance #1: Insurance name: MEDICARE A Phone number: Policy number: [id number] Group number: Authorization number: n/a ED Provider: Patient's ED Provider: MAGO ORTEGA MD Primary Care Physician: Patient's PCP: DAWNA ALEX MD PCP's Current Psychiatrist: [facility] Chief Complaint: General Adult Patient's Quote: "I'm not feeling right" Present Illness: Pt is a 51 year old male presenting to ED with complaints of "not feeling good, physically or mentally". Pt. reports that about 5 days ago, he came down with Bronchitis and was prescribed a Z-Pac and at the same time stopped all of his psychiatric medications (Effexor, Abilify and [place] Carbonate) and his Suboxone. Pt. explained that the Z-Pac was causing him to have diarrhea so that the medications were "going right through me" anyway. Pt. reported that he has been going through withdrawals from the Suboxone for the past three days and that he is also anxious and depressed. Pt. also reported that both his sleep and his food intake have been decreased. Pt. also reported that he was having "suicidal ideation" and when asked what that meant said that he was "thinking of suicide". When asked if he was thinking of a plan, pt said that he would do it the same way he has done it before, by overdosing. Pt. said that he has his medications prescribed to him by the [facility]. He said that he is now living in his own apartment and that he is happy about where he lives. Pt also said that he has not been using any substances recently and his UTOX did come back negative. Patient's Address: [address] [place] [address] Other Phone Number: Who Do You Live With? Patient/Self Family/Informants Interviewed: no family/collateral ID'd Allergies - Coded Allergies: Penicillins (Severe, ANAPHYLAXIS 05/11/16) peanut (Severe, ANAPHYLAXIS 05/11/16) Sulfa (Sulfonamide Antibiotics) (Intermediate, ANAPHYLAXIS 05/11/16) hydromorphone (From DILAUDID) (Intermediate, BODY TURNS RED AND ITCHY 05/11/16) lamotrigine (From LAMICTAL) (RASH 05/11/16) Current Medications - Scheduled Medications Aripiprazole (Abilify) 15 MG TABLET 30 MG PO AT BEDTIME CLEAR THOUGHTS/MOOD STABILITY #28 TAB Prescribed by LE PINEDA APRN on 05/17/16 Last Taken: At an unknown date and time Buprenorphine HCl/Naloxone HCl (Suboxone 8 MG-2 MG Sl Film) 8 MG-2 MG FILM 2 STR SL DAILY Opioid replacement (Reported) Entered as Reported by NELLIE WHITE MD on 03/24/16 1044 Last Taken: At an unknown date and time Exenatide Microspheres (Bydureon Pen) 2 MG/0.65 ML PEN.INJCTR 2 MG SC ONCE A WEEK DIABETES #1 PEN Prescribed by LE PINEDA APRN on 05/17/16 Last Taken: 07/19/16 Fenofibrate Nanocrystallized (Fenofibrate) 145 MG TABLET 1 TAB PO DAILY HIGH CHOLESTROL (Reported) Entered as Reported by TIFFANIE CHAPARRO on 07/08/13 1423 Last Taken: At an unknown date and time Insulin Aspart (Novolog) 100 UNIT/ML VIAL 1 UNITS SC TIDAC/HS elevated blood sugar #1 VIAL Prescribed by PARKER RIZZO MD on 06/07/16 Last Taken: At an unknown date and time Insulin Detemir (Levemir) 100 UNIT/ML VIAL 80 UNITS SC BID diabetes management #1 VIAL Prescribed by PARKER RIZZO MD on 06/07/16 Last Taken: At an unknown date and time Lactulose 20 GRAM/30 ML SOLUTION 30 ML PO TID AMMONIA LEVEL #2700 (Reported) Entered as Reported by MERCEDES SANCHEZ on 05/11/16 1814 Last Taken: At an unknown date and time Lisinopril 40 MG TABLET 1 TAB PO DAILY blood pressure/kidney protectn #90 ( Reported) Entered as Reported by NELLIE WHITE MD on 03/24/16 1037 Last Taken: At an unknown date and time [place] Carbonate 300 MG CAPSULE 300 MG PO 0800,2000 stabilize mood #28 Prescribed by PARKER RIZZO MD on 06/07/16 Last Taken: At an unknown date and time Metoprolol Succinate 100 MG TAB.ER.24H 1 TAB PO DAILY HYPERTENSION (Reported) Entered as Reported by TIFFANIE CHAPARRO on 07/08/13 1419 Last Taken: At an unknown date and time Sitagliptin Phosphate (Januvia) 100 MG TABLET 1 TAB PO DAILY DM #30 (Reported ) Entered as Reported by MERCEDES SANCHEZ on 08/01/16 1714 Venlafaxine HCl (Effexor XR) 75 MG CAP.ER.24H 225 MG PO 0800 anti-depressant # 42 TAB Prescribed by MATTHIAS POWELL,PARKER Dhillon on 06/07/16 Last Taken: At an unknown date and time Laboratory Results: Laboratory Tests 08/01/16 1628: Urine Opiates Screen < 100.00, Methadone Screen < 40, Barbiturate Screen < 60, Ur Phencyclidine Scrn < 6.00, Amphetamines Screen 131, U Benzodiazepines Scrn < 85, Urine Cocaine Screen < 50, Urine Cannabis Screen < 5.00 08/01/16 1625: Anion Gap 18 H, Estimated GFR > 60, BUN/Creatinine Ratio 20.0, Glucose 533 *H, Calcium 9.4, Total Bilirubin 1.8 H, AST 130 H, ALT 162 H, Alkaline Phosphatase 106, Total Protein 8.4 H, Albumin 4.4, Globulin 4.0, Albumin/ Globulin Ratio 1.1, CBC w Diff NO MAN DIFF REQ, RBC 4.57 L, MCV 91.9, MCH 31.5 H, RDW 14.2, MPV 11.2 H, Gran % 74.7, Lymphocytes % 17.7 L, Monocytes % 7.0, Eosinophils % 0.3, Basophils % 0.3, Absolute Granulocytes 8.3 H, Absolute Lymphocytes 2.0, Absolute Monocytes 0.8 H, Absolute Eosinophils 0, Absolute Basophils 0, PUBS MCHC 34.2, Serum Alcohol < 10.0, Acetone Level NEGATIVE Past History Past Medical History Neurological: peripheral neuropathy EENT: NONE Cardiovascular: hypertension, hyperlipidemia Respiratory: NONE Gastrointestinal: NONE, Hepatitis C Hepatic: hepatitis C (currently taking Harvoni) Renal: NONE Musculoskeletal: NONE Psychiatric: anxiety, depression, IV drug abuse (hx of; mainly remitted x6 yrs), schizo affective disorder (currently on Suboxone therapy), substance abuse Endocrine: diabetes, diabetic ketoacidosis, obesity Blood Disorders: NONE Cancer(s): LEFT TESTICULAR CA 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 Physical Limitations (Interventions): None reported Psychiatric Treatment History Psych Treatment Psychiatric Treatment Yes Inpatient Treatment Yes Outpatient Treatment Yes Location of Treatment IP - several recent admissions to [facility]. OP - [facility] Reason for Treatment Schizoaffactive D/O, Opioid Dependence Dates of Treatment IP - Several in , most recnt was 05/31/16 - . OP - current Response to Treatment unk Diagnosis by History: Schizoaffective D/O, depressed type Opiate Use D/O, in early remission Substance Use/Abuse History Drug Use/Abuse Substances Used/Abused Yes Substance Used/Abused Heroin First Use unk Last Used May 2016 How much used/taken unk How often unk For how long several years Route of use unk Substance Abuse Treatment Substance Abuse Treatment Past Substance Abuse TX Yes Inpatient Treatment Yes Outpatient Treatment Yes Location of Treatment IP - [facility], OP - [facility] Reason for Treatment Opioid Use D/O Dates of Treatment [facility] in June 2016, [facility] is current Response to Treatment Pt reports that he has been clean for about the past month. Comments: Pt. is currently prescribed Suboxone. Current Mental Status Mental Status Orientation: Person, Place, Situation Affect: Anxious Speech: WNL Neuro-vegetative: Anhedonia, Appetite Decreased, Sleep Disturbance Appearance Appearance- Dress/Hygiene: WNL Behaviors Thought Process: WNL Thought Content: WNL Memory: WNL Insight: Fair SI/HI Risk Assessment Past Suicidal Ideation/Attempts Yes (several past attempts by OD) Current Suicidal Ideation/Att Yes (states thinks of OD'ing) Past Homicidal Ideation/Att: No Current Homicidal Ideation/Attempts No Degree of Intent: Plan Danger To: Self Gravely Disabled: none Risk Factors: high anxiety/distress, history of suicide atmpts, SA/MH hospitalized, substance abuse, lives alone, male Lethality Ratin PTSD Checklist PTSD Done? patient declined ED Management Sitter: Yes Restraints: No DSM5/PS Stressors/Medical Prob Diagnosis' (DSM 5, Stressors, Medical): F25.9 - Schizoaffective D/O, F11.20 - Opiate Use D/O, severe. Stessors - none. Medical - none. Current GAF: 30 Comments: Pt. is reporting SI with a plan to OD and is w/d'ing from Suboxone. Departure Disposition Psych Medical Clearance Date: 08/01/16 Medically Cleared at: 1814 Time Started: 1814 Time Ended: 1844 Psychiatrist Consulted: Filipe Golden MD Date Disposition Established: 08/01/16 Time Disposition Established: 1844 Plan for Disposition - Modality: H/O in ED; re-eval in AM Facility: [facility] Contact: n/a Telephone: n/a Rationale for Disposition: Pt reports SI with a plan to OD, however he has been off of his psychiatric medications for 5 days and is currently w/d'ing from Suboxone. Pt will be h/o in ED and will be given his medications tonight (Effexor, Abilify, Excelsior Carbonate, Suboxone). He will re-assessed for SI by AM Crisis. Additional Instructions: n/a Referrals ISAI POWELL,DAWNA Huitron (PCP/Family)
--- NOTE | 2016-08-01 23:15 | NUR ---
FBG 334 AFTER ADDITONAL 2L NS BOLUS AND NOVOLIN 10MG SC AND NOVOLIN 5MG IV. DR. KEYES MADE AWARE. PT SLEEPING ON BED, AMBULATORY TO BATHROOM AFTER THIS CHECK.
--- NOTE | 2016-08-02 00:30 | NUR ---
FINGER STICK 200. PER DR CLAYTON, RECHECK FINGERSTICK IN 1 HR. PT HAS NO COMPLAINTS
--- NOTE | 2016-08-02 01:34 | NUR ---
FINGERSTICK 196. PER DR ROBIN, REPEAT FINGERSTICK IN 2 HRS. SITTER REMAINS IN ATTENDANCE
--- NOTE | 2016-08-02 03:37 | NUR ---
FINGERSTICK 179. SITTER REMAINS IN ATTENDANCE
--- NOTE | 2016-08-02 04:34 | NUR ---
BLOOD DRAWN AND SENT TO LAB. FINGERSTICK 154
--- NOTE | 2016-08-02 07:30 | NUR ---
AMBULATED TO BATHROOM WITH STEADY GAIT. MEDICATED PER EMAR WITH INSULIN. BREAKFAST TRAY PROVIDED. SITTER IN ATTENDANCE. Informed waiting has been performed.
--- NOTE | 2016-08-02 08:00 | NUR ---
PT SLEEPING VERY SOUNDLY. PT HAD BE AWAKENED TO BE MEDICATED WITH SUBOXONE. Informed waiting has been performed.
--- NOTE | 2016-08-02 09:32 | NUR ---
CRISIS AT BEDSIDE.
--- NOTE | 2016-08-02 10:00 | NUR ---
MEDIATED PER EMAR. AWAITING POC/DISPO. PT SOAKED WITH SWEAT, PROVIDED NEW BLUE PAPER SCRUB TOP. FINGERSTICK 214. Informed waiting has been performed.
--- NOTE | 2016-08-02 12:11 | NUR ---
CRISIS BACK AT BEDSIDE.
--- NOTE | 2016-08-02 14:15 | NUR ---
PT COUGHED AND HAND HIT AGAINST STRETCHER AND IV FELL OUT. PT CHANGED INTO NEW BLUE SCRUBS, BED CHANGED. PT AWARE HE IS AWAITING CXR.
--- NOTE | 2016-08-02 14:27 | NUR ---
RT AT BEDSIDE FOR NEB.
[2016-08-02] MEDS ORDERED: TESSALON PERLE100 M1 PO (14:51)
[2016-08-02] MEDS ORDERED: PROAIR HFA8.5 GM INH (14:51)
[2016-08-02] MEDS ORDERED: ZITHROMAX250 M2 PO (14:51)
--- NOTE | 2016-08-02 15:00 | NUR ---
REPORT HANDED OFF TO KAREN CLEMENS.
[2016-08-02 15:14] VITALS: BP 160/96
--- NOTE | 2016-08-02 15:18 | NUR ---
PT MEDICATED WITH ZITHROMAX 500MG
--- NOTE | 2016-08-02 15:24 | NUR ---
RX AND DISCHARGE INSTRUCTIONS GIVEN TO PT WITH VERBALIZED UNDERSTANDING. ADVISED TO FOLLOW POC AND RETURN NEEDED
--- NOTE | 2016-08-02 15:25 | NUR ---
1 VALUABLE AND 1 BELONGING BAG GIVEN BACK TO PT
--- NOTE | 2016-08-02 15:47 | RADIOLOGY REPORT ---
EXAMINATION: XR CHEST CLINICAL INFORMATION: Productive cough. COMPARISON: Chest done on 09/17/2013. TECHNIQUE: 2 views of the chest were obtained. FINDINGS: Both lung apices are symmetrically expanded and appear clear. The cardiomediastinal silhouette is within normal limits. There is no pleural effusion present. The visualized upper abdomen is unremarkable. Mild degenerative spondylosis is noted within the spine. IMPRESSION: No acute cardiopulmonary disease. Specifically, no radiographic evidence of pneumonia present.
== END 2016-08-02 15:25 ==
LOC: ERH 15:28 → ERHI 20:47
PROVIDERS: Emergency Medicine; ADMIT Pediatrics
DX: F32.9 Major depressive disorder, single episode, unspecified (principal); R45.851 Suicidal ideations; R51 Headache; I10 Essential (primary) hypertension; E78.5 Hyperlipidemia, unspecified; B18.2 Chronic viral hepatitis C; Z85.47 Personal history of malignant neoplasm of testis; J40 Bronchitis, not specified as acute or chronic; E66.9 Obesity, unspecified; F25.9 Schizoaffective disorder, unspecified; G62.9 Polyneuropathy, unspecified; E11.65 Type 2 diabetes mellitus with hyperglycemia; Z79.4 Long term (current) use of insulin; F11.20 Opioid dependence, uncomplicated
CPT/HCPCS: 1263; 6090; 80307; 96372; 96374; 96375; G0378; G0463; G0480; J0456; J0574; J1815

== ENCOUNTER 2016-08-06 22:07 | Emergency (ER) | payer OTHER, MEDICARE ==
[~2016-08-06] VITALS: Ht 175.3 cm; Wt 106.6 kg
[~2016-08-06 22:07] MED LIST changes: +PROAIR HFA8.5 GM INH; +TESSALON PERLE100 M1 PO; +ZITHROMAX250 M2 PO
--- NOTE | 2016-08-06 23:03 | ED PSYCHIATRIC COMPLAINT ---
History of Present Illness General Chief Complaint: Psychiatric Related Complaint Stated Complaint: PT IS ANXIEY AND POSTIVE FOR SI Source: patient Exam Limitations: no limitations Vital Signs & Intake/Output Vital Signs & Intake/Output Vital Signs Date Time Temp Pulse Resp B/P B/P Pulse O2 O2 Flow FiO2 Mean Ox Delivery Rate 08/07 0935 96.2 69 18 109/56 97 Room Air 08/07 0754 96.0 63 20 127/68 95 Room Air Room Air 08/07 0601 95.4 76 16 86/51 94 Room Air 08/07 0326 78 20 100/56 96 08/07 0151 96.3 84 18 70/50 96 Room Air 08/06 2210 98.6 92 18 198/90 99 Room Air ED Intake and Output 08/07 0000 08/06 1200 Intake Total Output Total Balance Patient 235 lb Weight Allergies Coded Allergies: Penicillins (Severe, ANAPHYLAXIS 05/11/16) peanut (Severe, ANAPHYLAXIS 05/11/16) Sulfa (Sulfonamide Antibiotics) (Intermediate, ANAPHYLAXIS 05/11/16) hydromorphone (From DILAUDID) (Intermediate, BODY TURNS RED AND ITCHY 05/11/16) lamotrigine (From LAMICTAL) (RASH 05/11/16) Reconcile Medications Albuterol Sulfate (Proair Hfa) 90 MCG HFA.AER.AD 2-4 PUF INH Q4-6 PRN PRN shortness of breath Aripiprazole (Abilify) 15 MG TABLET 30 MG PO AT BEDTIME CLEAR THOUGHTS/MOOD STABILITY Azithromycin (Zithromax) 250 MG TABLET 1 TAB PO DAILY bronchitis Benzonatate (Tessalon Perle) 100 MG CAPSULE 1 CAP PO TID PRN cough Buprenorphine HCl/Naloxone HCl (Suboxone 8 MG-2 MG Sl Film) 8 MG-2 MG FILM 2 STR SL DAILY Opioid replacement (Reported) Exenatide Microspheres (Bydureon Pen) 2 MG/0.65 ML PEN.INJCTR 2 MG SC ONCE A WEEK DIABETES Fenofibrate Nanocrystallized (Fenofibrate) 145 MG TABLET 1 TAB PO DAILY HIGH CHOLESTROL (Reported) Insulin Aspart (Novolog) 100 UNIT/ML VIAL 1 UNITS SC TIDAC/HS elevated blood sugar Insulin Detemir (Levemir) 100 UNIT/ML VIAL 80 UNITS SC BID diabetes management Lactulose 20 GRAM/30 ML SOLUTION 30 ML PO TID AMMONIA LEVEL (Reported) Lisinopril 40 MG TABLET 1 TAB PO DAILY blood pressure/kidney protectn ( Reported) [place] Carbonate 300 MG CAPSULE 300 MG PO 0800,2000 stabilize mood Metoprolol Succinate 100 MG TAB.ER.24H 1 TAB PO DAILY HYPERTENSION (Reported) Sitagliptin Phosphate (Januvia) 100 MG TABLET 1 TAB PO DAILY DM (Reported) Venlafaxine HCl (Effexor XR) 75 MG CAP.ER.24H 225 MG PO 0800 anti-depressant Triage Note: 51 YEAR OLD MALE COMES TO ER WITH COMPLAINTS OF INCREASED DEPRESSION FOR THE PAST WEEK, STOPPED TAKING HIS PRESCRIBED MEDS ABOUT 1 WEEK AGO. PT STATES THAT HIS APPETITE HAS DECREASED AND THAT HE IS NOT SLEEPING WELL , ADMITS TO USING COCAINE TODAY, DENIES ETOH. STATES THAT HE HAS POSITIVE SI THOUGHTS WITH PLAN TO OVERDOSE. Triage Nurses Notes Reviewed? yes Onset: Gradual Duration: day(s): Timing: recent history Severity: moderate Associated Symptoms: anxiety, suicidal ideation, paranoia HPI: 51 yo gentleman h/o of depression, drug abuse, from a sheltered living environment, presents after doing cocaine with increased anxiety, paranoia, and suicidal ideation. He notes that he stopped his psychiatric medications one week ago, has been doing cocaine. He states, "I hate my life... I'm living in a sober house... and my life amounts to nothing." He notes he has not seen his 2 children in many years. He believes that other people and his cell phone can read his thoughts. He denies hallucinations. He denies recent alcohol abuse or other drugs. He denies trauma. (KHADAR POWELL,NELLIE Coreas) Past History Travel History Traveled to [place] past 21 day No Medical History Any Pertinent Medical History? 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 No (KHADAR POWELL,NELLIE Coreas) Review of Systems Review of Systems Constitutional: Reports: no symptoms. EENTM: Reports: no symptoms. Respiratory: Reports: no symptoms. Cardiovascular: Reports: no symptoms. GI: Reports: no symptoms. Genitourinary: Reports: no symptoms. Musculoskeletal: Reports: no symptoms. Skin: Reports: no symptoms. Neurological/Psychological: Reports: no symptoms. Hematologic/Endocrine: Reports: no symptoms. Immunologic/Allergic: Reports: no symptoms. All Other Systems: Reviewed and Negative (KHADAR POWELL,NELLIE Coreas) Physical Exam Physical Exam General Appearance: well developed/nourished, mild distress Head: atraumatic Eyes: Bilateral: normal appearance. Ears, Nose, Throat: normal pharynx, normal ENT inspection, hearing grossly normal Neck: normal inspection, supple Respiratory: normal breath sounds Cardiovascular: regular rate/rhythm Gastrointestinal: soft, non-tender Extremities: normal range of motion Neurological/Psychiatric: no motor/sensory deficits, awake, agitated, anxious Appearance/Memory/Insight: disheveled, impaired insight Behavoir/Eye Contact/Speech: cooperative, increased rate of speech Thoughts/Hallucinations: paranoid Skin: intact, normal color, warm/dry SAD PERSONS SAD PERSONS Response Value Male Sex? yes 1 Age <19 or >45 years? yes 1 Depression/Hopelessness? yes 2 Previous Attempts/Psych Care yes 1 Excessive Ethanol/Drug Use? yes 1 Rational Thinking Loss? yes 2 Single//? yes 1 Social Support? has support 0 Total 9 SAD PERSONS Done? yes (KHADAR POWELL,NELLIE Coreas) Progress Differential Diagnosis: cocaine abuse, polysubstance, paranoia, schizophrenia, depression. Plan of Care: Orders Procedure Date/time Status Consistent Carbohydrate 2 08/07 L Active Regular Diet 08/07 B Complete Continuous Observation Monitor 08/07 1900 Active Continuous Observation Monitor 08/07 1500 Active Continuous Observation Monitor 08/07 1100 Active Continuous Observation Monitor 08/07 0700 Active EKG 08/06 2308 Active Continuous Observation Monitor 08/06 2302 Active URINE DRUG SCREEN FOR ER ONLY 08/06 2302 Complete ETHANOL 08/06 2302 Complete COMPREHENSIVE METABOLIC PANEL 08/06 2302 Complete CBC WITHOUT DIFFERENTIAL 08/06 2302 Complete ED CRISIS PSYCH CONSULT 08/06 2302 Active Laboratory Tests 08/06/16 2310: Serum Alcohol < 10.0 08/06/16 2310: Anion Gap 10, Estimated GFR > 60, BUN/Creatinine Ratio 20.0, Glucose 182 H, Calcium 9.5, Total Bilirubin 1.4 H, AST 153 H, ALT 155 H, Alkaline Phosphatase 87, Total Protein 7.9, Albumin 4.1, Globulin 3.8, Albumin/Globulin Ratio 1.1, CBC w Diff NO MAN DIFF REQ, RBC 4.16 L, MCV 93.4, MCH 31.3 H, RDW 15.1 H, MPV 9.9, Gran % 63.3, Lymphocytes % 27.8, Monocytes % 8.0, Eosinophils % 0.6, Basophils % 0.3, Absolute Granulocytes 5.3, Absolute Lymphocytes 2.3, Absolute Monocytes 0.7 H, Absolute Eosinophils 0.1, Absolute Basophils 0, PUBS MCHC 33.5, Urine Opiates Screen < 100.00, Methadone Screen 59, Barbiturate Screen 78, Ur Phencyclidine Scrn < 6.00, Amphetamines Screen 162, U Benzodiazepines Scrn < 85, Urine Cocaine Screen > 1000 H, Urine Cannabis Screen < 5.00 Initial ED EKG: normal axis, normal intervals, normal p-waves, normal QRS complex, normal sinus rhythm Hand-Off Endorsed To: SILVIA MUHAMMAD MD Endorsed Time: 07 Pending: consult (KHADAR POWELL,NELLIE Coreas) Comments: Cleared by psychiatry for discharge. (SILVIA MUHAMMAD MD) Departure Departure Condition: Stable Referrals: ISAI POWELL,DAWNA Huitron (PCP/Family) Comments 08/07/16, 1:40am... pt stable in ed, benign labs, notable for cocaine in urine. ekg benign. pt comfortable after ativan/zyprexa. Pt signed out to dr. muhammad at 7am. (KHADAR POWELL,NELLIE Coreas) Departure Time of Disposition: 937 Disposition: HOME OR SELF CARE Clinical Impression Primary Impression: Cocaine abuse Secondary Impressions: Depression Qualifiers: Depression Type: unspecified Qualified Code: F32.9 - Major depressive disorder, single episode, unspecified Paranoia Additional Instructions: Follow up with the recommendations of the dope maintenance worker Departure Forms: General Discharge Information (SILVIA MUHAMMAD MD)
[2016-08-06 23:23] LABS: ABSOLUTE BASOPHIL COUNT 0 /CUMM (0.0-0.2); ABSOLUTE EOSINOPHIL COUNT 0.1 /CUMM (0.0-0.7); ABSOLUTE GRANULOCYTE CT 5.3 /CUMM (1.4-6.5); ABSOLUTE LYMPH COUNT 2.3 /CUMM (1.2-3.4); ABSOLUTE MONOCYTE COUNT 0.7 /CUMM (0.10-0.60); BASOPHIL % 0.3 % (0.0-2.0); EOSINOPHIL % 0.6 % (0-5); GRANULOCYTE % 63.3 % (42.2-75.2); HEMATOCRIT 38.8 % (42-52); MEAN CORPUSCULAR HGB 31.3 PG (27.0-31.0); MEAN CORPUSCULAR HGB CONC 33.5 G/DL (33.0-37.0); MEAN CORPUSCULAR VOLUME 93.4 FL (80.0-94.0); MEAN PLATELET VOLUME 9.9 FL (7.4-10.4); PLATELET COUNT 110 /CUMM (130-400); RBC DISTRIBUTION WIDTH 15.1 % (11.5-14.5); RED BLOOD CELL CT 4.16 /CUMM (4.70-6.10); WHITE BLOOD CELL COUNT 8.3 /CUMM (4.8-10.8)
--- NOTE | 2016-08-07 08:58 | ED PSYCH CRISIS CONSULTATION ---
Crisis Consult Basic Assessment Date of Consult: 08/07/16 Responsible Person/Accompanied By: Patient self presented to ED. Insurance Authorization: Insurance #1: Insurance name: MEDICARE A Phone number: Policy number: [id number] Group number: Authorization number: ED Provider: Patient's ED Provider: KHADAR POWELL,NELLIE Coreas Primary Care Physician: Patient's PCP: DAWNA ALEX MD PCP's Current Psychiatrist: [facility] Chief Complaint: Psychiatric Related Complaint Patient's Quote: " I have had a lot of chaos lately." Present Illness: Patient self presented to ED late in the evening on 08/06/16 initially reporting SI. SW met with patient this AM and patient denying SI at present and denies HI/ AH/VH. Patient has long hx of [facility] admissions related to stopping meds, SI and cocaine use. psychiatry department is very familiar with patient and patient has long hx of drug use related to his admissions to [facility]. Patients drug screen is currently positive for cocaine and patient admits to using. Patient reports that he recently moved to a different recovery house in [place] (was previously staying at [facility]). Patient was vague when this financial underwriter asked quesions about the house and said there was "no name" of the house and "thinks" it is on [facility] in [place]. This financial underwriter informed patient that it would be important for us to contact his recovery house and outpatient provider to obtain collateral if he was seeking admission to the hospital. At that time patient retracted any previous statements of SI and stated that he was safe to leave the hospital and was only seeking to be re- started on meds. Patient reported that he had bronchitis recently and was on antibiotics and decided to stop his psych meds due to stomach issues while on the antibiotics. He reported being off his meds for 1 week. Patient is treated at [facility] and has agreed to follow up with them to re-start medication. Patient is declining admission to the hospital at this time, is able to contract for safety and is future oriented planning to return back to his recovery house. Patient's Address: [address] [place] [address] Other Phone Number: Who Do You Live With? Patient/Self Family/Informants Interviewed: no family/collateral ID'd Allergies - Coded Allergies: Penicillins (Severe, ANAPHYLAXIS 05/11/16) peanut (Severe, ANAPHYLAXIS 05/11/16) Sulfa (Sulfonamide Antibiotics) (Intermediate, ANAPHYLAXIS 05/11/16) hydromorphone (From DILAUDID) (Intermediate, BODY TURNS RED AND ITCHY 05/11/16) lamotrigine (From LAMICTAL) (RASH 05/11/16) Current Medications - Scheduled Medications Aripiprazole (Abilify) 15 MG TABLET 30 MG PO AT BEDTIME CLEAR THOUGHTS/MOOD STABILITY #28 TAB Prescribed by LE PINEDA APRN on 05/17/16 Azithromycin (Zithromax) 250 MG TABLET 1 TAB PO DAILY bronchitis #4 TAB Prescribed by SILVIA MUHAMMAD MD on 08/02/16 Buprenorphine HCl/Naloxone HCl (Suboxone 8 MG-2 MG Sl Film) 8 MG-2 MG FILM 2 STR SL DAILY Opioid replacement (Reported) Entered as Reported by NELLIE WHITE MD on 03/24/16 1044 Exenatide Microspheres (Bydureon Pen) 2 MG/0.65 ML PEN.INJCTR 2 MG SC ONCE A WEEK DIABETES #1 PEN Prescribed by LE PINEDA APRN on 05/17/16 Fenofibrate Nanocrystallized (Fenofibrate) 145 MG TABLET 1 TAB PO DAILY HIGH CHOLESTROL (Reported) Entered as Reported by TIFFANIE CHAPARRO on 07/08/13 1423 Insulin Aspart (Novolog) 100 UNIT/ML VIAL 1 UNITS SC TIDAC/HS elevated blood sugar #1 VIAL Prescribed by PARKER RIZZO MD on 06/07/16 Insulin Detemir (Levemir) 100 UNIT/ML VIAL 80 UNITS SC BID diabetes management #1 VIAL Prescribed by PARKER RIZZO MD on 06/07/16 Lactulose 20 GRAM/30 ML SOLUTION 30 ML PO TID AMMONIA LEVEL #2700 (Reported) Entered as Reported by MERCEDES SANCHEZ on 05/11/16 1814 Lisinopril 40 MG TABLET 1 TAB PO DAILY blood pressure/kidney protectn #90 ( Reported) Entered as Reported by NELLIE WHITE MD on 03/24/16 1037 [place] Carbonate 300 MG CAPSULE 300 MG PO 0800,1999 stabilize mood #28 Prescribed by PARKER RIZZO MD on 06/07/16 Metoprolol Succinate 100 MG TAB.ER.24H 1 TAB PO DAILY HYPERTENSION (Reported) Entered as Reported by TIFFANIE CHAPARRO on 07/08/13 1419 Sitagliptin Phosphate (Januvia) 100 MG TABLET 1 TAB PO DAILY DM #30 (Reported ) Entered as Reported by MERCEDES SANCHEZ on 08/01/16 1714 Venlafaxine HCl (Effexor XR) 75 MG CAP.ER.24H 225 MG PO 0800 anti-depressant # 42 TAB Prescribed by PARKER RIZZO MD on 06/07/16 Scheduled PRN Medications Albuterol Sulfate (Proair Hfa) 90 MCG HFA.AER.AD 2-4 PUF INH Q4-6 PRN PRN shortness of breath #1 INHAL Prescribed by SILVIA MUHAMMAD MD on 08/02/16 Benzonatate (Tessalon Perle) 100 MG CAPSULE 1 CAP PO TID PRN cough #21 CAP Prescribed by SILVIA MUHAMMAD MD on 08/02/16 Past History Past Medical History Neurological: peripheral neuropathy EENT: NONE Cardiovascular: hypertension, hyperlipidemia Respiratory: NONE Gastrointestinal: NONE, Hepatitis C Hepatic: hepatitis C (currently taking Harvoni) Renal: NONE Musculoskeletal: NONE Psychiatric: anxiety, depression, IV drug abuse (hx of; mainly remitted x6 yrs), schizo affective disorder (currently on Suboxone therapy), substance abuse Endocrine: diabetes, diabetic ketoacidosis, obesity Blood Disorders: NONE Cancer(s): 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 Physical Limitations (Interventions): None reported Psychiatric Treatment History Psych Treatment Psychiatric Treatment Yes Inpatient Treatment Yes Outpatient Treatment Yes Location of Treatment [facility] May 2016. Current OP [facility]. Reason for Treatment Depression, substance abuse. Diagnosis by History: Schizoaffective D/O, depressed type Opiate Use D/O, in early remission Substance Use/Abuse History Drug Use/Abuse Substances Used/Abused Yes Substance Used/Abused Cocaine First Use Unknown Last Used 08/06/16 How much used/taken Unknown How often Unknown, will not report accurately. For how long Long hx of use, unknown time frame. Route of use Nasal Substance Abuse Treatment Substance Abuse Treatment Past Substance Abuse TX Yes Inpatient Treatment Yes Outpatient Treatment Yes Location of Treatment [facility] Reason for Treatment Polysubstance use Dates of Treatment Current Response to Treatment Poor, continues to use cocaine frequently. Current Mental Status Mental Status Orientation: Person, Place, Situation Affect: Anxious Speech: Normal Neuro-vegetative: Anhedonia, Loss of Interest, Sleep Disturbance Appearance Appearance- Dress/Hygiene: In hospital issued scrubs, lying on bed, appears somewhat disheveled. Behaviors Thought Process: WNL Thought Content: WNL Memory: WNL Insight: Fair SI/HI Risk Assessment Past Suicidal Ideation/Attempts Yes Current Suicidal Ideation/Att No Past Homicidal Ideation/Att: No Current Homicidal Ideation/Attempts No Degree of Intent: Thoughts/No Intent Gravely Disabled: Lack of Insight, Poor Impulse Control Risk Factors: high anxiety/distress, history of suicide atmpts, substance abuse, poor impulse control, male Lethality Ratin PTSD Checklist PTSD Done? patient declined ED Management Sitter: Yes Restraints: No DSM5/PS Stressors/Medical Prob Diagnosis' (DSM 5, Stressors, Medical): F25.0 Schizoaffective Disorder, F14.20 Cocaine Use Disorder F11.10 Opioid Use Disorder In Remission Medical Conditions Hep C, HTN, Peripheral Neuropathy, Hyperlipidemia, Left Testicular Cancer/Orchiectomy Current GAF: 35 Departure Disposition Psych Medical Clearance Date: 08/07/16 Medically Cleared at: 0830 Time Started: 0830 Time Ended: 944 Psychiatrist Consulted: Dr. De Leon Date Disposition Established: 08/07/16 Time Disposition Established: 929 Plan for Disposition - Modality: Outpatient Facility: [facility] Follow-up Appt Date: 08/09/16 Rationale for Disposition: Patient retracted initial SI statements and was able to contract for safety to return back to recovery house. Patient refused coordination of care when crisis informed patient that we would need to contact his outpatient providers/recovery house where he resides. Patient has extensive hx with GH and there is no difference of outcome if outpatient providers are not involved in his treatment. Patient made provocative and passive statements when leaving the hospital which appear to be more in context of anger compared to true suicidal ideation. Patient is aware that he can return to local ED at anytime. Referrals ISAI POWELL,DAWNA Huitron (PCP/Family)
[2016-08-07 09:35] VITALS: BP 109/56
--- NOTE | 2016-08-07 10:13 | ED PSYCHIATRIST/APRN CONSULT ---
Psychiatrist/PLATE AND WELD INSPECTOR ED Consult Assessment and Plan: Pt seen prior to discharge for ER. Pt stated that worsening depression in the setting of medication discontinuation 2/2 N/V/D s/p abx administration days ago. Pt notes that used cocaine one day ago which lead to +SI. Initally at ER, stating +SI in setting of +utox with recent use, however, in speaking with MH provider at this time and this provider , denies SI but notes worsening depression. He was offered admission to [facility] for worsening depression and intermittent substance use. As previous admissions unable to coordinate care with supervised housing lead to relapse and readmission for depression and SI in the setting of substance use, requested pt give permission to coordinate care with current sober house. Pt declined admission stating he felt that it was not needed. He is seen at [facility] and plans to see them on Tuesday for treatment of substance use as well as psychiatric sx. He feels that meds are helpful when he takes them and plans to restart as has completed abx course and feeling much better. He reiterated his intent to seek treatement with [facility] on Wednesday 08/09 and to restart meds as helpful. He denies SI or HI. He denied psychotic, manic, or trauma-related sx. MSE Appears older than stated age, slightly dishelved, good eye contact, calm, cooperative behavior, mood "fine," affect slightly irritable, congruent, appropriate, non-labile, denies SI, active or passive, or HI, denies psychotic sx, I/J: fair A/P: Pt is hx of Schizoaffective disorder and Polysubstance dependence with recent substance use who intially presented with worsening depression and SI in the setting of medication discontinuation and cocaine use. Although initally suicidal, this has resolved as further away from acute use of substances. At this time, pt denying thoughts of or plan to hurt self or others. Although patient would benefit from restarting meds and theraputic support of inpatient unit, he is declining this, as is his right to. At this time, he is not acutely danger to self or others nor is he gravely disabled. While patient is at higher risk for accidental injury or harm given chronic intermittent substance use, he does not meet criteria for forced admission to inpatient psych unit under [facility]. Pt is future-oriented to (1) returning to sober house today and (2) seeking care with [facility] on Tuesday. In addition, patient has demonstrated ability multiple times in the past to seek care via calling 911 or coming into ER for psychiatric care and/or acute inpatient stabilization. Pt verbally acknowledged that he would seek treatment if depression worsening or re-emergance of SI or HI. He verbally acknowledged he knew how to seek care if needed. Pt discharged back to sober house. Plans to f/u on Tuesday with [facility] Pt confirmed would seek care via calling 911 or coming to ER if needed.
== END 2016-08-07 10:33 ==
LOC: ERH 22:07
PROVIDERS: Pediatrics
DX: F14.10 Cocaine abuse, uncomplicated (principal); F32.9 Major depressive disorder, single episode, unspecified; F22 Delusional disorders
CPT/HCPCS: 80307; 93005; 93010; 96372; G0463; G0480